=== PATIENT | male | born 1940 | race Caucasian/White ===

== ENCOUNTER 2016-10-27 23:19 | Inpatient (IN) | payer MEDICARE ==
--- NOTE | 2016-10-27 23:41 | ED Physician Chart ---
Chief Complaint/HPI - Patient Information Date Seen:: 10/27/16 Time Seen:: 23:30 Chief Complaint:: abdominal pain and diarrhea History of Present Illness:: Patient's had mild left lower quadrant abdominal pain and diarrhea for the last 10 days. Lab results returned positive for C diff today. Historian:: Patient Review:: Nurse's Note Reviewed, Transfer documents Reviewed Review of Systems - Review of Systems General/Constitutional: No fever, No chills Skin: No skin lesions Head: No headache Eyes: No loss of vision ENT: No earache Neck: No neck pain, No swelling Cardio Vascular: No chest pain, No palpitations Pulmonary: No SOB GI: Diarrhea, Pain G/U: No dysuria, No hematuria Musculoskeletal: No bone or joint pain Endocrine: No polyuria Psychiatric: No prior psych history, No depression, No anxiety Hematopoietic: No bruising Allergic/Immuno: No urticaria Neurological: No syncope, No focal symptoms Past Medical History - Past Medical History Past Medical History: HTN, PUD/GERD, Other (renal failure on dialysis for 4-5 year; sacral decubitus; acute and chronic wrist failure;) Family History: Diabetes Melitus Social History: Non Smoker, No Alcohol Surgical History: other (dialysis shunt; renal transplant one year ago; carpal tunnel both wrists) Psychiatricy History: None Medication: Reviewed Family Medical History - Family Member Mother History Unknown: Yes Physical Exam - Physical Examination General/Constitutional: Awake, Well-developed, well-nourished Head: Atraumatic Eyes: Lids, conjuctiva normal Skin: Nl inspection, No rash ENMT: External ears, nose nl, Lips, teeth, gums nl Neck: No nuchal rigidity Respiratory: Nl effort/Exclusion Other Respiratory comments:: Decreased breath sounds at bases and one out of 4 right basilar rales Cardio Vascular: RRR, No murmur, gallop, rubs GI: No hernia, Normal BS's, Nondistended Other GI comments:: 1 out of 4 left lower quadrant tenderness Extremities: Normal digits & nails Neuro/Psych: Alert/oriented, No focal deficits Misc: Normal back Labs/Radiology/EKG Results - Lab Results Results: Laboratory Results - last 24 hr 10/27/16 10/27/16 10/27/16 23:51 23:51 23:51 WBC 15.1 H RBC 3.36 L Hgb 10.4 L Hct 31.4 L MCV 93.3 MCH 31.0 MCHC Differential 33.2 RDW 18.8 Plt Count 177 MPV 8.7 Sodium 138 Potassium 3.8 Chloride 103 Carbon Dioxide 31.0 Anion Gap 7.8 BUN 17 Creatinine 1.1 Est GFR ( Amer) TNP Est GFR (Non-Af Amer) TNP BUN/Creatinine Ratio 15.5 Glucose 130 H Whole Bld Lactic Acid Calcium 9.6 Magnesium 1.7 L B-Natriuretic Peptide Lipase 10/27/16 10/27/16 23:51 23:51 WBC RBC Hgb Hct MCV MCH MCHC Differential RDW Plt Count MPV Sodium Potassium Chloride Carbon Dioxide Anion Gap BUN Creatinine Est GFR ( Amer) Est GFR (Non-Af Amer) BUN/Creatinine Ratio Glucose Whole Bld Lactic Acid 1.01 Calcium Magnesium B-Natriuretic Peptide 1730.0 H Lipase - Radiology Results Results: CXR: cardiomegaly; pulmonary congestion. CTabdomen and pelvis: cholelithiasis ; acute sigmoid diverticulitis ED Septic Shock - . Is Septic Shock (SBP<90, OR Lactate>4 mmol\L) present?: No Reassessment (Disposition) - Reassessment Reassessment Condition:: Unchanged - Diagnosis Diagnosis:: Congestive heart failure; anemia; leukocytosis; acute sigmoid diverticulitis - Patient Disposition Admitted to:: Med/Surg Admitting Medical Physician:: Juan Dahl Condition at Disposition:: Stable, Unchanged
[2016-10-28 00:03] LABS: HEMATOCRIT 31.4 % (39.0-49.0); HEMOGLOBIN 10.4 gm/dL (12.6-17.4); MEAN CELL VOLUME 93.3 fl (80-99); MEAN CORPUSCULAR HGB CONC 33.2 pg (28.0-36.0); MEAN PLATELET VOLUME 8.7 fl; PLATELET COUNT 177 Th/cmm (150-400); RED BLOOD COUNT 3.36 Mil/cmm (3.80-5.80); RED CELL DISTRIBUTION WIDTH 18.8 % (11.5-20.0)
[2016-10-28 00:13] LABS: WHITE BLOOD COUNT 15.1 Th/cmm (4.8-10.8)
[2016-10-28 00:21] LABS: ANION GAP 7.8 (7.0-16.0); BUN - UREA NITROGEN 17 mg/dL (7-25); BUN/CREATININE RATIO 15.5; CALCIUM SERUM 9.6 mg/dL (8.6-10.3); CHLORIDE 103 mEq/L (98-107); CREATININE - SERUM 1.1 mg/dL (0.7-1.3); GLUCOSE 130 mg/dL (70-105); MAGNESIUM 1.7 mg/dL (1.9-2.7); POTASSIUM SERUM 3.8 mEq/L (3.5-5.1); SODIUM SERUM 138 mEq/L (136-145)
[2016-10-28] MEDS ORDERED: metroNIDAZOLE 500mg/NS 100mL 500 MG in Premix Fluid 1 BAG IV ONE (03:08)
[2016-10-28] MEDS ORDERED: metroNIDAZOLE 500mg/NS 100mL 500 MG/100 ML BAG IV ONE (03:25)
[2016-10-28 03:38] LABS: URINE BILIRUBIN NEGATIVE (NEGATIVE); URINE BLOOD NEGATIVE (NEGATIVE); URINE COLOR YELLOW; URINE GLUCOSE (UA) NEGATIVE (NEGATIVE); URINE KETONE NEGATIVE (NEGATIVE); URINE PH 5.5 (4.6 - 8.0); URINE PROTEIN 30 mg/dL (NEGATIVE)
[2016-10-28 03:39] LABS: URINE UROBILINOGEN 0.2 E.U./dL (0.2 - 1.0)
[2016-10-28 03:40] LABS: URINE BACTERIA NONE SEEN /hpf (NONE SEEN); URINE EPITHELIAL CELLS NONE SEEN /lpf (FEW); URINE RBC NONE SEEN /hpf (0-5)
[2016-10-28] MEDS ORDERED: INSULIN ASPART SLIDING SCALE 100 UNITS/ML UNIT SUBQ PRN (03:51)
[2016-10-28 04:41] LABS: BAND NEUTROPHILE 6 % (0-10); BASOPHIL 0 % (0-3); EOSINOPHIL 0 % (0-5); NEUTROPHILS 85 % (40-80); PLATELET ESTIMATE ADEQUATE (NORMAL); PLATELET MORPHOLOGY NORMAL (NORMAL); TOTAL CELLS COUNTED 100
[2016-10-28 05:13] VITALS: BP 149/71
[2016-10-28] MEDS: INSULIN ASPART SLIDING SCALE 100 UNITS/ML UNIT SUBQ SCH ×4 (06:45→20:42)
[2016-10-28 07:09] LABS: HEMATOCRIT 30.2 % (39.0-49.0); MEAN CORPUSCULAR HEMOGLOBIN 30.9 pg (27.0-31.0); MEAN CORPUSCULAR HGB CONC 33.3 pg (28.0-36.0); MEAN PLATELET VOLUME 8.9 fl; PLATELET COUNT 168 Th/cmm (150-400); RED BLOOD COUNT 3.25 Mil/cmm (3.80-5.80); RED CELL DISTRIBUTION WIDTH 18.4 % (11.5-20.0)
[2016-10-28 07:33] LABS: ANION GAP 7.3 (7.0-16.0); BUN - UREA NITROGEN 16 mg/dL (7-25); BUN/CREATININE RATIO 14.5; CALCIUM SERUM 9.5 mg/dL (8.6-10.3); CARBON DIOXIDE 31.9 mEq/L (21.0-31.0); CHLORIDE 105 mEq/L (98-107); CREATININE - SERUM 1.1 mg/dL (0.7-1.3); GLUCOSE 95 mg/dL (70-105); POTASSIUM SERUM 3.2 mEq/L (3.5-5.1); SODIUM SERUM 141 mEq/L (136-145)
[2016-10-28] MEDS ORDERED: Hydrocodone/APAP 10 mg/325 mg Tab PO PRN (07:35)
[2016-10-28] MEDS ORDERED: Albuterol/Ipratropium Neb 3 ML AERS HHN PRN (07:35)
[2016-10-28 08:00] LABS: WHITE BLOOD COUNT 12.4 Th/cmm (4.8-10.8)
[2016-10-28 08:02] LABS: BAND NEUTROPHILE 3 % (0-10); NEUTROPHILS 85 % (40-80); TOTAL CELLS COUNTED 100
[2016-10-28 08:03] LABS: ANISOCYTOSIS 1+; PLATELET ESTIMATE ADEQUATE (NORMAL); PLATELET MORPHOLOGY NORMAL (NORMAL)
--- NOTE | 2016-10-28 08:03 | Diagnostic Imaging Report ---
CT scan abdomen and pelvis without intravenous contrast HISTORY: Pain Total DLP equals 698 CTDI equals 13.1 Axial sections were obtained from the xiphoid process down to the pubic symphysis. Limited sections the lower chest demonstrate cardiomegaly. There are moderate bilateral pleural effusions. Pulmonary parenchymal density noted within the lower lobes consistent with atelectasis and/or consolidation. The liver exhibits a homogeneous parenchyma. No focal lesions. The spleen is normal in size. Multiple gallstones are seen. No focal abnormality seen in the region of the pancreas. Kidneys are atrophic bilaterally. Minimal ascites/perihepatic fluid noted. A transplant kidney is noted in the right iliac fossa. No focal lesions or hydronephrosis. Diverticula scattered within the colon. There is haziness along a segment of the lower descending/sigmoid colon. Inflammatory change (diverticulitis) cannot be excluded. Small amount of fluid noted in the lower pelvis. Clinical correlation is needed. Extensive surgical changes associated with metallic orthopedic hardware noted within the lumbar spine. Calcifications noted within the subcutaneous fatty tissues over the gluteal regions consistent with prior percutaneous injections. Additional severe degenerative changes noted throughout the spine. Atherosclerotic vascular calcification noted. IMPRESSION: 1. Haziness along a segment of the lower descending/sigmoid colon. Changes may be associated with acute diverticulitis. Clinical correlation is needed. 2. Right transplant kidney associated with atrophic bill moore[place] slough kidneys 3. Surgical and severe degenerative changes within the spine 4. Cardiomegaly with bilateral pleural effusions and underlying pulmonary parenchymal changes consistent with atelectasis and/or consolidation 5. Cholelithiasis
--- NOTE | 2016-10-28 08:06 | Diagnostic Imaging Report ---
Portable chest x-ray HISTORY: Shortness of breath There is marked cardiomegaly. Density seen within the left lower hemithorax with obscuration of the left hemidiaphragm. Findings suggest changes of a left pleural effusion. Underlying pulmonary parenchymal pathology including pneumonia and/or atelectasis cannot be excluded. Atherosclerotic calcification seen in the aorta. IMPRESSION: 1. Marked cardiomegaly with atherosclerotic vascular changes 2. Opacification of the left lower hemithorax consistent with a pleural effusion. Underlying pneumonia and/or atelectasis cannot be needed.
[2016-10-28] MEDS ORDERED: MYCOPHENOLATE MOFETIL 750 MG PO SCH ×2 (09:00)
[2016-10-28] MEDS ORDERED: Diphenoxylate/Atropine 2.5mg Tab PO SCH (09:00)
[2016-10-28] MEDS ORDERED: Non-Formulary Item 1 EA (Arginine/Ascorbate Sod/Vite Ac [Arginaid Powder] 1 EACH) PO SCH (09:00)
[2016-10-28] MEDS ORDERED: Potassium Chloride 20 mEq ER Tab PO SCH (09:00)
[2016-10-28] MEDS: Ferrous Sulfate 325 MG TAB PO SCH (09:20)
[2016-10-28] MEDS: Multivitamin Tab PO SCH (09:21)
[2016-10-28] MEDS: Pantoprazole 40 mg EC Tab PO SCH (09:33)
[2016-10-28] MEDS ORDERED: metroNIDAZOLE 500mg/NS 100mL 500 MG in Premix Fluid 1 BAG IV SCH (11:30)
[2016-10-28] MEDS: Diltiazem 30 mg Tab PO SCH ×2 (12:49→17:27)
[2016-10-28] MEDS ORDERED: Mag Sulfate 2gm/50mL Premix 2 GM/50 ML BAG IV ONE (13:41)
[2016-10-28] MEDS ORDERED: VTE Chemical Prophylaxis Screen/Admission MC PRN (13:46)
--- NOTE | 2016-10-28 14:45 | Infectious Disease Prog Note ---
Infectious Disease Subjective - Review of Systems Service Date: 10/28/16 Infectious Disease Objective - Results Result Diagrams: 10/28/16 06:20 10/28/16 06:20 Recent Labs: Laboratory Last Values WBC 12.4 Th/cmm (4.8-10.8) H 10/28/16 06:20 RBC 3.25 Mil/cmm (3.80-5.80) L 10/28/16 06:20 Hgb 10.0 gm/dL (12.6-17.4) L 10/28/16 06:20 Hct 30.2 % (39.0-49.0) L 10/28/16 06:20 MCV 93.0 fl (80-99) 10/28/16 06:20 MCH 30.9 pg (27.0-31.0) 10/28/16 06:20 MCHC Differential 33.3 pg (28.0-36.0) 10/28/16 06:20 RDW 18.4 % (11.5-20.0) 10/28/16 06:20 Plt Count 168 Th/cmm (150-400) 10/28/16 06:20 MPV 8.9 fl 10/28/16 06:20 Band Neutrophils % 3 % (0-10) 10/28/16 06:20 Neutrophils (Manual) 85 % (40-80) H 10/28/16 06:20 Lymphocytes 3 % (20-50) L 10/28/16 06:20 Monocytes 8 % (2-10) 10/28/16 06:20 Eosinophils 0 % (0-5) 10/27/16 23:51 Basophils 0 % (0-3) 10/27/16 23:51 Atypical Lymphocytes 1 % 10/28/16 06:20 Platelet Estimate ADEQUATE (NORMAL) 10/28/16 06:20 Platelet Morphology NORMAL (NORMAL) 10/28/16 06:20 Anisocytosis 1+ 10/28/16 06:20 RBC Morph Micro Appear ABNORMAL (NORMAL) 10/28/16 06:20 Sodium 141 mEq/L (136-145) 10/28/16 06:20 Potassium 3.2 mEq/L (3.5-5.1) L 10/28/16 06:20 Chloride 105 mEq/L (98-107) 10/28/16 06:20 Carbon Dioxide 31.9 mEq/L (21.0-31.0) H 10/28/16 06:20 Anion Gap 7.3 (7.0-16.0) 10/28/16 06:20 BUN 16 mg/dL (7-25) 10/28/16 06:20 Creatinine 1.1 mg/dL (0.7-1.3) 10/28/16 06:20 Est GFR ( Amer) TNP 10/28/16 06:20 Est GFR (Non-Af Amer) TNP 10/28/16 06:20 BUN/Creatinine Ratio 14.5 10/28/16 06:20 Glucose 95 mg/dL (70-105) 10/28/16 06:20 POC Glucose 119 MG/DL (70 - 105) H 10/28/16 11:32 Whole Bld Lactic Acid 1.01 mmol/L (0.60-1.99) 10/27/16 23:51 Calcium 9.5 mg/dL (8.6-10.3) 10/28/16 06:20 Magnesium 1.7 mg/dL (1.9-2.7) L 10/27/16 23:51 B-Natriuretic Peptide 1730.0 pg/mL (5.0-100.0) H 10/27/16 23:51 Lipase 25 U/L (11-82) 10/27/16 23:51 Urine Source RANDOM 10/28/16 02:25 Urine Color YELLOW 10/28/16 02:25 Urine Clarity CLEAR (CLEAR) 10/28/16 02:25 Urine pH 5.5 (4.6 - 8.0) 10/28/16 02:25 Ur Specific [place] 1.025 (1.005-1.030) 10/28/16 02:25 Urine Protein 30 mg/dL (NEGATIVE) H 10/28/16 02:25 Urine Glucose (UA) NEGATIVE mg/dL (NEGATIVE) 10/28/16 02:25 Urine Ketones NEGATIVE mg/dL (NEGATIVE) 10/28/16 02:25 Urine Blood NEGATIVE (NEGATIVE) 10/28/16 02:25 Urine Nitrate NEGATIVE (NEGATIVE) 10/28/16 02:25 Urine Bilirubin NEGATIVE (NEGATIVE) 10/28/16 02:25 Urine Urobilinogen 0.2 E.U./dL (0.2 - 1.0) 10/28/16 02:25 Ur Leukocyte Esterase TRACE (NEGATIVE) H 10/28/16 02:25 Urine RBC NONE SEEN /hpf (0-5) 10/28/16 02:25 Urine WBC 2-5 /hpf (0-5) H 10/28/16 02:25 Ur Epithelial Cells NONE SEEN /lpf (FEW) 10/28/16 02:25 Urine Bacteria NONE SEEN /hpf (NONE SEEN) 10/28/16 02:25 - Physical Exam Vitals and I&O: Vital Signs Temp 97.1 F 10/28/16 11:00 Pulse 88 10/28/16 12:49 Resp 14 10/28/16 11:59 BP 156/72 10/28/16 11:00 Pulse Ox 96 10/28/16 11:59 Intake & Output 10/27/16 10/28/16 10/28/16 18:59 06:59 18:59 Intake Total 220 Balance 220 Weight (lbs) 94.801 kg Intake: Intake, IV Amount 100 Oral 120 Other: # Voids 1 Active Medications: Current Medications Acetaminophen/Hydrocodone Bitart ([place] 10 Mg/325 Mg) 1 tab PO Q6H PRN PRN Reason: Pain (Moderate) Stop: 12/27/16 07:34 Albuterol/Ipratropium (Duoneb Neb) 3 ml HHN Q4HR PRN PRN Reason: Shortness of Breath Stop: 12/27/16 07:34 Ascorbic Acid (Vitamin C) 500 mg PO DAILY HUMERA Stop: 12/27/16 08:59 Last Admin: 10/28/16 09:21 Dose: 500 mg Diltiazem HCl (Cardizem) 30 mg PO Q6HR HUMERA Stop: 12/27/16 11:59 Last Admin: 10/28/16 12:49 Dose: 30 mg Ferrous Sulfate (Iron) 325 mg PO DAILY HUMERA Stop: 12/27/16 08:59 Last Admin: 10/28/16 09:20 Dose: 325 mg Furosemide (Lasix) 20 mg PO DAILY HUMERA Stop: 12/27/16 08:59 Last Admin: 10/28/16 09:21 Dose: 20 mg Heparin Sodium (Porcine) (Heparin) 5,000 units SUBQ Q12H HUMERA Stop: 12/27/16 20:59 Magnesium Sulfate (Magnesium Sulfate Premix) 2 gm in 50 mls @ 25 mls/hr IV X1 ONE Stop: 10/28/16 15:40 Last Admin: 10/28/16 13:54 Dose: 25 mls/hr Insulin Aspart (Novolog Insulin Sliding Scale) 0 units SUBQ ACHS HUMERA PRN Reason: Protocol Stop: 12/27/16 07:29 Last Admin: 10/28/16 11:48 Dose: Not Given Metronidazole (Flagyl) 500 mg PO TID HUMERA Stop: 12/27/16 11:59 Last Admin: 10/28/16 12:49 Dose: 500 mg Miscellaneous (Mycophenolate Mofetil [Cellcept]) 750 mg PO BID HUMERA Stop: 12/27/16 08:59 Miscellaneous (Vte Chemical Prophylaxis Screen/ Admission) 1 ea MC PRN PRN PRN Reason: PROTOCOL Stop: 12/27/16 13:45 Multivitamins/Vitamin C (Theragran) 1 tab PO DAILY HUMERA Stop: 12/27/16 08:59 Last Admin: 10/28/16 09:21 Dose: 1 tab Nitroglycerin (Nitrostat) 0.4 mg SL Q5MIN PRN PRN Reason: Chest Pain Stop: 12/27/16 07:34 Pantoprazole Sodium (Protonix) 40 mg PO QDAC HUMERA Stop: 12/27/16 08:59 Last Admin: 10/28/16 09:33 Dose: 40 mg Mycophentholate (750mg Tab) 1 PO BID HUMERA Stop: 12/27/16 08:59 Last Admin: 10/28/16 11:03 Dose: Not Given Potassium Chloride (Klor-Con) 40 meq PO DAILY HUMERA Stop: 12/27/16 08:59 Last Admin: 10/28/16 09:20 Dose: 40 meq Prednisone (Deltasone) 20 mg PO DAILY HUMERA Stop: 12/27/16 08:59 Last Admin: 10/28/16 09:20 Dose: 20 mg Tacrolimus (Prograf) 1 mg PO BID HUMERA Stop: 12/27/16 08:59 Last Admin: 10/28/16 11:03 Dose: Not Given Zinc Sulfate (Zinc Sulfate) 220 mg PO DAILY HUMERA Stop: 12/27/16 08:59 Last Admin: 10/28/16 09:21 Dose: 220 mg Zolpidem Tartrate (Ambien) 5 mg PO HS PRN PRN Reason: Insomnia Stop: 12/27/16 07:34 Nutritional Asmnt/Malnutr-PDOC - Dietary Evaluation Malnutrition Findings (Please click <Entered> for more info): Nutritional Asmnt/Malnutrition Start: 10/28/16 11: 15 Text: Status: Complete Freq: Document 10/28/16 11:15 [email or web address] (Rec: 10/28/16 11:40 GSUN [id number]) Nutritional Asmnt/Malnutrition Patient General Information Nutritional Screening High Risk Screening Diagnosis C Diff, acute sigmoid diverticulitis, CHF Pertinent Medical Hx/Surgical Hx ER: HTN, PUD/GERD, renal failure on dialysis for 4-5 years received right kidney transplant, Subjective Information 76 year old male from SNF. Per ER notes, pt had abdominal pain and diarrhea for past 10 days. Pt stated no diarrhea today or yesterday, since adm. 10/28 CT: diverticula, diverticulitis cannot be excluded. Observed disbosable breakfast tray at bedside during visit, pt stated he just woke up and ready to eat. Pt reported appetite has been poor, "food at [place] is horrible," and that he has recent weight loss due to this , weight was 225lb 2 weeks ago , CBW 210lb, questionable. RD noted pt's food preferences. No muscle wasting noted. Current Diet Order/ Nutrition Support Low sodium Pertinent Medications Vitamin C, Iron, Lasic, Novolog, Theragran, Zinc Sulfate Pertinent Labs Reviewed. Nutritional Hx/Data Height 1.88 m Height (Calculated Centimeters) 188.0 Current Weight (lbs) 94.801 kg Weight (Calculated Kilograms) 94.8 Weight (Calculated Grams) 83287.8 Usual body Weight (lbs) 225 [place] Body Weight 190 Recent Weight Change Yes Weight Status Overweight GI Symptoms Food Allergies No Cultural/Ethnic/Caodaism Belief Dislikes gravy, fish, yogurt. Usual diet at home [place]: renal, CCHO, OSKAR, regular consistency Skin Integrity/Comment: [place] 16. Skin tear to right hand and left leg. Estimated Nutritional Goals BEE in Kcals: Using Current wt Calories/Kcals/Kg CBW 209lb/95kg Kcals Calculated 2375-2850kcal (25-30kcal/kg) Protein: Using Current wt Protein Calculated 95g (1g/kg) Fluid: ml 2375-2850ml (1ml/kcal) Nutritional Problem 2. Problem Problem (possible) Involuntary weight loss related to Etiology "food at [place] is horrible" aeb Signs/Symptoms: pt report ~15lb weight loss in 2 weeks 1. Problem Problem Altered GI function related to Etiology C Diff, diverticulitis aeb Signs/Symptoms: abdominal and diarrhea x10 days prior to adm per ER notes Intervention/Recommendation Comments 1. Continue with low sodium diet. 2. Recommend soft/bland diet if diarrhea or diverticulitis. Pt report currently no diarrhea. CT abdomen: diverticula, diverticulitis cannot be excluded. 3. Monitor weight. CBW 210lb, pt report weight 225lb 2 weeks ago, involuntary weight loss due to "food at [place] is horrible." Obtained pt's food preferences. Expected Outcomes/Goals Expected Outcomes/Goals 1. PO intake to meet at least 75% of estimated nutritional needs.
--- NOTE | 2016-10-28 14:47 | Consultation ---
Consult Note - Consult Note Service Date: 10/28/16 Consult Note: PHYSICIAN Consultation Note: Date of Admission: 10/28/16 Purpose of Consultation: Chief Complaint: Patient DARBY MOLINA was admitted to location Medical[facility]Surgical Unit I with SIGMOID DIVERTICULITS,C-DIFF,CHF. History of Present Illness: 76 y male with history of renal failure and had renal transplant last year, had developed diarrhea for last 10 days and stool for c diff toxin came positive, so he was sent to the ER for further treatment. CT abd and pelvis revealed diverticulitis. He was put on flagylIV and ID consult was called for antibiotic management. Past Medical History: Allergies Allergy/AdvReac Type Severity Reaction Status Date / Time Penicillins Allergy Verified 10/27/16 23:50 Vital Signs Temp 97.1 F 10/28/16 11:00 Pulse 88 10/28/16 12:49 Resp 14 10/28/16 11:59 BP 156/72 10/28/16 11:00 Pulse Ox 96 10/28/16 11:59 Intake & Output 10/27/16 10/28/16 10/28/16 18:59 06:59 18:59 Intake Total 220 Balance 220 Weight (lbs) 94.801 kg Intake: Intake, IV Amount 100 Oral 120 Other: # Voids 1 Laboratory Results - last 24 hr 10/28/16 10/28/16 10/28/16 05:35 06:20 06:20 WBC 12.4 H RBC 3.25 L Hgb 10.0 L Hct 30.2 L MCV 93.0 MCH 30.9 MCHC Differential 33.3 RDW 18.4 Plt Count 168 MPV 8.9 Band Neutrophils % 3 Neutrophils (Manual) 85 H Lymphocytes 3 L Monocytes 8 Atypical Lymphocytes 1 Platelet Estimate ADEQUATE Platelet Morphology NORMAL Anisocytosis 1+ RBC Morph Micro Appear ABNORMAL Sodium 141 Potassium 3.2 L Chloride 105 Carbon Dioxide 31.9 H Anion Gap 7.3 BUN 16 Creatinine 1.1 Est GFR ( Amer) TNP Est GFR (Non-Af Amer) TNP BUN/Creatinine Ratio 14.5 Glucose 95 POC Glucose 88 Calcium 9.5 10/28/16 11:32 WBC RBC Hgb Hct MCV MCH MCHC Differential RDW Plt Count MPV Band Neutrophils % Neutrophils (Manual) Lymphocytes Monocytes Atypical Lymphocytes Platelet Estimate Platelet Morphology Anisocytosis RBC Morph Micro Appear Sodium Potassium Chloride Carbon Dioxide Anion Gap BUN Creatinine Est GFR ( Amer) Est GFR (Non-Af Amer) BUN/Creatinine Ratio Glucose POC Glucose 119 H Calcium Home Medication Medication Instructions Recorded Type Acetaminophen [Tylenol] 325 mg PO Q4HR PRN 10/28/16 History Albuterol/Ipratropium Neb [Duoneb 3 ml HHN Q4HR PRN 10/28/16 History Neb] Arginine/Ascorbate Sod/Janel AC 1 each PO DAILY 10/28/16 History [Arginaid Powder] Ascorbic Acid [Vitamin C] 500 mg PO DAILY 10/28/16 History Diltiazem [Cardizem] 30 mg PO Q6HR 10/28/16 History Diphenoxylate HCl/Atropine 1 tab PO TID 10/28/16 History [Lomotil 2.5-0.025 mg Tablet] Docusate Sodium [Colace] 100 mg PO BID 10/28/16 History Ferrous Sulfate [Iron] 325 mg PO DAILY 10/28/16 History Furosemide [Lasix] 20 mg PO DAILY 10/28/16 History GLUCAGON HCl [Glucagen] 1 mg IM Q6HR PRN 10/28/16 History Hydrocodone/APAP 10 mg/325 mg 1 tab PO Q6H PRN 10/28/16 History [[place] 10 mg/325 mg] Insulin Aspart Sliding Scale See Protocol SUBQ PRN PRN 10/28/16 History [NovoLOG INSULIN SLIDING SCALE] Lactulose 30 ml PO Q6HR 10/28/16 History Multivitamin [Theragran] 1 tab PO DAILY 10/28/16 History Mycophenolate Mofetil [Cellcept] 750 mg PO BID 10/28/16 History Nitroglycerin 0.4 mg SL Q5MIN PRN MDD 3 10/28/16 History Pantoprazole [Protonix] 40 mg PO DAILY 10/28/16 History Potassium Chloride ER [Klor-Con] 40 meq PO DAILY 10/28/16 History Prednisone [Deltasone] 20 mg PO DAILY 10/28/16 History Tacrolimus [Prograf] 1 mg PO BID 10/28/16 History Zinc Sulfate [Zinc Sulfate 111 1 tab PO DAILY 10/28/16 History mg-50 mg] Zolpidem Tartrate 5 mg PO HS PRN 10/28/16 History cloNIDine 0.2 mg/24 hr 1 patch TD Th 10/28/16 History [[id number]*] Current Medications Generic Name Dose Route Start Last Admin Trade Name Freq PRN Reason Stop Dose Admin Acetaminophen/Hydrocodone Bitart 1 tab 10/28/16 07:35 [place] 10 Mg/325 Mg PO 12/27/16 07:34 Q6H PRN Pain (Moderate) Albuterol/Ipratropium 3 ml 10/28/16 07:35 Duoneb Neb HHN 12/27/16 07:34 Q4HR PRN Shortness of Breath Ascorbic Acid 500 mg 10/28/16 09:00 10/28/16 09:21 Vitamin C PO 12/27/16 08:59 500 mg DAILY HUMERA Administration Diltiazem HCl 30 mg 10/28/16 12:00 10/28/16 12:49 Cardizem PO 12/27/16 11:59 30 mg Q6HR HUMERA Administration Ferrous Sulfate 325 mg 10/28/16 09:00 10/28/16 09:20 Iron PO 12/27/16 08:59 325 mg DAILY HUMERA Administration Furosemide 20 mg 10/28/16 09:00 10/28/16 09:21 Lasix PO 12/27/16 08:59 20 mg DAILY HUMEAR Administration Heparin Sodium (Porcine) 5,000 units 10/28/16 21:00 Heparin SUBQ 12/27/16 20:59 Q12H HUMERA Magnesium Sulfate 2 gm in 50 mls @ 25 mls/hr 10/28/16 13:41 10/28/16 13:54 Magnesium Sulfate Premix IV 10/28/16 15:40 25 mls/hr X1 ONE Administration Insulin Aspart 0 units 10/28/16 07:30 10/28/16 11:48 Novolog Insulin Sliding Scale SUBQ 12/27/16 07:29 Not Given ACHS HUMERA Protocol Metronidazole 500 mg 10/28/16 12:00 10/28/16 12:49 Flagyl PO 12/27/16 11:59 500 mg TID HUMERA Administration Miscellaneous 750 mg 10/28/16 09:00 Mycophenolate Mofetil [Cellcept] PO 12/27/16 08:59 BID HUMERA Miscellaneous 1 ea 10/28/16 13:46 Vte Chemical Prophylaxis Screen/ Admission 12/27/16 13:45 PRN PRN PROTOCOL Multivitamins/Vitamin C 1 tab 10/28/16 09:00 10/28/16 09:21 Theragran PO 12/27/16 08:59 1 tab DAILY HUMERA Administration Nitroglycerin 0.4 mg 10/28/16 07:35 Nitrostat SL 12/27/16 07:34 Q5MIN PRN Chest Pain Pantoprazole Sodium 40 mg 10/28/16 09:00 10/28/16 09:33 Protonix PO 12/27/16 08:59 40 mg QDAC HUMERA Administration Mycophentholate 1 10/28/16 09:00 10/28/16 11:03 750mg Tab PO 12/27/16 08:59 Not Given BID HUMERA Potassium Chloride 40 meq 10/28/16 09:00 10/28/16 09:20 Klor-Con PO 12/27/16 08:59 40 meq DAILY HUMERA Administration Prednisone 20 mg 10/28/16 09:00 10/28/16 09:20 Deltasone PO 12/27/16 08:59 20 mg DAILY HUMERA Administration Tacrolimus 1 mg 10/28/16 09:00 10/28/16 11:03 Prograf PO 12/27/16 08:59 Not Given BID HUMERA Zinc Sulfate 220 mg 10/28/16 09:00 10/28/16 09:21 Zinc Sulfate PO 12/27/16 08:59 220 mg DAILY HUMERA Administration Zolpidem Tartrate 5 mg 10/28/16 07:35 Ambien PO 12/27/16 07:34 HS PRN Insomnia Review of Systems: A 12 point ROS was reviewed with the pertinent positive and negatives noted in the HPI. GEN:No fever, no chills. no gen weakness. HEENT: no diplopia, no photophobia, no sorethroat. RS: No cough no SOB. CVS: no chest pain. no palpitaions. GI: Diarrhea improving, , no dysuria. 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 Social History Smoking Status Former smoker Drug Use No Alcohol Use No: STOPPED LONG TIME AGO Family Medical History Unknown Physical Exam: General: WN WD, not in distress. HEENT: Head is normocephalic, atraumatic, not in any acute distress. oral cavity moist, eyes no pallor, no icterus. Neck: supple, no JVD, no carotid bruit. Cardio: S1 and S2 WNL. Respiratory: CTAP. Abdominal: Soft ND BS present, trasplanted kidney in RLQ. mild tenderness in LLQ. Genital/Urinary: deferred. Extremities: NCCE. Neurological: AAOx3. Assessment: 1. Duarrhea, C diff colitis. 2. Leukocytosis 2/2 CDI. 3. Renal failure, s/p renal transplant. 4. DM 5. Immuno-suppressed status. 6. Left sided pleural effusion. 7. CHF. Plan: Continue flagyl. Signed, Brian Santana M.D. [id number]
--- NOTE | 2016-10-28 19:35 | History & Physical ---
ADMIT DATE: 10/28/2016 HISTORY OF PRESENT ILLNESS: The patient had mild left lower quadrant pain that was lasting for 10 days, was having diarrhea and found to have C. diff. REVIEW OF SYSTEMS: No fever, no chills, no skin lesion, no headache, no loss of vision, complaining of diarrhea. PAST MEDICAL HISTORY: History of hypertension, peptic ulcer disease, history of renal failure on dialysis for 4-5 years, had an implant and the patient had sacral decubiti and recently has had surgery for his abdomen and perforated bowel. PHYSICAL EXAMINATION: GENERAL: Alert, oriented, elderly male patient. VITAL SIGNS: Noted. HEAD: Normal. ENT: Normal. NECK: Supple, nontender. LUNGS: Bilateral rales. CARDIOVASCULAR SYSTEM: S1, S2 heard. GASTROINTESTINAL: Abdomen is soft. Bowel sounds are heard. CENTRAL NERVOUS SYSTEM: Grossly normal. LABORATORY DATA: White count was 15.4 and his electrolytes, BUN and creatinine was little bit high. DIAGNOSES: Sepsis; systemic inflammatory response syndrome; possible infection, maybe need to rule out pneumonia chronic diarrhea and Clostridium difficile infection; anemia; history of diverticulosis; history of perforated bowel; history of renal transplant; history of chronic renal failure. PLAN: We will have a Nephrology consult and ID consult and I will follow the patient. [facility]# [id number]
--- NOTE | 2016-10-28 20:06 | Consultation ---
DATE OF CONSULTATION: 10/28/2016 ATTENDING PHYSICIAN: Dr. Hesham Greenberg PLATE SHOP HELPER: Sherman Page M.D. REASON FOR CONSULTATION: Electrolyte imbalance and fluid management. HISTORY OF PRESENT ILLNESS: This is a 76-year-old male with past medical history of status post kidney transplant who was brought in because of severe diarrhea. A few days prior to admission, the patient developed persistent diarrhea. This was associated with left lower quadrant pain. A few hours prior to admission, he could no longer tolerate the pain. His stool turned out to be positive for C. diff toxin. He was then brought to the Emergency Room. His white count was 15.1, with a CT scan of the abdomen/pelvis that revealed multiple gallbladder stones, diverticula with possible diverticulitis, DJD of the spine, and bilateral effusions. The patient had a history of end-stage renal disease and was on hemodialysis for 4-5 years. He underwent successful kidney transplant last year. His BUN/creatinine on admission were 17/1.1. He denied any nausea or vomiting. No fever or chills. PAST MEDICAL HISTORY: 1. Status post right lower quadrant kidney transplant. 2. Acute on chronic systolic CHF. 3. Chronic atrial fibrillation. 4. Type 2 diabetes mellitus. 5. Iron deficiency anemia of chronic kidney disease. 6. Sacral decubitus ulcer. PAST SURGICAL HISTORY: 1. Status post right kidney transplant. 2. Status post exploratory lap with repair of perforated intestine. CURRENT MEDICATIONS: He is currently on albuterol/ipratropium, ascorbic acid, Cardizem, Lomotil, ferrous sulfate, furosemide, Eckert, aspart, metronidazole, multivitamins, , pantoprazole, potassium, Prograf, vancomycin, and zolpidem. ALLERGIES: No known drug allergies. SOCIAL HISTORY: Denied any history of alcohol or tobacco abuse. 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 FAMILY HISTORY: Noncontributory to present illness. REVIEW OF SYSTEMS: GENERAL: He did complain of progressive weakness. Appetite had been poor due to his diarrhea and abdominal pain. No fever, no chills. HEENT: No mention of headaches, no dizziness. Visual acuity as well as hearing acuity has diminished due to age. CARDIORESPIRATORY: He has a history of CHF and atrial fibrillation. At this point, he does not have any shortness of breath, chest pain, palpitations, diaphoresis, or cough. MUSCULOSKELETAL: Multiple joint arthralgias. GENITOURINARY: History of end-stage renal disease in the past. However, he had a kidney transplant and kidney function remains within normal limits. HEMATOLOGIC: He has iron deficiency anemia of chronic kidney disease. NEUROPSYCH: No syncopal episode nor seizure activity. He has diabetic neuropathy. ENDOCRINE: He has a history of diabetes. PHYSICAL EXAMINATION: NEUROLOGIC: The patient is awake, verbal, comfortable, and oriented. VITAL SIGNS: Blood pressure is 156/72, pulse 88, and temperature 97.1 degrees. SKIN: Good turgor, warm, no rash, no jaundice appreciated. HEENT: Head is normocephalic and atraumatic. Eyes: Extraocular muscles intact. Pupils are equal, round, and reactive to light and accommodates. Anicteric sclerae. Pale conjunctivae. Nose, midline nasal septum. Mouth: Dry mucosa with adequate dentition. NECK: Supple. No adenopathy. No thyromegaly. No bruits. Trachea palpated in the midline. CHEST AND CVS: S1 and S2. No rub, murmur, nor gallop appreciated. Point of maximal impulse fifth intercostal space, left midclavicular line. No abdominal or femoral bruits appreciated. LUNGS: Equal expansion. No use of accessory muscles. No supraclavicular retractions. Decreased breath sounds, but clear to auscultation without any wheeze. ABDOMEN: Flat and soft. Positive for bowel sounds. No bruits either diastolic or systolic. He has a midline well-healed scar as well as right lower quadrant scar. GENITOURINARY: Normal appearing male genitalia. RECTAL: The patient refused. EXTREMITIES: No evidence of edema, cyanosis, nor clubbing with palpable femoral, popliteal, and dorsalis pedis pulses. NEUROLOGIC: The patient is alert, verbal. Motor is 5/5. Cranial nerves 2-12 intact. Sensory intact. LABORATORY DATA: Did reveal white count 12.4, hemoglobin 10, hematocrit 30.2, platelets is 168,000, and polys is 85%. Sodium 141, potassium 3.2, chloride 105, and bicarbonate 21. BUN 16, creatinine 1.1, glucose 119, calcium 9.5, and magnesium 1.7. BNP is 1730. IMPRESSION: 1. Status post kidney transplant with adequate kidney function. 2. Abdominal pain secondary to combination of diverticulitis and Clostridium difficile colitis, possible contributory factor from gallbladder stones. 3. Diarrhea secondary to Clostridium difficile colitis. 4. Minimal bilateral effusions. 5. Status post right lower quadrant kidney transplant. 6. Anemia of chronic systolic congestive heart failure. 7. Chronic atrial fibrillation. 8. Type 2 diabetes mellitus. 9. Iron deficiency, acute on chronic kidney disease. 10. Sacral decubitus ulcer. PLAN: 1. Replace potassium as well as magnesium. 2. Request for Prograf level. 3. Continue gentle diuresis due to presence of bilateral effusions and elevated BNP level, but the patient currently does not manifest any shortness of breath, no respiratory distress. 4. Follow up electrolytes, hemoglobin A1c, and serial chest x-ray. Thank you Dr. Dahl for this consult. I will follow the patient closely with you. JOB# [id number]
[2016-10-29] MEDS: Diltiazem 30 mg Tab PO SCH ×4 (06:11→17:15)
[2016-10-29] MEDS: INSULIN ASPART SLIDING SCALE 100 UNITS/ML UNIT SUBQ SCH ×4 (06:31→21:00)
[2016-10-29 07:18] LABS: ALB/GLOB RATIO 1.8 (1.0-1.8); ALKALINE PHOSPHATASE 52 U/L (34-104); ANION GAP 6.9 (7.0-16.0); BILIRUBIN,TOTAL 0.8 mg/dL (0.3-1.0); BUN - UREA NITROGEN 15 mg/dL (7-25); BUN/CREATININE RATIO 13.6; CALCIUM SERUM 9.6 mg/dL (8.6-10.3); CARBON DIOXIDE 31.3 mEq/L (21.0-31.0); CHLORIDE 105 mEq/L (98-107); CREATININE - SERUM 1.1 mg/dL (0.7-1.3); GLUCOSE 112 mg/dL (70-105); PHOSPHOROUS 2.1 mg/dL (2.5-5.0); POTASSIUM SERUM 3.2 mEq/L (3.5-5.1); SGOT 9 U/L (13-39); SGPT/ALT 10 U/L (7-52); SODIUM SERUM 140 mEq/L (136-145)
[2016-10-29 07:52] LABS: HEMATOCRIT 32.2 % (39.0-49.0); HEMOGLOBIN 10.7 gm/dL (12.6-17.4); MEAN CELL VOLUME 93.5 fl (80-99); MEAN CORPUSCULAR HEMOGLOBIN 30.9 pg (27.0-31.0); MEAN CORPUSCULAR HGB CONC 33.1 pg (28.0-36.0); MEAN PLATELET VOLUME 9.1 fl; PLATELET COUNT 188 Th/cmm (150-400); RED BLOOD COUNT 3.45 Mil/cmm (3.80-5.80); RED CELL DISTRIBUTION WIDTH 18.4 % (11.5-20.0)
[2016-10-29] MEDS ORDERED: Potassium Chloride 40 MEQ, Lidocaine 1% 20mL Vial 25 MG in Sodium Chloride 0.9% 250 ML IV ONE (08:08)
[2016-10-29 08:44] LABS: WHITE BLOOD COUNT 14.7 Th/cmm (4.8-10.8)
[2016-10-29] MEDS: Ferrous Sulfate 325 MG TAB PO SCH (08:55)
[2016-10-29] MEDS: Pantoprazole 40 mg EC Tab PO SCH (08:55)
[2016-10-29] MEDS: Multivitamin Tab PO SCH (08:56)
[2016-10-29 10:25] LABS: NEUTROPHILS 89 % (40-80)
[2016-10-29 10:26] LABS: EOSINOPHIL 1 % (0-5); PLATELET ESTIMATE ADEQUATE (NORMAL); PLATELET MORPHOLOGY NORMAL (NORMAL)
[2016-10-29] MEDS: MYCOPHENOLATE 250 MG PO SCH ×3 (10:31→17:14)
[2016-10-29 10:39] LABS: TOTAL CELLS COUNTED 100
--- NOTE | 2016-10-29 16:42 | Infectious Disease Prog Note ---
Infectious Disease Subjective - Review of Systems Service Date: 10/29/16 Subjective: No new change. Infectious Disease Objective - Results Result Diagrams: 10/29/16 06:25 10/29/16 06:25 Recent Labs: Laboratory Last Values WBC 14.7 Th/cmm (4.8-10.8) H 10/29/16 06:25 RBC 3.45 Mil/cmm (3.80-5.80) L 10/29/16 06:25 Hgb 10.7 gm/dL (12.6-17.4) L 10/29/16 06:25 Hct 32.2 % (39.0-49.0) L 10/29/16 06:25 MCV 93.5 fl (80-99) 10/29/16 06:25 MCH 30.9 pg (27.0-31.0) 10/29/16 06:25 MCHC Differential 33.1 pg (28.0-36.0) 10/29/16 06:25 RDW 18.4 % (11.5-20.0) 10/29/16 06:25 Plt Count 188 Th/cmm (150-400) 10/29/16 06:25 MPV 9.1 fl 10/29/16 06:25 Band Neutrophils % 3 % (0-10) 10/28/16 06:20 Neutrophils (Manual) 89 % (40-80) H 10/29/16 06:25 Lymphocytes 5 % (20-50) L 10/29/16 06:25 Monocytes 5 % (2-10) 10/29/16 06:25 Eosinophils 1 % (0-5) 10/29/16 06:25 Basophils 0 % (0-3) 10/27/16 23:51 Atypical Lymphocytes 1 % 10/28/16 06:20 Platelet Estimate ADEQUATE (NORMAL) 10/29/16 06:25 Platelet Morphology NORMAL (NORMAL) 10/29/16 06:25 Anisocytosis 1+ 10/28/16 06:20 RBC Morph Micro Appear NORMAL (NORMAL) 10/29/16 06:25 Eos Smear Source URINE 10/29/16 06:13 Eos Smear Total Cells NONE SEEN (NONE SEEN) 10/29/16 06:13 Sodium 140 mEq/L (136-145) 10/29/16 06:25 Potassium 3.2 mEq/L (3.5-5.1) L 10/29/16 06:25 Chloride 105 mEq/L (98-107) 10/29/16 06:25 Carbon Dioxide 31.3 mEq/L (21.0-31.0) H 10/29/16 06:25 Anion Gap 6.9 (7.0-16.0) L 10/29/16 06:25 BUN 15 mg/dL (7-25) 10/29/16 06:25 Creatinine 1.1 mg/dL (0.7-1.3) 10/29/16 06:25 Est GFR ( Amer) TNP 10/29/16 06:25 Est GFR (Non-Af Amer) TNP 10/29/16 06:25 BUN/Creatinine Ratio 13.6 10/29/16 06:25 Glucose 112 mg/dL (70-105) H 10/29/16 06:25 POC Glucose 157 MG/DL (70 - 105) H 10/29/16 16:27 Hemoglobin A1c % 5.2 % (4.0-6.0) 10/29/16 06:25 Whole Bld Lactic Acid 1.01 mmol/L (0.60-1.99) 10/27/16 23:51 Calcium 9.6 mg/dL (8.6-10.3) 10/29/16 06:25 Phosphorus 2.1 mg/dL (2.5-5.0) L 10/29/16 06:25 Magnesium 2.0 mg/dL (1.9-2.7) 10/29/16 06:25 Total Bilirubin 0.8 mg/dL (0.3-1.0) 10/29/16 06:25 AST 9 U/L (13-39) L 10/29/16 06:25 ALT 10 U/L (7-52) 10/29/16 06:25 Alkaline Phosphatase 52 U/L (34-104) 10/29/16 06:25 B-Natriuretic Peptide 1730.0 pg/mL (5.0-100.0) H 10/27/16 23:51 Total Protein 4.8 gm/dL (6.0-8.3) L 10/29/16 06:25 Albumin 3.1 gm/dL (4.2-5.5) L 10/29/16 06:25 Globulin 1.7 gm/dL 10/29/16 06:25 Albumin/Globulin Ratio 1.8 (1.0-1.8) 10/29/16 06:25 Lipase 25 U/L (11-82) 10/27/16 23:51 Urine Source RANDOM 10/28/16 02:25 Urine Color YELLOW 10/28/16 02:25 Urine Clarity CLEAR (CLEAR) 10/28/16 02:25 Urine pH 5.5 (4.6 - 8.0) 10/28/16 02:25 Ur Specific Viper 1.025 (1.005-1.030) 10/28/16 02:25 Urine Protein 30 mg/dL (NEGATIVE) H 10/28/16 02:25 Urine Glucose (UA) NEGATIVE mg/dL (NEGATIVE) 10/28/16 02:25 Urine Ketones NEGATIVE mg/dL (NEGATIVE) 10/28/16 02:25 Urine Blood NEGATIVE (NEGATIVE) 10/28/16 02:25 Urine Nitrate NEGATIVE (NEGATIVE) 10/28/16 02:25 Urine Bilirubin NEGATIVE (NEGATIVE) 10/28/16 02:25 Urine Urobilinogen 0.2 E.U./dL (0.2 - 1.0) 10/28/16 02:25 Ur Leukocyte Esterase TRACE (NEGATIVE) H 10/28/16 02:25 Urine RBC NONE SEEN /hpf (0-5) 10/28/16 02:25 Urine WBC 2-5 /hpf (0-5) H 10/28/16 02:25 Ur Epithelial Cells NONE SEEN /lpf (FEW) 10/28/16 02:25 Urine Bacteria NONE SEEN /hpf (NONE SEEN) 10/28/16 02:25 Ur Random Sodium 31 mmol/L 10/29/16 06:13 Urine Creatinine 108.0 mg/dl (39.0-259.0) 10/29/16 06:13 - Physical Exam Vitals and I&O: Vital Signs Temp 97.6 F 10/29/16 12:00 Pulse 89 10/29/16 12:49 Resp 20 10/29/16 12:00 BP 147/67 10/29/16 12:00 Pulse Ox 98 10/29/16 12:00 Intake & Output 10/28/16 10/29/16 10/29/16 18:59 06:59 18:59 Intake Total 250 480 Output Total 800 Balance 250 -320 Weight (lbs) 94.801 kg 94.801 kg Intake: Intake, IV Amount 250 Oral 480 Output: Urine 800 Other: # Bowel Movements 1 Stool Characteristics Soft Active Medications: Current Medications Acetaminophen/Hydrocodone Bitart (Liguori 10 Mg/325 Mg) 1 tab PO Q6H PRN PRN Reason: Pain (Moderate) Stop: 12/27/16 07:34 Albuterol/Ipratropium (Duoneb Neb) 3 ml HHN Q4HR PRN PRN Reason: Shortness of Breath Stop: 12/27/16 07:34 Ascorbic Acid (Vitamin C) 500 mg PO DAILY [facility] Stop: 12/27/16 08:59 Last Admin: 10/29/16 08:56 Dose: 500 mg Diltiazem HCl (Cardizem) 30 mg PO Q6HR [facility] Stop: 12/27/16 11:59 Last Admin: 10/29/16 12:49 Dose: 30 mg Ferrous Sulfate (Iron) 325 mg PO DAILY [facility] Stop: 12/27/16 08:59 Last Admin: 10/29/16 08:55 Dose: 325 mg Heparin Sodium (Porcine) (Heparin) 5,000 units SUBQ Q12H [facility] Stop: 12/27/16 20:59 Last Admin: 10/29/16 08:56 Dose: 5,000 units Insulin Aspart (Novolog Insulin Sliding Scale) 0 units SUBQ ACHS [facility] PRN Reason: Protocol Stop: 12/27/16 07:29 Last Admin: 10/29/16 12:48 Dose: Not Given Metronidazole (Flagyl) 500 mg PO TID [facility] Stop: 12/27/16 11:59 Last Admin: 10/29/16 14:07 Dose: 500 mg Miscellaneous (Vte Chemical Prophylaxis Screen/ Admission) 1 ea [facility] PRN PRN PRN Reason: PROTOCOL Stop: 12/27/16 13:45 Miscellaneous (Misc Oral Tab) 3 tab PO BID [facility] Stop: 12/28/16 08:59 Last Admin: 10/29/16 10:46 Dose: 3 tab Multivitamins/Vitamin C (Theragran) 1 tab PO DAILY [facility] Stop: 12/27/16 08:59 Last Admin: 10/29/16 08:56 Dose: 1 tab Nitroglycerin (Nitrostat) 0.4 mg SL Q5MIN PRN PRN Reason: Chest Pain Stop: 12/27/16 07:34 Pantoprazole Sodium (Protonix) 40 mg PO QDAC [facility] Stop: 12/27/16 08:59 Last Admin: 10/29/16 08:55 Dose: 40 mg Prednisone (Deltasone) 20 mg PO DAILY [facility] Stop: 12/27/16 08:59 Last Admin: 10/29/16 08:56 Dose: 20 mg Tacrolimus (Prograf) 1 mg PO BID [facility] Stop: 12/27/16 08:59 Last Admin: 10/29/16 10:46 Dose: 1 mg Zinc Sulfate (Zinc Sulfate) 220 mg PO DAILY [facility] Stop: 12/27/16 08:59 Last Admin: 10/29/16 08:55 Dose: 220 mg Zolpidem Tartrate (Ambien) 5 mg PO HS PRN PRN Reason: Insomnia Stop: 12/27/16 07:34 Last Admin: 10/28/16 20:53 Dose: 5 mg General: no acute distress, well developed, well nourished HEENT: atraumatic, normocephalic, PERRLA, EOMI Neck: supple Cardiovascular: S1S2, regular Lungs: clear to auscultation bilaterally, clear to percussion Abdomen: soft, no tender Extremities: no cyanosis, no clubbing, no edema Neurological: awake, alert, oriented Skin: intact Infectious Disease Assmt/Plan - Assessment Assessment: 1. CDAC. 2. Leukocytosis. - Plan Plan: Continue flagyl. Nutritional Asmnt/Malnutr-PDOC - Dietary Evaluation Malnutrition Findings (Please click <Entered> for more info): Nutritional Asmnt/Malnutrition Start: 10/28/16 11: 15 Text: Status: Complete Freq: Document 10/28/16 11:15 GSUN (Rec: 10/28/16 11:40 GSUN [email or web address]) Nutritional Asmnt/Malnutrition Patient General Information Nutritional Screening High Risk Screening Diagnosis C Diff, acute sigmoid diverticulitis, CHF Pertinent Medical Hx/Surgical Hx ER: HTN, PUD/GERD, renal failure on dialysis for 4-5 years received right kidney transplant, Subjective Information 76 year old male from SNF. Per ER notes, pt had abdominal pain and diarrhea for past 10 days. Pt stated no diarrhea today or yesterday, since adm. 10/28 CT: diverticula, diverticulitis cannot be excluded. Observed disbosable breakfast tray at bedside during visit, pt stated he just woke up and ready to eat. Pt reported appetite has been poor, "food at [place] is horrible," and that he has recent weight loss due to this , weight was 225lb 2 weeks ago , CBW 210lb, questionable. RD noted pt's food preferences. No muscle wasting noted. Current Diet Order/ Nutrition Support Low sodium Pertinent Medications Vitamin C, Iron, Lasic, Novolog, Theragran, Zinc Sulfate Pertinent Labs Reviewed. Nutritional Hx/Data Height 1.88 m Height (Calculated Centimeters) 188.0 Current Weight (lbs) 94.801 kg Weight (Calculated Kilograms) 94.8 Weight (Calculated Grams) 94289.8 Usual body Weight (lbs) 225 [place] Body Weight 190 Recent Weight Change Yes Weight Status Overweight GI Symptoms Food Allergies No Cultural/Ethnic/[employer] Belief Dislikes gravy, fish, yogurt. Usual diet at home [place]: renal, CCHO, OSKAR, regular consistency Skin Integrity/Comment: Ear[place] 16. Skin tear to right hand and left leg. Estimated Nutritional Goals BEE in Kcals: Using Current wt Calories/Kcals/Kg CBW 209lb/95kg Kcals Calculated 2375-2850kcal (25-30kcal/kg) Protein: Using Current wt Protein Calculated 95g (1g/kg) Fluid: ml 2375-2850ml (1ml/kcal) Nutritional Problem 2. Problem Problem (possible) Involuntary weight loss related to Etiology "food at [place] is horrible" aeb Signs/Symptoms: pt report ~15lb weight loss in 2 weeks 1. Problem Problem Altered GI function related to Etiology C Diff, diverticulitis aeb Signs/Symptoms: abdominal and diarrhea x10 days prior to adm per ER notes Intervention/Recommendation Comments 1. Continue with low sodium diet. 2. Recommend soft/bland diet if diarrhea or diverticulitis. Pt report currently no diarrhea. CT abdomen: diverticula, diverticulitis cannot be excluded. 3. Monitor weight. CBW 210lb, pt report weight 225lb 2 weeks ago, involuntary weight loss due to "food at [place] is horrible." Obtained pt's food preferences. Expected Outcomes/Goals Expected Outcomes/Goals 1. PO intake to meet at least 75% of estimated nutritional needs.
--- NOTE | 2016-10-29 20:27 | Progress Notes ---
DATE: 10/29/2016 SUBJECTIVE: The patient was seen in his room, lying in the bed. Per patient, he denies any discomfort. Denies any abdominal pain at this time. The patient said that he was able to tolerate his food without any difficulty. OBJECTIVE: VITAL SIGNS: Temperature 97.4, heart rate 93, respiration of 18, 97% on 2 liters cannula. Blood pressure 145/63. HEENT: Head is atraumatic, normocephalic. Eyes: Bilateral conjunctivae are clear. Bilateral pupils are equally round and reactive. NECK: Supple. No JVD. CARDIOVASCULAR: S1 and S2, without murmur. PULMONARY: Clear to auscultation. GASTROINTESTINAL: Soft and nontender without guarding. Positive bowel sounds. MUSCULOSKELETAL: No edema, no clubbing, no cyanosis noted. ASSESSMENT: 1.Clostridium difficile colitis. 2.Renal failure. 3.Congestive heart failure. 4.Diabetes. 5.Pleural effusion. 6.Diverticulitis. 7.Anemia. PLAN: We will continue to monitor the patient's condition. We will follow up with ID doctor and also with renal doctor to monitor the patient's condition. Treatment plans were discussed the patient's nurse. Treatment plans were discussed with Dr. Dahl. JOB# [id number]
[2016-10-30] MEDS: Diltiazem 30 mg Tab PO SCH ×4 (06:00→17:16)
[2016-10-30 06:54] LABS: HEMATOCRIT 32.1 % (39.0-49.0); HEMOGLOBIN 10.8 gm/dL (12.6-17.4); MEAN CELL VOLUME 92.8 fl (80-99); MEAN CORPUSCULAR HEMOGLOBIN 31.3 pg (27.0-31.0); MEAN CORPUSCULAR HGB CONC 33.7 pg (28.0-36.0); MEAN PLATELET VOLUME 8.9 fl; PLATELET COUNT 213 Th/cmm (150-400); RED BLOOD COUNT 3.46 Mil/cmm (3.80-5.80); RED CELL DISTRIBUTION WIDTH 18.3 % (11.5-20.0)
[2016-10-30] MEDS: INSULIN ASPART SLIDING SCALE 100 UNITS/ML UNIT SUBQ SCH ×4 (07:07→21:42)
[2016-10-30 07:10] LABS: ALB/GLOB RATIO 1.9 (1.0-1.8); ALKALINE PHOSPHATASE 55 U/L (34-104); ANION GAP 8.3 (7.0-16.0); BILIRUBIN,TOTAL 0.8 mg/dL (0.3-1.0); BUN - UREA NITROGEN 13 mg/dL (7-25); BUN/CREATININE RATIO 11.8; CALCIUM SERUM 9.8 mg/dL (8.6-10.3); CARBON DIOXIDE 29.1 mEq/L (21.0-31.0); CHLORIDE 105 mEq/L (98-107); CREATININE - SERUM 1.1 mg/dL (0.7-1.3); GLUCOSE 103 mg/dL (70-105); PHOSPHOROUS 2.3 mg/dL (2.5-5.0); POTASSIUM SERUM 3.4 mEq/L (3.5-5.1); SGOT 9 U/L (13-39); SGPT/ALT 12 U/L (7-52); SODIUM SERUM 139 mEq/L (136-145)
[2016-10-30 08:22] LABS: BAND NEUTROPHILE 2 % (0-10); EOSINOPHIL 1 % (0-5); NEUTROPHILS 90 % (40-80); PLATELET ESTIMATE ADEQUATE (NORMAL); TOTAL CELLS COUNTED 100
[2016-10-30] MEDS: Pantoprazole 40 mg EC Tab PO SCH (08:30)
[2016-10-30] MEDS: MYCOPHENOLATE 250 MG PO SCH ×2 (08:30→17:16)
[2016-10-30] MEDS: Multivitamin Tab PO SCH (08:31)
[2016-10-30] MEDS: Ferrous Sulfate 325 MG TAB PO SCH (08:31)
--- NOTE | 2016-10-30 12:18 | General Progress Note ---
Subjective - Review of Systems Events since last encounter: no changes Objective - Results Result Diagrams: 10/30/16 06:37 10/30/16 06:37 Recent Labs: Laboratory Last Values WBC 14.0 Th/cmm (4.8-10.8) H 10/30/16 06:37 RBC 3.46 Mil/cmm (3.80-5.80) L 10/30/16 06:37 Hgb 10.8 gm/dL (12.6-17.4) L 10/30/16 06:37 Hct 32.1 % (39.0-49.0) L 10/30/16 06:37 MCV 92.8 fl (80-99) 10/30/16 06:37 MCH 31.3 pg (27.0-31.0) H 10/30/16 06:37 MCHC Differential 33.7 pg (28.0-36.0) 10/30/16 06:37 RDW 18.3 % (11.5-20.0) 10/30/16 06:37 Plt Count 213 Th/cmm (150-400) 10/30/16 06:37 MPV 8.9 fl 10/30/16 06:37 Band Neutrophils % 2 % (0-10) 10/30/16 06:37 Neutrophils (Manual) 90 % (40-80) H 10/30/16 06:37 Lymphocytes 6 % (20-50) L 10/30/16 06:37 Monocytes 1 % (2-10) L 10/30/16 06:37 Eosinophils 1 % (0-5) 10/30/16 06:37 Basophils 0 % (0-3) 10/27/16 23:51 Atypical Lymphocytes 1 % 10/28/16 06:20 Platelet Estimate ADEQUATE (NORMAL) 10/30/16 06:37 Platelet Morphology NORMAL (NORMAL) 10/29/16 06:25 Anisocytosis 1+ 10/28/16 06:20 RBC Morph Micro Appear NORMAL (NORMAL) 10/29/16 06:25 Eos Smear Source URINE 10/29/16 06:13 Eos Smear Total Cells NONE SEEN (NONE SEEN) 10/29/16 06:13 Sodium 139 mEq/L (136-145) 10/30/16 06:37 Potassium 3.4 mEq/L (3.5-5.1) L 10/30/16 06:37 Chloride 105 mEq/L (98-107) 10/30/16 06:37 Carbon Dioxide 29.1 mEq/L (21.0-31.0) 10/30/16 06:37 Anion Gap 8.3 (7.0-16.0) 10/30/16 06:37 BUN 13 mg/dL (7-25) 10/30/16 06:37 Creatinine 1.1 mg/dL (0.7-1.3) 10/30/16 06:37 Est GFR ( Amer) TNP 10/30/16 06:37 Est GFR (Non-Af Amer) TNP 10/30/16 06:37 BUN/Creatinine Ratio 11.8 10/30/16 06:37 Glucose 103 mg/dL (70-105) 10/30/16 06:37 POC Glucose 136 MG/DL (70 - 105) H 10/30/16 11:25 Hemoglobin A1c % 5.2 % (4.0-6.0) 10/29/16 06:25 Whole Bld Lactic Acid 1.01 mmol/L (0.60-1.99) 10/27/16 23:51 Calcium 9.8 mg/dL (8.6-10.3) 10/30/16 06:37 Phosphorus 2.3 mg/dL (2.5-5.0) L 10/30/16 06:37 Magnesium 2.0 mg/dL (1.9-2.7) 10/29/16 06:25 Total Bilirubin 0.8 mg/dL (0.3-1.0) 10/30/16 06:37 AST 9 U/L (13-39) L 10/30/16 06:37 ALT 12 U/L (7-52) 10/30/16 06:37 Alkaline Phosphatase 55 U/L (34-104) 10/30/16 06:37 B-Natriuretic Peptide 1730.0 pg/mL (5.0-100.0) H 10/27/16 23:51 Total Protein 5.2 gm/dL (6.0-8.3) L 10/30/16 06:37 Albumin 3.4 gm/dL (4.2-5.5) L 10/30/16 06:37 Globulin 1.8 gm/dL 10/30/16 06:37 Albumin/Globulin Ratio 1.9 (1.0-1.8) H 10/30/16 06:37 Lipase 25 U/L (11-82) 10/27/16 23:51 Urine Source RANDOM 10/28/16 02:25 Urine Color YELLOW 10/28/16 02:25 Urine Clarity CLEAR (CLEAR) 10/28/16 02:25 Urine pH 5.5 (4.6 - 8.0) 10/28/16 02:25 Ur Specific [place] 1.025 (1.005-1.030) 10/28/16 02:25 Urine Protein 30 mg/dL (NEGATIVE) H 10/28/16 02:25 Urine Glucose (UA) NEGATIVE mg/dL (NEGATIVE) 10/28/16 02:25 Urine Ketones NEGATIVE mg/dL (NEGATIVE) 10/28/16 02:25 Urine Blood NEGATIVE (NEGATIVE) 10/28/16 02:25 Urine Nitrate NEGATIVE (NEGATIVE) 10/28/16 02:25 Urine Bilirubin NEGATIVE (NEGATIVE) 10/28/16 02:25 Urine Urobilinogen 0.2 E.U./dL (0.2 - 1.0) 10/28/16 02:25 Ur Leukocyte Esterase TRACE (NEGATIVE) H 10/28/16 02:25 Urine RBC NONE SEEN /hpf (0-5) 10/28/16 02:25 Urine WBC 2-5 /hpf (0-5) H 10/28/16 02:25 Ur Epithelial Cells NONE SEEN /lpf (FEW) 10/28/16 02:25 Urine Bacteria NONE SEEN /hpf (NONE SEEN) 10/28/16 02:25 Ur Random Sodium 31 mmol/L 10/29/16 06:13 Urine Creatinine 108.0 mg/dl (39.0-259.0) 10/29/16 06:13 - Physical Exam Vitals and I&O: Vital Signs Temp 98.5 F 10/30/16 04:00 Pulse 95 10/30/16 07:06 Resp 18 10/30/16 07:06 BP 119/76 10/30/16 04:00 Pulse Ox 93 10/30/16 07:06 Intake & Output 10/29/16 10/30/16 10/30/16 18:59 06:59 18:59 Intake Total 1200 400 Output Total 350 Balance 1200 50 Weight (lbs) 94.801 kg 95.799 kg Intake: Oral 1200 400 Output: Urine 350 Other: # Voids 3 # Bowel Movements 2 2 Stool Characteristics Soft Formed Brown Active Medications: Current Medications Acetaminophen/Hydrocodone Bitart ([place] 10 Mg/325 Mg) 1 tab PO Q6H PRN PRN Reason: Pain (Moderate) Stop: 12/27/16 07:34 Albuterol/Ipratropium (Duoneb Neb) 3 ml HHN Q4HR PRN PRN Reason: Shortness of Breath Stop: 12/27/16 07:34 Ascorbic Acid (Vitamin C) 500 mg PO DAILY [facility] Stop: 12/27/16 08:59 Last Admin: 10/30/16 08:31 Dose: 500 mg Diltiazem HCl (Cardizem) 30 mg PO Q6HR [facility] Stop: 12/27/16 11:59 Last Admin: 10/30/16 06:00 Dose: Not Given Ferrous Sulfate (Iron) 325 mg PO DAILY [facility] Stop: 12/27/16 08:59 Last Admin: 10/30/16 08:31 Dose: 325 mg Heparin Sodium (Porcine) (Heparin) 5,000 units SUBQ Q12H [facility] Stop: 12/27/16 20:59 Last Admin: 10/30/16 08:31 Dose: 5,000 units Insulin Aspart (Novolog Insulin Sliding Scale) 0 units SUBQ ACHS [facility] PRN Reason: Protocol Stop: 12/27/16 07:29 Last Admin: 10/30/16 07:07 Dose: Not Given Metronidazole (Flagyl) 500 mg PO TID [facility] Stop: 12/27/16 11:59 Last Admin: 10/30/16 08:31 Dose: 500 mg Miscellaneous (Vte Chemical Prophylaxis Screen/ Admission) 1 ea [facility] PRN PRN PRN Reason: PROTOCOL Stop: 12/27/16 13:45 Miscellaneous (Misc Oral Tab) 3 tab PO BID [facility] Stop: 12/28/16 08:59 Last Admin: 10/30/16 08:30 Dose: 3 tab Multivitamins/Vitamin C (Theragran) 1 tab PO DAILY [facility] Stop: 12/27/16 08:59 Last Admin: 10/30/16 08:31 Dose: 1 tab Nitroglycerin (Nitrostat) 0.4 mg SL Q5MIN PRN PRN Reason: Chest Pain Stop: 12/27/16 07:34 Pantoprazole Sodium (Protonix) 40 mg PO QDAC [facility] Stop: 12/27/16 08:59 Last Admin: 10/30/16 08:30 Dose: 40 mg Prednisone (Deltasone) 20 mg PO DAILY [facility] Stop: 12/27/16 08:59 Last Admin: 10/30/16 08:31 Dose: 20 mg Tacrolimus (Prograf) 1 mg PO BID [facility] Stop: 12/27/16 08:59 Last Admin: 10/30/16 08:30 Dose: 1 mg Zinc Sulfate (Zinc Sulfate) 220 mg PO DAILY [facility] Stop: 12/27/16 08:59 Last Admin: 10/30/16 08:30 Dose: 220 mg Zolpidem Tartrate (Ambien) 5 mg PO HS PRN PRN Reason: Insomnia Stop: 12/27/16 07:34 Last Admin: 10/30/16 00:36 Dose: 5 mg Nutritional Asmnt/Malnutr-PDOC - Dietary Evaluation Malnutrition Findings (Please click <Entered> for more info): Nutritional Asmnt/Malnutrition Start: 10/28/16 11: 15 Text: Status: Complete Freq: Document 10/28/16 11:15 GSUN (Rec: 10/28/16 11:40 GSUN [email or web address]) Nutritional Asmnt/Malnutrition Patient General Information Nutritional Screening High Risk Screening Diagnosis C Diff, acute sigmoid diverticulitis, CHF Pertinent Medical Hx/Surgical Hx ER: HTN, PUD/GERD, renal failure on dialysis for 4-5 years received right kidney transplant, Subjective Information 76 year old male from SNF. Per ER notes, pt had abdominal pain and diarrhea for past 10 days. Pt stated no diarrhea today or yesterday, since adm. 10/28 CT: diverticula, diverticulitis cannot be excluded. Observed disbosable breakfast tray at bedside during visit, pt stated he just woke up and ready to eat. Pt reported appetite has been poor, "food at [place] is horrible," and that he has recent weight loss due to this , weight was 225lb 2 weeks ago , CBW 210lb, questionable. RD noted pt's food preferences. No muscle wasting noted. Current Diet Order/ Nutrition Support Low sodium Pertinent Medications Vitamin C, Iron, Lasic, Novolog, Theragran, Zinc Sulfate Pertinent Labs Reviewed. Nutritional Hx/Data Height 1.88 m Height (Calculated Centimeters) 188.0 Current Weight (lbs) 94.801 kg Weight (Calculated Kilograms) 94.8 Weight (Calculated Grams) 70382.8 Usual body Weight (lbs) 225 [place] Body Weight 190 Recent Weight Change Yes Weight Status Overweight GI Symptoms Food Allergies No Cultural/Ethnic/Yazidi Belief Dislikes gravy, fish, yogurt. Usual diet at home [place]: renal, CCHO, OSKAR, regular consistency Skin Integrity/Comment: [place] 16. Skin tear to right hand and left leg. Estimated Nutritional Goals BEE in Kcals: Using Current wt Calories/Kcals/Kg CBW 209lb/95kg Kcals Calculated 2375-2850kcal (25-30kcal/kg) Protein: Using Current wt Protein Calculated 95g (1g/kg) Fluid: ml 2375-2850ml (1ml/kcal) Nutritional Problem 2. Problem Problem (possible) Involuntary weight loss related to Etiology "food at [place] is horrible" aeb Signs/Symptoms: pt report ~15lb weight loss in 2 weeks 1. Problem Problem Altered GI function related to Etiology C Diff, diverticulitis aeb Signs/Symptoms: abdominal and diarrhea x10 days prior to adm per ER notes Intervention/Recommendation Comments 1. Continue with low sodium diet. 2. Recommend soft/bland diet if diarrhea or diverticulitis. Pt report currently no diarrhea. CT abdomen: diverticula, diverticulitis cannot be excluded. 3. Monitor weight. CBW 210lb, pt report weight 225lb 2 weeks ago, involuntary weight loss due to "food at [place] is horrible." Obtained pt's food preferences. Expected Outcomes/Goals Expected Outcomes/Goals 1. PO intake to meet at least 75% of estimated nutritional needs.
[2016-10-31] MEDS: Diltiazem 30 mg Tab PO SCH ×3 (00:36→12:18)
[2016-10-31] MEDS: INSULIN ASPART SLIDING SCALE 100 UNITS/ML UNIT SUBQ SCH ×3 (06:52→17:49)
[2016-10-31] MEDS: Pantoprazole 40 mg EC Tab PO SCH (06:52)
--- NOTE | 2016-10-31 08:29 | General Progress Note ---
Subjective - Review of Systems Events since last encounter: chart reviewed no change in conditions Objective - Results Result Diagrams: 10/30/16 06:37 10/30/16 06:37 Recent Labs: Laboratory Last Values WBC 14.0 Th/cmm (4.8-10.8) H 10/30/16 06:37 RBC 3.46 Mil/cmm (3.80-5.80) L 10/30/16 06:37 Hgb 10.8 gm/dL (12.6-17.4) L 10/30/16 06:37 Hct 32.1 % (39.0-49.0) L 10/30/16 06:37 MCV 92.8 fl (80-99) 10/30/16 06:37 MCH 31.3 pg (27.0-31.0) H 10/30/16 06:37 MCHC Differential 33.7 pg (28.0-36.0) 10/30/16 06:37 RDW 18.3 % (11.5-20.0) 10/30/16 06:37 Plt Count 213 Th/cmm (150-400) 10/30/16 06:37 MPV 8.9 fl 10/30/16 06:37 Band Neutrophils % 2 % (0-10) 10/30/16 06:37 Neutrophils (Manual) 90 % (40-80) H 10/30/16 06:37 Lymphocytes 6 % (20-50) L 10/30/16 06:37 Monocytes 1 % (2-10) L 10/30/16 06:37 Eosinophils 1 % (0-5) 10/30/16 06:37 Basophils 0 % (0-3) 10/27/16 23:51 Atypical Lymphocytes 1 % 10/28/16 06:20 Platelet Estimate ADEQUATE (NORMAL) 10/30/16 06:37 Platelet Morphology NORMAL (NORMAL) 10/29/16 06:25 Anisocytosis 1+ 10/28/16 06:20 RBC Morph Micro Appear NORMAL (NORMAL) 10/29/16 06:25 Eos Smear Source URINE 10/29/16 06:13 Eos Smear Total Cells NONE SEEN (NONE SEEN) 10/29/16 06:13 Sodium 139 mEq/L (136-145) 10/30/16 06:37 Potassium 3.4 mEq/L (3.5-5.1) L 10/30/16 06:37 Chloride 105 mEq/L (98-107) 10/30/16 06:37 Carbon Dioxide 29.1 mEq/L (21.0-31.0) 10/30/16 06:37 Anion Gap 8.3 (7.0-16.0) 10/30/16 06:37 BUN 13 mg/dL (7-25) 10/30/16 06:37 Creatinine 1.1 mg/dL (0.7-1.3) 10/30/16 06:37 Est GFR ( Amer) TNP 10/30/16 06:37 Est GFR (Non-Af Amer) TNP 10/30/16 06:37 BUN/Creatinine Ratio 11.8 10/30/16 06:37 Glucose 103 mg/dL (70-105) 10/30/16 06:37 POC Glucose 107 MG/DL (70 - 105) H 10/31/16 06:48 Hemoglobin A1c % 5.2 % (4.0-6.0) 10/29/16 06:25 Whole Bld Lactic Acid 1.01 mmol/L (0.60-1.99) 10/27/16 23:51 Calcium 9.8 mg/dL (8.6-10.3) 10/30/16 06:37 Phosphorus 2.3 mg/dL (2.5-5.0) L 10/30/16 06:37 Magnesium 2.0 mg/dL (1.9-2.7) 10/29/16 06:25 Total Bilirubin 0.8 mg/dL (0.3-1.0) 10/30/16 06:37 AST 9 U/L (13-39) L 10/30/16 06:37 ALT 12 U/L (7-52) 10/30/16 06:37 Alkaline Phosphatase 55 U/L (34-104) 10/30/16 06:37 B-Natriuretic Peptide 1730.0 pg/mL (5.0-100.0) H 10/27/16 23:51 Total Protein 5.2 gm/dL (6.0-8.3) L 10/30/16 06:37 Albumin 3.4 gm/dL (4.2-5.5) L 10/30/16 06:37 Globulin 1.8 gm/dL 10/30/16 06:37 Albumin/Globulin Ratio 1.9 (1.0-1.8) H 10/30/16 06:37 Lipase 25 U/L (11-82) 10/27/16 23:51 Urine Source RANDOM 10/28/16 02:25 Urine Color YELLOW 10/28/16 02:25 Urine Clarity CLEAR (CLEAR) 10/28/16 02:25 Urine pH 5.5 (4.6 - 8.0) 10/28/16 02:25 Ur Specific [place] 1.025 (1.005-1.030) 10/28/16 02:25 Urine Protein 30 mg/dL (NEGATIVE) H 10/28/16 02:25 Urine Glucose (UA) NEGATIVE mg/dL (NEGATIVE) 10/28/16 02:25 Urine Ketones NEGATIVE mg/dL (NEGATIVE) 10/28/16 02:25 Urine Blood NEGATIVE (NEGATIVE) 10/28/16 02:25 Urine Nitrate NEGATIVE (NEGATIVE) 10/28/16 02:25 Urine Bilirubin NEGATIVE (NEGATIVE) 10/28/16 02:25 Urine Urobilinogen 0.2 E.U./dL (0.2 - 1.0) 10/28/16 02:25 Ur Leukocyte Esterase TRACE (NEGATIVE) H 10/28/16 02:25 Urine RBC NONE SEEN /hpf (0-5) 10/28/16 02:25 Urine WBC 2-5 /hpf (0-5) H 10/28/16 02:25 Ur Epithelial Cells NONE SEEN /lpf (FEW) 10/28/16 02:25 Urine Bacteria NONE SEEN /hpf (NONE SEEN) 10/28/16 02:25 Ur Random Sodium 31 mmol/L 10/29/16 06:13 Urine Creatinine 108.0 mg/dl (39.0-259.0) 10/29/16 06:13 - Physical Exam Vitals and I&O: Vital Signs Temp 97.0 F 10/31/16 04:00 Pulse 69 10/31/16 07:16 Resp 12 10/31/16 07:16 BP 163/72 10/31/16 04:00 Pulse Ox 100 10/31/16 07:16 Intake & Output 10/30/16 10/31/16 10/31/16 18:59 06:59 18:59 Intake Total 1200 240 Balance 1200 240 Weight (lbs) 95.799 kg 96.162 kg Intake: Oral 1200 240 Other: # Voids 3 3 # Bowel Movements 2 0 Stool Characteristics Soft Formed Brown Active Medications: Current Medications Acetaminophen/Hydrocodone Bitart ([place] 10 Mg/325 Mg) 1 tab PO Q6H PRN PRN Reason: Pain (Moderate) Stop: 12/27/16 07:34 Albuterol/Ipratropium (Duoneb Neb) 3 ml HHN Q4HR PRN PRN Reason: Shortness of Breath Stop: 12/27/16 07:34 Ascorbic Acid (Vitamin C) 500 mg PO DAILY [facility] Stop: 12/27/16 08:59 Last Admin: 10/30/16 08:31 Dose: 500 mg Diltiazem HCl (Cardizem) 30 mg PO Q6HR [facility] Stop: 12/27/16 11:59 Last Admin: 10/31/16 06:52 Dose: 30 mg Ferrous Sulfate (Iron) 325 mg PO DAILY [facility] Stop: 12/27/16 08:59 Last Admin: 10/30/16 08:31 Dose: 325 mg Heparin Sodium (Porcine) (Heparin) 5,000 units SUBQ Q12H [facility] Stop: 12/27/16 20:59 Last Admin: 10/30/16 21:42 Dose: Not Given Insulin Aspart (Novolog Insulin Sliding Scale) 0 units SUBQ ACHS [facility] PRN Reason: Protocol Stop: 12/27/16 07:29 Last Admin: 10/31/16 06:52 Dose: Not Given Metronidazole (Flagyl) 500 mg PO TID [facility] Stop: 12/27/16 11:59 Last Admin: 10/30/16 21:24 Dose: 500 mg Miscellaneous (Vte Chemical Prophylaxis Screen/ Admission) 1 ea [facility] PRN PRN PRN Reason: PROTOCOL Stop: 12/27/16 13:45 Miscellaneous (Misc Oral Tab) 3 tab PO BID [facility] Stop: 12/28/16 08:59 Last Admin: 10/30/16 17:16 Dose: 3 tab Multivitamins/Vitamin C (Theragran) 1 tab PO DAILY [facility] Stop: 12/27/16 08:59 Last Admin: 10/30/16 08:31 Dose: 1 tab Nitroglycerin (Nitrostat) 0.4 mg SL Q5MIN PRN PRN Reason: Chest Pain Stop: 12/27/16 07:34 Pantoprazole Sodium (Protonix) 40 mg PO QDAC [facility] Stop: 12/27/16 08:59 Last Admin: 10/31/16 06:52 Dose: 40 mg Potassium Chloride (Klor-Con) 20 meq PO DAILY [facility] Stop: 12/30/16 08:59 Prednisone (Deltasone) 20 mg PO DAILY [facility] Stop: 12/27/16 08:59 Last Admin: 10/30/16 08:31 Dose: 20 mg Tacrolimus (Prograf) 1 mg PO BID [facility] Stop: 12/27/16 08:59 Last Admin: 10/30/16 17:16 Dose: 1 mg Zinc Sulfate (Zinc Sulfate) 220 mg PO DAILY [facility] Stop: 12/27/16 08:59 Last Admin: 10/30/16 08:30 Dose: 220 mg Zolpidem Tartrate (Ambien) 5 mg PO HS PRN PRN Reason: Insomnia Stop: 12/27/16 07:34 Last Admin: 10/31/16 00:36 Dose: 5 mg Nutritional Asmnt/Malnutr-PDOC - Dietary Evaluation Malnutrition Findings (Please click <Entered> for more info): Nutritional Asmnt/Malnutrition Start: 10/28/16 11: 15 Text: Status: Complete Freq: Document 10/28/16 11:15 GSUN (Rec: 10/28/16 11:40 GSUN [email or web address]) Nutritional Asmnt/Malnutrition Patient General Information Nutritional Screening High Risk Screening Diagnosis C Diff, acute sigmoid diverticulitis, CHF Pertinent Medical Hx/Surgical Hx ER: HTN, PUD/GERD, renal failure on dialysis for 4-5 years received right kidney transplant, Subjective Information 76 year old male from SNF. Per ER notes, pt had abdominal pain and diarrhea for past 10 days. Pt stated no diarrhea today or yesterday, since adm. 10/28 CT: diverticula, diverticulitis cannot be excluded. Observed disbosable breakfast tray at bedside during visit, pt stated he just woke up and ready to eat. Pt reported appetite has been poor, "food at [place] is horrible," and that he has recent weight loss due to this , weight was 225lb 2 weeks ago , CBW 210lb, questionable. RD noted pt's food preferences. No muscle wasting noted. Current Diet Order/ Nutrition Support Low sodium Pertinent Medications Vitamin C, Iron, Lasic, Novolog, Theragran, Zinc Sulfate Pertinent Labs Reviewed. Nutritional Hx/Data Height 1.88 m Height (Calculated Centimeters) 188.0 Current Weight (lbs) 94.801 kg Weight (Calculated Kilograms) 94.8 Weight (Calculated Grams) 49715.8 Usual body Weight (lbs) 225 [place] Body Weight 190 Recent Weight Change Yes Weight Status Overweight GI Symptoms Food Allergies No Cultural/Ethnic/Church Belief Dislikes gravy, fish, yogurt. Usual diet at home [place]: renal, CCHO, OSKAR, regular consistency Skin Integrity/Comment: [place] 16. Skin tear to right hand and left leg. Estimated Nutritional Goals BEE in Kcals: Using Current wt Calories/Kcals/Kg CBW 209lb/95kg Kcals Calculated 2375-2850kcal (25-30kcal/kg) Protein: Using Current wt Protein Calculated 95g (1g/kg) Fluid: ml 2375-2850ml (1ml/kcal) Nutritional Problem 2. Problem Problem (possible) Involuntary weight loss related to Etiology "food at [place] is horrible" aeb Signs/Symptoms: pt report ~15lb weight loss in 2 weeks 1. Problem Problem Altered GI function related to Etiology C Diff, diverticulitis aeb Signs/Symptoms: abdominal and diarrhea x10 days prior to adm per ER notes Intervention/Recommendation Comments 1. Continue with low sodium diet. 2. Recommend soft/bland diet if diarrhea or diverticulitis. Pt report currently no diarrhea. CT abdomen: diverticula, diverticulitis cannot be excluded. 3. Monitor weight. CBW 210lb, pt report weight 225lb 2 weeks ago, involuntary weight loss due to "food at [place] is horrible." Obtained pt's food preferences. Expected Outcomes/Goals Expected Outcomes/Goals 1. PO intake to meet at least 75% of estimated nutritional needs.
[2016-10-31] MEDS ORDERED: Potassium Chloride 20 mEq ER Tab PO SCH (09:00)
[2016-10-31] MEDS: Ferrous Sulfate 325 MG TAB PO SCH (09:21)
[2016-10-31] MEDS: Multivitamin Tab PO SCH (09:21)
[2016-10-31] MEDS: MYCOPHENOLATE 250 MG PO SCH ×2 (09:23→16:11)
--- NOTE | 2016-11-03 02:00 | Admit Criteria Form ---
Admit Criteria Forms - Admit Criteria Diagnosis: GASTROENTEROLOGY GRG Clinical Indications for Admission to Inpatient Care ([place]/ check or initial the applicable condition/criteria) Hospital admission is needed for appropriate care of the patient because of ANY ONE of the following: [ ]I. Suspected acute intra-abdominal process indicated by 1 or more of the following(1)(2)(3)(4)(5): [ ]a) Hemodynamic instability [ ]b) Peritoneal signs present (eg, abdominal rigidity, rebound tenderness, absent bowel sounds) [ ]c) Bowel obstruction suspected (eg, persistent vomiting, abdominal distention)(6)(7)(8) [ ]d) Suspected mesenteric ischemia or ischemic colitis(9)(10)(11) [ ]e) Other signs or symptoms of acute abdominal disease (eg, severe pain, free air)(12) [ ]II. Hemoperitoneum(13)(14) [ ]III. Ascites requiring acute treatment indicated by 1 or more of the following (15)(16)(17)(18) [ ]a) Hemodynamic instability [ ]b) Peritoneal signs present (e.g., abdominal rigidity, rebound tenderness , absent bowel sounds) [ ]c) Tachypnea, Hypoxemia,or other respiratory symptoms remain after emergency or observation level care (as appropriate) [ ]d) Suspected infected ascites as indicated by 1 or more of the following( 19)(20) [ ]i) Fever [ ]ii) Vital sign abnormality [ ]iii) Abdominal pain or tenderness not relieved by paracentesis [ ]iv) Systemic signs of infection (e.g., elevated WBC count, fever) [ ]v) Ascitic fluid analysis consistent with infection ( e.g., elevated WBC count) [ ]IV. Severe liver disease indicated by 1 or more of the following (15)(16)(21) (22)(23)(24)(25)(26)(27)(28) [ ]a) Acute hepatitis (e.g., transaminaselevel greater than 1000 IU/L) [ ]b) Acute elevation of prothrombintime to more than 50% above normal or INR greater than 1.5 [ ]c) Bilirubin greater than 20 mg/dL (342 micromoles/L) [ ]d) New-onset or worseninghepatic encephalopathy [ ]e) Acute elevation of serum ammonia level (eg, greater than 210 mcg/dL ( 150 micromoles/L)) [ ]f) Acute liver necrosis [ ]g) Vomiting that is severe of persistent [ ]h) Hemodynamic instability due to liver disease [ ]i) Acute renal failure [ ]j) Hepatic abscess [ ]k) Hepatic hydrothorax(29) [ ]l) Other indications of severe liver disease (e.g., persistent fever, ingestion of hepatotoxin)(30) [ ]V. Dehydration that is severe or persistent [X ]. Severe diarrhea indicated by 1 or more of the following (31)(32)(33)(34) (35) : [ ]a) High fever or other high-risk infection situation [ ]b) Intractable bloody diarrhea (e.g., more than 6 bloody stools per day ) [X ]c) Suspected etiology (Clostridiumdifficile-associated diarrhea) that requires isolation or care not feasible in outpatient setting (36) [ ]d) Altered mental status that is severe or persistent [ ]e) Dehydration that is severe or persistent [ ]g) Peritoneal signs present (e.g., abdominal rigidity, rebound tenderness, absent bowel sounds) [ ]h) Abdominal ischemia suspected (9)(10)(11) [ ]i) Hemodynamic instability [ ]j) Severe electrolyte abnormalities requiring inpatient care [ ]k) Acute renal failure [ ]VII. Suspected toxic vazquez colon(4)(9) [ ]VIII. Severe dysphagia indicated by 1 or more of the following(37)(38) [ ]a) Suspected esophageal perforation or fistula(39) [ ]b) Suspected cause that requires inpatient care (e.g., caustic ingestion, severe esophagitis) (40)(41) [ ]c) Dehydration that is severe or persistent [ ]d) Inability to manage secretions or maintain hydration [ ]e) Hemodynamic instability [ ]f) Severe electrolyte abnormalities requiring inpatient care [ ]g) Acute renal failure [ ]IX. Vomiting and 1 or more of the following (42)(43)(44)(45)(46) [ ]a) High fever or other high-risk infection situation [ ]b) Altered mental status that is severe or persistent [ ]c) Dehydration that is severe or persistent [ ]d) Peritoneal signs present (e.g., abdominal rigidity, rebound tenderness, absent bowel sounds) [ ]e) Hemodynamic instability [ ] f) Severe electrolyte abnormalities requiring inpatient care [ ] g) Acute renal failure [ ]h) Bowel obstruction suspected (e.g., severe vomiting, abdominal distension) [ ]i) Vomiting that is severe or persistent [ ]X. Gastroparesis and 1 or more of the following(46)(47)(48)(49): [ ]a) Dehydration that is severe or persistent [ ]b) Severe electrolyte abnormalities requiring inpatient care [ ]c) Acute renal failure [ ]d) Vomiting that is severe or persistent [ ]XI Obstipation and 1 or more of the following(50)(51)(52)(53) [ ]a) Complication of fecal impaction (eg, stercoral ulceration, perforation , venous compression, obstructive uropathy) [ ]b) Fecal disimpaction by digital fragmentation or mechanical disimpaction unsuccessful [ ]XII Complication of gastrostomy or jejunostomy feeding tube(54)(55)(56) [ ]a) Luminal perforation [ ]b) Gastrocolonic fistula [ ]c) Cellulitis of surrounding area with failure of outpatient treatment [ ]d) Necrotizing fasciitis [ ]e) Peritonitis [ ]f) Gastric herniation or prolapse [ ]g) Ischemic necrosis of gastric wall ("buried bumper") [ ]h) Other complication of gastrostomy or jejunostomy unable to be resolved at lower level of care [ ]XII. Complications of transplanted liver indicated by 1 or more of the following(57)(58)(59): [ ]a) Acute graft rejection requiring inpatient management (eg, intravenous immuno suppression)(60)(61) [ ]b) Failure of transplanted liver as indicated by 1 or more of the following: [ ]i. Acute hepatitis (eg, transaminase level greater than 1000 International Units per liter (IU/L)) [ ]ii. Acute elevation of prothrombin time to more than 50% above baseline or INR greater than 1.5 [ ]iii. Bilirubin greater than 20 mg/dL (342 micromoles/L) [ ]iv. New-onset or worsening hepatic encephalopathy [ ]v. Acute elevation of serum ammonia level (eg, greater than 210 mcg/dL (150 micromoles/L)) [ ]vi. Acute liver necrosis [ ]c) Infection requiring inpatient management (eg, Hemodynamic instability, need for intravenous antimicrobial treatment) (62)(63)(64)(65)(66) [ ]d) Other complication of transplanted liver (eg, thrombosis, autoimmune hepatitis, variceal bleeding) requiring inpatient management (67)(68)(69) [ ]XII. Complications of transplanted pancreas indicated by 1 or more of the following (70) [ ]a) Acute graft rejection requiring inpatient management (eg, intravenous immunosuppression)(60)(71) [ ]b) Failure of transplanted pancreas as indicated by 1 or more of the following: [ ]i. Serum amylase greater than 3 times the upper limit of normal or baseline [ ]ii. Serum lipase greater than 3 times the upper limit of normal or baseline [ ]iii. Imaging findings consistent with pancreatic inflammation or necrosis [ ]c) Infection requiring inpatient management (eg, Hemodynamic instability, need for intravenous antimicrobial treatment) (64)(65)(66) [ ]d) Other complication of transplanted pancreas (eg, graft thrombosis, pancreatic duct stricture, anastomotic leak) requiring inpatient management (72 ) [ ]XIII. Gastroenterology condition,Symptom or finding for which emergency and observation care have failed or are not considered appropriate. See General criteria: Observation care, General Admission criteria or Pediatric General Admission criteria guideline as appropriate. The original [facility] [employer] content created by [facility] has been revised. The portions of the content which have been revised are identified through the use of italic text or in bold,and [facility] has neither reviewed nor approved the modified material. All other unmodified content is copyright [facility]. Please see references footnoted in the original [facility] edition 2017 Admit Criteria Met?: Yes
--- NOTE | 2016-12-01 20:13 | Discharge Summary ---
DATE OF DISCHARGE: 10/31/2016 HOSPITAL COURSE: This is a well-known patient for me. The patient was at [facility]. The patient was admitted to [facility] on 10/28/2016 and discharged on 10/31/2016. He was admitted because of sepsis, possible infection, pneumonia, history of diarrhea, Clostridium difficile infection, history of diverticulosis, history of perforated bowel, history of renal transplant in the past, history of renal failure. The patient was admitted, was given antibiotics, and ID doctor saw the patient, Dr. Brian Santana and also Nephrology saw the patient, Dr. Page, and the patient gradually improved. The patient was seen in stable condition. On 10/31/2016, patient was discharged back to [facility] where I will be following the patient, was given antibiotics. MEDICATIONS: See the reconciliation sheet. CONDITION AT THE TIME OF DISCHARGE: Stable. ACTIVITY: As tolerated. JOB# [id number]
== END 2016-10-31 18:38 | disposition home or self-care (01) | DRG 871 ==
LOC: ER 23:19 → MSI 10-28 02:50
PROVIDERS: ADMIT Internal Medicine; ATTEND Internal Medicine
DX: A41.9 Sepsis, unspecified organism (principal); J18.9 Pneumonia, unspecified organism; L89.159 Pressure ulcer of sacral region, unspecified stage; A04.7 Enterocolitis due to Clostridium difficile; I13.0 Hypertensive heart and chronic kidney disease with heart failure and stage 1 through stage 4 chronic kidney disease, or unspecified chronic kidney disease; E11.22 Type 2 diabetes mellitus with diabetic chronic kidney disease; I48.2 Chronic atrial fibrillation; K57.32 Diverticulitis of large intestine without perforation or abscess without bleeding; I50.22 Chronic systolic (congestive) heart failure; Z94.0 Kidney transplant status; G56.03 Carpal tunnel syndrome, bilateral upper limbs; K21.9 Gastro-esophageal reflux disease without esophagitis; M47.9 Spondylosis, unspecified; D63.1 Anemia in chronic kidney disease; Z87.891 Personal history of nicotine dependence; Z87.11 Personal history of peptic ulcer disease; Z82.49 Family history of ischemic heart disease and other diseases of the circulatory system; Z88.0 Allergy status to penicillin
CPT/HCPCS: 36415-UA; 71010-TC; 80048-TC; 80053-TC; 80197-90; 81001-TC; 81015-TC; 82570-TC; 82948-90; 83036-90; 83605; 83690-TC; 83735-TC; 83880-TC; 84100-TC; 84300-TC; 85007-TC; 85025-TC; 85027-TC; 90799; 94760; J1644; J1815; J2001; J3370; J3475; J3480; J5707; Z7610

== ENCOUNTER 2016-12-11 20:55 | Inpatient (IN) | payer MEDICARE, BC ==
--- NOTE | 2016-12-11 21:05 | ED Physician Chart ---
ED Chief Complaint/HPI - Patient Information Date Seen:: 12/11/16 Time Seen:: 20:50 Chief Complaint:: Abdominal pain for one week. History of Present Illness:: Brought in by ambulance from nursing facility for the above reason. Pt has experienced constant localized diffuse lower abdominal pain for one week. Pain can be aggravated with bowel movement. No known relieving factors. No fever. No N/V. Pt states that he had recent nonbloody loose stool. Last BM on arrival at ER however was normal in color/consistency according to pt. No known hematochezia or melena. No lightheadedness. Pt had C. difficile toxin study that was positive on 11/19/16. Pt has had dysuria, frequency, and urgency with urination. No gross hematuria. Allergies:: Allergies Allergy/AdvReac Type Severity Reaction Status Date / Time Penicillins Allergy Verified 10/27/16 23:50 Vitals:: see Nurse Note. Historian:: Patient, Medical Records (from transferring facility.) Family MD/PCP:: Dr. Dahl LMP:: N/A Review:: Nurse's Note Reviewed ED Review of Systems - Review of Systems General/Constitutional: No fever, Weight loss (about 20 lbs over past 2-3 months.), Weakness ( generalized ), No edema, Loss of appetite Skin: No rash Head: No headache, No light-headedness Eyes: No loss of vision, No pain, No diplopia ENT: No earache, No nasal drainage, No sore throat, No tinnitus Neck: No neck pain, No swelling, No stiffness Cardio Vascular: No chest pain, No palpitations, No edema Pulmonary: No SOB, No cough, No wheezing GI: No nausea, No vomiting, Diarrhea (?), Pain, No melena, No hematochezia, No hematemesis G/U: Dysuria, Frequency, No hematuria Musculoskeletal: No bone or joint pain, No back pain, No muscle pain Endocrine: No polyuria, No polydipsia Psychiatric: No prior psych history Hematopoietic: No bruising, No lymphadenopathy Allergic/Immuno: No urticaria, No angioedema Neurological: No syncope, No focal symptoms, No headache, No dizziness, No confusion ED Past Medical History - Past Medical History Past Medical History: HTN, DM, PUD/GERD, Other (Chronic anema, chronic renal insufficiency) Family History: None Social History: Non Smoker, Alcohol (occasional), No Drug Use, , Care Facility Surgical History: other (lumbar spine surgeries x 3 with last one 4 y/a. ? Partial colectomy about 3 months ago related bowel obstruction.) Psychiatricy History: None Medication: Reviewed Family Medical History - Family Member Mother History Unknown: Yes ED Physical Exam - Physical Examination General/Constitutional: Awake, Well-developed, well-nourished, Alert, No distress, GCS 15, Non-toxic appearing Other Gen/Cons comments:: Breathes comfortably, speaks clearly, and interacts normally. Head: Atraumatic Eyes: Lids, conjuctiva normal, PERRL, EOMI Skin: No rash, No ecchymosis, No lymphadenopathy ENMT: External ears, nose nl, Nasal exam nl, Oropharynx nl Other ENMT comments:: Mucous membrane is slightly dry. Neck: Nontender, Full ROM w/o pain, No JVD, No nuchal rigidity, No mass, No stridor Respiratory: Nl effort/Exclusion, Clear to Auscultation, No Wheeze/Rhonchi/Rales Cardio Vascular: RRR, No murmur, gallop, rubs GI: No organomegaly, No hernia, Normal BS's, Nondistended, No mass/bruits, No McBurney tenderness Other GI comments:: Diffuse tenderness in lower abdomen. No R/G. A well healed midline longitudinal surgical scar noticed extending from upper to lower abdomen. : No CVA tenderness Extremities: No tenderness or effusion, No edema Neuro/Psych: Alert/oriented (oriented x 3), Mood normal, No focal deficits ED Labs/Radiology/EKG Results - Lab Results Results: Laboratory Tests 12/11/16 12/11/16 12/11/16 21:23 21:23 21:23 WBC 23.9 H* D RBC 4.07 Hgb 12.4 Hct 37.3 L D MCV 91.5 MCH 30.5 MCHC Differential 33.4 RDW 15.3 Plt Count 191 MPV 8.3 Band Neutrophils % 7 Neutrophils (Manual) 88 H Lymphocytes 4 L Monocytes 1 L Platelet Estimate ADEQUATE PT 11.0 INR 1.06 PTT (Actin FS) 26.3 Sodium 138 Potassium 3.4 L Chloride 99 Carbon Dioxide 30.8 Anion Gap 11.6 BUN 16 Creatinine 1.0 Est GFR ( Amer) TNP Est GFR (Non-Af Amer) TNP BUN/Creatinine Ratio 16.0 Glucose 115 H Whole Bld Lactic Acid Calcium 9.2 Total Bilirubin 0.9 AST 8 L ALT 6 L Alkaline Phosphatase 47 Total Protein 4.6 L Albumin 2.7 L Globulin 1.9 Albumin/Globulin Ratio 1.4 Amylase 10 L Lipase < 3 L Urine Source Urine Color Urine Clarity Urine pH Ur Specific [place] Urine Protein Urine Glucose (UA) Urine Ketones Urine Blood Urine Nitrate Urine Bilirubin Urine Urobilinogen Ur Leukocyte Esterase Urine RBC Urine WBC Ur Epithelial Cells Calcium Oxalate Crystal Urine Bacteria Stool Occult Blood 12/11/16 12/11/16 12/11/16 21:23 22:15 22:30 WBC RBC Hgb Hct MCV MCH MCHC Differential RDW Plt Count MPV Band Neutrophils % Neutrophils (Manual) Lymphocytes Monocytes Platelet Estimate PT INR PTT (Actin FS) Sodium Potassium Chloride Carbon Dioxide Anion Gap BUN Creatinine Est GFR ( Amer) Est GFR (Non-Af Amer) BUN/Creatinine Ratio Glucose Whole Bld Lactic Acid 1.15 Calcium Total Bilirubin AST ALT Alkaline Phosphatase Total Protein Albumin Globulin Albumin/Globulin Ratio Amylase Lipase Urine Source CLEAN C Urine Color ORANGE Urine Clarity HAZY Urine pH 6.0 Ur Specific [place] 1.020 Urine Protein TRACE Urine Glucose (UA) NEGATIVE Urine Ketones TRACE Urine Blood TRACE Urine Nitrate NEGATIVE Urine Bilirubin NEGATIVE Urine Urobilinogen 0.2 Ur Leukocyte Esterase TRACE H Urine RBC 2-5 H Urine WBC 2-5 H Ur Epithelial Cells NONE SEEN Calcium Oxalate Crystal FEW Urine Bacteria OCCASIONAL Stool Occult Blood POSITIVE - Radiology Results Results: CT of abdomen/pelvic without contrast: See official report for details. ED Septic Shock - . Is Septic Shock (SBP<90, OR Lactate>4 mmol\L) present?: No ED Reassessment (Disposition) - Reassessment Reassessment:: 2220 Pt has been repeatedly evaluated. Pt feels much better and does not need more pain control. 0045 Pt feels comfortable. Report on CT of abdomen/pelvis just became available. Lab and CT findings have been reviewed with pt. Management plan has been discussed. Dr. Dahl is to be contacted. 0107 Case was discussed with Dr. Dahl with pertinent H & P, CT and lab findings reviewed. Pt is to be admitted to [facility] under his care. Reassessment Condition:: Improved - Diagnosis Diagnosis:: Abdominal pain c/w C. difficile colits, especially in light of h/o positive C. difficile toxin study on 11/19/16 Stable. Incidental findings of bilateral pleural effusions, cholelithiasis, left adrenal adenoma on abdominal/pelvic CT. Stable. Mild hypokalemia, stable. Diabetes mellitus, stable. HTN, stable. - Patient Disposition Admitted to:: Med/Surg Admitting Medical Physician:: Juan Dahl Time:: 01:15 Condition at Disposition:: Stable, Improved ED Discharge Plan - Patient Disposition Admit/Discharge/Transfer: Acute Care w/in this hosp Condition at Disposition: Stable
[2016-12-11] MEDS ORDERED: Sodium Chloride 0.9% 500 ML IV ONE (21:17)
[2016-12-11] MEDS ORDERED: HYDROmorphone 1 mg/mL 1mL Syr IVP STA ×2 (21:28→23:00)
[2016-12-11 21:31] LABS: HEMOGLOBIN 12.4 gm/dL (12-16); LYMPHOCYTE ABSOLUTE 0.4 Th/cmm (1.5-3.0); MANUAL DIFF REQUIRED? YES; MEAN CELL VOLUME 91.5 fl (80-99); MEAN CORPUSCULAR HEMOGLOBIN 30.5 pg (27.0-31.0); MEAN CORPUSCULAR HGB CONC 33.4 pg (28.0-36.0); MEAN PLATELET VOLUME 8.3 fl; MONOCYTE ABSOLUTE 0.2 Th/cmm (0.3-1.0); NEUTROPHILE ABSOLUTE 23.3 Th/cmm (1.8-8.0); PLATELET COUNT 191 Th/cmm (150-400); RED BLOOD COUNT 4.07 Mil/cmm (3.80-5.80); RED CELL DISTRIBUTION WIDTH 15.3 % (11.5-20.0)
[2016-12-11 21:38] LABS: HEMATOCRIT 37.3 % (41.0-60); WHITE BLOOD COUNT 23.9 Th/cmm (4.8-10.8)
[2016-12-11 21:45] LABS: INR 1.06 (0.5-1.4)
[2016-12-11 21:48] LABS: ALB/GLOB RATIO 1.4 (1.0-1.8); ALBUMIN 2.7 gm/dL (4.2-5.5); ALKALINE PHOSPHATASE 47 U/L (34-104); AMYLASE SERUM 10 U/L (29-103); ANION GAP 11.6 (7.0-16.0); BILIRUBIN,TOTAL 0.9 mg/dL (0.3-1.0); BUN - UREA NITROGEN 16 mg/dL (7-25); CALCIUM SERUM 9.2 mg/dL (8.6-10.3); CARBON DIOXIDE 30.8 mEq/L (21.0-31.0); CHLORIDE 99 mEq/L (98-107); GLUCOSE 115 mg/dL (70-105); POTASSIUM SERUM 3.4 mEq/L (3.5-5.1); SGOT 8 U/L (13-39); SGPT/ALT 6 U/L (7-52); SODIUM SERUM 138 mEq/L (136-145); TOTAL PROTEIN,SERUM 4.6 gm/dL (6.0-8.3)
[2016-12-11 21:55] LABS: BAND NEUTROPHILE 7 % (0-10); LYMPHOCYTE 4 % (20-50); MONOCYTE 1 % (2-10); NEUTROPHILS 88 % (40-80); PLATELET ESTIMATE ADEQUATE (NORMAL)
[2016-12-11 22:01] LABS: LIPASE < 3 U/L (11-82)
[2016-12-11] MEDS ORDERED: HYDROmorphone 1 mg/mL 1mL Syr ONE ×2 (22:03→23:12)
[2016-12-11] MEDS ORDERED: Potassium Chloride 20 mEq ER Tab PO ONE ×2 (22:24→22:48)
[2016-12-11 22:57] LABS: URINE MICROSCOPIC INDICATED? YES; URINE SOURCE CLEAN C
[2016-12-11 23:00] LABS: URINE BILIRUBIN NEGATIVE (NEGATIVE); URINE BLOOD TRACE (NEGATIVE); URINE GLUCOSE (UA) NEGATIVE (NEGATIVE); URINE KETONE TRACE mg/dL (NEGATIVE); URINE LEUKOCYTE ESTERASE TRACE (NEGATIVE); URINE NITRATE NEGATIVE (NEGATIVE); URINE PROTEIN TRACE mg/dL (NEGATIVE); URINE UROBILINOGEN 0.2 E.U./dL (0.2 - 1.0)
[2016-12-11 23:08] LABS: URINE CLARITY HAZY (CLEAR); URINE COLOR ORANGE
[2016-12-11 23:09] LABS: URINE BACTERIA OCCASIONAL /hpf (NONE SEEN); URINE EPITHELIAL CELLS NONE SEEN /lpf (FEW)
[2016-12-12] MEDS ORDERED: metroNIDAZOLE 500mg/NS 100mL 500 MG/100 ML BAG IV ONE ×2 (00:55→01:00)
[2016-12-12] MEDS ORDERED: Vancomycin HCL 250 mg /10mL UDC PO ONE ×2 (01:00→14:47)
[2016-12-12] MEDS: Sodium Chloride 0.9% 1,000 ML IV SCH ×3 (04:58→20:56)
[2016-12-12 06:20] LABS: HEMATOCRIT 35.2 % (41.0-60); HEMOGLOBIN 11.8 gm/dL (12-16); LYMPHOCYTE ABSOLUTE 0.5 Th/cmm (1.5-3.0); MANUAL DIFF REQUIRED? YES; MEAN CELL VOLUME 91.1 fl (80-99); MEAN CORPUSCULAR HEMOGLOBIN 30.7 pg (27.0-31.0); MEAN CORPUSCULAR HGB CONC 33.6 pg (28.0-36.0); MEAN PLATELET VOLUME 8.6 fl; MONOCYTE ABSOLUTE 0.3 Th/cmm (0.3-1.0); NEUTROPHILE ABSOLUTE 22.9 Th/cmm (1.8-8.0); PLATELET COUNT 197 Th/cmm (150-400); RED BLOOD COUNT 3.86 Mil/cmm (3.80-5.80); RED CELL DISTRIBUTION WIDTH 15.3 % (11.5-20.0)
[2016-12-12 06:36] LABS: WHITE BLOOD COUNT 23.7 Th/cmm (4.8-10.8)
[2016-12-12 06:41] LABS: BUN - UREA NITROGEN 16 mg/dL (7-25); CALCIUM SERUM 8.8 mg/dL (8.6-10.3); CARBON DIOXIDE 26.3 mEq/L (21.0-31.0); CHLORIDE 101 mEq/L (98-107); CHOLESTEROL 122 mg/dL (<200); CREATININE - SERUM 0.9 mg/dL (0.7-1.3); GLUCOSE 84 mg/dL (70-105); HDL -HIGH DENSITY LIPOPROTEIN 32 mg/dL (23-92); POTASSIUM SERUM 3.3 mEq/L (3.5-5.1); SODIUM SERUM 136 mEq/L (136-145); TRIGLYCERIDES 96 mg/dL (<150)
[2016-12-12 06:59] LABS: BAND NEUTROPHILE 13 % (0-10); LYMPHOCYTE 2 % (20-50); MONOCYTE 1 % (2-10); NEUTROPHILS 84 % (40-80); TOTAL CELLS COUNTED 100
--- NOTE | 2016-12-12 08:07 | Diagnostic Imaging Report ---
Exam: CT examination of the abdomen pelvis. HISTORY: Lower abdominal pain. Total DLP equals 802 CTDI equals 15.5 Findings: Multiple contiguous thin section of the abdomen pelvis obtained from lower thorax to the pubic symphysis with administration of oral contrast material. Intravenous contrast was not utilized. The study compared to the prior exam of 10/28/2016 The study demonstrates bilateral pneumonia with superimposed effusions. The liver and spleen intact. There is evidence of cholelithiasis. The visualized pancreas is intact. The adrenal glands are normal. The kidneys atrophic bilaterally. There is evidence for right lower quadrant renal transplant without obstructive uropathy. Diffuse colonic wall thickening with mild pericolonic stranding compatible with colitis. There is evidence of diverticular disease of sigmoid colon with possible diverticulitis. There is evidence for previous right hemicolectomy. Urinary bladder wall thickening might be related to cystitis. IMPRESSION: Diffuse colonic wall thickening question of a colitis. Question diverticulitis of sigmoid colon. Status post right hemicolectomy. Urinary bladder wall thickening. Cystitis cannot be excluded. Cholelithiasis. Basilar pneumonia superimposed effusions.
[2016-12-12] MEDS ORDERED: Bismuth Subsalicylate 236mL PO PRN (08:15)
[2016-12-12] MEDS ORDERED: Albuterol/Ipratropium Neb 3 ML AERS HHN PRN (08:15)
[2016-12-12] MEDS ORDERED: Fleet Enema 135 mL RC PRN (08:15)
[2016-12-12] MEDS: metroNIDAZOLE 500mg/NS 100mL 500 MG/100 ML BAG IV SCH ×3 (08:21→20:55)
[2016-12-12 09:39] VITALS: BP 114/62
[2016-12-12] MEDS: Ferrous Sulfate 325 MG TAB PO SCH (09:59)
[2016-12-12] MEDS ORDERED: cloNIDine 0.2 mg/24 hr Tdm TD SCH (10:00)
[2016-12-12] MEDS: Diltiazem 30 mg Tab PO SCH ×2 (12:02→18:20)
--- NOTE | 2016-12-12 14:25 | Internal Medicine Prog Note ---
Internal Medicine Subjective - Subjective Service Date: 12/12/16 ([id number]) Internal Medicine Objective - Results Result Diagrams: 12/12/16 06:00 12/12/16 06:00 Recent Labs: Laboratory Last Values WBC 23.7 Th/cmm (4.8-10.8) H* 12/12/16 06:00 RBC 3.86 Mil/cmm (3.80-5.80) 12/12/16 06:00 Hgb 11.8 gm/dL (12-16) L 12/12/16 06:00 Hct 35.2 % (41.0-60) L 12/12/16 06:00 MCV 91.1 fl (80-99) 12/12/16 06:00 MCH 30.7 pg (27.0-31.0) 12/12/16 06:00 MCHC Differential 33.6 pg (28.0-36.0) 12/12/16 06:00 RDW 15.3 % (11.5-20.0) 12/12/16 06:00 Plt Count 197 Th/cmm (150-400) 12/12/16 06:00 MPV 8.6 fl 12/12/16 06:00 Band Neutrophils % 13 % (0-10) H 12/12/16 06:00 Neutrophils (Manual) 84 % (40-80) H 12/12/16 06:00 Lymphocytes 2 % (20-50) L 12/12/16 06:00 Monocytes 1 % (2-10) L 12/12/16 06:00 Platelet Estimate ADEQUATE (NORMAL) 12/11/16 21:23 PT 11.0 SECONDS (9.5-11.5) 12/11/16 21:23 INR 1.06 (0.5-1.4) 12/11/16 21:23 PTT (Actin FS) 26.3 SECONDS (26.0-38.0) 12/11/16 21:23 Sodium 136 mEq/L (136-145) 12/12/16 06:00 Potassium 3.3 mEq/L (3.5-5.1) L 12/12/16 06:00 Chloride 101 mEq/L (98-107) 12/12/16 06:00 Carbon Dioxide 26.3 mEq/L (21.0-31.0) 12/12/16 06:00 Anion Gap 12.0 (7.0-16.0) 12/12/16 06:00 BUN 16 mg/dL (7-25) 12/12/16 06:00 Creatinine 0.9 mg/dL (0.7-1.3) 12/12/16 06:00 Est GFR ( Amer) TNP 12/12/16 06:00 Est GFR (Non-Af Amer) TNP 12/12/16 06:00 BUN/Creatinine Ratio 17.8 12/12/16 06:00 Glucose 84 mg/dL (70-105) 12/12/16 06:00 POC Glucose 89 MG/DL (70 - 105) 12/12/16 11:29 Whole Bld Lactic Acid 1.15 mmol/L (0.60-1.99) 12/11/16 21:23 Calcium 8.8 mg/dL (8.6-10.3) 12/12/16 06:00 Total Bilirubin 0.9 mg/dL (0.3-1.0) 12/11/16 21:23 AST 8 U/L (13-39) L 12/11/16 21:23 ALT 6 U/L (7-52) L 12/11/16 21:23 Alkaline Phosphatase 47 U/L (34-104) 12/11/16 21:23 Total Protein 4.6 gm/dL (6.0-8.3) L 12/11/16 21:23 Albumin 2.7 gm/dL (4.2-5.5) L 12/11/16 21:23 Globulin 1.9 gm/dL 12/11/16 21:23 Albumin/Globulin Ratio 1.4 (1.0-1.8) 12/11/16 21:23 Triglycerides 96 mg/dL (<150) 12/12/16 06:00 Cholesterol 122 mg/dL (<200) 12/12/16 06:00 LDL Cholesterol Direct 68 mg/dL (75-193) L 12/12/16 06:00 HDL Cholesterol 32 mg/dL (23-92) 12/12/16 06:00 Amylase 10 U/L (29-103) L 12/11/16 21:23 Lipase < 3 U/L (11-82) L 12/11/16 21:23 TSH 3.16 uIU/ml (0.34-5.60) 12/12/16 06:00 Urine Source CLEAN C 12/11/16 22:30 Urine Color ORANGE 12/11/16 22:30 Urine Clarity HAZY (CLEAR) 12/11/16 22:30 Urine pH 6.0 (4.6 - 8.0) 12/11/16 22:30 Ur Specific [place] 1.020 (1.005-1.030) 12/11/16 22:30 Urine Protein TRACE mg/dL (NEGATIVE) 12/11/16 22:30 Urine Glucose (UA) NEGATIVE mg/dL (NEGATIVE) 12/11/16 22:30 Urine Ketones TRACE mg/dL (NEGATIVE) 12/11/16 22:30 Urine Blood TRACE (NEGATIVE) 12/11/16 22: Urine Nitrate NEGATIVE (NEGATIVE) 12/11/16 22:30 Urine Bilirubin NEGATIVE (NEGATIVE) 12/11/16 22:30 Urine Urobilinogen 0.2 E.U./dL (0.2 - 1.0) 12/11/16 22:30 Ur Leukocyte Esterase TRACE (NEGATIVE) H 12/11/16 22:30 Urine RBC 2-5 /hpf (0-5) H 12/11/16 22:30 Urine WBC 2-5 /hpf (0-5) H 12/11/16 22:30 Ur Epithelial Cells NONE SEEN /lpf (FEW) 12/11/16 22:30 Calcium Oxalate Crystal FEW /hpf 12/11/16 22:30 Urine Bacteria OCCASIONAL /hpf (NONE SEEN) 12/11/16 22:30 Stool Occult Blood POSITIVE (NEGATIVE) 12/11/16 22:15 - Physical Exam Vitals and I&O: Vital Signs Temp 98.6 F 12/12/16 12:00 Pulse 80 12/12/16 12:02 Resp 16 12/12/16 12:00 BP 123/54 12/12/16 12:00 Pulse Ox 94 12/12/16 12:00 Intake & Output 12/11/16 12/12/16 12/12/16 18:59 06:59 18:59 Intake Total 100 Balance 100 Intake: Intake, IV Amount 100 metroNIDAZOLE 500mg/NS 100 100mL 500 mg In 100 ml @ 100 mls/hr IV Q8HR [facility] Rx #:[id number] Other: Stool Characteristics Liquid Active Medications: Current Medications Acetaminophen (Tylenol) 650 mg PO Q4H PRN PRN Reason: Pain or Fever >101 Stop: 02/10/17 08:14 Last Admin: 12/12/16 14:18 Dose: 650 mg Albuterol/Ipratropium (Duoneb Neb) 3 ml HHN Q4HRT PRN PRN Reason: Shortness of Breath Stop: 02/10/17 08:14 Ascorbic Acid (Vitamin C) 500 mg PO DAILY [facility] Stop: 02/10/17 08:59 Last Admin: 12/12/16 09:59 Dose: 500 mg Bismuth Subsalicylate (Pepto-Bismol) 30 ml PO Q6H PRN PRN Reason: GI DISTRESS Stop: 02/10/17 08:14 Clonidine HCl ([id number]-5) 1 patch TD Mo HUMERA Stop: 02/10/17 09:59 Last Admin: 12/12/16 09:58 Dose: 1 patch Diltiazem HCl (Cardizem) 30 mg PO Q6HR [facility] Stop: 02/10/17 11:59 Last Admin: 12/12/16 12:02 Dose: 30 mg Docusate Sodium (Colace) 100 mg PO BID [facility]ERA Stop: 02/10/17 08:59 Last Admin: 12/12/16 09:59 Dose: 100 mg Ferrous Sulfate (Iron) 325 mg PO DAILY [facility]UMERA Stop: 02/10/17 08:59 Last Admin: 12/12/16 09:59 Dose: 325 mg Furosemide (Lasix) 20 mg PO DAILY HUMERA Stop: 02/10/17 08:59 Last Admin: 12/12/16 09:59 Dose: 20 mg Metronidazole (Flagyl) 500 mg in 100 mls @ 100 mls/hr IV Q8HR [facility] Stop: 02/10/17 07:59 Last Admin: 12/12/16 12:02 Dose: 100 mls/hr Sodium Chloride (Nacl 0.9%) 1,000 mls @ 100 mls/hr IV .Q10H [facility]ERA Stop: 02/10/17 01:15 Last Admin: 12/12/16 04:58 Dose: 100 mls/hr Levofloxacin (Levaquin) 250 mg PO DAILY HUMERA Stop: 02/10/17 08:59 Last Admin: 12/12/16 09:59 Dose: 250 mg Sodium Phosphate (Fleet Enema) 135 ml RC DAILY PRN PRN Reason: Constipation Stop: 02/10/17 08:14 Internal Medicine Assmt/Plan - Assessment Assessment: pneumonia acute cholelithiasis htn gerd acute renal insuffciency
[2016-12-12] MEDS: Morphine Sulfate 2 mg/mL 1mL Syr IVP PRN (15:23)
--- NOTE | 2016-12-12 16:03 | History & Physical ---
ADMIT DATE: 12/12/2016 CHIEF COMPLAINT: Abdominal pain x1 week. HISTORY OF PRESENT ILLNESS: This is a 76-year-old male who is a half-way resident who was brought here to [facility] for a 1-week history of lower abdominal pain. The patient denies any fevers or any chills. The patient states that he recently had C. diff on November 19 and was treated. PAST MEDICAL HISTORY: Hypertension, diabetes, CAD, GERD, chronic anemia, chronic renal insufficiency. SOCIAL HISTORY: The patient is a half-way resident. SURGICAL HISTORY: Lumbar spine surgery x 3 and partial colectomy 3 months ago. MEDICATIONS: Please see medication reconciliation sheet. REVIEW OF SYSTEMS: GENERAL: Denies fevers or chills. CARDIOVASCULAR: Denies any chest pain. RESPIRATORY: Denies any shortness of breath. GASTROINTESTINAL: Denies any nausea or vomiting, but complains of abdominal pain. GENITOURINARY: Denies dysuria. All of vision systems are reviewed by me and are negative. PHYSICAL EXAMINATION: EXTREMITIES: The patient is well developed, well nourished, no acute distress. VITAL SIGNS: Temperature 98.6, heart rate 80, blood pressure 123/54, respirations 16, and O2 94%. HEENT: Head; normocephalic, atraumatic. NECK: Supple. No mass. LUNGS: Clear bilaterally. HEART: Regular rate and rhythm. ABDOMEN: Mildly distended, no apparent distress. LABORATORY DATA: WBC ____, H and H 11.8 and 35.2, platelets of 197. Sodium 136, potassium ____, chloride 101, CO2 26.3, BUN 16, and creatinine 0.9. DIAGNOSTICS: The patient had a CT of abdomen and pelvis done and the impression is diffuse colonic wall thickening, question of a colitis, question diverticulitis of sigmoid colon, status post right hemicolectomy, urinary bladder wall thickening, cholelithiasis, basilar pneumonia, superimposed effusions. ASSESSMENT: Basilar pneumonia, acute cholelithiasis, history of Clostridium diff, hypertension, diabetes, gastroesophageal reflux disease, chronic anemia, chronic renal insufficiency. PLAN: The patient to be admitted to the med/surg unit. We will get GI on the case. Pain management, IV antibiotics of Flagyl with an Infectious Disease on the case as well. We will order some stool culture. We will monitor the patient's electrolytes levels, IV fluids for hydration. We will continue to follow this patient. [facility]# [id number]
--- NOTE | 2016-12-12 16:03 | History & Physical ---
ADMIT DATE: 12/12/2016 CHIEF COMPLAINT: Abdominal pain x1 week. HISTORY OF PRESENT ILLNESS: This is a 76-year-old male who is a care home resident who was brought here to [facility] for a 1-week history of lower abdominal pain. The patient denies any fevers or any chills. The patient states that he recently had C. diff on November 19 and was treated. PAST MEDICAL HISTORY: Hypertension, diabetes, CAD, GERD, chronic anemia, chronic renal insufficiency. SOCIAL HISTORY: The patient is a care home resident. SURGICAL HISTORY: Lumbar spine surgery x 3 and partial colectomy 3 months ago. MEDICATIONS: Please see medication reconciliation sheet. REVIEW OF SYSTEMS: GENERAL: Denies fevers or chills. CARDIOVASCULAR: Denies any chest pain. RESPIRATORY: Denies any shortness of breath. GASTROINTESTINAL: Denies any nausea or vomiting, but complains of abdominal pain. GENITOURINARY: Denies dysuria. All of vision systems are reviewed by me and are negative. PHYSICAL EXAMINATION: EXTREMITIES: The patient is well developed, well nourished, no acute distress. VITAL SIGNS: Temperature 98.6, heart rate 80, blood pressure 123/54, respirations 16, and O2 94%. HEENT: Head; normocephalic, atraumatic. NECK: Supple. No mass. LUNGS: Clear bilaterally. HEART: Regular rate and rhythm. ABDOMEN: Mildly distended, no apparent distress. LABORATORY DATA: WBC ____, H and H 11.8 and 35.2, platelets of 197. Sodium 136, potassium ____, chloride 101, CO2 26.3, BUN 16, and creatinine 0.9. DIAGNOSTICS: The patient had a CT of abdomen and pelvis done and the impression is diffuse colonic wall thickening, question of a colitis, question diverticulitis of sigmoid colon, status post right hemicolectomy, urinary bladder wall thickening, cholelithiasis, basilar pneumonia, superimposed effusions. ASSESSMENT: Basilar pneumonia, acute cholelithiasis, history of Clostridium diff, hypertension, diabetes, gastroesophageal reflux disease, chronic anemia, chronic renal insufficiency. PLAN: The patient to be admitted to the med/surg unit. We will get GI on the case. Pain management, IV antibiotics of Flagyl with an Infectious Disease on the case as well. We will order some stool culture. We will monitor the patient's electrolytes levels, IV fluids for hydration. We will continue to follow this patient. [facility]# [id number]
[2016-12-12] MEDS ORDERED: VTE Chemical Prophylaxis Screen/Admission MC PRN (16:12)
[2016-12-12] MEDS: INSULIN ASPART SLIDING SCALE 100 UNITS/ML UNIT SUBQ SCH (18:09)
[2016-12-12] MEDS: Ipratropium Neb 0.5 mg/2.5 mL UD HHN SCH (19:15)
[2016-12-12] MEDS: Albuterol Nebulizer 2.5mg/3mL HHN SCH (19:15)
[2016-12-13] MEDS: Morphine Sulfate 2 mg/mL 1mL Syr IVP PRN (05:11)
[2016-12-13] MEDS: metroNIDAZOLE 500mg/NS 100mL 500 MG/100 ML BAG IV SCH ×3 (05:31→21:20)
[2016-12-13 05:58] LABS: EOSINOPHILE ABSOLUTE 0.1 Th/cmm (0.1-0.4); HEMATOCRIT 33.3 % (41.0-60); HEMOGLOBIN 11.2 gm/dL (12-16); LYMPHOCYTE ABSOLUTE 0.7 Th/cmm (1.5-3.0); MANUAL DIFF REQUIRED? YES; MEAN CELL VOLUME 89.4 fl (80-99); MEAN CORPUSCULAR HGB CONC 33.6 pg (28.0-36.0); MEAN PLATELET VOLUME 8.9 fl; MONOCYTE ABSOLUTE 1.3 Th/cmm (0.3-1.0); NEUTROPHILE ABSOLUTE 21.4 Th/cmm (1.8-8.0); PLATELET COUNT 179 Th/cmm (150-400); RED BLOOD COUNT 3.73 Mil/cmm (3.80-5.80); RED CELL DISTRIBUTION WIDTH 15.9 % (11.5-20.0)
[2016-12-13 06:11] LABS: WHITE BLOOD COUNT 23.5 Th/cmm (4.8-10.8)
[2016-12-13 06:16] LABS: BAND NEUTROPHILE 27 % (0-10); LYMPHOCYTE 4 % (20-50); NEUTROPHILS 63 % (40-80); TOTAL CELLS COUNTED 100
[2016-12-13 06:17] LABS: MONOCYTE 6 % (2-10)
[2016-12-13 06:19] LABS: ANION GAP 10.3 (7.0-16.0); BUN - UREA NITROGEN 17 mg/dL (7-25); CALCIUM SERUM 8.8 mg/dL (8.6-10.3); CARBON DIOXIDE 26.9 mEq/L (21.0-31.0); CHLORIDE 104 mEq/L (98-107); CREATININE - SERUM 0.9 mg/dL (0.7-1.3); GLUCOSE 108 mg/dL (70-105); POTASSIUM SERUM 3.2 mEq/L (3.5-5.1); SODIUM SERUM 138 mEq/L (136-145)
[2016-12-13] MEDS: Diltiazem 30 mg Tab PO SCH ×4 (06:32→23:28)
[2016-12-13] MEDS: Albuterol Nebulizer 2.5mg/3mL HHN SCH ×4 (06:50→19:11)
[2016-12-13] MEDS: Ipratropium Neb 0.5 mg/2.5 mL UD HHN SCH ×4 (06:50→19:11)
[2016-12-13] MEDS: INSULIN ASPART SLIDING SCALE 100 UNITS/ML UNIT SUBQ SCH ×5 (07:37→21:20)
[2016-12-13] MEDS: Ferrous Sulfate 325 MG TAB PO SCH (09:44)
[2016-12-13] MEDS: Sodium Chloride 0.9% 1,000 ML IV SCH (09:50)
[2016-12-13 11:10] LABS: ALB/GLOB RATIO 1.3 (1.0-1.8); ALBUMIN 2.2 gm/dL (4.2-5.5); ALKALINE PHOSPHATASE 46 U/L (34-104); BILIRUBIN,DIRECT 0.25 mg/dL (0.0-0.2); BILIRUBIN,TOTAL 0.7 mg/dL (0.3-1.0); SGOT 8 U/L (13-39); SGPT/ALT 4 U/L (7-52); TOTAL PROTEIN,SERUM 3.9 gm/dL (6.0-8.3)
--- NOTE | 2016-12-13 12:05 | Consultation ---
Consult Note - Consult Note Service Date: 12/13/16 Referring Physician: Juan Dahl Consult Note: PHYSICIAN Consultation Note: Date of Admission: 12/12/16 Purpose of Consultation: CDAC. Chief Complaint: DIARRHEA,C-DIFF,LEUKOCYTOSIS. History of Present Illness: Patient is 76 y male presented to the hospital for diarrhea and leukocytosis. on initial evaluation, her temperature is 98.4 degree and WBC Count was 23k. CT scan revealed colitis, diverticulitis, cholelithiasis, pneumonia with effusion and cystitis with renal transplant. ID consult was called for antibiotic management. Past Medical History: DM2, CKD 5, Renal transplant from unrelated donor. Diagnoses OTHER SPECIFIED BACTERIAL INTESTINAL INFECTIONS (12/12/16) TYPE 2 DIABETES MELLITUS WITHOUT COMPLICATIONS (12/12/16) HYPOKALEMIA (12/12/16) ESSENTIAL (PRIMARY) HYPERTENSION (12/12/16) ATHSCL HEART DISEASE OF [place] CORONARY ARTERY W/O ANG PCTRS (12/12/16) PNEUMONIA, UNSPECIFIED ORGANISM (12/12/16) GASTRO-ESOPHAGEAL REFLUX DISEASE WITHOUT ESOPHAGITIS (12/12/16) CALCULUS OF GALLBLADDER W/O CHOLECYSTITIS W/O OBSTRUCTION (12/12/16) UNSPECIFIED ABDOMINAL PAIN (12/12/16) Allergies Allergy/AdvReac Type Severity Reaction Status Date / Time Penicillins Allergy Verified 10/27/16 23:50 Vital Signs Temp 98.0 F 12/13/16 08:00 Pulse 92 12/13/16 10:13 Resp 18 12/13/16 10:13 BP 105/46 12/13/16 09:44 Pulse Ox 96 12/13/16 10:13 Intake & Output 12/12/16 12/13/16 12/13/16 18:59 06:59 18:59 Intake Total 2132.476 8326.333 Balance 1721.170 2543.333 Weight (lbs) 87.26 kg Intake: Intake, IV Amount 0772.779 8566.333 Sodium Chloride 0.9% 1, 2361.379 5716.333 000 ml @ 100 mls/hr IV . Q10H [facility] Rx#:[id number] metroNIDAZOLE 500mg/NS 200 200 100mL 500 mg In 100 ml @ 100 mls/hr IV Q8HR [facility] Rx #:[id number] Other: # Bowel Movements 3 Stool Characteristics Liquid Laboratory Results - last 24 hr 12/12/16 12/12/16 12/13/16 16:26 21:15 05:40 WBC 23.5 H* RBC 3.73 L Hgb 11.2 L Hct 33.3 L MCV 89.4 MCH 30.0 MCHC Differential 33.6 RDW 15.9 Plt Count 179 MPV 8.9 Band Neutrophils % 27 H Neutrophils (Manual) 63 Lymphocytes 4 L Monocytes 6 Sodium Potassium Chloride Carbon Dioxide Anion Gap BUN Creatinine Est GFR ( Amer) Est GFR (Non-Af Amer) BUN/Creatinine Ratio Glucose POC Glucose 106 H 62 L Calcium 12/13/16 05:40 WBC RBC Hgb Hct MCV MCH MCHC Differential RDW Plt Count MPV Band Neutrophils % Neutrophils (Manual) Lymphocytes Monocytes Sodium 138 Potassium 3.2 L Chloride 104 Carbon Dioxide 26.9 Anion Gap 10.3 BUN 17 Creatinine 0.9 Est GFR ( Amer) TNP Est GFR (Non-Af Amer) TNP BUN/Creatinine Ratio 18.9 Glucose 108 H POC Glucose Calcium 8.8 Home Medication Medication Instructions Recorded Type Acetaminophen [Tylenol] 650 mg PO Q4HR PRN 12/11/16 History Albuterol/Ipratropium Neb [Duoneb 3 ml HHN Q4HR PRN 12/11/16 History Neb] Ascorbic Acid 500 mg PO DAILY 12/11/16 History Bismuth Subsalicylate 30 ml PO Q6H PRN 12/11/16 History [Pepto-Bismol] Diltiazem [Cardizem] 30 mg PO Q6H 12/11/16 History Docusate Sodium 100 mg PO BID 12/11/16 History Ferrous Sulfate [Iron] 325 mg PO DAILY 12/11/16 History Fleet Enema [Fleet Enema] 135 ml RC DAILY PRN 12/11/16 History Furosemide 20 mg PO DAILY 12/11/16 History Glucagon,Human Recombinant 1 mg IJ Q6H PRN 12/11/16 History [Glucagon Emergency Kit] Hydrocodone/APAP 10 mg/325 mg 1 tab PO Q6H PRN 12/11/16 History [[place] 10 mg/325 mg] Insulin Aspart Sliding Scale See Protocol SUBQ ACHS 12/11/16 History [NovoLOG INSULIN SLIDING SCALE] Lactulose 30 ml PO Q6H PRN 12/11/16 History Multivitamin with Minerals 1 tab PO DAILY 12/11/16 History [Nature's Blend Multiple Vitamin with Minerals] Mycophenolate Mofetil 750 mg PO Q12H 12/11/16 History Nitroglycerin [Nitroglycerin*] 0.4 mg SL Q5MIN PRN 12/11/16 History Pantoprazole Sodium [Protonix] 40 mg PO QDAC 12/11/16 History Potassium Chloride ER [Klor-Con] 40 meq PO DAILY 12/11/16 History Prednisone [Deltasone] 20 mg PO QDAC 12/11/16 History Saccharomyces Boulardii [Florastor] 250 mg PO BID 12/11/16 History Tacrolimus [Prograf] 1 mg PO Q12H 12/11/16 History Zolpidem Tartrate 5 mg PO HS PRN 12/11/16 History cloNIDine 0.2 mg/24 hr 1 patch TD QWEEK 0730 12/11/16 History [Mraektls-WLA-8*] Current Medications Generic Name Dose Route Start Last Admin Trade Name Freq PRN Reason Stop Dose Admin Acetaminophen 650 mg 12/12/16 08:15 12/12/16 14:18 Tylenol PO 02/10/17 08:14 650 mg Q4H PRN Administration Pain or Fever >101 Albuterol Sulfate 2.5 mg 12/12/16 15:00 12/13/16 10:12 Albuterol 2.5mg/3ml Neb Ud N 02/10/17 14:59 2.5 mg QIDRT [facility] Administration Albuterol/Ipratropium 3 ml 12/12/16 08:15 Duoneb Neb N 02/10/17 08:14 Q4HRT PRN Shortness of Breath Ascorbic Acid 500 mg 12/12/16 09:00 12/13/16 09:43 Vitamin C PO 02/10/17 08:59 Not Given DAILY [facility] Bismuth Subsalicylate 30 ml 12/12/16 08:15 Pepto-Bismol PO 02/10/17 08:14 Q6H PRN GI DISTRESS Clonidine HCl 1 patch 12/12/16 10:00 12/12/16 09:58 Eenincwf-Wkv-6 TD 02/10/17 09:59 1 patch Mo [facility] Administration Diltiazem HCl 30 mg 12/12/16 12:00 12/13/16 06:32 Cardizem PO 02/10/17 11:59 30 mg Q6HR [facility] Administration Docusate Sodium 100 mg 12/12/16 09:00 12/13/16 09:44 Colace PO 02/10/17 08:59 Not Given BID [facility] Ferrous Sulfate 325 mg 12/12/16 09:00 12/13/16 09:44 Iron PO 02/10/17 08:59 Not Given DAILY [facility] Furosemide 20 mg 12/12/16 09:00 12/13/16 09:44 Lasix PO 02/10/17 08:59 Not Given DAILY [facility] Heparin Sodium (Porcine) 5,000 units 12/12/16 21:00 12/13/16 09:51 Heparin SUBQ 02/10/17 20:59 5,000 units Q12HR [facility] Administration Metronidazole 500 mg in 100 mls @ 100 mls/hr 12/12/16 08:00 12/13/16 06:33 Flagyl IV 02/10/17 07:59 Infused Q8HR [facility] Infusion Sodium Chloride 1,000 mls @ 100 mls/hr 12/12/16 01:16 12/13/16 09:50 Nacl 0.9% IV 02/10/17 01:15 100 mls/hr .Q10H [facility] Administration Insulin Aspart 0 units 12/12/16 16:30 12/13/16 08:52 Novolog Insulin Sliding Scale SUBQ 02/10/17 16:29 Not Given ACHS [facility] Protocol Ipratropium [place] 0.5 mg 12/12/16 15:00 12/13/16 10:12 Atrovent Neb 0.5mg/2.5ml HHN 02/10/17 14:59 0.5 mg QIDRT [facility] Administration Levofloxacin 250 mg 12/12/16 09:00 12/13/16 09:44 Levaquin PO 02/10/17 08:59 Not Given DAILY [facility] Miscellaneous 1 ea 12/12/16 16:12 Vte Chemical Prophylaxis Screen/ Admission 02/10/17 16:11 PRN PRN PROTOCOL Morphine Sulfate 1 mg 12/12/16 14:56 12/13/16 05:11 Morphine IVP 02/10/17 14:55 1 mg Q6H PRN Administration Abdominal Pain Sodium Phosphate 135 ml 12/12/16 08:15 Fleet Enema RC 02/10/17 08:14 DAILY PRN Constipation Review of Systems: A 12 point ROS was reviewed with the pertinent positive and negatives noted in the HPI. Social History Smoking Status Smoker, status unknown Drug Use No Alcohol Use No Family Medical History Family Medical History Start: 12/12/16 02: 09 Freq: ONCE Status: Active Document 12/12/16 04:05 MICHELLE (Rec: 12/12/16 04:08 MICHELLE [id number]) Family Medical History Mother History Unknown Yes Ethnicity Unknown Living Status Hx Family Cancer Yes: COLON Hx Family Coronary Artery Disease No Hx Family Congestive Heart Failure No Hx Family Hypertension Yes Hx Family Stroke No Hx Family Diabetes No Hx Family Seizures No Hx Family Dementia No Hx Family AIDS No Hx Family HIV No Hx Family COPD No Hx Family Hepatitis No Hx Family Psychiatric Problems No Hx Family Tuberculosis No Physical Exam: General: Comfortable, not in acute distress. HEENT: Head is normocephalic, atraumatic, Oral cavity moist pink tongue, eyes: pallor is present, no icterus. pupil perrla, eomi. Neck: Supple, no JVD, no carotid bruit. Cardio: S1 and S2 WNL, no murmur Respiratory: Vesicular breath sounds. Abdominal: Soft generalized tenderness. Genital/Urinary: Deferred. Extremities: NCCE Neurological: AAOx3 Assessment: 1. Leukocytosis. 2. CDAC. 3. Diverticulitis. 4. Cystitis with h/o renal transplant. 5. Cholelithiasis. 6. Bilateral pneumonia with parapneumonic effusion. 7. H/o renall transplant fron unrelated donor. Plan: Continue levaquin and flagyl. Add vanco PO, and vanco IV. Renal consult. Needs clarification on immunosuppressive medications. thank you, Dr Dahl for involving me in taking care of this patient. Signed, Brian Santana M.D. [id number]
--- NOTE | 2016-12-13 12:05 | Consultation ---
Consult Note - Consult Note Service Date: 12/13/16 Referring Physician: Juan Dahl Consult Note: PHYSICIAN Consultation Note: Date of Admission: 12/12/16 Purpose of Consultation: CDAC. Chief Complaint: DIARRHEA,C-DIFF,LEUKOCYTOSIS. History of Present Illness: Patient is 76 y male presented to the hospital for diarrhea and leukocytosis. on initial evaluation, her temperature is 98.4 degree and WBC Count was 23k. CT scan revealed colitis, diverticulitis, cholelithiasis, pneumonia with effusion and cystitis with renal transplant. ID consult was called for antibiotic management. Past Medical History: DM2, CKD 5, Renal transplant from unrelated donor. Diagnoses OTHER SPECIFIED BACTERIAL INTESTINAL INFECTIONS (12/12/16) TYPE 2 DIABETES MELLITUS WITHOUT COMPLICATIONS (12/12/16) HYPOKALEMIA (12/12/16) ESSENTIAL (PRIMARY) HYPERTENSION (12/12/16) ATHSCL HEART DISEASE OF [id number] CORONARY ARTERY W/O ANG PCTRS (12/12/16) PNEUMONIA, UNSPECIFIED ORGANISM (12/12/16) GASTRO-ESOPHAGEAL REFLUX DISEASE WITHOUT ESOPHAGITIS (12/12/16) CALCULUS OF GALLBLADDER W/O CHOLECYSTITIS W/O OBSTRUCTION (12/12/16) UNSPECIFIED ABDOMINAL PAIN (12/12/16) Allergies Allergy/AdvReac Type Severity Reaction Status Date / Time Penicillins Allergy Verified 10/27/16 23:50 Vital Signs Temp 98.0 F 12/13/16 08:00 Pulse 92 12/13/16 10:13 Resp 18 12/13/16 10:13 BP 105/46 12/13/16 09:44 Pulse Ox 96 12/13/16 10:13 Intake & Output 12/12/16 12/13/16 12/13/16 18:59 06:59 18:59 Intake Total 1732.675 7910.333 Balance 1792.463 8889.333 Weight (lbs) 87.26 kg Intake: Intake, IV Amount 6813.889 5906.333 Sodium Chloride 0.9% 1, 5117.047 3946.333 000 ml @ 100 mls/hr IV . Q10H [facility] Rx#:[id number] metroNIDAZOLE 500mg/NS 200 200 100mL 500 mg In 100 ml @ 100 mls/hr IV Q8HR [facility] Rx #:[id number] Other: # Bowel Movements 3 Stool Characteristics Liquid Laboratory Results - last 24 hr 12/12/16 12/12/16 12/13/16 16:26 21:15 05:40 WBC 23.5 H* RBC 3.73 L Hgb 11.2 L Hct 33.3 L MCV 89.4 MCH 30.0 MCHC Differential 33.6 RDW 15.9 Plt Count 179 MPV 8.9 Band Neutrophils % 27 H Neutrophils (Manual) 63 Lymphocytes 4 L Monocytes 6 Sodium Potassium Chloride Carbon Dioxide Anion Gap BUN Creatinine Est GFR ( Amer) Est GFR (Non-Af Amer) BUN/Creatinine Ratio Glucose POC Glucose 106 H 62 L Calcium 12/13/16 05:40 WBC RBC Hgb Hct MCV MCH MCHC Differential RDW Plt Count MPV Band Neutrophils % Neutrophils (Manual) Lymphocytes Monocytes Sodium 138 Potassium 3.2 L Chloride 104 Carbon Dioxide 26.9 Anion Gap 10.3 BUN 17 Creatinine 0.9 Est GFR ( Amer) TNP Est GFR (Non-Af Amer) TNP BUN/Creatinine Ratio 18.9 Glucose 108 H POC Glucose Calcium 8.8 Home Medication Medication Instructions Recorded Type Acetaminophen [Tylenol] 650 mg PO Q4HR PRN 12/11/16 History Albuterol/Ipratropium Neb [Duoneb 3 ml HHN Q4HR PRN 12/11/16 History Neb] Ascorbic Acid 500 mg PO DAILY 12/11/16 History Bismuth Subsalicylate 30 ml PO Q6H PRN 12/11/16 History [Pepto-Bismol] Diltiazem [Cardizem] 30 mg PO Q6H 12/11/16 History Docusate Sodium 100 mg PO BID 12/11/16 History Ferrous Sulfate [Iron] 325 mg PO DAILY 12/11/16 History Fleet Enema [Fleet Enema] 135 ml RC DAILY PRN 12/11/16 History Furosemide 20 mg PO DAILY 12/11/16 History Glucagon,Human Recombinant 1 mg IJ Q6H PRN 12/11/16 History [Glucagon Emergency Kit] Hydrocodone/APAP 10 mg/325 mg 1 tab PO Q6H PRN 12/11/16 History [[place] 10 mg/325 mg] Insulin Aspart Sliding Scale See Protocol SUBQ ACHS 12/11/16 History [NovoLOG INSULIN SLIDING SCALE] Lactulose 30 ml PO Q6H PRN 12/11/16 History Multivitamin with Minerals 1 tab PO DAILY 12/11/16 History [Nature's Blend Multiple Vitamin with Minerals] Mycophenolate Mofetil 750 mg PO Q12H 12/11/16 History Nitroglycerin [Nitroglycerin*] 0.4 mg SL Q5MIN PRN 12/11/16 History Pantoprazole Sodium [Protonix] 40 mg PO QDAC 12/11/16 History Potassium Chloride ER [Klor-Con] 40 meq PO DAILY 12/11/16 History Prednisone [Deltasone] 20 mg PO QDAC 12/11/16 History Saccharomyces Boulardii [Florastor] 250 mg PO BID 12/11/16 History Tacrolimus [Prograf] 1 mg PO Q12H 12/11/16 History Zolpidem Tartrate 5 mg PO HS PRN 12/11/16 History cloNIDine 0.2 mg/24 hr 1 patch TD QWEEK 0730 12/11/16 History [Ufiuuccr-UNY-8*] Current Medications Generic Name Dose Route Start Last Admin Trade Name Freq PRN Reason Stop Dose Admin Acetaminophen 650 mg 12/12/16 08:15 12/12/16 14:18 Tylenol PO 02/10/17 08:14 650 mg Q4H PRN Administration Pain or Fever >101 Albuterol Sulfate 2.5 mg 12/12/16 15:00 12/13/16 10:12 Albuterol 2.5mg/3ml Neb Ud N 02/10/17 14:59 2.5 mg QIDRT [facility] Administration Albuterol/Ipratropium 3 ml 12/12/16 08:15 Duoneb Neb N 02/10/17 08:14 Q4HRT PRN Shortness of Breath Ascorbic Acid 500 mg 12/12/16 09:00 12/13/16 09:43 Vitamin C PO 02/10/17 08:59 Not Given DAILY [facility] Bismuth Subsalicylate 30 ml 12/12/16 08:15 Pepto-Bismol PO 02/10/17 08:14 Q6H PRN GI DISTRESS Clonidine HCl 1 patch 12/12/16 10:00 12/12/16 09:58 Ncxjvuht-Dva-1 TD 02/10/17 09:59 1 patch Mo [facility] Administration Diltiazem HCl 30 mg 12/12/16 12:00 12/13/16 06:32 Cardizem PO 02/10/17 11:59 30 mg Q6HR [facility] Administration Docusate Sodium 100 mg 12/12/16 09:00 12/13/16 09:44 Colace PO 02/10/17 08:59 Not Given BID [facility] Ferrous Sulfate 325 mg 12/12/16 09:00 12/13/16 09:44 Iron PO 02/10/17 08:59 Not Given DAILY [facility] Furosemide 20 mg 12/12/16 09:00 12/13/16 09:44 Lasix PO 02/10/17 08:59 Not Given DAILY [facility] Heparin Sodium (Porcine) 5,000 units 12/12/16 21:00 12/13/16 09:51 Heparin SUBQ 02/10/17 20:59 5,000 units Q12HR [facility] Administration Metronidazole 500 mg in 100 mls @ 100 mls/hr 12/12/16 08:00 12/13/16 06:33 Flagyl IV 02/10/17 07:59 Infused Q8HR [facility] Infusion Sodium Chloride 1,000 mls @ 100 mls/hr 12/12/16 01:16 12/13/16 09:50 Nacl 0.9% IV 02/10/17 01:15 100 mls/hr .Q10H [facility] Administration Insulin Aspart 0 units 12/12/16 16:30 12/13/16 08:52 Novolog Insulin Sliding Scale SUBQ 02/10/17 16:29 Not Given ACHS [facility] Protocol Ipratropium [place] 0.5 mg 12/12/16 15:00 12/13/16 10:12 Atrovent Neb 0.5mg/2.5ml HHN 02/10/17 14:59 0.5 mg QIDRT [facility] Administration Levofloxacin 250 mg 12/12/16 09:00 12/13/16 09:44 Levaquin PO 02/10/17 08:59 Not Given DAILY [facility] Miscellaneous 1 ea 12/12/16 16:12 Vte Chemical Prophylaxis Screen/ Admission 02/10/17 16:11 PRN PRN PROTOCOL Morphine Sulfate 1 mg 12/12/16 14:56 12/13/16 05:11 Morphine IVP 02/10/17 14:55 1 mg Q6H PRN Administration Abdominal Pain Sodium Phosphate 135 ml 12/12/16 08:15 Fleet Enema RC 02/10/17 08:14 DAILY PRN Constipation Review of Systems: A 12 point ROS was reviewed with the pertinent positive and negatives noted in the HPI. Social History Smoking Status Smoker, status unknown Drug Use No Alcohol Use No Family Medical History Family Medical History Start: 12/12/16 02: 09 Freq: ONCE Status: Active Document 12/12/16 04:05 MICHELLE (Rec: 12/12/16 04:08 MICHELLE [id number]) Family Medical History Mother History Unknown Yes Ethnicity Unknown Living Status Hx Family Cancer Yes: COLON Hx Family Coronary Artery Disease No Hx Family Congestive Heart Failure No Hx Family Hypertension Yes Hx Family Stroke No Hx Family Diabetes No Hx Family Seizures No Hx Family Dementia No Hx Family AIDS No Hx Family HIV No Hx Family COPD No Hx Family Hepatitis No Hx Family Psychiatric Problems No Hx Family Tuberculosis No Physical Exam: General: Comfortable, not in acute distress. HEENT: Head is normocephalic, atraumatic, Oral cavity moist pink tongue, eyes: pallor is present, no icterus. pupil perrla, eomi. Neck: Supple, no JVD, no carotid bruit. Cardio: S1 and S2 WNL, no murmur Respiratory: Vesicular breath sounds. Abdominal: Soft generalized tenderness. Genital/Urinary: Deferred. Extremities: NCCE Neurological: AAOx3 Assessment: 1. Leukocytosis. 2. CDAC. 3. Diverticulitis. 4. Cystitis with h/o renal transplant. 5. Cholelithiasis. 6. Bilateral pneumonia with parapneumonic effusion. 7. H/o renall transplant fron unrelated donor. Plan: Continue levaquin and flagyl. Add vanco PO, and vanco IV. Renal consult. Needs clarification on immunosuppressive medications. thank you, Dr Dahl for involving me in taking care of this patient. Signed, Brian Santana M.D. [id number]
--- NOTE | 2016-12-13 12:05 | Consultation ---
Consult Note - Consult Note Service Date: 12/13/16 Referring Physician: Juan Dahl Consult Note: PHYSICIAN Consultation Note: Date of Admission: 12/12/16 Purpose of Consultation: CDAC. Chief Complaint: DIARRHEA,C-DIFF,LEUKOCYTOSIS. History of Present Illness: Patient is 76 y male presented to the hospital for diarrhea and leukocytosis. on initial evaluation, her temperature is 98.4 degree and WBC Count was 23k. CT scan revealed colitis, diverticulitis, cholelithiasis, pneumonia with effusion and cystitis with renal transplant. ID consult was called for antibiotic management. Past Medical History: DM2, CKD 5, Renal transplant from unrelated donor. Diagnoses OTHER SPECIFIED BACTERIAL INTESTINAL INFECTIONS (12/12/16) TYPE 2 DIABETES MELLITUS WITHOUT COMPLICATIONS (12/12/16) HYPOKALEMIA (12/12/16) ESSENTIAL (PRIMARY) HYPERTENSION (12/12/16) ATHSCL HEART DISEASE OF [place] CORONARY ARTERY W/O ANG PCTRS (12/12/16) PNEUMONIA, UNSPECIFIED ORGANISM (12/12/16) GASTRO-ESOPHAGEAL REFLUX DISEASE WITHOUT ESOPHAGITIS (12/12/16) CALCULUS OF GALLBLADDER W/O CHOLECYSTITIS W/O OBSTRUCTION (12/12/16) UNSPECIFIED ABDOMINAL PAIN (12/12/16) Allergies Allergy/AdvReac Type Severity Reaction Status Date / Time Penicillins Allergy Verified 10/27/16 23:50 Vital Signs Temp 98.0 F 12/13/16 08:00 Pulse 92 12/13/16 10:13 Resp 18 12/13/16 10:13 BP 105/46 12/13/16 09:44 Pulse Ox 96 12/13/16 10:13 Intake & Output 12/12/16 12/13/16 12/13/16 18:59 06:59 18:59 Intake Total 5915.998 2048.333 Balance 0531.470 1789.333 Weight (lbs) 87.26 kg Intake: Intake, IV Amount 6724.011 3786.333 Sodium Chloride 0.9% 1, 9556.030 0960.333 000 ml @ 100 mls/hr IV . Q10H [facility] Rx#:[id number] metroNIDAZOLE 500mg/NS 200 200 100mL 500 mg In 100 ml @ 100 mls/hr IV Q8HR [facility] Rx #:[id number] Other: # Bowel Movements 3 Stool Characteristics Liquid Laboratory Results - last 24 hr 12/12/16 12/12/16 12/13/16 16:26 21:15 05:40 WBC 23.5 H* RBC 3.73 L Hgb 11.2 L Hct 33.3 L MCV 89.4 MCH 30.0 MCHC Differential 33.6 RDW 15.9 Plt Count 179 MPV 8.9 Band Neutrophils % 27 H Neutrophils (Manual) 63 Lymphocytes 4 L Monocytes 6 Sodium Potassium Chloride Carbon Dioxide Anion Gap BUN Creatinine Est GFR ( Amer) Est GFR (Non-Af Amer) BUN/Creatinine Ratio Glucose POC Glucose 106 H 62 L Calcium 12/13/16 05:40 WBC RBC Hgb Hct MCV MCH MCHC Differential RDW Plt Count MPV Band Neutrophils % Neutrophils (Manual) Lymphocytes Monocytes Sodium 138 Potassium 3.2 L Chloride 104 Carbon Dioxide 26.9 Anion Gap 10.3 BUN 17 Creatinine 0.9 Est GFR ( Amer) TNP Est GFR (Non-Af Amer) TNP BUN/Creatinine Ratio 18.9 Glucose 108 H POC Glucose Calcium 8.8 Home Medication Medication Instructions Recorded Type Acetaminophen [Tylenol] 650 mg PO Q4HR PRN 12/11/16 History Albuterol/Ipratropium Neb [Duoneb 3 ml HHN Q4HR PRN 12/11/16 History Neb] Ascorbic Acid 500 mg PO DAILY 12/11/16 History Bismuth Subsalicylate 30 ml PO Q6H PRN 12/11/16 History [Pepto-Bismol] Diltiazem [Cardizem] 30 mg PO Q6H 12/11/16 History Docusate Sodium 100 mg PO BID 12/11/16 History Ferrous Sulfate [Iron] 325 mg PO DAILY 12/11/16 History Fleet Enema [Fleet Enema] 135 ml RC DAILY PRN 12/11/16 History Furosemide 20 mg PO DAILY 12/11/16 History Glucagon,Human Recombinant 1 mg IJ Q6H PRN 12/11/16 History [Glucagon Emergency Kit] Hydrocodone/APAP 10 mg/325 mg 1 tab PO Q6H PRN 12/11/16 History [[place] 10 mg/325 mg] Insulin Aspart Sliding Scale See Protocol SUBQ ACHS 12/11/16 History [NovoLOG INSULIN SLIDING SCALE] Lactulose 30 ml PO Q6H PRN 12/11/16 History Multivitamin with Minerals 1 tab PO DAILY 12/11/16 History [Nature's Blend Multiple Vitamin with Minerals] Mycophenolate Mofetil 750 mg PO Q12H 12/11/16 History Nitroglycerin [Nitroglycerin*] 0.4 mg SL Q5MIN PRN 12/11/16 History Pantoprazole Sodium [Protonix] 40 mg PO QDAC 12/11/16 History Potassium Chloride ER [Klor-Con] 40 meq PO DAILY 12/11/16 History Prednisone [Deltasone] 20 mg PO QDAC 12/11/16 History Saccharomyces Boulardii [Florastor] 250 mg PO BID 12/11/16 History Tacrolimus [Prograf] 1 mg PO Q12H 12/11/16 History Zolpidem Tartrate 5 mg PO HS PRN 12/11/16 History cloNIDine 0.2 mg/24 hr 1 patch TD QWEEK 0730 12/11/16 History [Fiapikac-URI-7*] Current Medications Generic Name Dose Route Start Last Admin Trade Name Freq PRN Reason Stop Dose Admin Acetaminophen 650 mg 12/12/16 08:15 12/12/16 14:18 Tylenol PO 02/10/17 08:14 650 mg Q4H PRN Administration Pain or Fever >101 Albuterol Sulfate 2.5 mg 12/12/16 15:00 12/13/16 10:12 Albuterol 2.5mg/3ml Neb Ud N 02/10/17 14:59 2.5 mg QIDRT [facility] Administration Albuterol/Ipratropium 3 ml 12/12/16 08:15 Duoneb Neb N 02/10/17 08:14 Q4HRT PRN Shortness of Breath Ascorbic Acid 500 mg 12/12/16 09:00 12/13/16 09:43 Vitamin C PO 02/10/17 08:59 Not Given DAILY [facility] Bismuth Subsalicylate 30 ml 12/12/16 08:15 Pepto-Bismol PO 02/10/17 08:14 Q6H PRN GI DISTRESS Clonidine HCl 1 patch 12/12/16 10:00 12/12/16 09:58 [id number]-Viq-[id number] TD 02/10/17 09:59 1 patch Mo [facility] Administration Diltiazem HCl 30 mg 12/12/16 12:00 12/13/16 06:32 Cardizem PO 02/10/17 11:59 30 mg Q6HR [facility] Administration Docusate Sodium 100 mg 12/12/16 09:00 12/13/16 09:44 Colace PO 02/10/17 08:59 Not Given BID [facility] Ferrous Sulfate 325 mg 12/12/16 09:00 12/13/16 09:44 Iron PO 02/10/17 08:59 Not Given DAILY [facility] Furosemide 20 mg 12/12/16 09:00 12/13/16 09:44 Lasix PO 02/10/17 08:59 Not Given DAILY [facility] Heparin Sodium (Porcine) 5,000 units 12/12/16 21:00 12/13/16 09:51 Heparin SUBQ 02/10/17 20:59 5,000 units Q12HR [facility] Administration Metronidazole 500 mg in 100 mls @ 100 mls/hr 12/12/16 08:00 12/13/16 06:33 Flagyl IV 02/10/17 07:59 Infused Q8HR [facility] Infusion Sodium Chloride 1,000 mls @ 100 mls/hr 12/12/16 01:16 12/13/16 09:50 Nacl 0.9% IV 02/10/17 01:15 100 mls/hr .Q10H [facility] Administration Insulin Aspart 0 units 12/12/16 16:30 12/13/16 08:52 Novolog Insulin Sliding Scale SUBQ 02/10/17 16:29 Not Given ACHS [facility] Protocol Ipratropium [place] 0.5 mg 12/12/16 15:00 12/13/16 10:12 Atrovent Neb 0.5mg/2.5ml HHN 02/10/17 14:59 0.5 mg QIDRT [facility] Administration Levofloxacin 250 mg 12/12/16 09:00 12/13/16 09:44 Levaquin PO 02/10/17 08:59 Not Given DAILY [facility] Miscellaneous 1 ea 12/12/16 16:12 Vte Chemical Prophylaxis Screen/ Admission 02/10/17 16:11 PRN PRN PROTOCOL Morphine Sulfate 1 mg 12/12/16 14:56 12/13/16 05:11 Morphine IVP 02/10/17 14:55 1 mg Q6H PRN Administration Abdominal Pain Sodium Phosphate 135 ml 12/12/16 08:15 Fleet Enema RC 02/10/17 08:14 DAILY PRN Constipation Review of Systems: A 12 point ROS was reviewed with the pertinent positive and negatives noted in the HPI. Social History Smoking Status Smoker, status unknown Drug Use No Alcohol Use No Family Medical History Family Medical History Start: 12/12/16 02: 09 Freq: ONCE Status: Active Document 12/12/16 04:05 MICHELLE (Rec: 12/12/16 04:08 MICHELLE [id number]) Family Medical History Mother History Unknown Yes Ethnicity Unknown Living Status Hx Family Cancer Yes: COLON Hx Family Coronary Artery Disease No Hx Family Congestive Heart Failure No Hx Family Hypertension Yes Hx Family Stroke No Hx Family Diabetes No Hx Family Seizures No Hx Family Dementia No Hx Family AIDS No Hx Family HIV No Hx Family COPD No Hx Family Hepatitis No Hx Family Psychiatric Problems No Hx Family Tuberculosis No Physical Exam: General: Comfortable, not in acute distress. HEENT: Head is normocephalic, atraumatic, Oral cavity moist pink tongue, eyes: pallor is present, no icterus. pupil perrla, eomi. Neck: Supple, no JVD, no carotid bruit. Cardio: S1 and S2 WNL, no murmur Respiratory: Vesicular breath sounds. Abdominal: Soft generalized tenderness. Genital/Urinary: Deferred. Extremities: NCCE Neurological: AAOx3 Assessment: 1. Leukocytosis. 2. CDAC. 3. Diverticulitis. 4. Cystitis with h/o renal transplant. 5. Cholelithiasis. 6. Bilateral pneumonia with parapneumonic effusion. 7. H/o renall transplant fron unrelated donor. Plan: Continue levaquin and flagyl. Add vanco PO, and vanco IV. Renal consult. Needs clarification on immunosuppressive medications. thank you, Dr Dahl for involving me in taking care of this patient. Signed, Brian Santana M.D. [id number]
--- NOTE | 2016-12-13 12:53 | General Progress Note ---
Subjective - Review of Systems Service Date: 12/13/16 Events since last encounter: chart reviewed CT - diverticulitis, cholelithiasis minimal tenderness WBC high, no LFT Plan: HIDA ordered Objective - Results Result Diagrams: 12/13/16 05:40 12/13/16 05:40 Recent Labs: Laboratory Last Values WBC 23.5 Th/cmm (4.8-10.8) H* 12/13/16 05:40 RBC 3.73 Mil/cmm (3.80-5.80) L 12/13/16 05:40 Hgb 11.2 gm/dL (12-16) L 12/13/16 05:40 Hct 33.3 % (41.0-60) L 12/13/16 05:40 MCV 89.4 fl (80-99) 12/13/16 05:40 MCH 30.0 pg (27.0-31.0) 12/13/16 05:40 MCHC Differential 33.6 pg (28.0-36.0) 12/13/16 05:40 RDW 15.9 % (11.5-20.0) 12/13/16 05:40 Plt Count 179 Th/cmm (150-400) 12/13/16 05:40 MPV 8.9 fl 12/13/16 05:40 Band Neutrophils % 27 % (0-10) H 12/13/16 05:40 Neutrophils (Manual) 63 % (40-80) 12/13/16 05:40 Lymphocytes 4 % (20-50) L 12/13/16 05:40 Monocytes 6 % (2-10) 12/13/16 05:40 Platelet Estimate ADEQUATE (NORMAL) 12/11/16 21:23 PT 11.0 SECONDS (9.5-11.5) 12/11/16 21:23 INR 1.06 (0.5-1.4) 12/11/16 21:23 PTT (Actin FS) 26.3 SECONDS (26.0-38.0) 12/11/16 21:23 Sodium 138 mEq/L (136-145) 12/13/16 05:40 Potassium 3.2 mEq/L (3.5-5.1) L 12/13/16 05:40 Chloride 104 mEq/L (98-107) 12/13/16 05:40 Carbon Dioxide 26.9 mEq/L (21.0-31.0) 12/13/16 05:40 Anion Gap 10.3 (7.0-16.0) 12/13/16 05:40 BUN 17 mg/dL (7-25) 12/13/16 05:40 Creatinine 0.9 mg/dL (0.7-1.3) 12/13/16 05:40 Est GFR ( Amer) TNP 12/13/16 05:40 Est GFR (Non-Af Amer) TNP 12/13/16 05:40 BUN/Creatinine Ratio 18.9 12/13/16 05:40 Glucose 108 mg/dL (70-105) H 12/13/16 05:40 POC Glucose 62 MG/DL (70 - 105) L 12/12/16 21:15 Whole Bld Lactic Acid 1.15 mmol/L (0.60-1.99) 12/11/16 21:23 Calcium 8.8 mg/dL (8.6-10.3) 12/13/16 05:40 Total Bilirubin 0.9 mg/dL (0.3-1.0) 12/11/16 21:23 AST 8 U/L (13-39) L 12/11/16 21:23 ALT 6 U/L (7-52) L 12/11/16 21:23 Alkaline Phosphatase 47 U/L (34-104) 12/11/16 21:23 Total Protein 4.6 gm/dL (6.0-8.3) L 12/11/16 21:23 Albumin 2.7 gm/dL (4.2-5.5) L 12/11/16 21:23 Globulin 1.9 gm/dL 12/11/16 21:23 Albumin/Globulin Ratio 1.4 (1.0-1.8) 12/11/16 21:23 Triglycerides 96 mg/dL (<150) 12/12/16 06:00 Cholesterol 122 mg/dL (<200) 12/12/16 06:00 LDL Cholesterol Direct 68 mg/dL (75-193) L 12/12/16 06:00 HDL Cholesterol 32 mg/dL (23-92) 12/12/16 06:00 Amylase 10 U/L (29-103) L 12/11/16 21:23 Lipase < 3 U/L (11-82) L 12/11/16 21:23 TSH 3.16 uIU/ml (0.34-5.60) 12/12/16 06:00 Urine Source CLEAN C 12/11/16 22:30 Urine Color ORANGE 12/11/16 22:30 Urine Clarity HAZY (CLEAR) 12/11/16 22:30 Urine pH 6.0 (4.6 - 8.0) 12/11/16 22:30 Ur Specific [place] 1.020 (1.005-1.030) 12/11/16 22:30 Urine Protein TRACE mg/dL (NEGATIVE) 12/11/16 22:30 Urine Glucose (UA) NEGATIVE mg/dL (NEGATIVE) 12/11/16 22:30 Urine Ketones TRACE mg/dL (NEGATIVE) 12/11/16 22:30 Urine Blood TRACE (NEGATIVE) 12/11/16 22:30 Urine Nitrate NEGATIVE (NEGATIVE) 12/11/16 22:30 Urine Bilirubin NEGATIVE (NEGATIVE) 12/11/16 22:30 Urine Urobilinogen 0.2 E.U./dL (0.2 - 1.0) 12/11/16 22:30 Ur Leukocyte Esterase TRACE (NEGATIVE) H 12/11/16 22:30 Urine RBC 2-5 /hpf (0-5) H 12/11/16 22:30 Urine WBC 2-5 /hpf (0-5) H 12/11/16 22:30 Ur Epithelial Cells NONE SEEN /lpf (FEW) 12/11/16 22:30 Calcium Oxalate Crystal FEW /hpf 12/11/16 22:30 Urine Bacteria OCCASIONAL /hpf (NONE SEEN) 12/11/16 22:30 Stool Occult Blood POSITIVE (NEGATIVE) 12/11/16 22:15 - Physical Exam Vitals and I&O: Vital Signs Temp 97.8 F 12/13/16 12:00 Pulse 100 12/13/16 12:00 Resp 18 12/13/16 12:00 BP 119/53 12/13/16 12:00 Pulse Ox 94 12/13/16 12:00 Intake & Output 12/12/16 12/13/16 12/13/16 18:59 06:59 18:59 Intake Total 6880.780 2450.333 Balance 6419.650 7721.333 Weight (lbs) 87.26 kg Intake: Intake, IV Amount 7395.240 5112.333 Sodium Chloride 0.9% 1, 8037.188 2133.333 000 ml @ 100 mls/hr IV . Q10H [facility] Rx#:[id number] metroNIDAZOLE 500mg/NS 200 200 100mL 500 mg In 100 ml @ 100 mls/hr IV Q8HR [facility] Rx #:[id number] Other: # Bowel Movements 3 Stool Characteristics Liquid Active Medications: Current Medications Acetaminophen (Tylenol) 650 mg PO Q4H PRN PRN Reason: Pain or Fever >101 Stop: 02/10/17 08:14 Last Admin: 12/12/16 14:18 Dose: 650 mg Albuterol Sulfate (Albuterol 2.5mg/3ml Neb Ud) 2.5 mg HHN QIDRT [facility] Stop: 02/10/17 14:59 Last Admin: 12/13/16 10:12 Dose: 2.5 mg Albuterol/Ipratropium (Duoneb Neb) 3 ml HHN Q4HRT PRN PRN Reason: Shortness of Breath Stop: 02/10/17 08:14 Ascorbic Acid (Vitamin C) 500 mg PO DAILY [facility] Stop: 02/10/17 08:59 Last Admin: 12/13/16 09:43 Dose: Not Given Bismuth Subsalicylate (Pepto-Bismol) 30 ml PO Q6H PRN PRN Reason: GI DISTRESS Stop: 02/10/17 08:14 Clonidine HCl (Mqxyizji-Hpr-8) 1 patch TD Mo [facility] Stop: 02/10/17 09:59 Last Admin: 12/12/16 09:58 Dose: 1 patch Diltiazem HCl (Cardizem) 30 mg PO Q6HR [facility] Stop: 02/10/17 11:59 Last Admin: 12/13/16 06:32 Dose: 30 mg Docusate Sodium (Colace) 100 mg PO BID [facility] Stop: 02/10/17 08:59 Last Admin: 12/13/16 09:44 Dose: Not Given Ferrous Sulfate (Iron) 325 mg PO DAILY [facility] Stop: 02/10/17 08:59 Last Admin: 12/13/16 09:44 Dose: Not Given Furosemide (Lasix) 20 mg PO DAILY [facility] Stop: 02/10/17 08:59 Last Admin: 12/13/16 09:44 Dose: Not Given Heparin Sodium (Porcine) (Heparin) 5,000 units SUBQ Q12HR [facility] Stop: 02/10/17 20:59 Last Admin: 12/13/16 09:51 Dose: 5,000 units Metronidazole (Flagyl) 500 mg in 100 mls @ 100 mls/hr IV Q8HR [facility] Stop: 02/10/17 07:59 Last Infusion: 12/13/16 06:33 Dose: Infused Sodium Chloride (Nacl 0.9%) 1,000 mls @ 100 mls/hr IV .Q10H [facility] Stop: 02/10/17 01:15 Last Admin: 12/13/16 09:50 Dose: 100 mls/hr Insulin Aspart (Novolog Insulin Sliding Scale) 0 units SUBQ ACHS [facility] PRN Reason: Protocol Stop: 02/10/17 16:29 Last Admin: 12/13/16 08:52 Dose: Not Given Ipratropium [place] (Atrovent Neb 0.5mg/2.5ml) 0.5 mg HHN QIDRT [facility] Stop: 02/10/17 14:59 Last Admin: 12/13/16 10:12 Dose: 0.5 mg Levofloxacin (Levaquin) 250 mg PO DAILY [facility] Stop: 02/10/17 08:59 Last Admin: 12/13/16 09:44 Dose: Not Given Miscellaneous (Vte Chemical Prophylaxis Screen/ Admission) 1 ea PRN PRN PRN Reason: PROTOCOL Stop: 02/10/17 16:11 Miscellaneous (Vancomycin Iv Per Pharmacy) 1 ea PRN [facility] Stop: 02/11/17 12:44 Morphine Sulfate (Morphine) 1 mg IVP Q6H PRN PRN Reason: Abdominal Pain Stop: 02/10/17 14:55 Last Admin: 12/13/16 05:11 Dose: 1 mg Sodium Phosphate (Fleet Enema) 135 ml RC DAILY PRN PRN Reason: Constipation Stop: 02/10/17 08:14
--- NOTE | 2016-12-13 12:53 | General Progress Note ---
Subjective - Review of Systems Service Date: 12/13/16 Events since last encounter: chart reviewed CT - diverticulitis, cholelithiasis minimal tenderness WBC high, no LFT Plan: HIDA ordered Objective - Results Result Diagrams: 12/13/16 05:40 12/13/16 05:40 Recent Labs: Laboratory Last Values WBC 23.5 Th/cmm (4.8-10.8) H* 12/13/16 05:40 RBC 3.73 Mil/cmm (3.80-5.80) L 12/13/16 05:40 Hgb 11.2 gm/dL (12-16) L 12/13/16 05:40 Hct 33.3 % (41.0-60) L 12/13/16 05:40 MCV 89.4 fl (80-99) 12/13/16 05:40 MCH 30.0 pg (27.0-31.0) 12/13/16 05:40 MCHC Differential 33.6 pg (28.0-36.0) 12/13/16 05:40 RDW 15.9 % (11.5-20.0) 12/13/16 05:40 Plt Count 179 Th/cmm (150-400) 12/13/16 05:40 MPV 8.9 fl 12/13/16 05:40 Band Neutrophils % 27 % (0-10) H 12/13/16 05:40 Neutrophils (Manual) 63 % (40-80) 12/13/16 05:40 Lymphocytes 4 % (20-50) L 12/13/16 05:40 Monocytes 6 % (2-10) 12/13/16 05:40 Platelet Estimate ADEQUATE (NORMAL) 12/11/16 21:23 PT 11.0 SECONDS (9.5-11.5) 12/11/16 21:23 INR 1.06 (0.5-1.4) 12/11/16 21:23 PTT (Actin FS) 26.3 SECONDS (26.0-38.0) 12/11/16 21:23 Sodium 138 mEq/L (136-145) 12/13/16 05:40 Potassium 3.2 mEq/L (3.5-5.1) L 12/13/16 05:40 Chloride 104 mEq/L (98-107) 12/13/16 05:40 Carbon Dioxide 26.9 mEq/L (21.0-31.0) 12/13/16 05:40 Anion Gap 10.3 (7.0-16.0) 12/13/16 05:40 BUN 17 mg/dL (7-25) 12/13/16 05:40 Creatinine 0.9 mg/dL (0.7-1.3) 12/13/16 05:40 Est GFR ( Amer) TNP 12/13/16 05:40 Est GFR (Non-Af Amer) TNP 12/13/16 05:40 BUN/Creatinine Ratio 18.9 12/13/16 05:40 Glucose 108 mg/dL (70-105) H 12/13/16 05:40 POC Glucose 62 MG/DL (70 - 105) L 12/12/16 21:15 Whole Bld Lactic Acid 1.15 mmol/L (0.60-1.99) 12/11/16 21:23 Calcium 8.8 mg/dL (8.6-10.3) 12/13/16 05:40 Total Bilirubin 0.9 mg/dL (0.3-1.0) 12/11/16 21:23 AST 8 U/L (13-39) L 12/11/16 21:23 ALT 6 U/L (7-52) L 12/11/16 21:23 Alkaline Phosphatase 47 U/L (34-104) 12/11/16 21:23 Total Protein 4.6 gm/dL (6.0-8.3) L 12/11/16 21:23 Albumin 2.7 gm/dL (4.2-5.5) L 12/11/16 21:23 Globulin 1.9 gm/dL 12/11/16 21:23 Albumin/Globulin Ratio 1.4 (1.0-1.8) 12/11/16 21:23 Triglycerides 96 mg/dL (<150) 12/12/16 06:00 Cholesterol 122 mg/dL (<200) 12/12/16 06:00 LDL Cholesterol Direct 68 mg/dL (75-193) L 12/12/16 06:00 HDL Cholesterol 32 mg/dL (23-92) 12/12/16 06:00 Amylase 10 U/L (29-103) L 12/11/16 21:23 Lipase < 3 U/L (11-82) L 12/11/16 21:23 TSH 3.16 uIU/ml (0.34-5.60) 12/12/16 06:00 Urine Source CLEAN C 12/11/16 22:30 Urine Color ORANGE 12/11/16 22:30 Urine Clarity HAZY (CLEAR) 12/11/16 22:30 Urine pH 6.0 (4.6 - 8.0) 12/11/16 22:30 Ur Specific [place] 1.020 (1.005-1.030) 12/11/16 22:30 Urine Protein TRACE mg/dL (NEGATIVE) 12/11/16 22:30 Urine Glucose (UA) NEGATIVE mg/dL (NEGATIVE) 12/11/16 22:30 Urine Ketones TRACE mg/dL (NEGATIVE) 12/11/16 22:30 Urine Blood TRACE (NEGATIVE) 12/11/16 22:30 Urine Nitrate NEGATIVE (NEGATIVE) 12/11/16 22:30 Urine Bilirubin NEGATIVE (NEGATIVE) 12/11/16 22:30 Urine Urobilinogen 0.2 E.U./dL (0.2 - 1.0) 12/11/16 22:30 Ur Leukocyte Esterase TRACE (NEGATIVE) H 12/11/16 22:30 Urine RBC 2-5 /hpf (0-5) H 12/11/16 22:30 Urine WBC 2-5 /hpf (0-5) H 12/11/16 22:30 Ur Epithelial Cells NONE SEEN /lpf (FEW) 12/11/16 22:30 Calcium Oxalate Crystal FEW /hpf 12/11/16 22:30 Urine Bacteria OCCASIONAL /hpf (NONE SEEN) 12/11/16 22:30 Stool Occult Blood POSITIVE (NEGATIVE) 12/11/16 22:15 - Physical Exam Vitals and I&O: Vital Signs Temp 97.8 F 12/13/16 12:00 Pulse 100 12/13/16 12:00 Resp 18 12/13/16 12:00 BP 119/53 12/13/16 12:00 Pulse Ox 94 12/13/16 12:00 Intake & Output 12/12/16 12/13/16 12/13/16 18:59 06:59 18:59 Intake Total 7479.156 2779.333 Balance 9902.764 7927.333 Weight (lbs) 87.26 kg Intake: Intake, IV Amount 9977.055 8440.333 Sodium Chloride 0.9% 1, 6374.536 1666.333 000 ml @ 100 mls/hr IV . Q10H [facility] Rx#:[id number] metroNIDAZOLE 500mg/NS 200 200 100mL 500 mg In 100 ml @ 100 mls/hr IV Q8HR [facility] Rx #:[id number] Other: # Bowel Movements 3 Stool Characteristics Liquid Active Medications: Current Medications Acetaminophen (Tylenol) 650 mg PO Q4H PRN PRN Reason: Pain or Fever >101 Stop: 02/10/17 08:14 Last Admin: 12/12/16 14:18 Dose: 650 mg Albuterol Sulfate (Albuterol 2.5mg/3ml Neb Ud) 2.5 mg HHN QIDRT [facility] Stop: 02/10/17 14:59 Last Admin: 12/13/16 10:12 Dose: 2.5 mg Albuterol/Ipratropium (Duoneb Neb) 3 ml HHN Q4HRT PRN PRN Reason: Shortness of Breath Stop: 02/10/17 08:14 Ascorbic Acid (Vitamin C) 500 mg PO DAILY [facility] Stop: 02/10/17 08:59 Last Admin: 12/13/16 09:43 Dose: Not Given Bismuth Subsalicylate (Pepto-Bismol) 30 ml PO Q6H PRN PRN Reason: GI DISTRESS Stop: 02/10/17 08:14 Clonidine HCl (Pumzftib-Zyz-9) 1 patch TD Mo [facility] Stop: 02/10/17 09:59 Last Admin: 12/12/16 09:58 Dose: 1 patch Diltiazem HCl (Cardizem) 30 mg PO Q6HR [facility] Stop: 02/10/17 11:59 Last Admin: 12/13/16 06:32 Dose: 30 mg Docusate Sodium (Colace) 100 mg PO BID [facility] Stop: 02/10/17 08:59 Last Admin: 12/13/16 09:44 Dose: Not Given Ferrous Sulfate (Iron) 325 mg PO DAILY [facility] Stop: 02/10/17 08:59 Last Admin: 12/13/16 09:44 Dose: Not Given Furosemide (Lasix) 20 mg PO DAILY [facility] Stop: 02/10/17 08:59 Last Admin: 12/13/16 09:44 Dose: Not Given Heparin Sodium (Porcine) (Heparin) 5,000 units SUBQ Q12HR [facility] Stop: 02/10/17 20:59 Last Admin: 12/13/16 09:51 Dose: 5,000 units Metronidazole (Flagyl) 500 mg in 100 mls @ 100 mls/hr IV Q8HR [facility] Stop: 02/10/17 07:59 Last Infusion: 12/13/16 06:33 Dose: Infused Sodium Chloride (Nacl 0.9%) 1,000 mls @ 100 mls/hr IV .Q10H [facility] Stop: 02/10/17 01:15 Last Admin: 12/13/16 09:50 Dose: 100 mls/hr Insulin Aspart (Novolog Insulin Sliding Scale) 0 units SUBQ ACHS [facility] PRN Reason: Protocol Stop: 02/10/17 16:29 Last Admin: 12/13/16 08:52 Dose: Not Given Ipratropium [place] (Atrovent Neb 0.5mg/2.5ml) 0.5 mg HHN QIDRT [facility] Stop: 02/10/17 14:59 Last Admin: 12/13/16 10:12 Dose: 0.5 mg Levofloxacin (Levaquin) 250 mg PO DAILY [facility] Stop: 02/10/17 08:59 Last Admin: 12/13/16 09:44 Dose: Not Given Miscellaneous (Vte Chemical Prophylaxis Screen/ Admission) 1 ea PRN PRN PRN Reason: PROTOCOL Stop: 02/10/17 16:11 Miscellaneous (Vancomycin Iv Per Pharmacy) 1 ea PRN [facility] Stop: 02/11/17 12:44 Morphine Sulfate (Morphine) 1 mg IVP Q6H PRN PRN Reason: Abdominal Pain Stop: 02/10/17 14:55 Last Admin: 12/13/16 05:11 Dose: 1 mg Sodium Phosphate (Fleet Enema) 135 ml RC DAILY PRN PRN Reason: Constipation Stop: 02/10/17 08:14
--- NOTE | 2016-12-13 12:53 | General Progress Note ---
Subjective - Review of Systems Service Date: 12/13/16 Events since last encounter: chart reviewed CT - diverticulitis, cholelithiasis minimal tenderness WBC high, no LFT Plan: HIDA ordered Objective - Results Result Diagrams: 12/13/16 05:40 12/13/16 05:40 Recent Labs: Laboratory Last Values WBC 23.5 Th/cmm (4.8-10.8) H* 12/13/16 05:40 RBC 3.73 Mil/cmm (3.80-5.80) L 12/13/16 05:40 Hgb 11.2 gm/dL (12-16) L 12/13/16 05:40 Hct 33.3 % (41.0-60) L 12/13/16 05:40 MCV 89.4 fl (80-99) 12/13/16 05:40 MCH 30.0 pg (27.0-31.0) 12/13/16 05:40 MCHC Differential 33.6 pg (28.0-36.0) 12/13/16 05:40 RDW 15.9 % (11.5-20.0) 12/13/16 05:40 Plt Count 179 Th/cmm (150-400) 12/13/16 05:40 MPV 8.9 fl 12/13/16 05:40 Band Neutrophils % 27 % (0-10) H 12/13/16 05:40 Neutrophils (Manual) 63 % (40-80) 12/13/16 05:40 Lymphocytes 4 % (20-50) L 12/13/16 05:40 Monocytes 6 % (2-10) 12/13/16 05:40 Platelet Estimate ADEQUATE (NORMAL) 12/11/16 21:23 PT 11.0 SECONDS (9.5-11.5) 12/11/16 21:23 INR 1.06 (0.5-1.4) 12/11/16 21:23 PTT (Actin FS) 26.3 SECONDS (26.0-38.0) 12/11/16 21:23 Sodium 138 mEq/L (136-145) 12/13/16 05:40 Potassium 3.2 mEq/L (3.5-5.1) L 12/13/16 05:40 Chloride 104 mEq/L (98-107) 12/13/16 05:40 Carbon Dioxide 26.9 mEq/L (21.0-31.0) 12/13/16 05:40 Anion Gap 10.3 (7.0-16.0) 12/13/16 05:40 BUN 17 mg/dL (7-25) 12/13/16 05:40 Creatinine 0.9 mg/dL (0.7-1.3) 12/13/16 05:40 Est GFR ( Amer) TNP 12/13/16 05:40 Est GFR (Non-Af Amer) TNP 12/13/16 05:40 BUN/Creatinine Ratio 18.9 12/13/16 05:40 Glucose 108 mg/dL (70-105) H 12/13/16 05:40 POC Glucose 62 MG/DL (70 - 105) L 12/12/16 21:15 Whole Bld Lactic Acid 1.15 mmol/L (0.60-1.99) 12/11/16 21:23 Calcium 8.8 mg/dL (8.6-10.3) 12/13/16 05:40 Total Bilirubin 0.9 mg/dL (0.3-1.0) 12/11/16 21:23 AST 8 U/L (13-39) L 12/11/16 21:23 ALT 6 U/L (7-52) L 12/11/16 21:23 Alkaline Phosphatase 47 U/L (34-104) 12/11/16 21:23 Total Protein 4.6 gm/dL (6.0-8.3) L 12/11/16 21:23 Albumin 2.7 gm/dL (4.2-5.5) L 12/11/16 21:23 Globulin 1.9 gm/dL 12/11/16 21:23 Albumin/Globulin Ratio 1.4 (1.0-1.8) 12/11/16 21:23 Triglycerides 96 mg/dL (<150) 12/12/16 06:00 Cholesterol 122 mg/dL (<200) 12/12/16 06:00 LDL Cholesterol Direct 68 mg/dL (75-193) L 12/12/16 06:00 HDL Cholesterol 32 mg/dL (23-92) 12/12/16 06:00 Amylase 10 U/L (29-103) L 12/11/16 21:23 Lipase < 3 U/L (11-82) L 12/11/16 21:23 TSH 3.16 uIU/ml (0.34-5.60) 12/12/16 06:00 Urine Source CLEAN C 12/11/16 22:30 Urine Color ORANGE 12/11/16 22:30 Urine Clarity HAZY (CLEAR) 12/11/16 22:30 Urine pH 6.0 (4.6 - 8.0) 12/11/16 22:30 Ur Specific [place] 1.020 (1.005-1.030) 12/11/16 22:30 Urine Protein TRACE mg/dL (NEGATIVE) 12/11/16 22:30 Urine Glucose (UA) NEGATIVE mg/dL (NEGATIVE) 12/11/16 22:30 Urine Ketones TRACE mg/dL (NEGATIVE) 12/11/16 22:30 Urine Blood TRACE (NEGATIVE) 12/11/16 22:30 Urine Nitrate NEGATIVE (NEGATIVE) 12/11/16 22:30 Urine Bilirubin NEGATIVE (NEGATIVE) 12/11/16 22:30 Urine Urobilinogen 0.2 E.U./dL (0.2 - 1.0) 12/11/16 22:30 Ur Leukocyte Esterase TRACE (NEGATIVE) H 12/11/16 22:30 Urine RBC 2-5 /hpf (0-5) H 12/11/16 22:30 Urine WBC 2-5 /hpf (0-5) H 12/11/16 22:30 Ur Epithelial Cells NONE SEEN /lpf (FEW) 12/11/16 22:30 Calcium Oxalate Crystal FEW /hpf 12/11/16 22:30 Urine Bacteria OCCASIONAL /hpf (NONE SEEN) 12/11/16 22:30 Stool Occult Blood POSITIVE (NEGATIVE) 12/11/16 22:15 - Physical Exam Vitals and I&O: Vital Signs Temp 97.8 F 12/13/16 12:00 Pulse 100 12/13/16 12:00 Resp 18 12/13/16 12:00 BP 119/53 12/13/16 12:00 Pulse Ox 94 12/13/16 12:00 Intake & Output 12/12/16 12/13/16 12/13/16 18:59 06:59 18:59 Intake Total 8696.486 8449.333 Balance 2140.547 5901.333 Weight (lbs) 87.26 kg Intake: Intake, IV Amount 3082.034 6340.333 Sodium Chloride 0.9% 1, 8969.740 2340.333 000 ml @ 100 mls/hr IV . Q10H [facility] Rx#:[id number] metroNIDAZOLE 500mg/NS 200 200 100mL 500 mg In 100 ml @ 100 mls/hr IV Q8HR [facility] Rx #:[id number] Other: # Bowel Movements 3 Stool Characteristics Liquid Active Medications: Current Medications Acetaminophen (Tylenol) 650 mg PO Q4H PRN PRN Reason: Pain or Fever >101 Stop: 02/10/17 08:14 Last Admin: 12/12/16 14:18 Dose: 650 mg Albuterol Sulfate (Albuterol 2.5mg/3ml Neb Ud) 2.5 mg HHN QIDRT [facility] Stop: 02/10/17 14:59 Last Admin: 12/13/16 10:12 Dose: 2.5 mg Albuterol/Ipratropium (Duoneb Neb) 3 ml HHN Q4HRT PRN PRN Reason: Shortness of Breath Stop: 02/10/17 08:14 Ascorbic Acid (Vitamin C) 500 mg PO DAILY [facility] Stop: 02/10/17 08:59 Last Admin: 12/13/16 09:43 Dose: Not Given Bismuth Subsalicylate (Pepto-Bismol) 30 ml PO Q6H PRN PRN Reason: GI DISTRESS Stop: 02/10/17 08:14 Clonidine HCl (Irfldacn-Xit-6) 1 patch TD Mo [facility] Stop: 02/10/17 09:59 Last Admin: 12/12/16 09:58 Dose: 1 patch Diltiazem HCl (Cardizem) 30 mg PO Q6HR [facility] Stop: 02/10/17 11:59 Last Admin: 12/13/16 06:32 Dose: 30 mg Docusate Sodium (Colace) 100 mg PO BID [facility] Stop: 02/10/17 08:59 Last Admin: 12/13/16 09:44 Dose: Not Given Ferrous Sulfate (Iron) 325 mg PO DAILY [facility] Stop: 02/10/17 08:59 Last Admin: 12/13/16 09:44 Dose: Not Given Furosemide (Lasix) 20 mg PO DAILY [facility] Stop: 02/10/17 08:59 Last Admin: 12/13/16 09:44 Dose: Not Given Heparin Sodium (Porcine) (Heparin) 5,000 units SUBQ Q12HR [facility] Stop: 02/10/17 20:59 Last Admin: 12/13/16 09:51 Dose: 5,000 units Metronidazole (Flagyl) 500 mg in 100 mls @ 100 mls/hr IV Q8HR [facility] Stop: 02/10/17 07:59 Last Infusion: 12/13/16 06:33 Dose: Infused Sodium Chloride (Nacl 0.9%) 1,000 mls @ 100 mls/hr IV .Q10H [facility] Stop: 02/10/17 01:15 Last Admin: 12/13/16 09:50 Dose: 100 mls/hr Insulin Aspart (Novolog Insulin Sliding Scale) 0 units SUBQ ACHS [facility] PRN Reason: Protocol Stop: 02/10/17 16:29 Last Admin: 12/13/16 08:52 Dose: Not Given Ipratropium [place] (Atrovent Neb 0.5mg/2.5ml) 0.5 mg HHN QIDRT [facility] Stop: 02/10/17 14:59 Last Admin: 12/13/16 10:12 Dose: 0.5 mg Levofloxacin (Levaquin) 250 mg PO DAILY [facility] Stop: 02/10/17 08:59 Last Admin: 12/13/16 09:44 Dose: Not Given Miscellaneous (Vte Chemical Prophylaxis Screen/ Admission) 1 [facility] PRN PRN PRN Reason: PROTOCOL Stop: 02/10/17 16:11 Miscellaneous (Vancomycin Iv Per Pharmacy) 1 ea PRN [facility] Stop: 02/11/17 12:44 Morphine Sulfate (Morphine) 1 mg IVP Q6H PRN PRN Reason: Abdominal Pain Stop: 02/10/17 14:55 Last Admin: 12/13/16 05:11 Dose: 1 mg Sodium Phosphate (Fleet Enema) 135 ml RC DAILY PRN PRN Reason: Constipation Stop: 02/10/17 08:14
[2016-12-13 12:55] LABS: LIPASE < 3 U/L (11-82)
--- NOTE | 2016-12-13 15:19 | General Progress Note ---
Subjective - Review of Systems Events since last encounter: abdominal pain denies chest pain Objective - Results Result Diagrams: 12/13/16 05:40 12/13/16 05:40 Recent Labs: Laboratory Last Values WBC 23.5 Th/cmm (4.8-10.8) H* 12/13/16 05:40 RBC 3.73 Mil/cmm (3.80-5.80) L 12/13/16 05:40 Hgb 11.2 gm/dL (12-16) L 12/13/16 05:40 Hct 33.3 % (41.0-60) L 12/13/16 05:40 MCV 89.4 fl (80-99) 12/13/16 05:40 MCH 30.0 pg (27.0-31.0) 12/13/16 05:40 MCHC Differential 33.6 pg (28.0-36.0) 12/13/16 05:40 RDW 15.9 % (11.5-20.0) 12/13/16 05:40 Plt Count 179 Th/cmm (150-400) 12/13/16 05:40 MPV 8.9 fl 12/13/16 05:40 Band Neutrophils % 27 % (0-10) H 12/13/16 05:40 Neutrophils (Manual) 63 % (40-80) 12/13/16 05:40 Lymphocytes 4 % (20-50) L 12/13/16 05:40 Monocytes 6 % (2-10) 12/13/16 05:40 Platelet Estimate ADEQUATE (NORMAL) 12/11/16 21:23 PT 11.0 SECONDS (9.5-11.5) 12/11/16 21:23 INR 1.06 (0.5-1.4) 12/11/16 21:23 PTT (Actin FS) 26.3 SECONDS (26.0-38.0) 12/11/16 21:23 Sodium 138 mEq/L (136-145) 12/13/16 05:40 Potassium 3.2 mEq/L (3.5-5.1) L 12/13/16 05:40 Chloride 104 mEq/L (98-107) 12/13/16 05:40 Carbon Dioxide 26.9 mEq/L (21.0-31.0) 12/13/16 05:40 Anion Gap 10.3 (7.0-16.0) 12/13/16 05:40 BUN 17 mg/dL (7-25) 12/13/16 05:40 Creatinine 0.9 mg/dL (0.7-1.3) 12/13/16 05:40 Est GFR ( Amer) TNP 12/13/16 05:40 Est GFR (Non-Af Amer) TNP 12/13/16 05:40 BUN/Creatinine Ratio 18.9 12/13/16 05:40 Glucose 108 mg/dL (70-105) H 12/13/16 05:40 POC Glucose 62 MG/DL (70 - 105) L 12/12/16 21:15 Whole Bld Lactic Acid 1.15 mmol/L (0.60-1.99) 12/11/16 21:23 Calcium 8.8 mg/dL (8.6-10.3) 12/13/16 05:40 Total Bilirubin 0.7 mg/dL (0.3-1.0) 12/13/16 05:40 Direct Bilirubin 0.25 mg/dL (0.0-0.2) H 12/13/16 05:40 AST 8 U/L (13-39) L 12/13/16 05:40 ALT 4 U/L (7-52) L 12/13/16 05:40 Alkaline Phosphatase 46 U/L (34-104) 12/13/16 05:40 Total Protein 3.9 gm/dL (6.0-8.3) L 12/13/16 05:40 Albumin 2.2 gm/dL (4.2-5.5) L 12/13/16 05:40 Globulin 1.7 gm/dL 12/13/16 05:40 Albumin/Globulin Ratio 1.3 (1.0-1.8) 12/13/16 05:40 Triglycerides 96 mg/dL (<150) 12/12/16 06:00 Cholesterol 122 mg/dL (<200) 12/12/16 06:00 LDL Cholesterol Direct 68 mg/dL (75-193) L 12/12/16 06:00 HDL Cholesterol 32 mg/dL (23-92) 12/12/16 06:00 Amylase 10 U/L (29-103) L 12/11/16 21:23 Lipase < 3 U/L (11-82) L 12/13/16 05:40 TSH 3.16 uIU/ml (0.34-5.60) 12/12/16 06:00 Urine Source CLEAN C 12/11/16 22:30 Urine Color ORANGE 12/11/16 22:30 Urine Clarity HAZY (CLEAR) 12/11/16 22:30 Urine pH 6.0 (4.6 - 8.0) 12/11/16 22:30 Ur Specific [place] 1.020 (1.005-1.030) 12/11/16 22:30 Urine Protein TRACE mg/dL (NEGATIVE) 12/11/16 22:30 Urine Glucose (UA) NEGATIVE mg/dL (NEGATIVE) 12/11/16 22:30 Urine Ketones TRACE mg/dL (NEGATIVE) 12/11/16 22:30 Urine Blood TRACE (NEGATIVE) 12/11/16 22:30 Urine Nitrate NEGATIVE (NEGATIVE) 12/11/16 22:30 Urine Bilirubin NEGATIVE (NEGATIVE) 12/11/16 22:30 Urine Urobilinogen 0.2 E.U./dL (0.2 - 1.0) 12/11/16 22:30 Ur Leukocyte Esterase TRACE (NEGATIVE) H 12/11/16 22:30 Urine RBC 2-5 /hpf (0-5) H 12/11/16 22:30 Urine WBC 2-5 /hpf (0-5) H 12/11/16 22:30 Ur Epithelial Cells NONE SEEN /lpf (FEW) 12/11/16 22:30 Calcium Oxalate Crystal FEW /hpf 12/11/16 22:30 Urine Bacteria OCCASIONAL /hpf (NONE SEEN) 12/11/16 22:30 Stool Occult Blood POSITIVE (NEGATIVE) 12/11/16 22:15 - Physical Exam Vitals and I&O: Vital Signs Temp 97.8 F 12/13/16 12:00 Pulse 100 12/13/16 13:07 Resp 18 12/13/16 12:00 BP 119/53 12/13/16 12:00 Pulse Ox 94 12/13/16 12:00 Intake & Output 12/12/16 12/13/16 12/13/16 18:59 06:59 18:59 Intake Total 5026.221 1368.333 Balance 1285.100 0151.333 Weight (lbs) 87.26 kg Intake: Intake, IV Amount 1007.534 6056.333 Sodium Chloride 0.9% 1, 7608.514 0719.333 000 ml @ 100 mls/hr IV . Q10H [facility] Rx#:[id number] metroNIDAZOLE 500mg/NS 200 200 100mL 500 mg In 100 ml @ 100 mls/hr IV Q8HR [facility] Rx #:[id number] Other: # Bowel Movements 3 Stool Characteristics Liquid Active Medications: Current Medications Acetaminophen (Tylenol) 650 mg PO Q4H PRN PRN Reason: Pain or Fever >101 Stop: 02/10/17 08:14 Last Admin: 12/12/16 14:18 Dose: 650 mg Albuterol Sulfate (Albuterol 2.5mg/3ml Neb Ud) 2.5 mg HHN QIDRT [facility] Stop: 02/10/17 14:59 Last Admin: 12/13/16 10:12 Dose: 2.5 mg Albuterol/Ipratropium (Duoneb Neb) 3 ml HHN Q4HRT PRN PRN Reason: Shortness of Breath Stop: 02/10/17 08:14 Ascorbic Acid (Vitamin C) 500 mg PO DAILY [facility] Stop: 02/10/17 08:59 Last Admin: 12/13/16 09:43 Dose: Not Given Bismuth Subsalicylate (Pepto-Bismol) 30 ml PO Q6H PRN PRN Reason: GI DISTRESS Stop: 02/10/17 08:14 Clonidine HCl (Bgwdzsly-Avc-1) 1 patch TD Mo [facility] Stop: 02/10/17 09:59 Last Admin: 12/12/16 09:58 Dose: 1 patch Diltiazem HCl (Cardizem) 30 mg PO Q6HR [facility] Stop: 02/10/17 11:59 Last Admin: 12/13/16 13:07 Dose: Not Given Docusate Sodium (Colace) 100 mg PO BID [facility] Stop: 02/10/17 08:59 Last Admin: 12/13/16 09:44 Dose: Not Given Ferrous Sulfate (Iron) 325 mg PO DAILY [facility] Stop: 02/10/17 08:59 Last Admin: 12/13/16 09:44 Dose: Not Given Furosemide (Lasix) 20 mg PO DAILY [facility] Stop: 02/10/17 08:59 Last Admin: 12/13/16 09:44 Dose: Not Given Heparin Sodium (Porcine) (Heparin) 5,000 units SUBQ Q12HR [facility] Stop: 02/10/17 20:59 Last Admin: 12/13/16 09:51 Dose: 5,000 units Metronidazole (Flagyl) 500 mg in 100 mls @ 100 mls/hr IV Q8HR [facility] Stop: 02/10/17 07:59 Last Admin: 12/13/16 13:11 Dose: 100 mls/hr Sodium Chloride (Nacl 0.9%) 1,000 mls @ 100 mls/hr IV .Q10H [facility] Stop: 02/10/17 01:15 Last Admin: 12/13/16 09:50 Dose: 100 mls/hr Vancomycin HCl 1.5 gm/ Sodium (Chloride) 500 mls @ 250 mls/hr IV Q12H [facility] Stop: 02/11/17 15:59 Insulin Aspart (Novolog Insulin Sliding Scale) 0 units SUBQ ACHS [facility] PRN Reason: Protocol Stop: 02/10/17 16:29 Last Admin: 12/13/16 13:06 Dose: Not Given Ipratropium [place] (Atrovent Neb 0.5mg/2.5ml) 0.5 mg HHN QIDRT [facility] Stop: 02/10/17 14:59 Last Admin: 12/13/16 10:12 Dose: 0.5 mg Levofloxacin (Levaquin) 250 mg PO DAILY [facility] Stop: 02/10/17 08:59 Last Admin: 12/13/16 09:44 Dose: Not Given Miscellaneous (Vte Chemical Prophylaxis Screen/ Admission) 1 [facility] PRN PRN PRN Reason: PROTOCOL Stop: 02/10/17 16:11 Miscellaneous (Vancomycin Iv Per Pharmacy) 1 ea PRN [facility] Stop: 02/11/17 12:44 Morphine Sulfate (Morphine) 1 mg IVP Q6H PRN PRN Reason: Abdominal Pain Stop: 02/10/17 14:55 Last Admin: 12/13/16 05:11 Dose: 1 mg Sodium Phosphate (Fleet Enema) 135 ml RC DAILY PRN PRN Reason: Constipation Stop: 02/10/17 08:14 General: No acute distress HEENT: Atraumatic, EOMI Cardiovascular: Regular rate, Normal S1, Normal S2 Lungs: Clear to auscultation Abdomen: Bowel sounds Assessment/Plan - Problem List Patient Problems: All Active Problems Cholelithiasis (Acute) Diverticulitis (Acute) - Plan Plan: cpm
--- NOTE | 2016-12-13 15:19 | General Progress Note ---
Subjective - Review of Systems Events since last encounter: abdominal pain denies chest pain Objective - Results Result Diagrams: 12/13/16 05:40 12/13/16 05:40 Recent Labs: Laboratory Last Values WBC 23.5 Th/cmm (4.8-10.8) H* 12/13/16 05:40 RBC 3.73 Mil/cmm (3.80-5.80) L 12/13/16 05:40 Hgb 11.2 gm/dL (12-16) L 12/13/16 05:40 Hct 33.3 % (41.0-60) L 12/13/16 05:40 MCV 89.4 fl (80-99) 12/13/16 05:40 MCH 30.0 pg (27.0-31.0) 12/13/16 05:40 MCHC Differential 33.6 pg (28.0-36.0) 12/13/16 05:40 RDW 15.9 % (11.5-20.0) 12/13/16 05:40 Plt Count 179 Th/cmm (150-400) 12/13/16 05:40 MPV 8.9 fl 12/13/16 05:40 Band Neutrophils % 27 % (0-10) H 12/13/16 05:40 Neutrophils (Manual) 63 % (40-80) 12/13/16 05:40 Lymphocytes 4 % (20-50) L 12/13/16 05:40 Monocytes 6 % (2-10) 12/13/16 05:40 Platelet Estimate ADEQUATE (NORMAL) 12/11/16 21:23 PT 11.0 SECONDS (9.5-11.5) 12/11/16 21:23 INR 1.06 (0.5-1.4) 12/11/16 21:23 PTT (Actin FS) 26.3 SECONDS (26.0-38.0) 12/11/16 21:23 Sodium 138 mEq/L (136-145) 12/13/16 05:40 Potassium 3.2 mEq/L (3.5-5.1) L 12/13/16 05:40 Chloride 104 mEq/L (98-107) 12/13/16 05:40 Carbon Dioxide 26.9 mEq/L (21.0-31.0) 12/13/16 05:40 Anion Gap 10.3 (7.0-16.0) 12/13/16 05:40 BUN 17 mg/dL (7-25) 12/13/16 05:40 Creatinine 0.9 mg/dL (0.7-1.3) 12/13/16 05:40 Est GFR ( Amer) TNP 12/13/16 05:40 Est GFR (Non-Af Amer) TNP 12/13/16 05:40 BUN/Creatinine Ratio 18.9 12/13/16 05:40 Glucose 108 mg/dL (70-105) H 12/13/16 05:40 POC Glucose 62 MG/DL (70 - 105) L 12/12/16 21:15 Whole Bld Lactic Acid 1.15 mmol/L (0.60-1.99) 12/11/16 21:23 Calcium 8.8 mg/dL (8.6-10.3) 12/13/16 05:40 Total Bilirubin 0.7 mg/dL (0.3-1.0) 12/13/16 05:40 Direct Bilirubin 0.25 mg/dL (0.0-0.2) H 12/13/16 05:40 AST 8 U/L (13-39) L 12/13/16 05:40 ALT 4 U/L (7-52) L 12/13/16 05:40 Alkaline Phosphatase 46 U/L (34-104) 12/13/16 05:40 Total Protein 3.9 gm/dL (6.0-8.3) L 12/13/16 05:40 Albumin 2.2 gm/dL (4.2-5.5) L 12/13/16 05:40 Globulin 1.7 gm/dL 12/13/16 05:40 Albumin/Globulin Ratio 1.3 (1.0-1.8) 12/13/16 05:40 Triglycerides 96 mg/dL (<150) 12/12/16 06:00 Cholesterol 122 mg/dL (<200) 12/12/16 06:00 LDL Cholesterol Direct 68 mg/dL (75-193) L 12/12/16 06:00 HDL Cholesterol 32 mg/dL (23-92) 12/12/16 06:00 Amylase 10 U/L (29-103) L 12/11/16 21:23 Lipase < 3 U/L (11-82) L 12/13/16 05:40 TSH 3.16 uIU/ml (0.34-5.60) 12/12/16 06:00 Urine Source CLEAN C 12/11/16 22:30 Urine Color ORANGE 12/11/16 22:30 Urine Clarity HAZY (CLEAR) 12/11/16 22:30 Urine pH 6.0 (4.6 - 8.0) 12/11/16 22:30 Ur Specific [place] 1.020 (1.005-1.030) 12/11/16 22:30 Urine Protein TRACE mg/dL (NEGATIVE) 12/11/16 22:30 Urine Glucose (UA) NEGATIVE mg/dL (NEGATIVE) 12/11/16 22:30 Urine Ketones TRACE mg/dL (NEGATIVE) 12/11/16 22:30 Urine Blood TRACE (NEGATIVE) 12/11/16 22:30 Urine Nitrate NEGATIVE (NEGATIVE) 12/11/16 22:30 Urine Bilirubin NEGATIVE (NEGATIVE) 12/11/16 22:30 Urine Urobilinogen 0.2 E.U./dL (0.2 - 1.0) 12/11/16 22:30 Ur Leukocyte Esterase TRACE (NEGATIVE) H 12/11/16 22:30 Urine RBC 2-5 /hpf (0-5) H 12/11/16 22:30 Urine WBC 2-5 /hpf (0-5) H 12/11/16 22:30 Ur Epithelial Cells NONE SEEN /lpf (FEW) 12/11/16 22:30 Calcium Oxalate Crystal FEW /hpf 12/11/16 22:30 Urine Bacteria OCCASIONAL /hpf (NONE SEEN) 12/11/16 22:30 Stool Occult Blood POSITIVE (NEGATIVE) 12/11/16 22:15 - Physical Exam Vitals and I&O: Vital Signs Temp 97.8 F 12/13/16 12:00 Pulse 100 12/13/16 13:07 Resp 18 12/13/16 12:00 BP 119/53 12/13/16 12:00 Pulse Ox 94 12/13/16 12:00 Intake & Output 12/12/16 12/13/16 12/13/16 18:59 06:59 18:59 Intake Total 3810.081 4586.333 Balance 8179.911 5086.333 Weight (lbs) 87.26 kg Intake: Intake, IV Amount 3460.830 4176.333 Sodium Chloride 0.9% 1, 5636.035 8373.333 000 ml @ 100 mls/hr IV . Q10H [facility] Rx#:[id number] metroNIDAZOLE 500mg/NS 200 200 100mL 500 mg In 100 ml @ 100 mls/hr IV Q8HR [facility] Rx #:[id number] Other: # Bowel Movements 3 Stool Characteristics Liquid Active Medications: Current Medications Acetaminophen (Tylenol) 650 mg PO Q4H PRN PRN Reason: Pain or Fever >101 Stop: 02/10/17 08:14 Last Admin: 12/12/16 14:18 Dose: 650 mg Albuterol Sulfate (Albuterol 2.5mg/3ml Neb Ud) 2.5 mg HHN QIDRT [facility] Stop: 02/10/17 14:59 Last Admin: 12/13/16 10:12 Dose: 2.5 mg Albuterol/Ipratropium (Duoneb Neb) 3 ml HHN Q4HRT PRN PRN Reason: Shortness of Breath Stop: 02/10/17 08:14 Ascorbic Acid (Vitamin C) 500 mg PO DAILY [facility] Stop: 02/10/17 08:59 Last Admin: 12/13/16 09:43 Dose: Not Given Bismuth Subsalicylate (Pepto-Bismol) 30 ml PO Q6H PRN PRN Reason: GI DISTRESS Stop: 02/10/17 08:14 Clonidine HCl (Crvfytwm-Mjd-1) 1 patch TD Mo [facility] Stop: 02/10/17 09:59 Last Admin: 12/12/16 09:58 Dose: 1 patch Diltiazem HCl (Cardizem) 30 mg PO Q6HR [facility] Stop: 02/10/17 11:59 Last Admin: 12/13/16 13:07 Dose: Not Given Docusate Sodium (Colace) 100 mg PO BID [facility] Stop: 02/10/17 08:59 Last Admin: 12/13/16 09:44 Dose: Not Given Ferrous Sulfate (Iron) 325 mg PO DAILY [facility] Stop: 02/10/17 08:59 Last Admin: 12/13/16 09:44 Dose: Not Given Furosemide (Lasix) 20 mg PO DAILY [facility] Stop: 02/10/17 08:59 Last Admin: 12/13/16 09:44 Dose: Not Given Heparin Sodium (Porcine) (Heparin) 5,000 units SUBQ Q12HR [facility] Stop: 02/10/17 20:59 Last Admin: 12/13/16 09:51 Dose: 5,000 units Metronidazole (Flagyl) 500 mg in 100 mls @ 100 mls/hr IV Q8HR [facility] Stop: 02/10/17 07:59 Last Admin: 12/13/16 13:11 Dose: 100 mls/hr Sodium Chloride (Nacl 0.9%) 1,000 mls @ 100 mls/hr IV .Q10H [facility] Stop: 02/10/17 01:15 Last Admin: 12/13/16 09:50 Dose: 100 mls/hr Vancomycin HCl 1.5 gm/ Sodium (Chloride) 500 mls @ 250 mls/hr IV Q12H [facility] Stop: 02/11/17 15:59 Insulin Aspart (Novolog Insulin Sliding Scale) 0 units SUBQ ACHS [facility] PRN Reason: Protocol Stop: 02/10/17 16:29 Last Admin: 12/13/16 13:06 Dose: Not Given Ipratropium [place] (Atrovent Neb 0.5mg/2.5ml) 0.5 mg HHN QIDRT [facility] Stop: 02/10/17 14:59 Last Admin: 12/13/16 10:12 Dose: 0.5 mg Levofloxacin (Levaquin) 250 mg PO DAILY [facility] Stop: 02/10/17 08:59 Last Admin: 12/13/16 09:44 Dose: Not Given Miscellaneous (Vte Chemical Prophylaxis Screen/ Admission) 1 [facility] PRN PRN PRN Reason: PROTOCOL Stop: 02/10/17 16:11 Miscellaneous (Vancomycin Iv Per Pharmacy) 1 ea PRN [facility] Stop: 02/11/17 12:44 Morphine Sulfate (Morphine) 1 mg IVP Q6H PRN PRN Reason: Abdominal Pain Stop: 02/10/17 14:55 Last Admin: 12/13/16 05:11 Dose: 1 mg Sodium Phosphate (Fleet Enema) 135 ml RC DAILY PRN PRN Reason: Constipation Stop: 02/10/17 08:14 General: No acute distress HEENT: Atraumatic, EOMI Cardiovascular: Regular rate, Normal S1, Normal S2 Lungs: Clear to auscultation Abdomen: Bowel sounds Assessment/Plan - Problem List Patient Problems: All Active Problems Cholelithiasis (Acute) Diverticulitis (Acute) - Plan Plan: cpm
--- NOTE | 2016-12-13 15:19 | General Progress Note ---
Subjective - Review of Systems Events since last encounter: abdominal pain denies chest pain Objective - Results Result Diagrams: 12/13/16 05:40 12/13/16 05:40 Recent Labs: Laboratory Last Values WBC 23.5 Th/cmm (4.8-10.8) H* 12/13/16 05:40 RBC 3.73 Mil/cmm (3.80-5.80) L 12/13/16 05:40 Hgb 11.2 gm/dL (12-16) L 12/13/16 05:40 Hct 33.3 % (41.0-60) L 12/13/16 05:40 MCV 89.4 fl (80-99) 12/13/16 05:40 MCH 30.0 pg (27.0-31.0) 12/13/16 05:40 MCHC Differential 33.6 pg (28.0-36.0) 12/13/16 05:40 RDW 15.9 % (11.5-20.0) 12/13/16 05:40 Plt Count 179 Th/cmm (150-400) 12/13/16 05:40 MPV 8.9 fl 12/13/16 05:40 Band Neutrophils % 27 % (0-10) H 12/13/16 05:40 Neutrophils (Manual) 63 % (40-80) 12/13/16 05:40 Lymphocytes 4 % (20-50) L 12/13/16 05:40 Monocytes 6 % (2-10) 12/13/16 05:40 Platelet Estimate ADEQUATE (NORMAL) 12/11/16 21:23 PT 11.0 SECONDS (9.5-11.5) 12/11/16 21:23 INR 1.06 (0.5-1.4) 12/11/16 21:23 PTT (Actin FS) 26.3 SECONDS (26.0-38.0) 12/11/16 21:23 Sodium 138 mEq/L (136-145) 12/13/16 05:40 Potassium 3.2 mEq/L (3.5-5.1) L 12/13/16 05:40 Chloride 104 mEq/L (98-107) 12/13/16 05:40 Carbon Dioxide 26.9 mEq/L (21.0-31.0) 12/13/16 05:40 Anion Gap 10.3 (7.0-16.0) 12/13/16 05:40 BUN 17 mg/dL (7-25) 12/13/16 05:40 Creatinine 0.9 mg/dL (0.7-1.3) 12/13/16 05:40 Est GFR ( Amer) TNP 12/13/16 05:40 Est GFR (Non-Af Amer) TNP 12/13/16 05:40 BUN/Creatinine Ratio 18.9 12/13/16 05:40 Glucose 108 mg/dL (70-105) H 12/13/16 05:40 POC Glucose 62 MG/DL (70 - 105) L 12/12/16 21:15 Whole Bld Lactic Acid 1.15 mmol/L (0.60-1.99) 12/11/16 21:23 Calcium 8.8 mg/dL (8.6-10.3) 12/13/16 05:40 Total Bilirubin 0.7 mg/dL (0.3-1.0) 12/13/16 05:40 Direct Bilirubin 0.25 mg/dL (0.0-0.2) H 12/13/16 05:40 AST 8 U/L (13-39) L 12/13/16 05:40 ALT 4 U/L (7-52) L 12/13/16 05:40 Alkaline Phosphatase 46 U/L (34-104) 12/13/16 05:40 Total Protein 3.9 gm/dL (6.0-8.3) L 12/13/16 05:40 Albumin 2.2 gm/dL (4.2-5.5) L 12/13/16 05:40 Globulin 1.7 gm/dL 12/13/16 05:40 Albumin/Globulin Ratio 1.3 (1.0-1.8) 12/13/16 05:40 Triglycerides 96 mg/dL (<150) 12/12/16 06:00 Cholesterol 122 mg/dL (<200) 12/12/16 06:00 LDL Cholesterol Direct 68 mg/dL (75-193) L 12/12/16 06:00 HDL Cholesterol 32 mg/dL (23-92) 12/12/16 06:00 Amylase 10 U/L (29-103) L 12/11/16 21:23 Lipase < 3 U/L (11-82) L 12/13/16 05:40 TSH 3.16 uIU/ml (0.34-5.60) 12/12/16 06:00 Urine Source CLEAN C 12/11/16 22:30 Urine Color ORANGE 12/11/16 22:30 Urine Clarity HAZY (CLEAR) 12/11/16 22:30 Urine pH 6.0 (4.6 - 8.0) 12/11/16 22:30 Ur Specific [place] 1.020 (1.005-1.030) 12/11/16 22:30 Urine Protein TRACE mg/dL (NEGATIVE) 12/11/16 22:30 Urine Glucose (UA) NEGATIVE mg/dL (NEGATIVE) 12/11/16 22:30 Urine Ketones TRACE mg/dL (NEGATIVE) 12/11/16 22:30 Urine Blood TRACE (NEGATIVE) 12/11/16 22:30 Urine Nitrate NEGATIVE (NEGATIVE) 12/11/16 22:30 Urine Bilirubin NEGATIVE (NEGATIVE) 12/11/16 22:30 Urine Urobilinogen 0.2 E.U./dL (0.2 - 1.0) 12/11/16 22:30 Ur Leukocyte Esterase TRACE (NEGATIVE) H 12/11/16 22:30 Urine RBC 2-5 /hpf (0-5) H 12/11/16 22:30 Urine WBC 2-5 /hpf (0-5) H 12/11/16 22:30 Ur Epithelial Cells NONE SEEN /lpf (FEW) 12/11/16 22:30 Calcium Oxalate Crystal FEW /hpf 12/11/16 22:30 Urine Bacteria OCCASIONAL /hpf (NONE SEEN) 12/11/16 22:30 Stool Occult Blood POSITIVE (NEGATIVE) 12/11/16 22:15 - Physical Exam Vitals and I&O: Vital Signs Temp 97.8 F 12/13/16 12:00 Pulse 100 12/13/16 13:07 Resp 18 12/13/16 12:00 BP 119/53 12/13/16 12:00 Pulse Ox 94 12/13/16 12:00 Intake & Output 12/12/16 12/13/16 12/13/16 18:59 06:59 18:59 Intake Total 0508.534 7977.333 Balance 9739.986 2804.333 Weight (lbs) 87.26 kg Intake: Intake, IV Amount 8803.080 2892.333 Sodium Chloride 0.9% 1, 2145.640 9860.333 000 ml @ 100 mls/hr IV . Q10H [facility] Rx#:[id number] metroNIDAZOLE 500mg/NS 200 200 100mL 500 mg In 100 ml @ 100 mls/hr IV Q8HR [facility] Rx #:[id number] Other: # Bowel Movements 3 Stool Characteristics Liquid Active Medications: Current Medications Acetaminophen (Tylenol) 650 mg PO Q4H PRN PRN Reason: Pain or Fever >101 Stop: 02/10/17 08:14 Last Admin: 12/12/16 14:18 Dose: 650 mg Albuterol Sulfate (Albuterol 2.5mg/3ml Neb Ud) 2.5 mg HHN QIDRT [facility] Stop: 02/10/17 14:59 Last Admin: 12/13/16 10:12 Dose: 2.5 mg Albuterol/Ipratropium (Duoneb Neb) 3 ml HHN Q4HRT PRN PRN Reason: Shortness of Breath Stop: 02/10/17 08:14 Ascorbic Acid (Vitamin C) 500 mg PO DAILY [facility] Stop: 02/10/17 08:59 Last Admin: 12/13/16 09:43 Dose: Not Given Bismuth Subsalicylate (Pepto-Bismol) 30 ml PO Q6H PRN PRN Reason: GI DISTRESS Stop: 02/10/17 08:14 Clonidine HCl (Dyonxgxa-Nyg-3) 1 patch TD Mo [facility] Stop: 02/10/17 09:59 Last Admin: 12/12/16 09:58 Dose: 1 patch Diltiazem HCl (Cardizem) 30 mg PO Q6HR [facility] Stop: 02/10/17 11:59 Last Admin: 12/13/16 13:07 Dose: Not Given Docusate Sodium (Colace) 100 mg PO BID [facility] Stop: 02/10/17 08:59 Last Admin: 12/13/16 09:44 Dose: Not Given Ferrous Sulfate (Iron) 325 mg PO DAILY [facility] Stop: 02/10/17 08:59 Last Admin: 12/13/16 09:44 Dose: Not Given Furosemide (Lasix) 20 mg PO DAILY [facility] Stop: 02/10/17 08:59 Last Admin: 12/13/16 09:44 Dose: Not Given Heparin Sodium (Porcine) (Heparin) 5,000 units SUBQ Q12HR [facility] Stop: 02/10/17 20:59 Last Admin: 12/13/16 09:51 Dose: 5,000 units Metronidazole (Flagyl) 500 mg in 100 mls @ 100 mls/hr IV Q8HR [facility] Stop: 02/10/17 07:59 Last Admin: 12/13/16 13:11 Dose: 100 mls/hr Sodium Chloride (Nacl 0.9%) 1,000 mls @ 100 mls/hr IV .Q10H [facility] Stop: 02/10/17 01:15 Last Admin: 12/13/16 09:50 Dose: 100 mls/hr Vancomycin HCl 1.5 gm/ Sodium (Chloride) 500 mls @ 250 mls/hr IV Q12H [facility] Stop: 02/11/17 15:59 Insulin Aspart (Novolog Insulin Sliding Scale) 0 units SUBQ ACHS [facility] PRN Reason: Protocol Stop: 02/10/17 16:29 Last Admin: 12/13/16 13:06 Dose: Not Given Ipratropium [place] (Atrovent Neb 0.5mg/2.5ml) 0.5 mg HHN QIDRT [facility] Stop: 02/10/17 14:59 Last Admin: 12/13/16 10:12 Dose: 0.5 mg Levofloxacin (Levaquin) 250 mg PO DAILY [facility] Stop: 02/10/17 08:59 Last Admin: 12/13/16 09:44 Dose: Not Given Miscellaneous (Vte Chemical Prophylaxis Screen/ Admission) 1 [facility] PRN PRN PRN Reason: PROTOCOL Stop: 02/10/17 16:11 Miscellaneous (Vancomycin Iv Per Pharmacy) 1 ea PRN [facility] Stop: 02/11/17 12:44 Morphine Sulfate (Morphine) 1 mg IVP Q6H PRN PRN Reason: Abdominal Pain Stop: 02/10/17 14:55 Last Admin: 12/13/16 05:11 Dose: 1 mg Sodium Phosphate (Fleet Enema) 135 ml RC DAILY PRN PRN Reason: Constipation Stop: 02/10/17 08:14 General: No acute distress HEENT: Atraumatic, EOMI Cardiovascular: Regular rate, Normal S1, Normal S2 Lungs: Clear to auscultation Abdomen: Bowel sounds Assessment/Plan - Problem List Patient Problems: All Active Problems Cholelithiasis (Acute) Diverticulitis (Acute) - Plan Plan: cpm
[2016-12-13] MEDS ORDERED: Probiotic Screen MC PRN (15:57)
[2016-12-13] MEDS: Vancomycin HCl 1.5 GM in Sodium Chloride 0.9% 500 ML IV SCH (16:45)
[2016-12-13] MEDS: Potassium Chloride 20 mEq ER Tab PO SCH (23:28)
--- NOTE | 2016-12-13 23:33 | Consultation ---
DATE OF CONSULTATION: 12/13/2016 ATTENDING: Yari Dahl M.D. TIN CONTAINER STRAIGHTENER: Sherman Page M.D. REASON FOR CONSULTATION: Electrolyte imbalance and fluid management. HISTORY OF PRESENT ILLNESS: This is a 76-year-old male with past medical history of status post kidney transplant who came in because of persistent lower abdominal pain. Two weeks prior to admission, the patient developed diarrhea and was diagnosed to have C. difficile colitis. He was treated accordingly. One week prior to admission, he experienced lower abdominal pain. This persisted even with his loose bowel movement. He was then brought to the Emergency Room. CT scan of the abdomen/pelvis revealed bilateral pneumonia, cholelithiasis, colitis, diverticulitis, and cystitis. White count was 23.7. He denied any nausea and vomiting, fever/chills, melena, hematochezia, but continues to have loose bowel movement. He admitted to dysuria, but denied any gross hematuria. He had a right lower kidney transplant about a year ago. His BUN/creatinine were today. PAST MEDICAL HISTORY: 1. End-stage renal disease, status post right kidney transplant. 2. Peptic ulcer disease. 3. Anemia of chronic kidney disease. 4. Sacral pressure ulcer stage 2. 5. GERD. 6. Essential hypertension. PAST SURGICAL HISTORY: 1. Status post right kidney transplant. 2. Status post right hemicolectomy. 3. Status post laminectomy. CURRENT MEDICATIONS: He is currently on acetaminophen, albuterol/ipratropium, ascorbic acid, Pepto-Bismol, clonidine, diltiazem, Colace, iron, Fleet enema, furosemide, aspart, lactobacillus, Levaquin, metronidazole, morphine, sodium chloride, probiotic, vancomycin. ALLERGIES: ALLERGIC TO PENICILLIN. SOCIAL HISTORY: Denied any recent history of smoking. Drinks alcoholic beverages on special events. 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 FAMILY HISTORY: This is noncontributory to his present illness. REVIEW OF SYSTEMS: CONSTITUTIONAL: He denied any weakness; appetite had deteriorated due to his abdominal pain, no fever, no chills. HEENT: Denied any headaches, no dizziness. Vision and hearing acuity remains within acceptable limits. CARDIORESPIRATORY: He has a history of hypertension. At this point, no chest pain, palpitations, diaphoresis, cough or shortness of breath. GASTROINTESTINAL: Denied any nausea and vomiting, melena, hematochezia, constipation, but had persistent lower abdominal pain. GENITOURINARY: History of end-stage renal disease, but had kidney transplant a year ago. Complains of some dysuria, but no hematuria. HEMATOLOGIC: History of anemia of chronic kidney disease. MUSCULOSKELETAL: Multiple joint arthralgias. NEUROPSYCHIATRIC: No syncopal episode. No seizure activity. PHYSICAL EXAMINATION: GENERAL: The patient is alert, verbal some distress due to his lower abdominal pain. VITAL SIGNS: His temperature is 98.4 degrees, pulse 94, blood pressure 124/54. SKIN: Good turgor, warm. No rash, no jaundice appreciated. HEENT: Head: Normocephalic, atraumatic. Eyes: Extraocular muscles intact. Pupils equal, round, reactive to light and accommodates. Anicteric sclerae. Pale conjunctivae. Nose: Midline nasal septum. Mouth: Moist mucosa with adequate dentition. NECK: Supple, no adenopathy, no thyromegaly, no bruits. Trachea palpated in the midline. CHEST AND CVS: S1, S2. No rub, murmur, no gallop appreciated. Point of maximal impulse fifth intercostal space left midclavicular line. No abdominal or femoral bruits appreciated. LUNGS: Equal expansion. No use of accessory muscles. No supraclavicular retractions. Decreased breath sounds but clear to auscultation without any wheeze. ABDOMEN: Flat, soft, minimal bowel sounds, presence of tenderness on palpation of the bilateral quadrants of the lower abdomen. No guarding, no rigidity appreciated. He has a healed scar on the right lower quadrant without any tenderness or bruit over his renal transplant. He also has a mid gastric scar, which has healed well. RECTAL: The patient refused. GENITOURINARY: Normal appearing male genitalia. MUSCULOSKELETAL: No effusions present in his joints with adequate range of motion. EXTREMITIES: No evidence of edema, cyanosis, no clubbing, with palpable femoral, popliteal and dorsalis pedis pulses. NEUROLOGIC: The patient is alert, verbal, motor is 5/5. Cranial nerves 3-12 intact. Sensory intact. LABORATORY DATA: White count 23.5. Hemoglobin 11.2, hematocrit 33.3, platelets 179, polys 63%. Sodium is 138, potassium 3.2, chloride 104, bicarbonate 26, BUN 17, creatinine 0.9, glucose 108, calcium 8.8, albumin is 2.2. IMPRESSION: 1. End-stage renal disease, status post right kidney transplant. 2. Leukocytosis secondary to Clostridium difficile colitis, possibilities include bilateral pneumonia, bilateral healthcare-acquired pneumonia, diverticulitis, as well as cystitis. 3. Lower abdominal pain, which may be due to his colitis, diverticulitis, cystitis, and possibility of acute cholecystitis. 4. Severe malnutrition. 5. Peptic ulcer disease. 6. Anemia of chronic kidney disease. 7. Sacral pressure ulcer stage 2. 8. Gastroesophageal reflux disease. 9. Essential hypertension. PLAN: 1. IV fluids. 2. Transplant medications especially CellCept, which is not available, we will try to get pharmacy to obtain from other facility. 3. Follow up electrolytes and we will try to get Prograf level. 4. The patient in a difficult situation with overwhelming sepsis and also being on strong immunosuppressants . Thank you, Dr. Dahl for this consult and I will follow the patient closely with you. JOB# [id number]
[2016-12-14] MEDS: Morphine Sulfate 2 mg/mL 1mL Syr IVP PRN ×2 (00:16→13:30)
[2016-12-14] MEDS: Vancomycin HCl 1.5 GM in Sodium Chloride 0.9% 500 ML IV SCH (04:42)
[2016-12-14 05:47] LABS: EOSINOPHILE ABSOLUTE 0.3 Th/cmm (0.1-0.4); HEMOGLOBIN 10.4 gm/dL (12-16); MANUAL DIFF REQUIRED? YES; MEAN CORPUSCULAR HGB CONC 33.6 pg (28.0-36.0); MONOCYTE ABSOLUTE 0.8 Th/cmm (0.3-1.0); RED BLOOD COUNT 3.43 Mil/cmm (3.80-5.80)
[2016-12-14 05:49] LABS: BASOPHILE ABSOLUTE 0.8 Th/cumm (0-0.2); LYMPHOCYTE ABSOLUTE 0.2 Th/cmm (1.5-3.0); MEAN CELL VOLUME 90.3 fl (80-99); MEAN CORPUSCULAR HEMOGLOBIN 30.4 pg (27.0-31.0); NEUTROPHILE ABSOLUTE 13.7 Th/cmm (1.8-8.0); PLATELET COUNT 164 Th/cmm (150-400); RED CELL DISTRIBUTION WIDTH 15.1 % (11.5-20.0)
[2016-12-14 05:58] LABS: WHITE BLOOD COUNT 15.8 Th/cmm (4.8-10.8)
[2016-12-14 06:04] LABS: BAND NEUTROPHILE 13 % (0-10); LYMPHOCYTE 8 % (20-50); MONOCYTE 3 % (2-10); NEUTROPHILS 76 % (40-80); TOTAL CELLS COUNTED 100
[2016-12-14 06:27] LABS: ALB/GLOB RATIO 1.3 (1.0-1.8); ALKALINE PHOSPHATASE 42 U/L (34-104); ANION GAP 10.2 (7.0-16.0); BILIRUBIN,TOTAL 0.6 mg/dL (0.3-1.0); BUN - UREA NITROGEN 13 mg/dL (7-25); CALCIUM SERUM 8.5 mg/dL (8.6-10.3); CHLORIDE 107 mEq/L (98-107); CREATININE - SERUM 0.9 mg/dL (0.7-1.3); GLUCOSE 91 mg/dL (70-105); MAGNESIUM 1.2 mg/dL (1.9-2.7); PHOSPHOROUS 1.8 mg/dL (2.5-5.0); POTASSIUM SERUM 3.2 mEq/L (3.5-5.1); SGOT 7 U/L (13-39); SGPT/ALT 4 U/L (7-52); SODIUM SERUM 140 mEq/L (136-145); TOTAL PROTEIN,SERUM 3.6 gm/dL (6.0-8.3)
[2016-12-14] MEDS: Albuterol Nebulizer 2.5mg/3mL HHN SCH ×4 (06:50→19:13)
[2016-12-14] MEDS: Ipratropium Neb 0.5 mg/2.5 mL UD HHN SCH ×4 (06:50→19:13)
[2016-12-14] MEDS: INSULIN ASPART SLIDING SCALE 100 UNITS/ML UNIT SUBQ SCH ×4 (07:08→21:22)
[2016-12-14] MEDS: Diltiazem 30 mg Tab PO SCH ×4 (07:10→18:30)
[2016-12-14] MEDS: Lactobacillus Rhamnosus 10 Billion CFU Capsule PO SCH ×2 (07:53→11:03)
--- NOTE | 2016-12-14 08:17 | Diagnostic Imaging Report ---
Nuclear medicine HIDA scan HISTORY: Gallstones with leukocytosis COMPARISON: CT abdomen and pelvis on 12/11/2016 Technique/procedure:5.3 mCi of technetium labeled Choletec was administered intravenously and multiple scintigraphic images were obtained for up to 1 hour. FINDINGS: Exam is markedly limited due to technical factors. Small bowel uptake is seen at 20 minutes. There is uptake seen within the right upper quadrant at 50 to 60 minutes. This may represent the gallbladder. IMPRESSION: Limited examination. Right upper quadrant uptake is seen at 50-60 minutes. This may represent gallbladder uptake. As such, based on scintigraphic findings, acute cholecystitis is considered less likely but cannot be completely excluded. Correlation is made with patient's clinical findings.
[2016-12-14] MEDS: metroNIDAZOLE 500mg/NS 100mL 500 MG/100 ML BAG IV SCH ×3 (09:05→22:51)
--- NOTE | 2016-12-14 10:22 | Diagnostic Imaging Report ---
CT Chest without IV contrast HISTORY: Pneumonia COMPARISON: Chest x-ray on 10/28/[address] abdomen and pelvis on 12/11/2016 Technique: Axial images were obtained from the base of the neck to the upper abdomen without IV contrast. Reconstructions were made. Total DLP 388 CTD I 19.4 Findings: Gynecomastia is noted. Assessment of the mediastinum is limited due to lack of IV contrast. Mild cardiomegaly is noted. Diffuse atherosclerotic vascular disease is seen with coronary artery calcifications. Trace pericardial fluid is noted. Moderate sized bilateral pleural effusions are seen left larger than right with bibasal consolidative changes. Additional hypoventilatory and atelectatic changes of the lungs are also noted. Small amount of ascites is noted. Gallstones are noted. There is the suggestion of partially visualized colonic wall thickening. Postsurgical changes of right upper quadrant are noted. Atrophic bilateral kidneys are seen with calcifications. Left renal low-density lesions are seen too small to characterize. Degenerative changes of the spine are noted. IMPRESSION: Moderate-sized bilateral pleural effusions, left larger than right, with bibasal passive atelectasis and consolidative changes. Pneumonia of the lung bases cannot be excluded. Mild cardiomegaly with diffuse atherosclerotic vascular disease including heavy coronary artery calcifications. Small amount of ascites Suggestion of colonic bowel wall thickening with postsurgical changes seen within bowel loops along the right upper quadrant. Findings may be due to underlying infectious or inflammatory colitis. Clinical correlation and follow-up is recommended. Gallstones. Bilateral atrophic kidneys with left renal low-density lesions too small to characterize but suggestive of cysts.
[2016-12-14] MEDS: Ferrous Sulfate 325 MG TAB PO SCH (11:03)
[2016-12-14] MEDS: Potassium Chloride 20 mEq ER Tab PO SCH (11:04)
--- NOTE | 2016-12-14 12:03 | General Progress Note ---
Subjective - Review of Systems Events since last encounter: patient with no acute distress Objective - Results Result Diagrams: 12/14/16 05:35 12/14/16 05:35 Recent Labs: Laboratory Last Values WBC 15.8 Th/cmm (4.8-10.8) H D 12/14/16 05:35 RBC 3.43 Mil/cmm (3.80-5.80) L 12/14/16 05:35 Hgb 10.4 gm/dL (12-16) L 12/14/16 05:35 Hct 31.0 % (41.0-60) L 12/14/16 05:35 MCV 90.3 fl (80-99) 12/14/16 05:35 MCH 30.4 pg (27.0-31.0) 12/14/16 05:35 MCHC Differential 33.6 pg (28.0-36.0) 12/14/16 05:35 RDW 15.1 % (11.5-20.0) 12/14/16 05:35 Plt Count 164 Th/cmm (150-400) 12/14/16 05:35 MPV 9.0 fl 12/14/16 05:35 Neutrophils % WINE CELLAR WORKER 12/14/16 05:35 Band Neutrophils % 13 % (0-10) H 12/14/16 05:35 Lymphocytes % [employer] CELLAR WORKER 12/14/16 05:35 Basophils % [employer] CELLAR WORKER 12/14/16 05:35 Neutrophils (Manual) 76 % (40-80) 12/14/16 05:35 Lymphocytes 8 % (20-50) L 12/14/16 05:35 Monocytes 3 % (2-10) 12/14/16 05:35 Platelet Estimate ADEQUATE (NORMAL) 12/11/16 21:23 PT 11.0 SECONDS (9.5-11.5) 12/11/16 21:23 INR 1.06 (0.5-1.4) 12/11/16 21:23 PTT (Actin FS) 26.3 SECONDS (26.0-38.0) 12/11/16 21:23 Sodium 140 mEq/L (136-145) 12/14/16 05:35 Potassium 3.2 mEq/L (3.5-5.1) L 12/14/16 05:35 Chloride 107 mEq/L (98-107) 12/14/16 05:35 Carbon Dioxide 26.0 mEq/L (21.0-31.0) 12/14/16 05:35 Anion Gap 10.2 (7.0-16.0) 12/14/16 05:35 BUN 13 mg/dL (7-25) 12/14/16 05:35 Creatinine 0.9 mg/dL (0.7-1.3) 12/14/16 05:35 Est GFR ( Amer) TNP 12/14/16 05:35 Est GFR (Non-Af Amer) TNP 12/14/16 05:35 BUN/Creatinine Ratio 14.4 12/14/16 05:35 Glucose 91 mg/dL (70-105) 12/14/16 05:35 POC Glucose 78 MG/DL (70 - 105) 12/14/16 07:06 Whole Bld Lactic Acid 1.15 mmol/L (0.60-1.99) 12/11/16 21:23 Calcium 8.5 mg/dL (8.6-10.3) L 12/14/16 05:35 Phosphorus 1.8 mg/dL (2.5-5.0) L 12/14/16 05:35 Magnesium 1.2 mg/dL (1.9-2.7) L 12/14/16 05:35 Total Bilirubin 0.6 mg/dL (0.3-1.0) 12/14/16 05:35 Direct Bilirubin 0.25 mg/dL (0.0-0.2) H 12/13/16 05:40 AST 7 U/L (13-39) L 12/14/16 05:35 ALT 4 U/L (7-52) L 12/14/16 05:35 Alkaline Phosphatase 42 U/L (34-104) 12/14/16 05:35 Total Protein 3.6 gm/dL (6.0-8.3) L 12/14/16 05:35 Albumin 2.0 gm/dL (4.2-5.5) L 12/14/16 05:35 Globulin 1.6 gm/dL 12/14/16 05:35 Albumin/Globulin Ratio 1.3 (1.0-1.8) 12/14/16 05:35 Triglycerides 96 mg/dL (<150) 12/12/16 06:00 Cholesterol 122 mg/dL (<200) 12/12/16 06:00 LDL Cholesterol Direct 68 mg/dL (75-193) L 12/12/16 06:00 HDL Cholesterol 32 mg/dL (23-92) 12/12/16 06:00 Amylase 10 U/L (29-103) L 12/11/16 21:23 Lipase < 3 U/L (11-82) L 12/13/16 05:40 TSH 3.16 uIU/ml (0.34-5.60) 12/12/16 06:00 Urine Source CLEAN C 12/11/16 22:30 Urine Color ORANGE 12/11/16 22:30 Urine Clarity HAZY (CLEAR) 12/11/16 22:30 Urine pH 6.0 (4.6 - 8.0) 12/11/16 22:30 Ur Specific [place] 1.020 (1.005-1.030) 12/11/16 22:30 Urine Protein TRACE mg/dL (NEGATIVE) 12/11/16 22:30 Urine Glucose (UA) NEGATIVE mg/dL (NEGATIVE) 12/11/16 22:30 Urine Ketones TRACE mg/dL (NEGATIVE) 12/11/16 22:30 Urine Blood TRACE (NEGATIVE) 12/11/16 22:30 Urine Nitrate NEGATIVE (NEGATIVE) 12/11/16 22:30 Urine Bilirubin NEGATIVE (NEGATIVE) 12/11/16 22:30 Urine Urobilinogen 0.2 E.U./dL (0.2 - 1.0) 12/11/16 22:30 Ur Leukocyte Esterase TRACE (NEGATIVE) H 12/11/16 22:30 Urine RBC 2-5 /hpf (0-5) H 12/11/16 22:30 Urine WBC 2-5 /hpf (0-5) H 12/11/16 22:30 Ur Epithelial Cells NONE SEEN /lpf (FEW) 12/11/16 22:30 Calcium Oxalate Crystal FEW /hpf 12/11/16 22:30 Urine Bacteria OCCASIONAL /hpf (NONE SEEN) 12/11/16 22:30 Stool Occult Blood POSITIVE (NEGATIVE) 12/11/16 22:15 - Physical Exam Vitals and I&O: Vital Signs Temp 97.0 F 12/14/16 11:52 Pulse 89 12/14/16 11:52 Resp 19 12/14/16 11:52 BP 117/61 12/14/16 11:52 Pulse Ox 100 12/14/16 11:52 Intake & Output 12/13/16 12/14/16 12/14/16 18:59 06:59 18:59 Intake Total 840 200 Balance 840 200 Weight (lbs) 87.09 kg 88.541 kg 88.451 kg Intake: Intake, IV Amount 600 200 Vancomycin HCl 1.5 gm In 500 Sodium Chloride 0.9% 500 ml @ 250 mls/hr IV Q12H [facility] Rx#:[id number] metroNIDAZOLE 500mg/NS 100 100 100mL 500 mg In 100 ml @ 100 mls/hr IV Q8HR [facility] Rx #:[id number] Oral 240 Active Medications: Current Medications Acetaminophen (Tylenol) 650 mg PO Q4H PRN PRN Reason: Pain or Fever >101 Stop: 02/10/17 08:14 Last Admin: 12/12/16 14:18 Dose: 650 mg Albuterol Sulfate (Albuterol 2.5mg/3ml Neb Ud) 2.5 mg HHN QIDRT [facility] Stop: 02/10/17 14:59 Last Admin: 12/14/16 11:40 Dose: 2.5 mg Albuterol/Ipratropium (Duoneb Neb) 3 ml HHN Q4HRT PRN PRN Reason: Shortness of Breath Stop: 02/10/17 08:14 Ascorbic Acid (Vitamin C) 500 mg PO DAILY [facility] Stop: 02/10/17 08:59 Last Admin: 12/14/16 11:04 Dose: 500 mg Bismuth Subsalicylate (Pepto-Bismol) 30 ml PO Q6H PRN PRN Reason: GI DISTRESS Stop: 02/10/17 08:14 Clonidine HCl (Jziyfqec-Mbd-6) 1 patch TD Mo [facility] Stop: 02/10/17 09:59 Last Admin: 12/12/16 09:58 Dose: 1 patch Diltiazem HCl (Cardizem) 30 mg PO Q6HR [facility] Stop: 02/10/17 11:59 Last Admin: 12/14/16 07:53 Dose: Not Given Docusate Sodium (Colace) 100 mg PO BID [facility] Stop: 02/10/17 08:59 Last Admin: 12/14/16 11:04 Dose: 100 mg Ferrous Sulfate (Iron) 325 mg PO DAILY [facility] Stop: 02/10/17 08:59 Last Admin: 12/14/16 11:03 Dose: 325 mg Heparin Sodium (Porcine) (Heparin) 5,000 units SUBQ Q12HR [facility] Stop: 02/10/17 20:59 Last Admin: 12/14/16 11:04 Dose: 5,000 units Metronidazole (Flagyl) 500 mg in 100 mls @ 100 mls/hr IV Q8HR [facility] Stop: 02/10/17 07:59 Last Admin: 12/14/16 09:05 Dose: 100 mls/hr Sodium Chloride (Nacl 0.9%) 1,000 mls @ 100 mls/hr IV .Q10H [facility] Stop: 02/10/17 01:15 Last Admin: 12/13/16 09:50 Dose: 100 mls/hr Vancomycin HCl 1.5 gm/ Sodium (Chloride) 500 mls @ 250 mls/hr IV Q12H [facility] Stop: 02/11/17 15:59 Last Admin: 12/14/16 04:42 Dose: 250 mls/hr Insulin Aspart (Novolog Insulin Sliding Scale) 0 units SUBQ ACHS [facility] PRN Reason: Protocol Stop: 02/10/17 16:29 Last Admin: 12/14/16 07:08 Dose: Not Given Ipratropium [place] (Atrovent Neb 0.5mg/2.5ml) 0.5 mg HHN QIDRT [facility] Stop: 02/10/17 14:59 Last Admin: 12/14/16 11:40 Dose: 0.5 mg Lactobacillus Rhamnosus (Culturelle) 1 each PO DAILY [facility] Stop: 02/11/17 16:59 Last Admin: 12/14/16 11:03 Dose: 1 each Levofloxacin (Levaquin) 250 mg PO DAILY [facility] Stop: 02/10/17 08:59 Last Admin: 12/14/16 11:03 Dose: 250 mg Miscellaneous (Vte Chemical Prophylaxis Screen/ Admission) 1 ea PRN PRN PRN Reason: PROTOCOL Stop: 02/10/17 16:11 Miscellaneous (Vancomycin Iv Per Pharmacy) 1 ea MC PRN [facility] Stop: 02/11/17 12:44 Miscellaneous (Probiotic Screen) 1 ea PRN PRN PRN Reason: PROTOCOL Stop: 12/16/17 15:56 Morphine Sulfate (Morphine) 1 mg IVP Q6H PRN PRN Reason: Abdominal Pain Stop: 02/10/17 14:55 Last Admin: 12/14/16 00:16 Dose: 1 mg Mupirocin (Bactroban Oint) 1 appl TP BID [facility] Stop: 12/21/16 08:59 Potassium Chloride (Klor-Con) 40 meq PO DAILY [facility] Stop: 02/11/17 18:14 Last Admin: 12/14/16 11:04 Dose: 40 meq Prednisone (Deltasone) 10 mg PO BID [facility] Stop: 02/11/17 18:14 Last Admin: 12/14/16 11:04 Dose: 10 mg Sodium Phosphate (Fleet Enema) 135 ml RC DAILY PRN PRN Reason: Constipation Stop: 02/10/17 08:14 Tacrolimus (Prograf) 1 mg PO BID [facility] Stop: 02/11/17 18:14 Last Admin: 12/13/16 23:19 Dose: Not Given General: No acute distress HEENT: Atraumatic, EOMI Cardiovascular: Regular rate, Normal S1, Normal S2 Lungs: Clear to auscultation Abdomen: Bowel sounds Assessment/Plan - Problem List Patient Problems: All Active Problems Cholelithiasis (Acute) Diverticulitis (Acute) - Plan Plan: cpm
--- NOTE | 2016-12-14 12:03 | General Progress Note ---
Subjective - Review of Systems Events since last encounter: patient with no acute distress Objective - Results Result Diagrams: 12/14/16 05:35 12/14/16 05:35 Recent Labs: Laboratory Last Values WBC 15.8 Th/cmm (4.8-10.8) H D 12/14/16 05:35 RBC 3.43 Mil/cmm (3.80-5.80) L 12/14/16 05:35 Hgb 10.4 gm/dL (12-16) L 12/14/16 05:35 Hct 31.0 % (41.0-60) L 12/14/16 05:35 MCV 90.3 fl (80-99) 12/14/16 05:35 MCH 30.4 pg (27.0-31.0) 12/14/16 05:35 MCHC Differential 33.6 pg (28.0-36.0) 12/14/16 05:35 RDW 15.1 % (11.5-20.0) 12/14/16 05:35 Plt Count 164 Th/cmm (150-400) 12/14/16 05:35 MPV 9.0 fl 12/14/16 05:35 Neutrophils % RACETRACK STEWARD 12/14/16 05:35 Band Neutrophils % 13 % (0-10) H 12/14/16 05:35 Lymphocytes % RACETRACK STEWARD 12/14/16 05:35 Basophils % RACETRACK STEWARD 12/14/16 05:35 Neutrophils (Manual) 76 % (40-80) 12/14/16 05:35 Lymphocytes 8 % (20-50) L 12/14/16 05:35 Monocytes 3 % (2-10) 12/14/16 05:35 Platelet Estimate ADEQUATE (NORMAL) 12/11/16 21:23 PT 11.0 SECONDS (9.5-11.5) 12/11/16 21:23 INR 1.06 (0.5-1.4) 12/11/16 21:23 PTT (Actin FS) 26.3 SECONDS (26.0-38.0) 12/11/16 21:23 Sodium 140 mEq/L (136-145) 12/14/16 05:35 Potassium 3.2 mEq/L (3.5-5.1) L 12/14/16 05:35 Chloride 107 mEq/L (98-107) 12/14/16 05:35 Carbon Dioxide 26.0 mEq/L (21.0-31.0) 12/14/16 05:35 Anion Gap 10.2 (7.0-16.0) 12/14/16 05:35 BUN 13 mg/dL (7-25) 12/14/16 05:35 Creatinine 0.9 mg/dL (0.7-1.3) 12/14/16 05:35 Est GFR ( Amer) TNP 12/14/16 05:35 Est GFR (Non-Af Amer) TNP 12/14/16 05:35 BUN/Creatinine Ratio 14.4 12/14/16 05:35 Glucose 91 mg/dL (70-105) 12/14/16 05:35 POC Glucose 78 MG/DL (70 - 105) 12/14/16 07:06 Whole Bld Lactic Acid 1.15 mmol/L (0.60-1.99) 12/11/16 21:23 Calcium 8.5 mg/dL (8.6-10.3) L 12/14/16 05:35 Phosphorus 1.8 mg/dL (2.5-5.0) L 12/14/16 05:35 Magnesium 1.2 mg/dL (1.9-2.7) L 12/14/16 05:35 Total Bilirubin 0.6 mg/dL (0.3-1.0) 12/14/16 05:35 Direct Bilirubin 0.25 mg/dL (0.0-0.2) H 12/13/16 05:40 AST 7 U/L (13-39) L 12/14/16 05:35 ALT 4 U/L (7-52) L 12/14/16 05:35 Alkaline Phosphatase 42 U/L (34-104) 12/14/16 05:35 Total Protein 3.6 gm/dL (6.0-8.3) L 12/14/16 05:35 Albumin 2.0 gm/dL (4.2-5.5) L 12/14/16 05:35 Globulin 1.6 gm/dL 12/14/16 05:35 Albumin/Globulin Ratio 1.3 (1.0-1.8) 12/14/16 05:35 Triglycerides 96 mg/dL (<150) 12/12/16 06:00 Cholesterol 122 mg/dL (<200) 12/12/16 06:00 LDL Cholesterol Direct 68 mg/dL (75-193) L 12/12/16 06:00 HDL Cholesterol 32 mg/dL (23-92) 12/12/16 06:00 Amylase 10 U/L (29-103) L 12/11/16 21:23 Lipase < 3 U/L (11-82) L 12/13/16 05:40 TSH 3.16 uIU/ml (0.34-5.60) 12/12/16 06:00 Urine Source CLEAN C 12/11/16 22:30 Urine Color ORANGE 12/11/16 22:30 Urine Clarity HAZY (CLEAR) 12/11/16 22:30 Urine pH 6.0 (4.6 - 8.0) 12/11/16 22:30 Ur Specific [place] 1.020 (1.005-1.030) 12/11/16 22:30 Urine Protein TRACE mg/dL (NEGATIVE) 12/11/16 22:30 Urine Glucose (UA) NEGATIVE mg/dL (NEGATIVE) 12/11/16 22:30 Urine Ketones TRACE mg/dL (NEGATIVE) 12/11/16 22:30 Urine Blood TRACE (NEGATIVE) 12/11/16 22:30 Urine Nitrate NEGATIVE (NEGATIVE) 12/11/16 22:30 Urine Bilirubin NEGATIVE (NEGATIVE) 12/11/16 22:30 Urine Urobilinogen 0.2 E.U./dL (0.2 - 1.0) 12/11/16 22:30 Ur Leukocyte Esterase TRACE (NEGATIVE) H 12/11/16 22:30 Urine RBC 2-5 /hpf (0-5) H 12/11/16 22:30 Urine WBC 2-5 /hpf (0-5) H 12/11/16 22:30 Ur Epithelial Cells NONE SEEN /lpf (FEW) 12/11/16 22:30 Calcium Oxalate Crystal FEW /hpf 12/11/16 22:30 Urine Bacteria OCCASIONAL /hpf (NONE SEEN) 12/11/16 22:30 Stool Occult Blood POSITIVE (NEGATIVE) 12/11/16 22:15 - Physical Exam Vitals and I&O: Vital Signs Temp 97.0 F 12/14/16 11:52 Pulse 89 12/14/16 11:52 Resp 19 12/14/16 11:52 BP 117/61 12/14/16 11:52 Pulse Ox 100 12/14/16 11:52 Intake & Output 12/13/16 12/14/16 12/14/16 18:59 06:59 18:59 Intake Total 840 200 Balance 840 200 Weight (lbs) 87.09 kg 88.541 kg 88.451 kg Intake: Intake, IV Amount 600 200 Vancomycin HCl 1.5 gm In 500 Sodium Chloride 0.9% 500 ml @ 250 mls/hr IV Q12H [facility] Rx#:[id number] metroNIDAZOLE 500mg/NS 100 100 100mL 500 mg In 100 ml @ 100 mls/hr IV Q8HR [facility] Rx #:[id number] Oral 240 Active Medications: Current Medications Acetaminophen (Tylenol) 650 mg PO Q4H PRN PRN Reason: Pain or Fever >101 Stop: 02/10/17 08:14 Last Admin: 12/12/16 14:18 Dose: 650 mg Albuterol Sulfate (Albuterol 2.5mg/3ml Neb Ud) 2.5 mg HHN QIDRT [facility] Stop: 02/10/17 14:59 Last Admin: 12/14/16 11:40 Dose: 2.5 mg Albuterol/Ipratropium (Duoneb Neb) 3 ml HHN Q4HRT PRN PRN Reason: Shortness of Breath Stop: 02/10/17 08:14 Ascorbic Acid (Vitamin C) 500 mg PO DAILY [facility] Stop: 02/10/17 08:59 Last Admin: 12/14/16 11:04 Dose: 500 mg Bismuth Subsalicylate (Pepto-Bismol) 30 ml PO Q6H PRN PRN Reason: GI DISTRESS Stop: 02/10/17 08:14 Clonidine HCl (Mztzawnt-Kcn-3) 1 patch TD Mo [facility] Stop: 02/10/17 09:59 Last Admin: 12/12/16 09:58 Dose: 1 patch Diltiazem HCl (Cardizem) 30 mg PO Q6HR [facility] Stop: 02/10/17 11:59 Last Admin: 12/14/16 07:53 Dose: Not Given Docusate Sodium (Colace) 100 mg PO BID [facility] Stop: 02/10/17 08:59 Last Admin: 12/14/16 11:04 Dose: 100 mg Ferrous Sulfate (Iron) 325 mg PO DAILY [facility] Stop: 02/10/17 08:59 Last Admin: 12/14/16 11:03 Dose: 325 mg Heparin Sodium (Porcine) (Heparin) 5,000 units SUBQ Q12HR [facility] Stop: 02/10/17 20:59 Last Admin: 12/14/16 11:04 Dose: 5,000 units Metronidazole (Flagyl) 500 mg in 100 mls @ 100 mls/hr IV Q8HR [facility] Stop: 02/10/17 07:59 Last Admin: 12/14/16 09:05 Dose: 100 mls/hr Sodium Chloride (Nacl 0.9%) 1,000 mls @ 100 mls/hr IV .Q10H [facility] Stop: 02/10/17 01:15 Last Admin: 12/13/16 09:50 Dose: 100 mls/hr Vancomycin HCl 1.5 gm/ Sodium (Chloride) 500 mls @ 250 mls/hr IV Q12H [facility] Stop: 02/11/17 15:59 Last Admin: 12/14/16 04:42 Dose: 250 mls/hr Insulin Aspart (Novolog Insulin Sliding Scale) 0 units SUBQ ACHS [facility] PRN Reason: Protocol Stop: 02/10/17 16:29 Last Admin: 12/14/16 07:08 Dose: Not Given Ipratropium [place] (Atrovent Neb 0.5mg/2.5ml) 0.5 mg HHN QIDRT [facility] Stop: 02/10/17 14:59 Last Admin: 12/14/16 11:40 Dose: 0.5 mg Lactobacillus Rhamnosus (Culturelle) 1 each PO DAILY [facility] Stop: 02/11/17 16:59 Last Admin: 12/14/16 11:03 Dose: 1 each Levofloxacin (Levaquin) 250 mg PO DAILY [facility] Stop: 02/10/17 08:59 Last Admin: 12/14/16 11:03 Dose: 250 mg Miscellaneous (Vte Chemical Prophylaxis Screen/ Admission) 1 ea PRN PRN PRN Reason: PROTOCOL Stop: 02/10/17 16:11 Miscellaneous (Vancomycin Iv Per Pharmacy) 1 ea MC PRN [facility] Stop: 02/11/17 12:44 Miscellaneous (Probiotic Screen) 1 ea PRN PRN PRN Reason: PROTOCOL Stop: 12/16/17 15:56 Morphine Sulfate (Morphine) 1 mg IVP Q6H PRN PRN Reason: Abdominal Pain Stop: 02/10/17 14:55 Last Admin: 12/14/16 00:16 Dose: 1 mg Mupirocin (Bactroban Oint) 1 appl TP BID [facility] Stop: 12/21/16 08:59 Potassium Chloride (Klor-Con) 40 meq PO DAILY [facility] Stop: 02/11/17 18:14 Last Admin: 12/14/16 11:04 Dose: 40 meq Prednisone (Deltasone) 10 mg PO BID [facility] Stop: 02/11/17 18:14 Last Admin: 12/14/16 11:04 Dose: 10 mg Sodium Phosphate (Fleet Enema) 135 ml RC DAILY PRN PRN Reason: Constipation Stop: 02/10/17 08:14 Tacrolimus (Prograf) 1 mg PO BID [facility] Stop: 02/11/17 18:14 Last Admin: 12/13/16 23:19 Dose: Not Given General: No acute distress HEENT: Atraumatic, EOMI Cardiovascular: Regular rate, Normal S1, Normal S2 Lungs: Clear to auscultation Abdomen: Bowel sounds Assessment/Plan - Problem List Patient Problems: All Active Problems Cholelithiasis (Acute) Diverticulitis (Acute) - Plan Plan: cpm
--- NOTE | 2016-12-14 12:03 | General Progress Note ---
Subjective - Review of Systems Events since last encounter: patient with no acute distress Objective - Results Result Diagrams: 12/14/16 05:35 12/14/16 05:35 Recent Labs: Laboratory Last Values WBC 15.8 Th/cmm (4.8-10.8) H D 12/14/16 05:35 RBC 3.43 Mil/cmm (3.80-5.80) L 12/14/16 05:35 Hgb 10.4 gm/dL (12-16) L 12/14/16 05:35 Hct 31.0 % (41.0-60) L 12/14/16 05:35 MCV 90.3 fl (80-99) 12/14/16 05:35 MCH 30.4 pg (27.0-31.0) 12/14/16 05:35 MCHC Differential 33.6 pg (28.0-36.0) 12/14/16 05:35 RDW 15.1 % (11.5-20.0) 12/14/16 05:35 Plt Count 164 Th/cmm (150-400) 12/14/16 05:35 MPV 9.0 fl 12/14/16 05:35 Neutrophils % SITE ADMINISTRATOR 12/14/16 05:35 Band Neutrophils % 13 % (0-10) H 12/14/16 05:35 Lymphocytes % SITE ADMINISTRATOR 12/14/16 05:35 Basophils % SITE ADMINISTRATOR 12/14/16 05:35 Neutrophils (Manual) 76 % (40-80) 12/14/16 05:35 Lymphocytes 8 % (20-50) L 12/14/16 05:35 Monocytes 3 % (2-10) 12/14/16 05:35 Platelet Estimate ADEQUATE (NORMAL) 12/11/16 21:23 PT 11.0 SECONDS (9.5-11.5) 12/11/16 21:23 INR 1.06 (0.5-1.4) 12/11/16 21:23 PTT (Actin FS) 26.3 SECONDS (26.0-38.0) 12/11/16 21:23 Sodium 140 mEq/L (136-145) 12/14/16 05:35 Potassium 3.2 mEq/L (3.5-5.1) L 12/14/16 05:35 Chloride 107 mEq/L (98-107) 12/14/16 05:35 Carbon Dioxide 26.0 mEq/L (21.0-31.0) 12/14/16 05:35 Anion Gap 10.2 (7.0-16.0) 12/14/16 05:35 BUN 13 mg/dL (7-25) 12/14/16 05:35 Creatinine 0.9 mg/dL (0.7-1.3) 12/14/16 05:35 Est GFR ( Amer) TNP 12/14/16 05:35 Est GFR (Non-Af Amer) TNP 12/14/16 05:35 BUN/Creatinine Ratio 14.4 12/14/16 05:35 Glucose 91 mg/dL (70-105) 12/14/16 05:35 POC Glucose 78 MG/DL (70 - 105) 12/14/16 07:06 Whole Bld Lactic Acid 1.15 mmol/L (0.60-1.99) 12/11/16 21:23 Calcium 8.5 mg/dL (8.6-10.3) L 12/14/16 05:35 Phosphorus 1.8 mg/dL (2.5-5.0) L 12/14/16 05:35 Magnesium 1.2 mg/dL (1.9-2.7) L 12/14/16 05:35 Total Bilirubin 0.6 mg/dL (0.3-1.0) 12/14/16 05:35 Direct Bilirubin 0.25 mg/dL (0.0-0.2) H 12/13/16 05:40 AST 7 U/L (13-39) L 12/14/16 05:35 ALT 4 U/L (7-52) L 12/14/16 05:35 Alkaline Phosphatase 42 U/L (34-104) 12/14/16 05:35 Total Protein 3.6 gm/dL (6.0-8.3) L 12/14/16 05:35 Albumin 2.0 gm/dL (4.2-5.5) L 12/14/16 05:35 Globulin 1.6 gm/dL 12/14/16 05:35 Albumin/Globulin Ratio 1.3 (1.0-1.8) 12/14/16 05:35 Triglycerides 96 mg/dL (<150) 12/12/16 06:00 Cholesterol 122 mg/dL (<200) 12/12/16 06:00 LDL Cholesterol Direct 68 mg/dL (75-193) L 12/12/16 06:00 HDL Cholesterol 32 mg/dL (23-92) 12/12/16 06:00 Amylase 10 U/L (29-103) L 12/11/16 21:23 Lipase < 3 U/L (11-82) L 12/13/16 05:40 TSH 3.16 uIU/ml (0.34-5.60) 12/12/16 06:00 Urine Source CLEAN C 12/11/16 22:30 Urine Color ORANGE 12/11/16 22:30 Urine Clarity HAZY (CLEAR) 12/11/16 22:30 Urine pH 6.0 (4.6 - 8.0) 12/11/16 22:30 Ur Specific [place] 1.020 (1.005-1.030) 12/11/16 22:30 Urine Protein TRACE mg/dL (NEGATIVE) 12/11/16 22:30 Urine Glucose (UA) NEGATIVE mg/dL (NEGATIVE) 12/11/16 22:30 Urine Ketones TRACE mg/dL (NEGATIVE) 12/11/16 22:30 Urine Blood TRACE (NEGATIVE) 12/11/16 22:30 Urine Nitrate NEGATIVE (NEGATIVE) 12/11/16 22:30 Urine Bilirubin NEGATIVE (NEGATIVE) 12/11/16 22:30 Urine Urobilinogen 0.2 E.U./dL (0.2 - 1.0) 12/11/16 22:30 Ur Leukocyte Esterase TRACE (NEGATIVE) H 12/11/16 22:30 Urine RBC 2-5 /hpf (0-5) H 12/11/16 22:30 Urine WBC 2-5 /hpf (0-5) H 12/11/16 22:30 Ur Epithelial Cells NONE SEEN /lpf (FEW) 12/11/16 22:30 Calcium Oxalate Crystal FEW /hpf 12/11/16 22:30 Urine Bacteria OCCASIONAL /hpf (NONE SEEN) 12/11/16 22:30 Stool Occult Blood POSITIVE (NEGATIVE) 12/11/16 22:15 - Physical Exam Vitals and I&O: Vital Signs Temp 97.0 F 12/14/16 11:52 Pulse 89 12/14/16 11:52 Resp 19 12/14/16 11:52 BP 117/61 12/14/16 11:52 Pulse Ox 100 12/14/16 11:52 Intake & Output 12/13/16 12/14/16 12/14/16 18:59 06:59 18:59 Intake Total 840 200 Balance 840 200 Weight (lbs) 87.09 kg 88.541 kg 88.451 kg Intake: Intake, IV Amount 600 200 Vancomycin HCl 1.5 gm In 500 Sodium Chloride 0.9% 500 ml @ 250 mls/hr IV Q12H [facility] Rx#:[id number] metroNIDAZOLE 500mg/NS 100 100 100mL 500 mg In 100 ml @ 100 mls/hr IV Q8HR [facility] Rx #:[id number] Oral 240 Active Medications: Current Medications Acetaminophen (Tylenol) 650 mg PO Q4H PRN PRN Reason: Pain or Fever >101 Stop: 02/10/17 08:14 Last Admin: 12/12/16 14:18 Dose: 650 mg Albuterol Sulfate (Albuterol 2.5mg/3ml Neb Ud) 2.5 mg HHN QIDRT [facility] Stop: 02/10/17 14:59 Last Admin: 12/14/16 11:40 Dose: 2.5 mg Albuterol/Ipratropium (Duoneb Neb) 3 ml HHN Q4HRT PRN PRN Reason: Shortness of Breath Stop: 02/10/17 08:14 Ascorbic Acid (Vitamin C) 500 mg PO DAILY [facility] Stop: 02/10/17 08:59 Last Admin: 12/14/16 11:04 Dose: 500 mg Bismuth Subsalicylate (Pepto-Bismol) 30 ml PO Q6H PRN PRN Reason: GI DISTRESS Stop: 02/10/17 08:14 Clonidine HCl (Aiupfvkx-Att-3) 1 patch TD Mo [facility] Stop: 02/10/17 09:59 Last Admin: 12/12/16 09:58 Dose: 1 patch Diltiazem HCl (Cardizem) 30 mg PO Q6HR [facility] Stop: 02/10/17 11:59 Last Admin: 12/14/16 07:53 Dose: Not Given Docusate Sodium (Colace) 100 mg PO BID [facility] Stop: 02/10/17 08:59 Last Admin: 12/14/16 11:04 Dose: 100 mg Ferrous Sulfate (Iron) 325 mg PO DAILY [facility] Stop: 02/10/17 08:59 Last Admin: 12/14/16 11:03 Dose: 325 mg Heparin Sodium (Porcine) (Heparin) 5,000 units SUBQ Q12HR [facility] Stop: 02/10/17 20:59 Last Admin: 12/14/16 11:04 Dose: 5,000 units Metronidazole (Flagyl) 500 mg in 100 mls @ 100 mls/hr IV Q8HR [facility] Stop: 02/10/17 07:59 Last Admin: 12/14/16 09:05 Dose: 100 mls/hr Sodium Chloride (Nacl 0.9%) 1,000 mls @ 100 mls/hr IV .Q10H [facility] Stop: 02/10/17 01:15 Last Admin: 12/13/16 09:50 Dose: 100 mls/hr Vancomycin HCl 1.5 gm/ Sodium (Chloride) 500 mls @ 250 mls/hr IV Q12H [facility] Stop: 02/11/17 15:59 Last Admin: 12/14/16 04:42 Dose: 250 mls/hr Insulin Aspart (Novolog Insulin Sliding Scale) 0 units SUBQ ACHS [facility] PRN Reason: Protocol Stop: 02/10/17 16:29 Last Admin: 12/14/16 07:08 Dose: Not Given Ipratropium [place] (Atrovent Neb 0.5mg/2.5ml) 0.5 mg HHN QIDRT [facility] Stop: 02/10/17 14:59 Last Admin: 12/14/16 11:40 Dose: 0.5 mg Lactobacillus Rhamnosus (Culturelle) 1 each PO DAILY [facility] Stop: 02/11/17 16:59 Last Admin: 12/14/16 11:03 Dose: 1 each Levofloxacin (Levaquin) 250 mg PO DAILY [facility] Stop: 02/10/17 08:59 Last Admin: 12/14/16 11:03 Dose: 250 mg Miscellaneous (Vte Chemical Prophylaxis Screen/ Admission) 1 ea PRN PRN PRN Reason: PROTOCOL Stop: 02/10/17 16:11 Miscellaneous (Vancomycin Iv Per Pharmacy) 1 ea MC PRN [facility] Stop: 02/11/17 12:44 Miscellaneous (Probiotic Screen) 1 ea PRN PRN PRN Reason: PROTOCOL Stop: 12/16/17 15:56 Morphine Sulfate (Morphine) 1 mg IVP Q6H PRN PRN Reason: Abdominal Pain Stop: 02/10/17 14:55 Last Admin: 12/14/16 00:16 Dose: 1 mg Mupirocin (Bactroban Oint) 1 appl TP BID [facility] Stop: 12/21/16 08:59 Potassium Chloride (Klor-Con) 40 meq PO DAILY [facility] Stop: 02/11/17 18:14 Last Admin: 12/14/16 11:04 Dose: 40 meq Prednisone (Deltasone) 10 mg PO BID [facility] Stop: 02/11/17 18:14 Last Admin: 12/14/16 11:04 Dose: 10 mg Sodium Phosphate (Fleet Enema) 135 ml RC DAILY PRN PRN Reason: Constipation Stop: 02/10/17 08:14 Tacrolimus (Prograf) 1 mg PO BID [facility] Stop: 02/11/17 18:14 Last Admin: 12/13/16 23:19 Dose: Not Given General: No acute distress HEENT: Atraumatic, EOMI Cardiovascular: Regular rate, Normal S1, Normal S2 Lungs: Clear to auscultation Abdomen: Bowel sounds Assessment/Plan - Problem List Patient Problems: All Active Problems Cholelithiasis (Acute) Diverticulitis (Acute) - Plan Plan: cpm
--- NOTE | 2016-12-14 14:53 | General Progress Note ---
Subjective - Review of Systems Service Date: 12/14/16 Subjective: sleeping, comfortable, arousable Objective - Results Result Diagrams: 12/14/16 05:35 12/14/16 05:35 Recent Labs: Laboratory Last Values WBC 15.8 Th/cmm (4.8-10.8) H D 12/14/16 05:35 RBC 3.43 Mil/cmm (3.80-5.80) L 12/14/16 05:35 Hgb 10.4 gm/dL (12-16) L 12/14/16 05:35 Hct 31.0 % (41.0-60) L 12/14/16 05:35 MCV 90.3 fl (80-99) 12/14/16 05:35 MCH 30.4 pg (27.0-31.0) 12/14/16 05:35 MCHC Differential 33.6 pg (28.0-36.0) 12/14/16 05:35 RDW 15.1 % (11.5-20.0) 12/14/16 05:35 Plt Count 164 Th/cmm (150-400) 12/14/16 05:35 MPV 9.0 fl 12/14/16 05:35 Neutrophils % [employer] 12/14/16 05:35 Band Neutrophils % 13 % (0-10) H 12/14/16 05:35 Lymphocytes % [employer] 12/14/16 05:35 Basophils % [employer] 12/14/16 05:35 Neutrophils (Manual) 76 % (40-80) 12/14/16 05:35 Lymphocytes 8 % (20-50) L 12/14/16 05:35 Monocytes 3 % (2-10) 12/14/16 05:35 Platelet Estimate ADEQUATE (NORMAL) 12/11/16 21:23 PT 11.0 SECONDS (9.5-11.5) 12/11/16 21:23 INR 1.06 (0.5-1.4) 12/11/16 21:23 PTT (Actin FS) 26.3 SECONDS (26.0-38.0) 12/11/16 21:23 Sodium 140 mEq/L (136-145) 12/14/16 05:35 Potassium 3.2 mEq/L (3.5-5.1) L 12/14/16 05:35 Chloride 107 mEq/L (98-107) 12/14/16 05:35 Carbon Dioxide 26.0 mEq/L (21.0-31.0) 12/14/16 05:35 Anion Gap 10.2 (7.0-16.0) 12/14/16 05:35 BUN 13 mg/dL (7-25) 12/14/16 05:35 Creatinine 0.9 mg/dL (0.7-1.3) 12/14/16 05:35 Est GFR ( Amer) TNP 12/14/16 05:35 Est GFR (Non-Af Amer) TNP 12/14/16 05:35 BUN/Creatinine Ratio 14.4 12/14/16 05:35 Glucose 91 mg/dL (70-105) 12/14/16 05:35 POC Glucose 89 MG/DL (70 - 105) 12/14/16 12:08 Whole Bld Lactic Acid 1.15 mmol/L (0.60-1.99) 12/11/16 21:23 Calcium 8.5 mg/dL (8.6-10.3) L 12/14/16 05:35 Phosphorus 1.8 mg/dL (2.5-5.0) L 12/14/16 05:35 Magnesium 1.2 mg/dL (1.9-2.7) L 12/14/16 05:35 Total Bilirubin 0.6 mg/dL (0.3-1.0) 12/14/16 05:35 Direct Bilirubin 0.25 mg/dL (0.0-0.2) H 12/13/16 05:40 AST 7 U/L (13-39) L 12/14/16 05:35 ALT 4 U/L (7-52) L 12/14/16 05:35 Alkaline Phosphatase 42 U/L (34-104) 12/14/16 05:35 Total Protein 3.6 gm/dL (6.0-8.3) L 12/14/16 05:35 Albumin 2.0 gm/dL (4.2-5.5) L 12/14/16 05:35 Globulin 1.6 gm/dL 12/14/16 05:35 Albumin/Globulin Ratio 1.3 (1.0-1.8) 12/14/16 05:35 Triglycerides 96 mg/dL (<150) 12/12/16 06:00 Cholesterol 122 mg/dL (<200) 12/12/16 06:00 LDL Cholesterol Direct 68 mg/dL (75-193) L 12/12/16 06:00 HDL Cholesterol 32 mg/dL (23-92) 12/12/16 06:00 Amylase 10 U/L (29-103) L 12/11/16 21:23 Lipase < 3 U/L (11-82) L 12/13/16 05:40 TSH 3.16 uIU/ml (0.34-5.60) 12/12/16 06:00 Urine Source CLEAN C 12/11/16 22:30 Urine Color ORANGE 12/11/16 22:30 Urine Clarity HAZY (CLEAR) 12/11/16 22:30 Urine pH 6.0 (4.6 - 8.0) 12/11/16 22:30 Ur Specific [place] 1.020 (1.005-1.030) 12/11/16 22:30 Urine Protein TRACE mg/dL (NEGATIVE) 12/11/16 22:30 Urine Glucose (UA) NEGATIVE mg/dL (NEGATIVE) 12/11/16 22:30 Urine Ketones TRACE mg/dL (NEGATIVE) 12/11/16 22:30 Urine Blood TRACE (NEGATIVE) 12/11/16 22:30 Urine Nitrate NEGATIVE (NEGATIVE) 12/11/16 22:30 Urine Bilirubin NEGATIVE (NEGATIVE) 12/11/16 22:30 Urine Urobilinogen 0.2 E.U./dL (0.2 - 1.0) 12/11/16 22:30 Ur Leukocyte Esterase TRACE (NEGATIVE) H 12/11/16 22:30 Urine RBC 2-5 /hpf (0-5) H 12/11/16 22:30 Urine WBC 2-5 /hpf (0-5) H 12/11/16 22:30 Ur Epithelial Cells NONE SEEN /lpf (FEW) 12/11/16 22:30 Calcium Oxalate Crystal FEW /hpf 12/11/16 22:30 Urine Bacteria OCCASIONAL /hpf (NONE SEEN) 12/11/16 22:30 Stool Occult Blood POSITIVE (NEGATIVE) 12/11/16 22:15 - Physical Exam Vitals and I&O: Vital Signs Temp 97.0 F 12/14/16 11:52 Pulse 89 12/14/16 11:52 Resp 19 12/14/16 11:52 BP 117/61 12/14/16 11:52 Pulse Ox 100 12/14/16 11:52 Intake & Output 12/13/16 12/14/16 12/14/16 18:59 06:59 18:59 Intake Total 840 200 Balance 840 200 Weight (lbs) 87.09 kg 88.541 kg 88.451 kg Intake: Intake, IV Amount 600 200 Vancomycin HCl 1.5 gm In 500 Sodium Chloride 0.9% 500 ml @ 250 mls/hr IV Q12H [facility] Rx#:[id number] metroNIDAZOLE 500mg/NS 100 100 100mL 500 mg In 100 ml @ 100 mls/hr IV Q8HR [facility] Rx #:[id number] Oral 240 Active Medications: Current Medications Acetaminophen (Tylenol) 650 mg PO Q4H PRN PRN Reason: Pain or Fever >101 Stop: 02/10/17 08:14 Last Admin: 12/12/16 14:18 Dose: 650 mg Albuterol Sulfate (Albuterol 2.5mg/3ml Neb Ud) 2.5 mg HHN QIDRT [facility] Stop: 02/10/17 14:59 Last Admin: 12/14/16 11:40 Dose: 2.5 mg Albuterol/Ipratropium (Duoneb Neb) 3 ml HHN Q4HRT PRN PRN Reason: Shortness of Breath Stop: 02/10/17 08:14 Ascorbic Acid (Vitamin C) 500 mg PO DAILY [facility] Stop: 02/10/17 08:59 Last Admin: 12/14/16 11:04 Dose: 500 mg Bismuth Subsalicylate (Pepto-Bismol) 30 ml PO Q6H PRN PRN Reason: GI DISTRESS Stop: 02/10/17 08:14 Clonidine HCl (Uxawvhws-Zef-0) 1 patch TD Mo [facility] Stop: 02/10/17 09:59 Last Admin: 12/12/16 09:58 Dose: 1 patch Diltiazem HCl (Cardizem) 30 mg PO Q6HR [facility] Stop: 02/10/17 11:59 Last Admin: 12/14/16 07:53 Dose: Not Given Docusate Sodium (Colace) 100 mg PO BID [facility] Stop: 02/10/17 08:59 Last Admin: 12/14/16 11:04 Dose: 100 mg Ferrous Sulfate (Iron) 325 mg PO DAILY [facility] Stop: 02/10/17 08:59 Last Admin: 12/14/16 11:03 Dose: 325 mg Heparin Sodium (Porcine) (Heparin) 5,000 units SUBQ Q12HR [facility] Stop: 02/10/17 20:59 Last Admin: 12/14/16 11:04 Dose: 5,000 units Metronidazole (Flagyl) 500 mg in 100 mls @ 100 mls/hr IV Q8HR [facility] Stop: 02/10/17 07:59 Last Admin: 12/14/16 09:05 Dose: 100 mls/hr Sodium Chloride (Nacl 0.9%) 1,000 mls @ 100 mls/hr IV .Q10H [facility] Stop: 02/10/17 01:15 Last Admin: 12/13/16 09:50 Dose: 100 mls/hr Vancomycin HCl 1.5 gm/ Sodium (Chloride) 500 mls @ 250 mls/hr IV Q12H [facility] Stop: 02/11/17 15:59 Last Admin: 12/14/16 04:42 Dose: 250 mls/hr Insulin Aspart (Novolog Insulin Sliding Scale) 0 units SUBQ ACHS [facility] PRN Reason: Protocol Stop: 02/10/17 16:29 Last Admin: 12/14/16 12:13 Dose: Not Given Ipratropium [place] (Atrovent Neb 0.5mg/2.5ml) 0.5 mg HHN QIDRT [facility] Stop: 02/10/17 14:59 Last Admin: 12/14/16 11:40 Dose: 0.5 mg Lactobacillus Rhamnosus (Culturelle) 1 each PO DAILY [facility] Stop: 02/11/17 16:59 Last Admin: 12/14/16 11:03 Dose: 1 each Levofloxacin (Levaquin) 250 mg PO DAILY [facility] Stop: 02/10/17 08:59 Last Admin: 12/14/16 11:03 Dose: 250 mg Miscellaneous (Vte Chemical Prophylaxis Screen/ Admission) 1 ea PRN PRN PRN Reason: PROTOCOL Stop: 02/10/17 16:11 Miscellaneous (Vancomycin Iv Per Pharmacy) 1 ea PRN [facility] Stop: 02/11/17 12:44 Miscellaneous (Probiotic Screen) 1 ea PRN PRN PRN Reason: PROTOCOL Stop: 02/11/17 15:56 Morphine Sulfate (Morphine) 1 mg IVP Q6H PRN PRN Reason: Abdominal Pain Stop: 02/10/17 14:55 Last Admin: 12/14/16 13:30 Dose: 1 mg Mupirocin (Bactroban Oint) 1 appl TP BID [facility] Stop: 12/21/16 08:59 Potassium Chloride (Klor-Con) 40 meq PO DAILY [facility] Stop: 02/11/17 18:14 Last Admin: 12/14/16 11:04 Dose: 40 meq Prednisone (Deltasone) 10 mg PO BID [facility] Stop: 02/11/17 18:14 Last Admin: 12/14/16 11:04 Dose: 10 mg Sodium Phosphate (Fleet Enema) 135 ml RC DAILY PRN PRN Reason: Constipation Stop: 02/10/17 08:14 Tacrolimus (Prograf) 1 mg PO BID [facility] Stop: 02/11/17 18:14 Last Admin: 12/14/16 12:14 Dose: Not Given General: Alert, Mild distress HEENT: Atraumatic, PERRLA, EOMI Neck: Supple, +2 carotid pulse wo bruit Cardiovascular: Regular rate, Normal S1, Normal S2 Lungs: Other (decrease BS) Abdomen: Bowel sounds, Soft Extremities: no Edema Neurological: Sensation intact Skin: no Rash Psych/Mental Status: Mood NL Assessment/Plan - Problem List Patient Problems: All Active Problems Cholelithiasis (Acute) Diverticulitis (Acute) - Assessment Assessment: S/P Kidney Transplant Diverticulosis w/ Diverticulitis GB stone C. Diff Colitis B/L Pleural effusions - Plan Plan: Lab - Result [facility] 12/14/16 05:35 12/14/16 05:35 Current Medications Acetaminophen (Tylenol) 650 mg PO Q4H PRN PRN Reason: Pain or Fever >101 Stop: 02/10/17 08:14 Last Admin: 12/12/16 14:18 Dose: 650 mg Albuterol Sulfate (Albuterol 2.5mg/3ml Neb Ud) 2.5 mg HHN QIDRT [facility] Stop: 02/10/17 14:59 Last Admin: 12/14/16 11:40 Dose: 2.5 mg Albuterol/Ipratropium (Duoneb Neb) 3 ml HHN Q4HRT PRN PRN Reason: Shortness of Breath Stop: 02/10/17 08:14 Ascorbic Acid (Vitamin C) 500 mg PO DAILY [facility] Stop: 02/10/17 08:59 Last Admin: 12/14/16 11:04 Dose: 500 mg Bismuth Subsalicylate (Pepto-Bismol) 30 ml PO Q6H PRN PRN Reason: GI DISTRESS Stop: 02/10/17 08:14 Clonidine HCl ([id number]) 1 patch TD Mo [facility] Stop: 02/10/17 09:59 Last Admin: 12/12/16 09:58 Dose: 1 patch Diltiazem HCl (Cardizem) 30 mg PO Q6HR [facility] Stop: 02/10/17 11:59 Last Admin: 12/14/16 07:53 Dose: Not Given Docusate Sodium (Colace) 100 mg PO BID [facility] Stop: 02/10/17 08:59 Last Admin: 12/14/16 11:04 Dose: 100 mg Ferrous Sulfate (Iron) 325 mg PO DAILY [facility] Stop: 02/10/17 08:59 Last Admin: 12/14/16 11:03 Dose: 325 mg Heparin Sodium (Porcine) (Heparin) 5,000 units SUBQ Q12HR [facility] Stop: 02/10/17 20:59 Last Admin: 12/14/16 11:04 Dose: 5,000 units Metronidazole (Flagyl) 500 mg in 100 mls @ 100 mls/hr IV Q8HR [facility] Stop: 02/10/17 07:59 Last Admin: 12/14/16 09:05 Dose: 100 mls/hr Sodium Chloride (Nacl 0.9%) 1,000 mls @ 100 mls/hr IV .Q10H [facility] Stop: 02/10/17 01:15 Last Admin: 12/13/16 09:50 Dose: 100 mls/hr Vancomycin HCl 1.5 gm/ Sodium (Chloride) 500 mls @ 250 mls/hr IV Q12H [facility] Stop: 02/11/17 15:59 Last Admin: 12/14/16 04:42 Dose: 250 mls/hr Insulin Aspart (Novolog Insulin Sliding Scale) 0 units SUBQ ACHS [facility] PRN Reason: Protocol Stop: 02/10/17 16:29 Last Admin: 12/14/16 12:13 Dose: Not Given Ipratropium [place] (Atrovent Neb 0.5mg/2.5ml) 0.5 mg HHN QIDRT [facility] Stop: 02/10/17 14:59 Last Admin: 12/14/16 11:40 Dose: 0.5 mg Lactobacillus Rhamnosus (Culturelle) 1 each PO DAILY [facility] Stop: 02/11/17 16:59 Last Admin: 12/14/16 11:03 Dose: 1 each Levofloxacin (Levaquin) 250 mg PO DAILY [facility] Stop: 02/10/17 08:59 Last Admin: 12/14/16 11:03 Dose: 250 mg Miscellaneous (Vte Chemical Prophylaxis Screen/ Admission) 1 ea PRN PRN PRN Reason: PROTOCOL Stop: 02/10/17 16:11 Miscellaneous (Vancomycin Iv Per Pharmacy) 1 ea PRN [facility] Stop: 02/11/17 12:44 Miscellaneous (Probiotic Screen) 1 ea PRN PRN PRN Reason: PROTOCOL Stop: 02/11/17 15:56 Morphine Sulfate (Morphine) 1 mg IVP Q6H PRN PRN Reason: Abdominal Pain Stop: 02/10/17 14:55 Last Admin: 12/14/16 13:30 Dose: 1 mg Mupirocin (Bactroban Oint) 1 appl TP BID [facility] Stop: 12/21/16 08:59 Potassium Chloride (Klor-Con) 40 meq PO DAILY [facility] Stop: 02/11/17 18:14 Last Admin: 12/14/16 11:04 Dose: 40 meq Prednisone (Deltasone) 10 mg PO BID [facility] Stop: 02/11/17 18:14 Last Admin: 12/14/16 11:04 Dose: 10 mg Sodium Phosphate (Fleet Enema) 135 ml RC DAILY PRN PRN Reason: Constipation Stop: 02/10/17 08:14 Tacrolimus (Prograf) 1 mg PO BID [facility] Stop: 02/11/17 18:14 Last Admin: 12/14/16 12:14 Dose: Not Given will try to get Cellcept since nonformulary decrease ivf continue K replacement HIDA Scan indeterminate
--- NOTE | 2016-12-14 14:53 | General Progress Note ---
Subjective - Review of Systems Service Date: 12/14/16 Subjective: sleeping, comfortable, arousable Objective - Results Result Diagrams: 12/14/16 05:35 12/14/16 05:35 Recent Labs: Laboratory Last Values WBC 15.8 Th/cmm (4.8-10.8) H D 12/14/16 05:35 RBC 3.43 Mil/cmm (3.80-5.80) L 12/14/16 05:35 Hgb 10.4 gm/dL (12-16) L 12/14/16 05:35 Hct 31.0 % (41.0-60) L 12/14/16 05:35 MCV 90.3 fl (80-99) 12/14/16 05:35 MCH 30.4 pg (27.0-31.0) 12/14/16 05:35 MCHC Differential 33.6 pg (28.0-36.0) 12/14/16 05:35 RDW 15.1 % (11.5-20.0) 12/14/16 05:35 Plt Count 164 Th/cmm (150-400) 12/14/16 05:35 MPV 9.0 fl 12/14/16 05:35 Neutrophils % [employer] 12/14/16 05:35 Band Neutrophils % 13 % (0-10) H 12/14/16 05:35 Lymphocytes % [employer] 12/14/16 05:35 Basophils % [employer] 12/14/16 05:35 Neutrophils (Manual) 76 % (40-80) 12/14/16 05:35 Lymphocytes 8 % (20-50) L 12/14/16 05:35 Monocytes 3 % (2-10) 12/14/16 05:35 Platelet Estimate ADEQUATE (NORMAL) 12/11/16 21:23 PT 11.0 SECONDS (9.5-11.5) 12/11/16 21:23 INR 1.06 (0.5-1.4) 12/11/16 21:23 PTT (Actin FS) 26.3 SECONDS (26.0-38.0) 12/11/16 21:23 Sodium 140 mEq/L (136-145) 12/14/16 05:35 Potassium 3.2 mEq/L (3.5-5.1) L 12/14/16 05:35 Chloride 107 mEq/L (98-107) 12/14/16 05:35 Carbon Dioxide 26.0 mEq/L (21.0-31.0) 12/14/16 05:35 Anion Gap 10.2 (7.0-16.0) 12/14/16 05:35 BUN 13 mg/dL (7-25) 12/14/16 05:35 Creatinine 0.9 mg/dL (0.7-1.3) 12/14/16 05:35 Est GFR ( Amer) TNP 12/14/16 05:35 Est GFR (Non-Af Amer) TNP 12/14/16 05:35 BUN/Creatinine Ratio 14.4 12/14/16 05:35 Glucose 91 mg/dL (70-105) 12/14/16 05:35 POC Glucose 89 MG/DL (70 - 105) 12/14/16 12:08 Whole Bld Lactic Acid 1.15 mmol/L (0.60-1.99) 12/11/16 21:23 Calcium 8.5 mg/dL (8.6-10.3) L 12/14/16 05:35 Phosphorus 1.8 mg/dL (2.5-5.0) L 12/14/16 05:35 Magnesium 1.2 mg/dL (1.9-2.7) L 12/14/16 05:35 Total Bilirubin 0.6 mg/dL (0.3-1.0) 12/14/16 05:35 Direct Bilirubin 0.25 mg/dL (0.0-0.2) H 12/13/16 05:40 AST 7 U/L (13-39) L 12/14/16 05:35 ALT 4 U/L (7-52) L 12/14/16 05:35 Alkaline Phosphatase 42 U/L (34-104) 12/14/16 05:35 Total Protein 3.6 gm/dL (6.0-8.3) L 12/14/16 05:35 Albumin 2.0 gm/dL (4.2-5.5) L 12/14/16 05:35 Globulin 1.6 gm/dL 12/14/16 05:35 Albumin/Globulin Ratio 1.3 (1.0-1.8) 12/14/16 05:35 Triglycerides 96 mg/dL (<150) 12/12/16 06:00 Cholesterol 122 mg/dL (<200) 12/12/16 06:00 LDL Cholesterol Direct 68 mg/dL (75-193) L 12/12/16 06:00 HDL Cholesterol 32 mg/dL (23-92) 12/12/16 06:00 Amylase 10 U/L (29-103) L 12/11/16 21:23 Lipase < 3 U/L (11-82) L 12/13/16 05:40 TSH 3.16 uIU/ml (0.34-5.60) 12/12/16 06:00 Urine Source CLEAN C 12/11/16 22:30 Urine Color ORANGE 12/11/16 22:30 Urine Clarity HAZY (CLEAR) 12/11/16 22:30 Urine pH 6.0 (4.6 - 8.0) 12/11/16 22:30 Ur Specific [place] 1.020 (1.005-1.030) 12/11/16 22:30 Urine Protein TRACE mg/dL (NEGATIVE) 12/11/16 22:30 Urine Glucose (UA) NEGATIVE mg/dL (NEGATIVE) 12/11/16 22:30 Urine Ketones TRACE mg/dL (NEGATIVE) 12/11/16 22:30 Urine Blood TRACE (NEGATIVE) 12/11/16 22:30 Urine Nitrate NEGATIVE (NEGATIVE) 12/11/16 22:30 Urine Bilirubin NEGATIVE (NEGATIVE) 12/11/16 22:30 Urine Urobilinogen 0.2 E.U./dL (0.2 - 1.0) 12/11/16 22:30 Ur Leukocyte Esterase TRACE (NEGATIVE) H 12/11/16 22:30 Urine RBC 2-5 /hpf (0-5) H 12/11/16 22:30 Urine WBC 2-5 /hpf (0-5) H 12/11/16 22:30 Ur Epithelial Cells NONE SEEN /lpf (FEW) 12/11/16 22:30 Calcium Oxalate Crystal FEW /hpf 12/11/16 22:30 Urine Bacteria OCCASIONAL /hpf (NONE SEEN) 12/11/16 22:30 Stool Occult Blood POSITIVE (NEGATIVE) 12/11/16 22:15 - Physical Exam Vitals and I&O: Vital Signs Temp 97.0 F 12/14/16 11:52 Pulse 89 12/14/16 11:52 Resp 19 12/14/16 11:52 BP 117/61 12/14/16 11:52 Pulse Ox 100 12/14/16 11:52 Intake & Output 12/13/16 12/14/16 12/14/16 18:59 06:59 18:59 Intake Total 840 200 Balance 840 200 Weight (lbs) 87.09 kg 88.541 kg 88.451 kg Intake: Intake, IV Amount 600 200 Vancomycin HCl 1.5 gm In 500 Sodium Chloride 0.9% 500 ml @ 250 mls/hr IV Q12H [facility] Rx#:[id number] metroNIDAZOLE 500mg/NS 100 100 100mL 500 mg In 100 ml @ 100 mls/hr IV Q8HR [facility] Rx #:[id number] Oral 240 Active Medications: Current Medications Acetaminophen (Tylenol) 650 mg PO Q4H PRN PRN Reason: Pain or Fever >101 Stop: 02/10/17 08:14 Last Admin: 12/12/16 14:18 Dose: 650 mg Albuterol Sulfate (Albuterol 2.5mg/3ml Neb Ud) 2.5 mg HHN QIDRT [facility] Stop: 02/10/17 14:59 Last Admin: 12/14/16 11:40 Dose: 2.5 mg Albuterol/Ipratropium (Duoneb Neb) 3 ml HHN Q4HRT PRN PRN Reason: Shortness of Breath Stop: 02/10/17 08:14 Ascorbic Acid (Vitamin C) 500 mg PO DAILY [facility] Stop: 02/10/17 08:59 Last Admin: 12/14/16 11:04 Dose: 500 mg Bismuth Subsalicylate (Pepto-Bismol) 30 ml PO Q6H PRN PRN Reason: GI DISTRESS Stop: 02/10/17 08:14 Clonidine HCl ([id number]-Wow-3) 1 patch TD Mo [facility] Stop: 02/10/17 09:59 Last Admin: 12/12/16 09:58 Dose: 1 patch Diltiazem HCl (Cardizem) 30 mg PO Q6HR [facility] Stop: 02/10/17 11:59 Last Admin: 12/14/16 07:53 Dose: Not Given Docusate Sodium (Colace) 100 mg PO BID [facility] Stop: 02/10/17 08:59 Last Admin: 12/14/16 11:04 Dose: 100 mg Ferrous Sulfate (Iron) 325 mg PO DAILY [facility] Stop: 02/10/17 08:59 Last Admin: 12/14/16 11:03 Dose: 325 mg Heparin Sodium (Porcine) (Heparin) 5,000 units SUBQ Q12HR [facility] Stop: 02/10/17 20:59 Last Admin: 12/14/16 11:04 Dose: 5,000 units Metronidazole (Flagyl) 500 mg in 100 mls @ 100 mls/hr IV Q8HR [facility] Stop: 02/10/17 07:59 Last Admin: 12/14/16 09:05 Dose: 100 mls/hr Sodium Chloride (Nacl 0.9%) 1,000 mls @ 100 mls/hr IV .Q10H [facility] Stop: 02/10/17 01:15 Last Admin: 12/13/16 09:50 Dose: 100 mls/hr Vancomycin HCl 1.5 gm/ Sodium (Chloride) 500 mls @ 250 mls/hr IV Q12H [facility] Stop: 02/11/17 15:59 Last Admin: 12/14/16 04:42 Dose: 250 mls/hr Insulin Aspart (Novolog Insulin Sliding Scale) 0 units SUBQ ACHS [facility] PRN Reason: Protocol Stop: 02/10/17 16:29 Last Admin: 12/14/16 12:13 Dose: Not Given Ipratropium [place] (Atrovent Neb 0.5mg/2.5ml) 0.5 mg HHN QIDRT [facility] Stop: 02/10/17 14:59 Last Admin: 12/14/16 11:40 Dose: 0.5 mg Lactobacillus Rhamnosus (Culturelle) 1 each PO DAILY [facility] Stop: 02/11/17 16:59 Last Admin: 12/14/16 11:03 Dose: 1 each Levofloxacin (Levaquin) 250 mg PO DAILY [facility] Stop: 02/10/17 08:59 Last Admin: 12/14/16 11:03 Dose: 250 mg Miscellaneous (Vte Chemical Prophylaxis Screen/ Admission) 1 ea PRN PRN PRN Reason: PROTOCOL Stop: 02/10/17 16:11 Miscellaneous (Vancomycin Iv Per Pharmacy) 1 ea PRN [facility] Stop: 02/11/17 12:44 Miscellaneous (Probiotic Screen) 1 ea PRN PRN PRN Reason: PROTOCOL Stop: 02/11/17 15:56 Morphine Sulfate (Morphine) 1 mg IVP Q6H PRN PRN Reason: Abdominal Pain Stop: 02/10/17 14:55 Last Admin: 12/14/16 13:30 Dose: 1 mg Mupirocin (Bactroban Oint) 1 appl TP BID [facility] Stop: 12/21/16 08:59 Potassium Chloride (Klor-Con) 40 meq PO DAILY [facility] Stop: 02/11/17 18:14 Last Admin: 12/14/16 11:04 Dose: 40 meq Prednisone (Deltasone) 10 mg PO BID [facility] Stop: 02/11/17 18:14 Last Admin: 12/14/16 11:04 Dose: 10 mg Sodium Phosphate (Fleet Enema) 135 ml RC DAILY PRN PRN Reason: Constipation Stop: 02/10/17 08:14 Tacrolimus (Prograf) 1 mg PO BID [facility] Stop: 02/11/17 18:14 Last Admin: 12/14/16 12:14 Dose: Not Given General: Alert, Mild distress HEENT: Atraumatic, PERRLA, EOMI Neck: Supple, +2 carotid pulse wo bruit Cardiovascular: Regular rate, Normal S1, Normal S2 Lungs: Other (decrease BS) Abdomen: Bowel sounds, Soft Extremities: no Edema Neurological: Sensation intact Skin: no Rash Psych/Mental Status: Mood NL Assessment/Plan - Problem List Patient Problems: All Active Problems Cholelithiasis (Acute) Diverticulitis (Acute) - Assessment Assessment: S/P Kidney Transplant Diverticulosis w/ Diverticulitis GB stone C. Diff Colitis B/L Pleural effusions - Plan Plan: Lab - Result [facility] 12/14/16 05:35 12/14/16 05:35 Current Medications Acetaminophen (Tylenol) 650 mg PO Q4H PRN PRN Reason: Pain or Fever >101 Stop: 02/10/17 08:14 Last Admin: 12/12/16 14:18 Dose: 650 mg Albuterol Sulfate (Albuterol 2.5mg/3ml Neb Ud) 2.5 mg HHN QIDRT [facility] Stop: 02/10/17 14:59 Last Admin: 12/14/16 11:40 Dose: 2.5 mg Albuterol/Ipratropium (Duoneb Neb) 3 ml HHN Q4HRT PRN PRN Reason: Shortness of Breath Stop: 02/10/17 08:14 Ascorbic Acid (Vitamin C) 500 mg PO DAILY [facility] Stop: 02/10/17 08:59 Last Admin: 12/14/16 11:04 Dose: 500 mg Bismuth Subsalicylate (Pepto-Bismol) 30 ml PO Q6H PRN PRN Reason: GI DISTRESS Stop: 02/10/17 08:14 Clonidine HCl (Jszsqdin-Rkn-4) 1 patch TD Mo [facility] Stop: 02/10/17 09:59 Last Admin: 12/12/16 09:58 Dose: 1 patch Diltiazem HCl (Cardizem) 30 mg PO Q6HR [facility] Stop: 02/10/17 11:59 Last Admin: 12/14/16 07:53 Dose: Not Given Docusate Sodium (Colace) 100 mg PO BID [facility] Stop: 02/10/17 08:59 Last Admin: 12/14/16 11:04 Dose: 100 mg Ferrous Sulfate (Iron) 325 mg PO DAILY [facility] Stop: 02/10/17 08:59 Last Admin: 12/14/16 11:03 Dose: 325 mg Heparin Sodium (Porcine) (Heparin) 5,000 units SUBQ Q12HR [facility] Stop: 02/10/17 20:59 Last Admin: 12/14/16 11:04 Dose: 5,000 units Metronidazole (Flagyl) 500 mg in 100 mls @ 100 mls/hr IV Q8HR [facility] Stop: 02/10/17 07:59 Last Admin: 12/14/16 09:05 Dose: 100 mls/hr Sodium Chloride (Nacl 0.9%) 1,000 mls @ 100 mls/hr IV .Q10H [facility] Stop: 02/10/17 01:15 Last Admin: 12/13/16 09:50 Dose: 100 mls/hr Vancomycin HCl 1.5 gm/ Sodium (Chloride) 500 mls @ 250 mls/hr IV Q12H [facility] Stop: 02/11/17 15:59 Last Admin: 12/14/16 04:42 Dose: 250 mls/hr Insulin Aspart (Novolog Insulin Sliding Scale) 0 units SUBQ ACHS [facility] PRN Reason: Protocol Stop: 02/10/17 16:29 Last Admin: 12/14/16 12:13 Dose: Not Given Ipratropium [place] (Atrovent Neb 0.5mg/2.5ml) 0.5 mg HHN QIDRT [facility] Stop: 02/10/17 14:59 Last Admin: 12/14/16 11:40 Dose: 0.5 mg Lactobacillus Rhamnosus (Culturelle) 1 each PO DAILY [facility] Stop: 02/11/17 16:59 Last Admin: 12/14/16 11:03 Dose: 1 each Levofloxacin (Levaquin) 250 mg PO DAILY [facility] Stop: 02/10/17 08:59 Last Admin: 12/14/16 11:03 Dose: 250 mg Miscellaneous (Vte Chemical Prophylaxis Screen/ Admission) 1 ea PRN PRN PRN Reason: PROTOCOL Stop: 02/10/17 16:11 Miscellaneous (Vancomycin Iv Per Pharmacy) 1 ea PRN [facility] Stop: 02/11/17 12:44 Miscellaneous (Probiotic Screen) 1 ea PRN PRN PRN Reason: PROTOCOL Stop: 02/11/17 15:56 Morphine Sulfate (Morphine) 1 mg IVP Q6H PRN PRN Reason: Abdominal Pain Stop: 02/10/17 14:55 Last Admin: 12/14/16 13:30 Dose: 1 mg Mupirocin (Bactroban Oint) 1 appl TP BID [facility] Stop: 12/21/16 08:59 Potassium Chloride (Klor-Con) 40 meq PO DAILY [facility] Stop: 02/11/17 18:14 Last Admin: 12/14/16 11:04 Dose: 40 meq Prednisone (Deltasone) 10 mg PO BID [facility] Stop: 02/11/17 18:14 Last Admin: 12/14/16 11:04 Dose: 10 mg Sodium Phosphate (Fleet Enema) 135 ml RC DAILY PRN PRN Reason: Constipation Stop: 02/10/17 08:14 Tacrolimus (Prograf) 1 mg PO BID [facility] Stop: 02/11/17 18:14 Last Admin: 12/14/16 12:14 Dose: Not Given will try to get Cellcept since nonformulary decrease ivf continue K replacement HIDA Scan indeterminate
--- NOTE | 2016-12-14 14:53 | General Progress Note ---
Subjective - Review of Systems Service Date: 12/14/16 Subjective: sleeping, comfortable, arousable Objective - Results Result Diagrams: 12/14/16 05:35 12/14/16 05:35 Recent Labs: Laboratory Last Values WBC 15.8 Th/cmm (4.8-10.8) H D 12/14/16 05:35 RBC 3.43 Mil/cmm (3.80-5.80) L 12/14/16 05:35 Hgb 10.4 gm/dL (12-16) L 12/14/16 05:35 Hct 31.0 % (41.0-60) L 12/14/16 05:35 MCV 90.3 fl (80-99) 12/14/16 05:35 MCH 30.4 pg (27.0-31.0) 12/14/16 05:35 MCHC Differential 33.6 pg (28.0-36.0) 12/14/16 05:35 RDW 15.1 % (11.5-20.0) 12/14/16 05:35 Plt Count 164 Th/cmm (150-400) 12/14/16 05:35 MPV 9.0 fl 12/14/16 05:35 Neutrophils % INTERVENTIONIST 12/14/16 05:35 Band Neutrophils % 13 % (0-10) H 12/14/16 05:35 Lymphocytes % INTERVENTIONIST 12/14/16 05:35 Basophils % INTERVENTIONIST 12/14/16 05:35 Neutrophils (Manual) 76 % (40-80) 12/14/16 05:35 Lymphocytes 8 % (20-50) L 12/14/16 05:35 Monocytes 3 % (2-10) 12/14/16 05:35 Platelet Estimate ADEQUATE (NORMAL) 12/11/16 21:23 PT 11.0 SECONDS (9.5-11.5) 12/11/16 21:23 INR 1.06 (0.5-1.4) 12/11/16 21:23 PTT (Actin FS) 26.3 SECONDS (26.0-38.0) 12/11/16 21:23 Sodium 140 mEq/L (136-145) 12/14/16 05:35 Potassium 3.2 mEq/L (3.5-5.1) L 12/14/16 05:35 Chloride 107 mEq/L (98-107) 12/14/16 05:35 Carbon Dioxide 26.0 mEq/L (21.0-31.0) 12/14/16 05:35 Anion Gap 10.2 (7.0-16.0) 12/14/16 05:35 BUN 13 mg/dL (7-25) 12/14/16 05:35 Creatinine 0.9 mg/dL (0.7-1.3) 12/14/16 05:35 Est GFR ( Amer) TNP 12/14/16 05:35 Est GFR (Non-Af Amer) TNP 12/14/16 05:35 BUN/Creatinine Ratio 14.4 12/14/16 05:35 Glucose 91 mg/dL (70-105) 12/14/16 05:35 POC Glucose 89 MG/DL (70 - 105) 12/14/16 12:08 Whole Bld Lactic Acid 1.15 mmol/L (0.60-1.99) 12/11/16 21:23 Calcium 8.5 mg/dL (8.6-10.3) L 12/14/16 05:35 Phosphorus 1.8 mg/dL (2.5-5.0) L 12/14/16 05:35 Magnesium 1.2 mg/dL (1.9-2.7) L 12/14/16 05:35 Total Bilirubin 0.6 mg/dL (0.3-1.0) 12/14/16 05:35 Direct Bilirubin 0.25 mg/dL (0.0-0.2) H 12/13/16 05:40 AST 7 U/L (13-39) L 12/14/16 05:35 ALT 4 U/L (7-52) L 12/14/16 05:35 Alkaline Phosphatase 42 U/L (34-104) 12/14/16 05:35 Total Protein 3.6 gm/dL (6.0-8.3) L 12/14/16 05:35 Albumin 2.0 gm/dL (4.2-5.5) L 12/14/16 05:35 Globulin 1.6 gm/dL 12/14/16 05:35 Albumin/Globulin Ratio 1.3 (1.0-1.8) 12/14/16 05:35 Triglycerides 96 mg/dL (<150) 12/12/16 06:00 Cholesterol 122 mg/dL (<200) 12/12/16 06:00 LDL Cholesterol Direct 68 mg/dL (75-193) L 12/12/16 06:00 HDL Cholesterol 32 mg/dL (23-92) 12/12/16 06:00 Amylase 10 U/L (29-103) L 12/11/16 21:23 Lipase < 3 U/L (11-82) L 12/13/16 05:40 TSH 3.16 uIU/ml (0.34-5.60) 12/12/16 06:00 Urine Source CLEAN C 12/11/16 22:30 Urine Color ORANGE 12/11/16 22:30 Urine Clarity HAZY (CLEAR) 12/11/16 22:30 Urine pH 6.0 (4.6 - 8.0) 12/11/16 22:30 Ur Specific [place] 1.020 (1.005-1.030) 12/11/16 22:30 Urine Protein TRACE mg/dL (NEGATIVE) 12/11/16 22:30 Urine Glucose (UA) NEGATIVE mg/dL (NEGATIVE) 12/11/16 22:30 Urine Ketones TRACE mg/dL (NEGATIVE) 12/11/16 22:30 Urine Blood TRACE (NEGATIVE) 12/11/16 22:30 Urine Nitrate NEGATIVE (NEGATIVE) 12/11/16 22:30 Urine Bilirubin NEGATIVE (NEGATIVE) 12/11/16 22:30 Urine Urobilinogen 0.2 E.U./dL (0.2 - 1.0) 12/11/16 22:30 Ur Leukocyte Esterase TRACE (NEGATIVE) H 12/11/16 22:30 Urine RBC 2-5 /hpf (0-5) H 12/11/16 22:30 Urine WBC 2-5 /hpf (0-5) H 12/11/16 22:30 Ur Epithelial Cells NONE SEEN /lpf (FEW) 12/11/16 22:30 Calcium Oxalate Crystal FEW /hpf 12/11/16 22:30 Urine Bacteria OCCASIONAL /hpf (NONE SEEN) 12/11/16 22:30 Stool Occult Blood POSITIVE (NEGATIVE) 12/11/16 22:15 - Physical Exam Vitals and I&O: Vital Signs Temp 97.0 F 12/14/16 11:52 Pulse 89 12/14/16 11:52 Resp 19 12/14/16 11:52 BP 117/61 12/14/16 11:52 Pulse Ox 100 12/14/16 11:52 Intake & Output 12/13/16 12/14/16 12/14/16 18:59 06:59 18:59 Intake Total 840 200 Balance 840 200 Weight (lbs) 87.09 kg 88.541 kg 88.451 kg Intake: Intake, IV Amount 600 200 Vancomycin HCl 1.5 gm In 500 Sodium Chloride 0.9% 500 ml @ 250 mls/hr IV Q12H [facility] Rx#:[id number] metroNIDAZOLE 500mg/NS 100 100 100mL 500 mg In 100 ml @ 100 mls/hr IV Q8HR [facility] Rx #:[id number] Oral 240 Active Medications: Current Medications Acetaminophen (Tylenol) 650 mg PO Q4H PRN PRN Reason: Pain or Fever >101 Stop: 02/10/17 08:14 Last Admin: 12/12/16 14:18 Dose: 650 mg Albuterol Sulfate (Albuterol 2.5mg/3ml Neb Ud) 2.5 mg HHN QIDRT [facility] Stop: 02/10/17 14:59 Last Admin: 12/14/16 11:40 Dose: 2.5 mg Albuterol/Ipratropium (Duoneb Neb) 3 ml HHN Q4HRT PRN PRN Reason: Shortness of Breath Stop: 02/10/17 08:14 Ascorbic Acid (Vitamin C) 500 mg PO DAILY [facility] Stop: 02/10/17 08:59 Last Admin: 12/14/16 11:04 Dose: 500 mg Bismuth Subsalicylate (Pepto-Bismol) 30 ml PO Q6H PRN PRN Reason: GI DISTRESS Stop: 02/10/17 08:14 Clonidine HCl (Eygugjmq-Fme-8) 1 patch TD Mo [facility] Stop: 02/10/17 09:59 Last Admin: 12/12/16 09:58 Dose: 1 patch Diltiazem HCl (Cardizem) 30 mg PO Q6HR [facility] Stop: 02/10/17 11:59 Last Admin: 12/14/16 07:53 Dose: Not Given Docusate Sodium (Colace) 100 mg PO BID [facility] Stop: 02/10/17 08:59 Last Admin: 12/14/16 11:04 Dose: 100 mg Ferrous Sulfate (Iron) 325 mg PO DAILY [facility] Stop: 02/10/17 08:59 Last Admin: 12/14/16 11:03 Dose: 325 mg Heparin Sodium (Porcine) (Heparin) 5,000 units SUBQ Q12HR [facility] Stop: 02/10/17 20:59 Last Admin: 12/14/16 11:04 Dose: 5,000 units Metronidazole (Flagyl) 500 mg in 100 mls @ 100 mls/hr IV Q8HR [facility] Stop: 02/10/17 07:59 Last Admin: 12/14/16 09:05 Dose: 100 mls/hr Sodium Chloride (Nacl 0.9%) 1,000 mls @ 100 mls/hr IV .Q10H [facility] Stop: 02/10/17 01:15 Last Admin: 12/13/16 09:50 Dose: 100 mls/hr Vancomycin HCl 1.5 gm/ Sodium (Chloride) 500 mls @ 250 mls/hr IV Q12H [facility] Stop: 02/11/17 15:59 Last Admin: 12/14/16 04:42 Dose: 250 mls/hr Insulin Aspart (Novolog Insulin Sliding Scale) 0 units SUBQ ACHS [facility] PRN Reason: Protocol Stop: 02/10/17 16:29 Last Admin: 12/14/16 12:13 Dose: Not Given Ipratropium [place] (Atrovent Neb 0.5mg/2.5ml) 0.5 mg HHN QIDRT [facility] Stop: 02/10/17 14:59 Last Admin: 12/14/16 11:40 Dose: 0.5 mg Lactobacillus Rhamnosus (Culturelle) 1 each PO DAILY [facility] Stop: 02/11/17 16:59 Last Admin: 12/14/16 11:03 Dose: 1 each Levofloxacin (Levaquin) 250 mg PO DAILY [facility] Stop: 02/10/17 08:59 Last Admin: 12/14/16 11:03 Dose: 250 mg Miscellaneous (Vte Chemical Prophylaxis Screen/ Admission) 1 ea PRN PRN PRN Reason: PROTOCOL Stop: 02/10/17 16:11 Miscellaneous (Vancomycin Iv Per Pharmacy) 1 ea PRN [facility] Stop: 02/11/17 12:44 Miscellaneous (Probiotic Screen) 1 ea PRN PRN PRN Reason: PROTOCOL Stop: 02/11/17 15:56 Morphine Sulfate (Morphine) 1 mg IVP Q6H PRN PRN Reason: Abdominal Pain Stop: 02/10/17 14:55 Last Admin: 12/14/16 13:30 Dose: 1 mg Mupirocin (Bactroban Oint) 1 appl TP BID [facility] Stop: 12/21/16 08:59 Potassium Chloride (Klor-Con) 40 meq PO DAILY [facility] Stop: 02/11/17 18:14 Last Admin: 12/14/16 11:04 Dose: 40 meq Prednisone (Deltasone) 10 mg PO BID [facility] Stop: 02/11/17 18:14 Last Admin: 12/14/16 11:04 Dose: 10 mg Sodium Phosphate (Fleet Enema) 135 ml RC DAILY PRN PRN Reason: Constipation Stop: 02/10/17 08:14 Tacrolimus (Prograf) 1 mg PO BID [facility] Stop: 02/11/17 18:14 Last Admin: 12/14/16 12:14 Dose: Not Given General: Alert, Mild distress HEENT: Atraumatic, PERRLA, EOMI Neck: Supple, +2 carotid pulse wo bruit Cardiovascular: Regular rate, Normal S1, Normal S2 Lungs: Other (decrease BS) Abdomen: Bowel sounds, Soft Extremities: no Edema Neurological: Sensation intact Skin: no Rash Psych/Mental Status: Mood NL Assessment/Plan - Problem List Patient Problems: All Active Problems Cholelithiasis (Acute) Diverticulitis (Acute) - Assessment Assessment: S/P Kidney Transplant Diverticulosis w/ Diverticulitis GB stone C. Diff Colitis B/L Pleural effusions - Plan Plan: Lab - Result [facility] 12/14/16 05:35 12/14/16 05:35 Current Medications Acetaminophen (Tylenol) 650 mg PO Q4H PRN PRN Reason: Pain or Fever >101 Stop: 02/10/17 08:14 Last Admin: 12/12/16 14:18 Dose: 650 mg Albuterol Sulfate (Albuterol 2.5mg/3ml Neb Ud) 2.5 mg HHN QIDRT [facility] Stop: 02/10/17 14:59 Last Admin: 12/14/16 11:40 Dose: 2.5 mg Albuterol/Ipratropium (Duoneb Neb) 3 ml HHN Q4HRT PRN PRN Reason: Shortness of Breath Stop: 02/10/17 08:14 Ascorbic Acid (Vitamin C) 500 mg PO DAILY [facility] Stop: 02/10/17 08:59 Last Admin: 12/14/16 11:04 Dose: 500 mg Bismuth Subsalicylate (Pepto-Bismol) 30 ml PO Q6H PRN PRN Reason: GI DISTRESS Stop: 02/10/17 08:14 Clonidine HCl (Fimaeoxn-Tuc-1) 1 patch TD Mo [facility] Stop: 02/10/17 09:59 Last Admin: 12/12/16 09:58 Dose: 1 patch Diltiazem HCl (Cardizem) 30 mg PO Q6HR [facility] Stop: 02/10/17 11:59 Last Admin: 12/14/16 07:53 Dose: Not Given Docusate Sodium (Colace) 100 mg PO BID [facility] Stop: 02/10/17 08:59 Last Admin: 12/14/16 11:04 Dose: 100 mg Ferrous Sulfate (Iron) 325 mg PO DAILY [facility] Stop: 02/10/17 08:59 Last Admin: 12/14/16 11:03 Dose: 325 mg Heparin Sodium (Porcine) (Heparin) 5,000 units SUBQ Q12HR [facility] Stop: 02/10/17 20:59 Last Admin: 12/14/16 11:04 Dose: 5,000 units Metronidazole (Flagyl) 500 mg in 100 mls @ 100 mls/hr IV Q8HR [facility] Stop: 02/10/17 07:59 Last Admin: 12/14/16 09:05 Dose: 100 mls/hr Sodium Chloride (Nacl 0.9%) 1,000 mls @ 100 mls/hr IV .Q10H [facility] Stop: 02/10/17 01:15 Last Admin: 12/13/16 09:50 Dose: 100 mls/hr Vancomycin HCl 1.5 gm/ Sodium (Chloride) 500 mls @ 250 mls/hr IV Q12H [facility] Stop: 02/11/17 15:59 Last Admin: 12/14/16 04:42 Dose: 250 mls/hr Insulin Aspart (Novolog Insulin Sliding Scale) 0 units SUBQ ACHS [facility] PRN Reason: Protocol Stop: 02/10/17 16:29 Last Admin: 12/14/16 12:13 Dose: Not Given Ipratropium [place] (Atrovent Neb 0.5mg/2.5ml) 0.5 mg HHN QIDRT [facility] Stop: 02/10/17 14:59 Last Admin: 12/14/16 11:40 Dose: 0.5 mg Lactobacillus Rhamnosus (Culturelle) 1 each PO DAILY [facility] Stop: 02/11/17 16:59 Last Admin: 12/14/16 11:03 Dose: 1 each Levofloxacin (Levaquin) 250 mg PO DAILY [facility] Stop: 02/10/17 08:59 Last Admin: 12/14/16 11:03 Dose: 250 mg Miscellaneous (Vte Chemical Prophylaxis Screen/ Admission) 1 ea PRN PRN PRN Reason: PROTOCOL Stop: 02/10/17 16:11 Miscellaneous (Vancomycin Iv Per Pharmacy) 1 ea PRN [facility] Stop: 02/11/17 12:44 Miscellaneous (Probiotic Screen) 1 ea PRN PRN PRN Reason: PROTOCOL Stop: 02/11/17 15:56 Morphine Sulfate (Morphine) 1 mg IVP Q6H PRN PRN Reason: Abdominal Pain Stop: 02/10/17 14:55 Last Admin: 12/14/16 13:30 Dose: 1 mg Mupirocin (Bactroban Oint) 1 appl TP BID [facility] Stop: 12/21/16 08:59 Potassium Chloride (Klor-Con) 40 meq PO DAILY [facility] Stop: 02/11/17 18:14 Last Admin: 12/14/16 11:04 Dose: 40 meq Prednisone (Deltasone) 10 mg PO BID [facility] Stop: 02/11/17 18:14 Last Admin: 12/14/16 11:04 Dose: 10 mg Sodium Phosphate (Fleet Enema) 135 ml RC DAILY PRN PRN Reason: Constipation Stop: 02/10/17 08:14 Tacrolimus (Prograf) 1 mg PO BID [facility] Stop: 02/11/17 18:14 Last Admin: 12/14/16 12:14 Dose: Not Given will try to get Cellcept since nonformulary decrease ivf continue K replacement HIDA Scan indeterminate
[2016-12-14] MEDS ORDERED: Sodium Chloride 0.9% 1,000 ML IV SCH (14:56)
[2016-12-14] MEDS ORDERED: Mag Sulfate 2gm/50mL Premix 2 GM/50 ML BAG IV ONE (15:00)
--- NOTE | 2016-12-14 15:23 | General Progress Note ---
Subjective - Review of Systems Service Date: 12/14/16 Events since last encounter: HIDA indeterminate Objective - Results Result Diagrams: 12/14/16 05:35 12/14/16 05:35 Recent Labs: Laboratory Last Values WBC 15.8 Th/cmm (4.8-10.8) H D 12/14/16 05:35 RBC 3.43 Mil/cmm (3.80-5.80) L 12/14/16 05:35 Hgb 10.4 gm/dL (12-16) L 12/14/16 05:35 Hct 31.0 % (41.0-60) L 12/14/16 05:35 MCV 90.3 fl (80-99) 12/14/16 05:35 MCH 30.4 pg (27.0-31.0) 12/14/16 05:35 MCHC Differential 33.6 pg (28.0-36.0) 12/14/16 05:35 RDW 15.1 % (11.5-20.0) 12/14/16 05:35 Plt Count 164 Th/cmm (150-400) 12/14/16 05:35 MPV 9.0 fl 12/14/16 05:35 Neutrophils % POWDER WORKER 12/14/16 05:35 Band Neutrophils % 13 % (0-10) H 12/14/16 05:35 Lymphocytes % POWDER WORKER 12/14/16 05:35 Basophils % POWDER WORKER 12/14/16 05:35 Neutrophils (Manual) 76 % (40-80) 12/14/16 05:35 Lymphocytes 8 % (20-50) L 12/14/16 05:35 Monocytes 3 % (2-10) 12/14/16 05:35 Platelet Estimate ADEQUATE (NORMAL) 12/11/16 21:23 PT 11.0 SECONDS (9.5-11.5) 12/11/16 21:23 INR 1.06 (0.5-1.4) 12/11/16 21:23 PTT (Actin FS) 26.3 SECONDS (26.0-38.0) 12/11/16 21:23 Sodium 140 mEq/L (136-145) 12/14/16 05:35 Potassium 3.2 mEq/L (3.5-5.1) L 12/14/16 05:35 Chloride 107 mEq/L (98-107) 12/14/16 05:35 Carbon Dioxide 26.0 mEq/L (21.0-31.0) 12/14/16 05:35 Anion Gap 10.2 (7.0-16.0) 12/14/16 05:35 BUN 13 mg/dL (7-25) 12/14/16 05:35 Creatinine 0.9 mg/dL (0.7-1.3) 12/14/16 05:35 Est GFR ( Amer) TNP 12/14/16 05:35 Est GFR (Non-Af Amer) TNP 12/14/16 05:35 BUN/Creatinine Ratio 14.4 12/14/16 05:35 Glucose 91 mg/dL (70-105) 12/14/16 05:35 POC Glucose 89 MG/DL (70 - 105) 12/14/16 12:08 Whole Bld Lactic Acid 1.15 mmol/L (0.60-1.99) 12/11/16 21:23 Calcium 8.5 mg/dL (8.6-10.3) L 12/14/16 05:35 Phosphorus 1.8 mg/dL (2.5-5.0) L 12/14/16 05:35 Magnesium 1.2 mg/dL (1.9-2.7) L 12/14/16 05:35 Total Bilirubin 0.6 mg/dL (0.3-1.0) 12/14/16 05:35 Direct Bilirubin 0.25 mg/dL (0.0-0.2) H 12/13/16 05:40 AST 7 U/L (13-39) L 12/14/16 05:35 ALT 4 U/L (7-52) L 12/14/16 05:35 Alkaline Phosphatase 42 U/L (34-104) 12/14/16 05:35 Total Protein 3.6 gm/dL (6.0-8.3) L 12/14/16 05:35 Albumin 2.0 gm/dL (4.2-5.5) L 12/14/16 05:35 Globulin 1.6 gm/dL 12/14/16 05:35 Albumin/Globulin Ratio 1.3 (1.0-1.8) 12/14/16 05:35 Triglycerides 96 mg/dL (<150) 12/12/16 06:00 Cholesterol 122 mg/dL (<200) 12/12/16 06:00 LDL Cholesterol Direct 68 mg/dL (75-193) L 12/12/16 06:00 HDL Cholesterol 32 mg/dL (23-92) 12/12/16 06:00 Amylase 10 U/L (29-103) L 12/11/16 21:23 Lipase < 3 U/L (11-82) L 12/13/16 05:40 TSH 3.16 uIU/ml (0.34-5.60) 12/12/16 06:00 Urine Source CLEAN C 12/11/16 22:30 Urine Color ORANGE 12/11/16 22:30 Urine Clarity HAZY (CLEAR) 12/11/16 22:30 Urine pH 6.0 (4.6 - 8.0) 12/11/16 22:30 Ur Specific [place] 1.020 (1.005-1.030) 12/11/16 22:30 Urine Protein TRACE mg/dL (NEGATIVE) 12/11/16 22:30 Urine Glucose (UA) NEGATIVE mg/dL (NEGATIVE) 12/11/16 22:30 Urine Ketones TRACE mg/dL (NEGATIVE) 12/11/16 22:30 Urine Blood TRACE (NEGATIVE) 12/11/16 22:30 Urine Nitrate NEGATIVE (NEGATIVE) 12/11/16 22:30 Urine Bilirubin NEGATIVE (NEGATIVE) 12/11/16 22:30 Urine Urobilinogen 0.2 E.U./dL (0.2 - 1.0) 12/11/16 22:30 Ur Leukocyte Esterase TRACE (NEGATIVE) H 12/11/16 22:30 Urine RBC 2-5 /hpf (0-5) H 12/11/16 22:30 Urine WBC 2-5 /hpf (0-5) H 12/11/16 22:30 Ur Epithelial Cells NONE SEEN /lpf (FEW) 12/11/16 22:30 Calcium Oxalate Crystal FEW /hpf 12/11/16 22:30 Urine Bacteria OCCASIONAL /hpf (NONE SEEN) 12/11/16 22:30 Stool Occult Blood POSITIVE (NEGATIVE) 12/11/16 22:15 - Physical Exam Vitals and I&O: Vital Signs Temp 97.0 F 12/14/16 11:52 Pulse 90 12/14/16 15:12 Resp 18 12/14/16 15:12 BP 117/61 12/14/16 11:52 Pulse Ox 98 12/14/16 15:12 Intake & Output 12/13/16 12/14/16 12/14/16 18:59 06:59 18:59 Intake Total 840 200 Balance 840 200 Weight (lbs) 87.09 kg 88.541 kg 88.451 kg Intake: Intake, IV Amount 600 200 Vancomycin HCl 1.5 gm In 500 Sodium Chloride 0.9% 500 ml @ 250 mls/hr IV Q12H [facility] Rx#:[id number] metroNIDAZOLE 500mg/NS 100 100 100mL 500 mg In 100 ml @ 100 mls/hr IV Q8HR COUNT [facility] Rx #:[id number] Oral 240 Active Medications: Current Medications Acetaminophen (Tylenol) 650 mg PO Q4H PRN PRN Reason: Pain or Fever >101 Stop: 02/10/17 08:14 Last Admin: 12/12/16 14:18 Dose: 650 mg Albuterol Sulfate (Albuterol 2.5mg/3ml Neb Ud) 2.5 mg HHN QIDRT [facility] Stop: 02/10/17 14:59 Last Admin: 12/14/16 15:10 Dose: 2.5 mg Albuterol/Ipratropium (Duoneb Neb) 3 ml HHN Q4HRT PRN PRN Reason: Shortness of Breath Stop: 02/10/17 08:14 Ascorbic Acid (Vitamin C) 500 mg PO DAILY [facility] Stop: 02/10/17 08:59 Last Admin: 12/14/16 11:04 Dose: 500 mg Bismuth Subsalicylate (Pepto-Bismol) 30 ml PO Q6H PRN PRN Reason: GI DISTRESS Stop: 02/10/17 08:14 Clonidine HCl (Ieedfifn-Vtf-4) 1 patch TD Mo [facility] Stop: 02/10/17 09:59 Last Admin: 12/12/16 09:58 Dose: 1 patch Diltiazem HCl (Cardizem) 30 mg PO Q6HR [facility] Stop: 02/10/17 11:59 Last Admin: 12/14/16 07:53 Dose: Not Given Docusate Sodium (Colace) 100 mg PO BID [facility] Stop: 02/10/17 08:59 Last Admin: 10/18/17 11:04 Dose: 100 mg Ferrous Sulfate (Iron) 325 mg PO DAILY [facility] Stop: 02/10/17 08:59 Last Admin: 12/14/16 11:03 Dose: 325 mg Heparin Sodium (Porcine) (Heparin) 5,000 units SUBQ Q12HR [facility] Stop: 02/10/17 20:59 Last Admin: 12/14/16 11:04 Dose: 5,000 units Metronidazole (Flagyl) 500 mg in 100 mls @ 100 mls/hr IV Q8HR [facility] Stop: 02/10/17 07:59 Last Admin: 12/14/16 09:05 Dose: 100 mls/hr Vancomycin HCl 1.5 gm/ Sodium (Chloride) 500 mls @ 250 mls/hr IV Q12H [facility] Stop: 02/11/17 15:59 Last Admin: 12/14/16 04:42 Dose: 250 mls/hr Sodium Chloride (Nacl 0.9%) 1,000 mls @ 60 mls/hr IV .[id number] [facility] Stop: 02/10/17 01:15 Potassium Phosphate 20 mmole/ (Sodium Chloride) 256.6667 mls @ 42.5 mls/hr IV X1 ONE Stop: 12/14/16 21:01 Magnesium Sulfate (Magnesium Sulfate Premix) 2 gm in 50 mls @ 25 mls/hr IV X1 ONE Stop: 12/14/16 16:59 Insulin Aspart (Novolog Insulin Sliding Scale) 0 units SUBQ ACHS [facility] PRN Reason: Protocol Stop: 02/10/17 16:29 Last Admin: 12/14/16 12:13 Dose: Not Given Ipratropium [place] (Atrovent Neb 0.5mg/2.5ml) 0.5 mg HHN QIDRT COUNT [facility]CLUDES [facility] Stop: 02/10/17 14:59 Last Admin: 12/14/16 15:10 Dose: 0.5 mg Lactobacillus Rhamnosus (Culturelle) 1 each PO DAILY [facility] Stop: 02/11/17 16:59 Last Admin: 12/14/16 11:03 Dose: 1 each Levofloxacin (Levaquin) 250 mg PO DAILY [facility] Stop: 02/10/17 08:59 Last Admin: 12/14/16 11:03 Dose: 250 mg Miscellaneous (Vte Chemical Prophylaxis Screen/ Admission) 1 [facility] PRN PRN PRN Reason: PROTOCOL Stop: 02/10/17 16:11 Miscellaneous (Vancomycin Iv Per Pharmacy) 1 ea MC PRN [facility] Stop: 02/11/17 12:44 Miscellaneous (Probiotic Screen) 1 ea PRN PRN PRN Reason: PROTOCOL Stop: 02/11/17 15:56 Morphine Sulfate (Morphine) 1 mg IVP Q6H PRN PRN Reason: Abdominal Pain Stop: 02/10/17 14:55 Last Admin: 12/14/16 13:30 Dose: 1 mg Mupirocin (Bactroban Oint) 1 appl TP BID [facility] Stop: 12/21/16 08:59 Potassium Chloride (Klor-Con) 40 meq PO DAILY [facility] Stop: 02/11/17 18:14 Last Admin: 12/14/16 11:04 Dose: 40 meq Prednisone (Deltasone) 10 mg PO BID COUNT [facility]CLUD[facility] Stop: 02/11/17 18:14 Last Admin: 12/14/16 11:04 Dose: 10 mg Sodium Phosphate (Fleet Enema) 135 ml RC DAILY PRN PRN Reason: Constipation Stop: 02/10/17 08:14 Tacrolimus (Prograf) 1 mg PO BID COUNT [facility]CLUD[facility] Stop: 02/11/17 18:14 Last Admin: 12/14/16 12:14 Dose: Not Given General: Alert, Mild distress HEENT: Atraumatic, PERRLA, EOMI Neck: Supple, +2 carotid pulse wo bruit Cardiovascular: Regular rate, Normal S1, Normal S2 Lungs: Other (decrease BS) Abdomen: Bowel sounds, Soft Extremities: no Edema Neurological: Sensation intact Skin: no Rash Psych/Mental Status: Mood NL Assessment/Plan - Problem List Patient Problems: All Active Problems Cholelithiasis (Acute) Diverticulitis (Acute)
--- NOTE | 2016-12-14 15:23 | General Progress Note ---
Subjective - Review of Systems Service Date: 12/14/16 Events since last encounter: HIDA indeterminate Objective - Results Result Diagrams: 12/14/16 05:35 12/14/16 05:35 Recent Labs: Laboratory Last Values WBC 15.8 Th/cmm (4.8-10.8) H D 12/14/16 05:35 RBC 3.43 Mil/cmm (3.80-5.80) L 12/14/16 05:35 Hgb 10.4 gm/dL (12-16) L 12/14/16 05:35 Hct 31.0 % (41.0-60) L 12/14/16 05:35 MCV 90.3 fl (80-99) 12/14/16 05:35 MCH 30.4 pg (27.0-31.0) 12/14/16 05:35 MCHC Differential 33.6 pg (28.0-36.0) 12/14/16 05:35 RDW 15.1 % (11.5-20.0) 12/14/16 05:35 Plt Count 164 Th/cmm (150-400) 12/14/16 05:35 MPV 9.0 fl 12/14/16 05:35 Neutrophils % SURVEYOR HELPER 12/14/16 05:35 Band Neutrophils % 13 % (0-10) H 12/14/16 05:35 Lymphocytes % SURVEYOR HELPER 12/14/16 05:35 Basophils % SURVEYOR HELPER 12/14/16 05:35 Neutrophils (Manual) 76 % (40-80) 12/14/16 05:35 Lymphocytes 8 % (20-50) L 12/14/16 05:35 Monocytes 3 % (2-10) 12/14/16 05:35 Platelet Estimate ADEQUATE (NORMAL) 12/11/16 21:23 PT 11.0 SECONDS (9.5-11.5) 12/11/16 21:23 INR 1.06 (0.5-1.4) 12/11/16 21:23 PTT (Actin FS) 26.3 SECONDS (26.0-38.0) 12/11/16 21:23 Sodium 140 mEq/L (136-145) 12/14/16 05:35 Potassium 3.2 mEq/L (3.5-5.1) L 12/14/16 05:35 Chloride 107 mEq/L (98-107) 12/14/16 05:35 Carbon Dioxide 26.0 mEq/L (21.0-31.0) 12/14/16 05:35 Anion Gap 10.2 (7.0-16.0) 12/14/16 05:35 BUN 13 mg/dL (7-25) 12/14/16 05:35 Creatinine 0.9 mg/dL (0.7-1.3) 12/14/16 05:35 Est GFR ( Amer) TNP 12/14/16 05:35 Est GFR (Non-Af Amer) TNP 12/14/16 05:35 BUN/Creatinine Ratio 14.4 12/14/16 05:35 Glucose 91 mg/dL (70-105) 12/14/16 05:35 POC Glucose 89 MG/DL (70 - 105) 12/14/16 12:08 Whole Bld Lactic Acid 1.15 mmol/L (0.60-1.99) 12/11/16 21:23 Calcium 8.5 mg/dL (8.6-10.3) L 12/14/16 05:35 Phosphorus 1.8 mg/dL (2.5-5.0) L 12/14/16 05:35 Magnesium 1.2 mg/dL (1.9-2.7) L 12/14/16 05:35 Total Bilirubin 0.6 mg/dL (0.3-1.0) 12/14/16 05:35 Direct Bilirubin 0.25 mg/dL (0.0-0.2) H 12/13/16 05:40 AST 7 U/L (13-39) L 12/14/16 05:35 ALT 4 U/L (7-52) L 12/14/16 05:35 Alkaline Phosphatase 42 U/L (34-104) 12/14/16 05:35 Total Protein 3.6 gm/dL (6.0-8.3) L 12/14/16 05:35 Albumin 2.0 gm/dL (4.2-5.5) L 12/14/16 05:35 Globulin 1.6 gm/dL 12/14/16 05:35 Albumin/Globulin Ratio 1.3 (1.0-1.8) 12/14/16 05:35 Triglycerides 96 mg/dL (<150) 12/12/16 06:00 Cholesterol 122 mg/dL (<200) 12/12/16 06:00 LDL Cholesterol Direct 68 mg/dL (75-193) L 12/12/16 06:00 HDL Cholesterol 32 mg/dL (23-92) 12/12/16 06:00 Amylase 10 U/L (29-103) L 12/11/16 21:23 Lipase < 3 U/L (11-82) L 12/13/16 05:40 TSH 3.16 uIU/ml (0.34-5.60) 12/12/16 06:00 Urine Source CLEAN C 12/11/16 22:30 Urine Color ORANGE 12/11/16 22:30 Urine Clarity HAZY (CLEAR) 12/11/16 22:30 Urine pH 6.0 (4.6 - 8.0) 12/11/16 22:30 Ur Specific [place] 1.020 (1.005-1.030) 12/11/16 22:30 Urine Protein TRACE mg/dL (NEGATIVE) 12/11/16 22:30 Urine Glucose (UA) NEGATIVE mg/dL (NEGATIVE) 12/11/16 22:30 Urine Ketones TRACE mg/dL (NEGATIVE) 12/11/16 22:30 Urine Blood TRACE (NEGATIVE) 12/11/16 22:30 Urine Nitrate NEGATIVE (NEGATIVE) 12/11/16 22:30 Urine Bilirubin NEGATIVE (NEGATIVE) 12/11/16 22:30 Urine Urobilinogen 0.2 E.U./dL (0.2 - 1.0) 12/11/16 22:30 Ur Leukocyte Esterase TRACE (NEGATIVE) H 12/11/16 22:30 Urine RBC 2-5 /hpf (0-5) H 12/11/16 22:30 Urine WBC 2-5 /hpf (0-5) H 12/11/16 22:30 Ur Epithelial Cells NONE SEEN /lpf (FEW) 12/11/16 22:30 Calcium Oxalate Crystal FEW /hpf 12/11/16 22:30 Urine Bacteria OCCASIONAL /hpf (NONE SEEN) 12/11/16 22:30 Stool Occult Blood POSITIVE (NEGATIVE) 12/11/16 22:15 - Physical Exam Vitals and I&O: Vital Signs Temp 97.0 F 12/14/16 11:52 Pulse 90 12/14/16 15:12 Resp 18 12/14/16 15:12 BP 117/61 12/14/16 11:52 Pulse Ox 98 12/14/16 15:12 Intake & Output 12/13/16 12/14/16 12/14/16 18:59 06:59 18:59 Intake Total 840 200 Balance 840 200 Weight (lbs) 87.09 kg 88.541 kg 88.451 kg Intake: Intake, IV Amount 600 200 Vancomycin HCl 1.5 gm In 500 Sodium Chloride 0.9% 500 ml @ 250 mls/hr IV Q12H [facility] Rx#:[id number] metroNIDAZOLE 500mg/NS 100 100 100mL 500 mg In 100 ml @ 100 mls/hr IV Q8HR [facility] Rx #:[id number] Oral 240 Active Medications: Current Medications Acetaminophen (Tylenol) 650 mg PO Q4H PRN PRN Reason: Pain or Fever >101 Stop: 02/10/17 08:14 Last Admin: 12/12/16 14:18 Dose: 650 mg Albuterol Sulfate (Albuterol 2.5mg/3ml Neb Ud) 2.5 mg HHN QIDRT [facility] Stop: 02/10/17 14:59 Last Admin: 12/14/16 15:10 Dose: 2.5 mg Albuterol/Ipratropium (Duoneb Neb) 3 ml HHN Q4HRT PRN PRN Reason: Shortness of Breath Stop: 02/10/17 08:14 Ascorbic Acid (Vitamin C) 500 mg PO DAILY [facility] Stop: 02/10/17 08:59 Last Admin: 12/14/16 11:04 Dose: 500 mg Bismuth Subsalicylate (Pepto-Bismol) 30 ml PO Q6H PRN PRN Reason: GI DISTRESS Stop: 02/10/17 08:14 Clonidine HCl (Omrbwfqs-Zvr-0) 1 patch TD Mo [facility] Stop: 02/10/17 09:59 Last Admin: 12/12/16 09:58 Dose: 1 patch Diltiazem HCl (Cardizem) 30 mg PO Q6HR [facility] Stop: 02/10/17 11:59 Last Admin: 12/14/16 07:53 Dose: Not Given Docusate Sodium (Colace) 100 mg PO BID [facility] Stop: 02/10/17 08:59 Last Admin: 10/18/17 11:04 Dose: 100 mg Ferrous Sulfate (Iron) 325 mg PO DAILY [facility] Stop: 02/10/17 08:59 Last Admin: 12/14/16 11:03 Dose: 325 mg Heparin Sodium (Porcine) (Heparin) 5,000 units SUBQ Q12HR [facility] Stop: 02/10/17 20:59 Last Admin: 12/14/16 11:04 Dose: 5,000 units Metronidazole (Flagyl) 500 mg in 100 mls @ 100 mls/hr IV Q8HR [facility] Stop: 02/10/17 07:59 Last Admin: 12/14/16 09:05 Dose: 100 mls/hr Vancomycin HCl 1.5 gm/ Sodium (Chloride) 500 mls @ 250 mls/hr IV Q12H [facility] Stop: 02/11/17 15:59 Last Admin: 12/14/16 04:42 Dose: 250 mls/hr Sodium Chloride (Nacl 0.9%) 1,000 mls @ 60 mls/hr IV .[id number] [facility] Stop: 02/10/17 01:15 Potassium Phosphate 20 mmole/ (Sodium Chloride) 256.6667 mls @ 42.5 mls/hr IV X1 ONE Stop: 12/14/16 21:01 Magnesium Sulfate (Magnesium Sulfate Premix) 2 gm in 50 mls @ 25 mls/hr IV X1 ONE Stop: 12/14/16 16:59 Insulin Aspart (Novolog Insulin Sliding Scale) 0 units SUBQ ACHS [facility] PRN Reason: Protocol Stop: 02/10/17 16:29 Last Admin: 12/14/16 12:13 Dose: Not Given Ipratropium [place] (Atrovent Neb 0.5mg/2.5ml) 0.5 mg HHN QIDRT [facility] Stop: 02/10/17 14:59 Last Admin: 12/14/16 15:10 Dose: 0.5 mg Lactobacillus Rhamnosus (Culturelle) 1 each PO DAILY [facility] Stop: 02/11/17 16:59 Last Admin: 12/14/16 11:03 Dose: 1 each Levofloxacin (Levaquin) 250 mg PO DAILY [facility] Stop: 02/10/17 08:59 Last Admin: 12/14/16 11:03 Dose: 250 mg Miscellaneous (Vte Chemical Prophylaxis Screen/ Admission) 1 [facility] PRN PRN PRN Reason: PROTOCOL Stop: 02/10/17 16:11 Miscellaneous (Vancomycin Iv Per Pharmacy) 1 ea [facility] PRN [facility] Stop: 02/11/17 12:44 Miscellaneous (Probiotic Screen) 1 ea PRN PRN PRN Reason: PROTOCOL Stop: 02/11/17 15:56 Morphine Sulfate (Morphine) 1 mg IVP Q6H PRN PRN Reason: Abdominal Pain Stop: 02/10/17 14:55 Last Admin: 12/14/16 13:30 Dose: 1 mg Mupirocin (Bactroban Oint) 1 appl TP BID [facility] Stop: 12/21/16 08:59 Potassium Chloride (Klor-Con) 40 meq PO DAILY [facility] Stop: 02/11/17 18:14 Last Admin: 12/14/16 11:04 Dose: 40 meq Prednisone (Deltasone) 10 mg PO BID [facility] Stop: 02/11/17 18:14 Last Admin: 12/14/16 11:04 Dose: 10 mg Sodium Phosphate (Fleet Enema) 135 ml RC DAILY PRN PRN Reason: Constipation Stop: 02/10/17 08:14 Tacrolimus (Prograf) 1 mg PO BID [facility] Stop: 02/11/17 18:14 Last Admin: 12/14/16 12:14 Dose: Not Given General: Alert, Mild distress HEENT: Atraumatic, PERRLA, EOMI Neck: Supple, +2 carotid pulse wo bruit Cardiovascular: Regular rate, Normal S1, Normal S2 Lungs: Other (decrease BS) Abdomen: Bowel sounds, Soft Extremities: no Edema Neurological: Sensation intact Skin: no Rash Psych/Mental Status: Mood NL Assessment/Plan - Problem List Patient Problems: All Active Problems Cholelithiasis (Acute) Diverticulitis (Acute)
--- NOTE | 2016-12-14 15:23 | General Progress Note ---
Subjective - Review of Systems Service Date: 12/14/16 Events since last encounter: HIDA indeterminate Objective - Results Result Diagrams: 12/14/16 05:35 12/14/16 05:35 Recent Labs: Laboratory Last Values WBC 15.8 Th/cmm (4.8-10.8) H D 12/14/16 05:35 RBC 3.43 Mil/cmm (3.80-5.80) L 12/14/16 05:35 Hgb 10.4 gm/dL (12-16) L 12/14/16 05:35 Hct 31.0 % (41.0-60) L 12/14/16 05:35 MCV 90.3 fl (80-99) 12/14/16 05:35 MCH 30.4 pg (27.0-31.0) 12/14/16 05:35 MCHC Differential 33.6 pg (28.0-36.0) 12/14/16 05:35 RDW 15.1 % (11.5-20.0) 12/14/16 05:35 Plt Count 164 Th/cmm (150-400) 12/14/16 05:35 MPV 9.0 fl 12/14/16 05:35 Neutrophils % INSPECTOR POISING 12/14/16 05:35 Band Neutrophils % 13 % (0-10) H 12/14/16 05:35 Lymphocytes % INSPECTOR POISING 12/14/16 05:35 Basophils % INSPECTOR POISING 12/14/16 05:35 Neutrophils (Manual) 76 % (40-80) 12/14/16 05:35 Lymphocytes 8 % (20-50) L 12/14/16 05:35 Monocytes 3 % (2-10) 12/14/16 05:35 Platelet Estimate ADEQUATE (NORMAL) 12/11/16 21:23 PT 11.0 SECONDS (9.5-11.5) 12/11/16 21:23 INR 1.06 (0.5-1.4) 12/11/16 21:23 PTT (Actin FS) 26.3 SECONDS (26.0-38.0) 12/11/16 21:23 Sodium 140 mEq/L (136-145) 12/14/16 05:35 Potassium 3.2 mEq/L (3.5-5.1) L 12/14/16 05:35 Chloride 107 mEq/L (98-107) 12/14/16 05:35 Carbon Dioxide 26.0 mEq/L (21.0-31.0) 12/14/16 05:35 Anion Gap 10.2 (7.0-16.0) 12/14/16 05:35 BUN 13 mg/dL (7-25) 12/14/16 05:35 Creatinine 0.9 mg/dL (0.7-1.3) 12/14/16 05:35 Est GFR ( Amer) TNP 12/14/16 05:35 Est GFR (Non-Af Amer) TNP 12/14/16 05:35 BUN/Creatinine Ratio 14.4 12/14/16 05:35 Glucose 91 mg/dL (70-105) 12/14/16 05:35 POC Glucose 89 MG/DL (70 - 105) 12/14/16 12:08 Whole Bld Lactic Acid 1.15 mmol/L (0.60-1.99) 12/11/16 21:23 Calcium 8.5 mg/dL (8.6-10.3) L 12/14/16 05:35 Phosphorus 1.8 mg/dL (2.5-5.0) L 12/14/16 05:35 Magnesium 1.2 mg/dL (1.9-2.7) L 12/14/16 05:35 Total Bilirubin 0.6 mg/dL (0.3-1.0) 12/14/16 05:35 Direct Bilirubin 0.25 mg/dL (0.0-0.2) H 12/13/16 05:40 AST 7 U/L (13-39) L 12/14/16 05:35 ALT 4 U/L (7-52) L 12/14/16 05:35 Alkaline Phosphatase 42 U/L (34-104) 12/14/16 05:35 Total Protein 3.6 gm/dL (6.0-8.3) L 12/14/16 05:35 Albumin 2.0 gm/dL (4.2-5.5) L 12/14/16 05:35 Globulin 1.6 gm/dL 12/14/16 05:35 Albumin/Globulin Ratio 1.3 (1.0-1.8) 12/14/16 05:35 Triglycerides 96 mg/dL (<150) 12/12/16 06:00 Cholesterol 122 mg/dL (<200) 12/12/16 06:00 LDL Cholesterol Direct 68 mg/dL (75-193) L 12/12/16 06:00 HDL Cholesterol 32 mg/dL (23-92) 12/12/16 06:00 Amylase 10 U/L (29-103) L 12/11/16 21:23 Lipase < 3 U/L (11-82) L 12/13/16 05:40 TSH 3.16 uIU/ml (0.34-5.60) 12/12/16 06:00 Urine Source CLEAN C 12/11/16 22:30 Urine Color ORANGE 12/11/16 22:30 Urine Clarity HAZY (CLEAR) 12/11/16 22:30 Urine pH 6.0 (4.6 - 8.0) 12/11/16 22:30 Ur Specific [place] 1.020 (1.005-1.030) 12/11/16 22:30 Urine Protein TRACE mg/dL (NEGATIVE) 12/11/16 22:30 Urine Glucose (UA) NEGATIVE mg/dL (NEGATIVE) 12/11/16 22:30 Urine Ketones TRACE mg/dL (NEGATIVE) 12/11/16 22:30 Urine Blood TRACE (NEGATIVE) 12/11/16 22:30 Urine Nitrate NEGATIVE (NEGATIVE) 12/11/16 22:30 Urine Bilirubin NEGATIVE (NEGATIVE) 12/11/16 22:30 Urine Urobilinogen 0.2 E.U./dL (0.2 - 1.0) 12/11/16 22:30 Ur Leukocyte Esterase TRACE (NEGATIVE) H 12/11/16 22:30 Urine RBC 2-5 /hpf (0-5) H 12/11/16 22:30 Urine WBC 2-5 /hpf (0-5) H 12/11/16 22:30 Ur Epithelial Cells NONE SEEN /lpf (FEW) 12/11/16 22:30 Calcium Oxalate Crystal FEW /hpf 12/11/16 22:30 Urine Bacteria OCCASIONAL /hpf (NONE SEEN) 12/11/16 22:30 Stool Occult Blood POSITIVE (NEGATIVE) 12/11/16 22:15 - Physical Exam Vitals and I&O: Vital Signs Temp 97.0 F 12/14/16 11:52 Pulse 90 12/14/16 15:12 Resp 18 12/14/16 15:12 BP 117/61 12/14/16 11:52 Pulse Ox 98 12/14/16 15:12 Intake & Output 12/13/16 12/14/16 12/14/16 18:59 06:59 18:59 Intake Total 840 200 Balance 840 200 Weight (lbs) 87.09 kg 88.541 kg 88.451 kg Intake: Intake, IV Amount 600 200 Vancomycin HCl 1.5 gm In 500 Sodium Chloride 0.9% 500 ml @ 250 mls/hr IV Q12H [facility] Rx#:[id number] metroNIDAZOLE 500mg/NS 100 100 100mL 500 mg In 100 ml @ 100 mls/hr IV Q8HR [facility] Rx #:[id number] Oral 240 Active Medications: Current Medications Acetaminophen (Tylenol) 650 mg PO Q4H PRN PRN Reason: Pain or Fever >101 Stop: 02/10/17 08:14 Last Admin: 12/12/16 14:18 Dose: 650 mg Albuterol Sulfate (Albuterol 2.5mg/3ml Neb Ud) 2.5 mg HHN QIDRT [facility] Stop: 02/10/17 14:59 Last Admin: 12/14/16 15:10 Dose: 2.5 mg Albuterol/Ipratropium (Duoneb Neb) 3 ml HHN Q4HRT PRN PRN Reason: Shortness of Breath Stop: 02/10/17 08:14 Ascorbic Acid (Vitamin C) 500 mg PO DAILY [facility] Stop: 02/10/17 08:59 Last Admin: 12/14/16 11:04 Dose: 500 mg Bismuth Subsalicylate (Pepto-Bismol) 30 ml PO Q6H PRN PRN Reason: GI DISTRESS Stop: 02/10/17 08:14 Clonidine HCl (Qxsepnse-Dqs-1) 1 patch TD Mo [facility] Stop: 02/10/17 09:59 Last Admin: 12/12/16 09:58 Dose: 1 patch Diltiazem HCl (Cardizem) 30 mg PO Q6HR [facility] Stop: 02/10/17 11:59 Last Admin: 12/14/16 07:53 Dose: Not Given Docusate Sodium (Colace) 100 mg PO BID [facility] Stop: 02/10/17 08:59 Last Admin: 10/18/17 11:04 Dose: 100 mg Ferrous Sulfate (Iron) 325 mg PO DAILY [facility] Stop: 02/10/17 08:59 Last Admin: 12/14/16 11:03 Dose: 325 mg Heparin Sodium (Porcine) (Heparin) 5,000 units SUBQ Q12HR [facility] Stop: 02/10/17 20:59 Last Admin: 12/14/16 11:04 Dose: 5,000 units Metronidazole (Flagyl) 500 mg in 100 mls @ 100 mls/hr IV Q8HR [facility] Stop: 02/10/17 07:59 Last Admin: 12/14/16 09:05 Dose: 100 mls/hr Vancomycin HCl 1.5 gm/ Sodium (Chloride) 500 mls @ 250 mls/hr IV Q12H [facility] Stop: 02/11/17 15:59 Last Admin: 12/14/16 04:42 Dose: 250 mls/hr Sodium Chloride (Nacl 0.9%) 1,000 mls @ 60 mls/hr IV .[id number] [facility] Stop: 02/10/17 01:15 Potassium Phosphate 20 mmole/ (Sodium Chloride) 256.6667 mls @ 42.5 mls/hr IV X1 ONE Stop: 12/14/16 21:01 Magnesium Sulfate (Magnesium Sulfate Premix) 2 gm in 50 mls @ 25 mls/hr IV X1 [facility] Stop: 12/14/16 16:59 Insulin Aspart (Novolog Insulin Sliding Scale) 0 units SUBQ ACHS [facility] PRN Reason: Protocol Stop: 02/10/17 16:29 Last Admin: 12/14/16 12:13 Dose: Not Given Ipratropium [place] (Atrovent Neb 0.5mg/2.5ml) 0.5 mg HHN QIDRT [facility] Stop: 02/10/17 14:59 Last Admin: 12/14/16 15:10 Dose: 0.5 mg Lactobacillus Rhamnosus (Culturelle) 1 each PO DAILY [facility] Stop: 02/11/17 16:59 Last Admin: 12/14/16 11:03 Dose: 1 each Levofloxacin (Levaquin) 250 mg PO DAILY [facility] Stop: 02/10/17 08:59 Last Admin: 12/14/16 11:03 Dose: 250 mg Miscellaneous (Vte Chemical Prophylaxis Screen/ Admission) 1 [facility] PRN PRN PRN Reason: PROTOCOL Stop: 02/10/17 16:11 Miscellaneous (Vancomycin Iv Per Pharmacy) 1 ea [facility] PRN [facility] Stop: 02/11/17 12:44 Miscellaneous (Probiotic Screen) 1 [facility]a PRN PRN PRN Reason: PROTOCOL Stop: 02/11/17 15:56 Morphine Sulfate (Morphine) 1 mg IVP Q6H PRN PRN Reason: Abdominal Pain Stop: 02/10/17 14:55 Last Admin: 12/14/16 13:30 Dose: 1 mg Mupirocin (Bactroban Oint) 1 appl TP BID [facility] Stop: 12/21/16 08:59 Potassium Chloride (Klor-Con) 40 meq PO DAILY [facility] Stop: 02/11/17 18:14 Last Admin: 12/14/16 11:04 Dose: 40 meq Prednisone (Deltasone) 10 mg PO BID [facility] Stop: 02/11/17 18:14 Last Admin: 12/14/16 11:04 Dose: 10 mg Sodium Phosphate (Fleet Enema) 135 ml RC DAILY [facility]N PRN Reason: Constipation Stop: 02/10/17 08:14 Tacrolimus (Prograf) 1 mg PO BID [facility] Stop: 02/11/17 18:14 Last Admin: 12/14/16 12:14 Dose: Not Given General: Alert, Mild distress HEENT: Atraumatic, PERRLA, EOMI Neck: Supple, +2 carotid pulse wo bruit Cardiovascular: Regular rate, Normal S1, Normal S2 Lungs: Other (decrease BS) Abdomen: Bowel sounds, Soft Extremities: no Edema Neurological: Sensation intact Skin: no Rash Psych/Mental Status: Mood NL Assessment/Plan - Problem List Patient Problems: All Active Problems Cholelithiasis (Acute) Diverticulitis (Acute)
[2016-12-14] MEDS ORDERED: Potassium Phosphate 20 MMOLE in Sodium Chloride 0.9% 250 ML IV ONE (15:30)
[2016-12-14] MEDS ORDERED: Vancomycin HCl 1.5 GM in Sodium Chloride 0.9% 500 ML IV ONE (18:00)
[2016-12-15] MEDS: Diltiazem 30 mg Tab PO SCH ×4 (00:19→17:19)
[2016-12-15] MEDS: Morphine Sulfate 2 mg/mL 1mL Syr IVP PRN ×2 (04:16→21:15)
[2016-12-15] MEDS: metroNIDAZOLE 500mg/NS 100mL 500 MG/100 ML BAG IV SCH ×3 (06:13→21:01)
[2016-12-15 06:20] LABS: EOSINOPHILE ABSOLUTE 0.1 Th/cmm (0.1-0.4); HEMATOCRIT 30.6 % (41.0-60); HEMOGLOBIN 10.1 gm/dL (12-16); LYMPHOCYTE ABSOLUTE 0.3 Th/cmm (1.5-3.0); MANUAL DIFF REQUIRED? YES; MEAN CELL VOLUME 90.2 fl (80-99); MEAN CORPUSCULAR HEMOGLOBIN 29.8 pg (27.0-31.0); MONOCYTE ABSOLUTE 0.7 Th/cmm (0.3-1.0); NEUTROPHILE ABSOLUTE 11.6 Th/cmm (1.8-8.0); PLATELET COUNT 189 Th/cmm (150-400); RED BLOOD COUNT 3.39 Mil/cmm (3.80-5.80); RED CELL DISTRIBUTION WIDTH 15.6 % (11.5-20.0); WHITE BLOOD COUNT 12.7 Th/cmm (4.8-10.8)
[2016-12-15] MEDS: INSULIN ASPART SLIDING SCALE 100 UNITS/ML UNIT SUBQ SCH ×4 (06:30→21:09)
[2016-12-15 06:43] LABS: ANION GAP 12.2 (7.0-16.0); BUN - UREA NITROGEN 12 mg/dL (7-25); CALCIUM SERUM 8.5 mg/dL (8.6-10.3); CARBON DIOXIDE 22.9 mEq/L (21.0-31.0); CHLORIDE 108 mEq/L (98-107); CREATININE - SERUM 0.8 mg/dL (0.7-1.3); GLUCOSE 111 mg/dL (70-105); POTASSIUM SERUM 4.1 mEq/L (3.5-5.1); SODIUM SERUM 139 mEq/L (136-145)
[2016-12-15] MEDS: Albuterol Nebulizer 2.5mg/3mL HHN SCH ×4 (06:59→19:28)
[2016-12-15] MEDS: Ipratropium Neb 0.5 mg/2.5 mL UD HHN SCH ×4 (06:59→19:29)
--- NOTE | 2016-12-15 09:47 | Consultation ---
DATE OF CONSULTATION: 12/13/2016 REFERRING PHYSICIAN: Dr. Dahl. REASON FOR CONSULTATION: Abdominal pain. Thank you for referring this patient to me. HISTORY OF PRESENT ILLNESS: This 76-year-old male was admitted because of fever and leukocytosis of 23,000. He has complained of abdominal pain. In the Emergency Room, the patient underwent CT scan of the abdomen, which showed gallstones and diverticulitis. PAST MEDICAL HISTORY: He is on dialysis following failed right kidney transplant. Has history of peptic ulcer disease and GERD. In April 2016 he underwent partial colectomy at [facility] for what was not malignancy, but likely diverticular disease. PHYSICAL EXAMINATION: On examination there is a midline scar which is recent and minimal tenderness in the right upper quadrant. HIDA scan was equivocal. LABORATORY STUDIES: Now are normal with no elevation in liver function tests. Does not appear the patient needs cholecystectomy at this time, but will likely have recurrence of the abdominal pain related to this. Decision will be made by the attending physician and other consultants. JOB# [id number] MTDD
--- NOTE | 2016-12-15 10:02 | Infectious Disease Prog Note ---
Infectious Disease Subjective - Review of Systems Service Date: 12/15/16 Subjective: No new change. Infectious Disease Objective - Results Result Diagrams: 12/16/16 10:30 12/16/16 10:30 Recent Labs: Laboratory Last Values WBC 12.7 Th/cmm (4.8-10.8) H 12/15/16 05:55 RBC 3.39 Mil/cmm (3.80-5.80) L 12/15/16 05:55 Hgb 10.1 gm/dL (12-16) L 12/15/16 05:55 Hct 30.6 % (41.0-60) L 12/15/16 05:55 MCV 90.2 fl (80-99) 12/15/16 05:55 MCH 29.8 pg (27.0-31.0) 12/15/16 05:55 MCHC Differential 33.0 pg (28.0-36.0) 12/15/16 05:55 RDW 15.6 % (11.5-20.0) 12/15/16 05:55 Plt Count 189 Th/cmm (150-400) 12/15/16 05:55 MPV 9.0 fl 12/15/16 05:55 Neutrophils % [employer]Y MECH[employer]IC 12/14/16 05:35 Band Neutrophils % 13 % (0-10) H 12/14/16 05:35 Lymphocytes % [employer]Y MECHANIC 12/14/16 05:35 Basophils % [employer] MECHANIC 12/14/16 05:35 Neutrophils (Manual) 76 % (40-80) 12/14/16 05:35 Lymphocytes 8 % (20-50) L 12/14/16 05:35 Monocytes 3 % (2-10) 12/14/16 05:35 Platelet Estimate ADEQUATE (NORMAL) 12/11/16 21:23 PT 11.0 SECONDS (9.5-11.5) 12/11/16 21:23 INR 1.06 (0.5-1.4) 12/11/16 21:23 PTT (Actin FS) 26.3 SECONDS (26.0-38.0) 12/11/16 21:23 Sodium 139 mEq/L (136-145) 12/15/16 05:55 Potassium 4.1 mEq/L (3.5-5.1) 12/15/16 05:55 Chloride 108 mEq/L (98-107) H 12/15/16 05:55 Carbon Dioxide 22.9 mEq/L (21.0-31.0) 12/15/16 05:55 Anion Gap 12.2 (7.0-16.0) 12/15/16 05:55 BUN 12 mg/dL (7-25) 12/15/16 05:55 Creatinine 0.8 mg/dL (0.7-1.3) 12/15/16 05:55 Est GFR ( Amer) TNP 12/15/16 05:55 Est GFR (Non-Af Amer) TNP 12/15/16 05:55 BUN/Creatinine Ratio 15.0 12/15/16 05:55 Glucose 111 mg/dL (70-105) H 12/15/16 05:55 POC Glucose 126 MG/DL (70 - 105) H 12/15/16 06:19 Whole Bld Lactic Acid 1.15 mmol/L (0.60-1.99) 12/11/16 21:23 Calcium 8.5 mg/dL (8.6-10.3) L 12/15/16 05:55 Phosphorus 1.8 mg/dL (2.5-5.0) L 12/14/16 05:35 Magnesium 1.2 mg/dL (1.9-2.7) L 12/14/16 05:35 Total Bilirubin 0.6 mg/dL (0.3-1.0) 12/14/16 05:35 Direct Bilirubin 0.25 mg/dL (0.0-0.2) H 12/13/16 05:40 AST 7 U/L (13-39) L 12/14/16 05:35 ALT 4 U/L (7-52) L 12/14/16 05:35 Alkaline Phosphatase 42 U/L (34-104) 12/14/16 05:35 B-Natriuretic Peptide 601.0 pg/mL (5.0-100.0) H 12/15/16 05:55 Total Protein 3.6 gm/dL (6.0-8.3) L 12/14/16 05:35 Albumin 2.0 gm/dL (4.2-5.5) L 12/14/16 05:35 Globulin 1.6 gm/dL 12/14/16 05:35 Albumin/Globulin Ratio 1.3 (1.0-1.8) 12/14/16 05:35 Triglycerides 96 mg/dL (<150) 12/12/16 06:00 Cholesterol 122 mg/dL (<200) 12/12/16 06:00 LDL Cholesterol Direct 68 mg/dL (75-193) L 12/12/16 06:00 HDL Cholesterol 32 mg/dL (23-92) 12/12/16 06:00 Amylase 10 U/L (29-103) L 12/11/16 21:23 Lipase < 3 U/L (11-82) L 12/13/16 05:40 TSH 3.16 uIU/ml (0.34-5.60) 12/12/16 06:00 Urine Source CLEAN C 12/11/16 22:30 Urine Color ORANGE 12/11/16 22:30 Urine Clarity HAZY (CLEAR) 12/11/16 22:30 Urine pH 6.0 (4.6 - 8.0) 12/11/16 22:30 Ur Specific [place] 1.020 (1.005-1.030) 12/11/16 22:30 Urine Protein TRACE mg/dL (NEGATIVE) 12/11/16 22:30 Urine Glucose (UA) NEGATIVE mg/dL (NEGATIVE) 12/11/16 22:30 Urine Ketones TRACE mg/dL (NEGATIVE) 12/11/16 22:30 Urine Blood TRACE (NEGATIVE) 12/11/16 22:30 Urine Nitrate NEGATIVE (NEGATIVE) 12/11/16 22:30 Urine Bilirubin NEGATIVE (NEGATIVE) 12/11/16 22:30 Urine Urobilinogen 0.2 E.U./dL (0.2 - 1.0) 12/11/16 22:30 Ur Leukocyte Esterase TRACE (NEGATIVE) H 12/11/16 22:30 Urine RBC 2-5 /hpf (0-5) H 12/11/16 22:30 Urine WBC 2-5 /hpf (0-5) H 12/11/16 22:30 Ur Epithelial Cells NONE SEEN /lpf (FEW) 12/11/16 22:30 Calcium Oxalate Crystal FEW /hpf 12/11/16 22:30 Urine Bacteria OCCASIONAL /hpf (NONE SEEN) 12/11/16 22:30 Stool Occult Blood POSITIVE (NEGATIVE) 12/11/16 22:15 Vancomycin Trough 18.9 ug/mL (10-20) 12/14/16 15:55 - Physical Exam Vitals and I&O: Vital Signs Temp 97.7 F 12/15/16 07:43 Pulse 91 12/15/16 07:43 Resp 17 12/15/16 07:43 BP 116/78 12/15/16 07:43 Pulse Ox 99 12/15/16 07:43 Intake & Output 12/14/16 12/15/16 12/15/16 18:59 06:59 18:59 Intake Total 100 600 Balance 100 600 Weight (lbs) 88.451 kg 87.09 kg 87.09 kg Intake: Intake, IV Amount 100 100 metroNIDAZOLE 500mg/NS 100 100 100mL 500 mg In 100 ml @ 100 mls/hr IV Q8HR [facility] Rx #:[id number] Oral 500 Other: # Voids 4 # Bowel Movements 4 Stool Characteristics Liquid Active Medications: Current Medications Acetaminophen (Tylenol) 650 mg PO Q4H PRN PRN Reason: Pain or Fever >101 Stop: 02/10/17 08:14 Last Admin: 12/12/16 14:18 Dose: 650 mg Albuterol Sulfate (Albuterol 2.5mg/3ml Neb Ud) 2.5 mg HHN QIDRT [facility] Stop: 02/10/17 14:59 Last Admin: 12/15/16 06:59 Dose: 2.5 mg Albuterol/Ipratropium (Duoneb Neb) 3 ml HHN Q4HRT PRN PRN Reason: Shortness of Breath Stop: 02/10/17 08:14 Ascorbic Acid (Vitamin C) 500 mg PO DAILY [facility] Stop: 02/10/17 08:59 Last Admin: 12/14/16 11:04 Dose: 500 mg Bismuth Subsalicylate (Pepto-Bismol) 30 ml PO Q6H PRN PRN Reason: GI DISTRESS Stop: 02/10/17 08:14 Clonidine HCl (Utnrjtjd-Jul-9) 1 patch TD Mo [facility] Stop: 02/10/17 09:59 Last Admin: 12/12/16 09:58 Dose: 1 patch Diltiazem HCl (Cardizem) 30 mg PO Q6HR [facility] Stop: 02/10/17 11:59 Last Admin: 12/15/16 06:14 Dose: 30 mg Docusate Sodium (Colace) 100 mg PO BID [facility] Stop: 02/10/17 08:59 Last Admin: 12/14/16 17:01 Dose: 100 mg Ferrous Sulfate (Iron) 325 mg PO DAILY [facility] Stop: 02/10/17 08:59 Last Admin: 12/14/16 11:03 Dose: 325 mg Heparin Sodium (Porcine) (Heparin) 5,000 units SUBQ Q12HR [facility] Stop: 02/10/17 20:59 Last Admin: 12/14/16 21:21 Dose: 5,000 units Metronidazole (Flagyl) 500 mg in 100 mls @ 100 mls/hr IV Q8HR [facility] Stop: 02/10/17 07:59 Last Admin: 12/15/16 06:13 Dose: 100 mls/hr Sodium Chloride (Nacl 0.9%) 1,000 mls @ 60 mls/hr IV .[id number] [facility] Stop: 02/10/17 01:15 Vancomycin HCl 1.5 gm/ Sodium (Chloride) 500 mls @ 250 mls/hr IV Q12H [facility] Stop: 02/13/17 08:59 Insulin Aspart (Novolog Insulin Sliding Scale) 0 units SUBQ ACHS [facility] PRN Reason: Protocol Stop: 02/10/17 16:29 Last Admin: 12/15/16 06:30 Dose: Not Given Ipratropium [place] (Atrovent Neb 0.5mg/2.5ml) 0.5 mg HHN QIDRT [facility] Stop: 02/10/17 14:59 Last Admin: 12/15/16 06:59 Dose: 0.5 mg Lactobacillus Rhamnosus (Culturelle) 1 each PO DAILY [facility] Stop: 02/11/17 16:59 Last Admin: 12/14/16 11:03 Dose: 1 each Levofloxacin (Levaquin) 250 mg PO DAILY [facility] Stop: 02/10/17 08:59 Last Admin: 12/14/16 11:03 Dose: 250 mg Miscellaneous (Vte Chemical Prophylaxis Screen/ Admission) 1 ea PRN PRN PRN Reason: PROTOCOL Stop: 02/10/17 16:11 Miscellaneous (Vancomycin Iv Per Pharmacy) 1 ea PRN [facility] Stop: 02/11/17 12:44 Miscellaneous (Probiotic Screen) 1 ea PRN PRN PRN Reason: PROTOCOL Stop: 02/11/17 15:56 Miscellaneous (Misc Oral Cap) 3 cap PO BID [facility] Stop: 02/12/17 16:59 Morphine Sulfate (Morphine) 1 mg IVP Q6H PRN PRN Reason: Abdominal Pain Stop: 02/10/17 14:55 Last Admin: 12/15/16 04:16 Dose: 1 mg Mupirocin (Bactroban Oint) 1 appl TP BID [facility] Stop: 12/21/16 08:59 Last Admin: 12/14/16 17:01 Dose: 1 appl Potassium Chloride (Klor-Con) 40 meq PO DAILY [facility] Stop: 02/11/17 18:14 Last Admin: 12/14/16 11:04 Dose: 40 meq Prednisone (Deltasone) 10 mg PO BID [facility] Stop: 02/11/17 18:14 Last Admin: 12/14/16 17:01 Dose: 10 mg Sodium Phosphate (Fleet Enema) 135 ml RC DAILY PRN PRN Reason: Constipation Stop: 02/10/17 08:14 Tacrolimus (Prograf) 1 mg PO BID [facility] Stop: 02/11/17 18:14 Last Admin: 12/14/16 15:59 Dose: 1 mg Vancomycin HCl (Vancomycin Oral) 250 mg PO QID [facility] Stop: 02/13/17 09:59 General: no acute distress, well developed, well nourished HEENT: atraumatic, normocephalic, PERRLA, EOMI, moist mucous membrane Neck: supple, no thyromegaly Cardiovascular: S1S2, regular Lungs: clear to auscultation bilaterally, clear to percussion Abdomen: soft, no tender, no distended, no hepatomegaly Extremities: no cyanosis, no clubbing, no edema Neurological: awake, alert, oriented Skin: intact Infectious Disease Assmt/Plan - Problem List Patient Problems: All Active Problems Cholelithiasis (Acute) Diverticulitis (Acute) - Assessment Assessment: 1. Leukocytosis. 2. CDAC. 3. Diverticulitis. 4. Cystitis with h/o renal transplant. 5. Cholelithiasis. 6. Bilateral pneumonia with parapneumonic effusion. 7. H/o renal transplant from unrelated donor. - Plan Plan: Conitnue vanco po, IV, levaquin and flagyl. Nutritional Asmnt/Malnutr-PDOC - Dietary Evaluation Malnutrition Findings (Please click <Entered> for more info): Nutritional Asmnt/Malnutrition Start: 12/14/16 18: 11 Text: Status: Complete Freq: Document 12/14/16 18:11 GSLUISA (Rec: 12/14/16 18:52 GSLUISA [email or web address]) Nutritional Asmnt/Malnutrition Patient General Information Nutritional Screening Consult Diagnosis Basilar PNA, acute cholelithiasis, HTN, DM, GERD, hx c diff, chornic renal Pertinent Medical Hx/Surgical Hx ESRD s/p right kidney transplant, peptic ulcer disease, anemia of chronic kidney disease, sacral pressure ulcer stage 2, GERD, essential HTN, hx c diff Subjective Information [address] consult for diarrhea. Pt was NPO for HIDA and CT, ordered [id number] this lunch, observed lunch tray at bedside. Pt had 75% breakfast yesterday 12/13. Pt having diarrhea during visit, pt stated no hx of chronic diarrhea, new onset diarrhea for 1 wk. Observed red sign at door, spoke to PARVIN Bui, RN confirmed positive for c-diff. Project Estimator informed FNS to use all disposables. Pt confirmed hx kidney transplant "last August." Pt reported usually fair appetite. No muscle/fat wasting noted. Pt does not wish to talk about diets at this time. Pt stated UBW ~ 200lb, denied recent changes, CBW 198lb via bedscale during visit. Current Diet Order/ Nutrition Support [id number] Pertinent Medications Vitamin C, Pepto-Bismol, Colace, Iron, Novolog, Culturelle, Flagyl, Vancomycin , Morphine, Klor-Con, Potassium Phosphate, Fleet Enema Pertinent Labs 12/14: potassium 3.2L, calcium 8.5L, phosphorus 1.8L Nutritional Hx/Data Height 1.88 m Height (Calculated Centimeters) 188.0 Current Weight (lbs) 88.451 kg Weight (Calculated Kilograms) 88.5 Weight (Calculated Grams) 92764.5 [place] Body Weight 190 Weight Status Approriate GI Symptoms GI Symptoms Diarrhea Food Allergies No Skin Integrity/Comment: [place] 16. Edema 2+. Redness. Estimated Nutritional Goals BEE in Kcals: Using Current wt Calories/Kcals/Kg CBW 195lb/88.6kg Kcals Calculated 2658kcal (30kcal/kg) Protein: Using Current wt Protein Calculated 106-124g (1.2-1.4g/kg) Fluid: ml 2658ml (1ml/kcal) Nutritional Problem 1. Problem Problem Inadequate carbohdyrate intake related to Etiology estimated nutritinoal eneds, hypermetabolic state aeb Signs/Symptoms: PNA, current diet providing < 40% CHO of total kcal Intervention/Recommendation Comments 1. Recommend [id number] with double portion vegetable and protin to promote glycemic control while meeting nutritinoal eneds. Current diet order provides to meet < 40% CHO of total kcal, inadequate. 2. Pt is on contact precaution , observed red sign at door. Spoke to PARVIN Bui RN confirmed c-diff positive. Project Estimator informed FNS to use all disposables. 3. Provide DM nutrition edu during follow up as able. Expected Outcomes/Goals Expected Outcomes/Goals 1. PO intake to meet at least 75% of estimated nutritinoal eneds.
--- NOTE | 2016-12-15 10:02 | Infectious Disease Prog Note ---
Infectious Disease Subjective - Review of Systems Service Date: 12/15/16 Subjective: No new change. Infectious Disease Objective - Results Result Diagrams: 12/16/16 10:30 12/16/16 10:30 Recent Labs: Laboratory Last Values WBC 12.7 Th/cmm (4.8-10.8) H 12/15/16 05:55 RBC 3.39 Mil/cmm (3.80-5.80) L 12/15/16 05:55 Hgb 10.1 gm/dL (12-16) L 12/15/16 05:55 Hct 30.6 % (41.0-60) L 12/15/16 05:55 MCV 90.2 fl (80-99) 12/15/16 05:55 MCH 29.8 pg (27.0-31.0) 12/15/16 05:55 MCHC Differential 33.0 pg (28.0-36.0) 12/15/16 05:55 RDW 15.6 % (11.5-20.0) 12/15/16 05:55 Plt Count 189 Th/cmm (150-400) 12/15/16 05:55 MPV 9.0 fl 12/15/16 05:55 Neutrophils % [employer] 12/14/16 05:35 Band Neutrophils % 13 % (0-10) H 12/14/16 05:35 Lymphocytes % [employer]DR[employer]IST[employer] DIRECTOR 12/14/16 05:35 Basophils % [employer]DR[employer]IST[employer] DIRECTOR 12/14/16 05:35 Neutrophils (Manual) 76 % (40-80) 12/14/16 05:35 Lymphocytes 8 % (20-50) L 12/14/16 05:35 Monocytes 3 % (2-10) 12/14/16 05:35 Platelet Estimate ADEQUATE (NORMAL) 12/11/16 21:23 PT 11.0 SECONDS (9.5-11.5) 12/11/16 21:23 INR 1.06 (0.5-1.4) 12/11/16 21:23 PTT (Actin FS) 26.3 SECONDS (26.0-38.0) 12/11/16 21:23 Sodium 139 mEq/L (136-145) 12/15/16 05:55 Potassium 4.1 mEq/L (3.5-5.1) 12/15/16 05:55 Chloride 108 mEq/L (98-107) H 12/15/16 05:55 Carbon Dioxide 22.9 mEq/L (21.0-31.0) 12/15/16 05:55 Anion Gap 12.2 (7.0-16.0) 12/15/16 05:55 BUN 12 mg/dL (7-25) 12/15/16 05:55 Creatinine 0.8 mg/dL (0.7-1.3) 12/15/16 05:55 Est GFR ( Amer) TNP 12/15/16 05:55 Est GFR (Non-Af Amer) TNP 12/15/16 05:55 BUN/Creatinine Ratio 15.0 12/15/16 05:55 Glucose 111 mg/dL (70-105) H 12/15/16 05:55 POC Glucose 126 MG/DL (70 - 105) H 12/15/16 06:19 Whole Bld Lactic Acid 1.15 mmol/L (0.60-1.99) 12/11/16 21:23 Calcium 8.5 mg/dL (8.6-10.3) L 12/15/16 05:55 Phosphorus 1.8 mg/dL (2.5-5.0) L 12/14/16 05:35 Magnesium 1.2 mg/dL (1.9-2.7) L 12/14/16 05:35 Total Bilirubin 0.6 mg/dL (0.3-1.0) 12/14/16 05:35 Direct Bilirubin 0.25 mg/dL (0.0-0.2) H 12/13/16 05:40 AST 7 U/L (13-39) L 12/14/16 05:35 ALT 4 U/L (7-52) L 12/14/16 05:35 Alkaline Phosphatase 42 U/L (34-104) 12/14/16 05:35 B-Natriuretic Peptide 601.0 pg/mL (5.0-100.0) H 12/15/16 05:55 Total Protein 3.6 gm/dL (6.0-8.3) L 12/14/16 05:35 Albumin 2.0 gm/dL (4.2-5.5) L 12/14/16 05:35 Globulin 1.6 gm/dL 12/14/16 05:35 Albumin/Globulin Ratio 1.3 (1.0-1.8) 12/14/16 05:35 Triglycerides 96 mg/dL (<150) 12/12/16 06:00 Cholesterol 122 mg/dL (<200) 12/12/16 06:00 LDL Cholesterol Direct 68 mg/dL (75-193) L 12/12/16 06:00 HDL Cholesterol 32 mg/dL (23-92) 12/12/16 06:00 Amylase 10 U/L (29-103) L 12/11/16 21:23 Lipase < 3 U/L (11-82) L 12/13/16 05:40 TSH 3.16 uIU/ml (0.34-5.60) 12/12/16 06:00 Urine Source CLEAN C 12/11/16 22:30 Urine Color ORANGE 12/11/16 22:30 Urine Clarity HAZY (CLEAR) 12/11/16 22:30 Urine pH 6.0 (4.6 - 8.0) 12/11/16 22:30 Ur Specific [place] 1.020 (1.005-1.030) 12/11/16 22:30 Urine Protein TRACE mg/dL (NEGATIVE) 12/11/16 22:30 Urine Glucose (UA) NEGATIVE mg/dL (NEGATIVE) 12/11/16 22:30 Urine Ketones TRACE mg/dL (NEGATIVE) 12/11/16 22:30 Urine Blood TRACE (NEGATIVE) 12/11/16 22:30 Urine Nitrate NEGATIVE (NEGATIVE) 12/11/16 22:30 Urine Bilirubin NEGATIVE (NEGATIVE) 12/11/16 22:30 Urine Urobilinogen 0.2 E.U./dL (0.2 - 1.0) 12/11/16 22:30 Ur Leukocyte Esterase TRACE (NEGATIVE) H 12/11/16 22:30 Urine RBC 2-5 /hpf (0-5) H 12/11/16 22:30 Urine WBC 2-5 /hpf (0-5) H 12/11/16 22:30 Ur Epithelial Cells NONE SEEN /lpf (FEW) 12/11/16 22:30 Calcium Oxalate Crystal FEW /hpf 12/11/16 22:30 Urine Bacteria OCCASIONAL /hpf (NONE SEEN) 12/11/16 22:30 Stool Occult Blood POSITIVE (NEGATIVE) 12/11/16 22:15 Vancomycin Trough 18.9 ug/mL (10-20) 12/14/16 15:55 - Physical Exam Vitals and I&O: Vital Signs Temp 97.7 F 12/15/16 07:43 Pulse 91 12/15/16 07:43 Resp 17 12/15/16 07:43 BP 116/78 12/15/16 07:43 Pulse Ox 99 12/15/16 07:43 Intake & Output 12/14/16 12/15/16 12/15/16 18:59 06:59 18:59 Intake Total 100 600 Balance 100 600 Weight (lbs) 88.451 kg 87.09 kg 87.09 kg Intake: Intake, IV Amount 100 100 metroNIDAZOLE 500mg/NS 100 100 100mL 500 mg In 100 ml @ 100 mls/hr IV Q8HR [facility] Rx #:[id number] Oral 500 Other: # Voids 4 # Bowel Movements 4 Stool Characteristics Liquid Active Medications: Current Medications Acetaminophen (Tylenol) 650 mg PO Q4H PRN PRN Reason: Pain or Fever >101 Stop: 02/10/17 08:14 Last Admin: 12/12/16 14:18 Dose: 650 mg Albuterol Sulfate (Albuterol 2.5mg/3ml Neb Ud) 2.5 mg HHN QIDRT [facility] Stop: 02/10/17 14:59 Last Admin: 12/15/16 06:59 Dose: 2.5 mg Albuterol/Ipratropium (Duoneb Neb) 3 ml HHN Q4HRT PRN PRN Reason: Shortness of Breath Stop: 02/10/17 08:14 Ascorbic Acid (Vitamin C) 500 mg PO DAILY [facility] Stop: 02/10/17 08:59 Last Admin: 12/14/16 11:04 Dose: 500 mg Bismuth Subsalicylate (Pepto-Bismol) 30 ml PO Q6H PRN PRN Reason: GI DISTRESS Stop: 02/10/17 08:14 Clonidine HCl (Ghpqseae-Iwf-0) 1 patch TD Mo [facility] Stop: 02/10/17 09:59 Last Admin: 12/12/16 09:58 Dose: 1 patch Diltiazem HCl (Cardizem) 30 mg PO Q6HR [facility] Stop: 02/10/17 11:59 Last Admin: 12/15/16 06:14 Dose: 30 mg Docusate Sodium (Colace) 100 mg PO BID [facility] Stop: 02/10/17 08:59 Last Admin: 12/14/16 17:01 Dose: 100 mg Ferrous Sulfate (Iron) 325 mg PO DAILY [facility] Stop: 02/10/17 08:59 Last Admin: 12/14/16 11:03 Dose: 325 mg Heparin Sodium (Porcine) (Heparin) 5,000 units SUBQ Q12HR [facility] Stop: 02/10/17 20:59 Last Admin: 12/14/16 21:21 Dose: 5,000 units Metronidazole (Flagyl) 500 mg in 100 mls @ 100 mls/hr IV Q8HR [facility] Stop: 02/10/17 07:59 Last Admin: 12/15/16 06:13 Dose: 100 mls/hr Sodium Chloride (Nacl 0.9%) 1,000 mls @ 60 mls/hr IV .[id number] [facility] Stop: 02/10/17 01:15 Vancomycin HCl 1.5 gm/ Sodium (Chloride) 500 mls @ 250 mls/hr IV Q12H [facility] Stop: 02/13/17 08:59 Insulin Aspart (Novolog Insulin Sliding Scale) 0 units SUBQ ACHS [facility] PRN Reason: Protocol Stop: 02/10/17 16:29 Last Admin: 12/15/16 06:30 Dose: Not Given Ipratropium [place] (Atrovent Neb 0.5mg/2.5ml) 0.5 mg HHN QIDRT [facility] Stop: 02/10/17 14:59 Last Admin: 12/15/16 06:59 Dose: 0.5 mg Lactobacillus Rhamnosus (Culturelle) 1 each PO DAILY [facility] Stop: 02/11/17 16:59 Last Admin: 12/14/16 11:03 Dose: 1 each Levofloxacin (Levaquin) 250 mg PO DAILY [facility] Stop: 02/10/17 08:59 Last Admin: 12/14/16 11:03 Dose: 250 mg Miscellaneous (Vte Chemical Prophylaxis Screen/ Admission) 1 ea PRN PRN PRN Reason: PROTOCOL Stop: 02/10/17 16:11 Miscellaneous (Vancomycin Iv Per Pharmacy) 1 ea PRN [facility] Stop: 02/11/17 12:44 Miscellaneous (Probiotic Screen) 1 ea PRN PRN PRN Reason: PROTOCOL Stop: 02/11/17 15:56 Miscellaneous (Misc Oral Cap) 3 cap PO BID [facility] Stop: 02/12/17 16:59 Morphine Sulfate (Morphine) 1 mg IVP Q6H PRN PRN Reason: Abdominal Pain Stop: 02/10/17 14:55 Last Admin: 12/15/16 04:16 Dose: 1 mg Mupirocin (Bactroban Oint) 1 appl TP BID [facility] Stop: 12/21/16 08:59 Last Admin: 12/14/16 17:01 Dose: 1 appl Potassium Chloride (Klor-Con) 40 meq PO DAILY [facility] Stop: 02/11/17 18:14 Last Admin: 12/14/16 11:04 Dose: 40 meq Prednisone (Deltasone) 10 mg PO BID [facility] Stop: 02/11/17 18:14 Last Admin: 12/14/16 17:01 Dose: 10 mg Sodium Phosphate (Fleet Enema) 135 ml RC DAILY PRN PRN Reason: Constipation Stop: 02/10/17 08:14 Tacrolimus (Prograf) 1 mg PO BID [facility] Stop: 02/11/17 18:14 Last Admin: 12/14/16 15:59 Dose: 1 mg Vancomycin HCl (Vancomycin Oral) 250 mg PO QID [facility] Stop: 02/13/17 09:59 General: no acute distress, well developed, well nourished HEENT: atraumatic, normocephalic, PERRLA, EOMI, moist mucous membrane Neck: supple, no thyromegaly Cardiovascular: S1S2, regular Lungs: clear to auscultation bilaterally, clear to percussion Abdomen: soft, no tender, no distended, no hepatomegaly Extremities: no cyanosis, no clubbing, no edema Neurological: awake, alert, oriented Skin: intact Infectious Disease Assmt/Plan - Problem List Patient Problems: All Active Problems Cholelithiasis (Acute) Diverticulitis (Acute) - Assessment Assessment: 1. Leukocytosis. 2. CDAC. 3. Diverticulitis. 4. Cystitis with h/o renal transplant. 5. Cholelithiasis. 6. Bilateral pneumonia with parapneumonic effusion. 7. H/o renal transplant from unrelated donor. - Plan Plan: Conitnue vanco po, IV, levaquin and flagyl. Nutritional Asmnt/Malnutr-PDOC - Dietary Evaluation Malnutrition Findings (Please click <Entered> for more info): Nutritional Asmnt/Malnutrition Start: 12/14/16 18: 11 Text: Status: Complete Freq: Document 12/14/16 18:11 GSLUISA (Rec: 12/14/16 18:52 GSLUISA [id number]) Nutritional Asmnt/Malnutrition Patient General Information Nutritional Screening Consult Diagnosis Basilar PNA, acute cholelithiasis, HTN, DM, GERD, hx c diff, chornic renal Pertinent Medical Hx/Surgical Hx ESRD s/p right kidney transplant, peptic ulcer disease, anemia of chronic kidney disease, sacral pressure ulcer stage 2, GERD, essential HTN, hx c diff Subjective Information 76 [address] consult for diarrhea. Pt was NPO for HIDA and CT, ordered [id number] this lunch, observed lunch tray at bedside. Pt had 75% breakfast yesterday 12/13. Pt having diarrhea during visit, pt stated no hx of chronic diarrhea, new onset diarrhea for 1 wk. Observed red sign at door, spoke to PARVIN Bui, RN confirmed positive for c-diff. Host informed FNS to use all disposables. Pt confirmed hx kidney transplant "last August." Pt reported usually fair appetite. No muscle/fat wasting noted. Pt does not wish to talk about diets at this time. Pt stated UBW ~ 200lb, denied recent changes, CBW 198lb via bedscale during visit. Current Diet Order/ Nutrition Support [id number] Pertinent Medications Vitamin C, Pepto-Bismol, Colace, Iron, Novolog, Culturelle, Flagyl, Vancomycin , Morphine, Klor-Con, Potassium Phosphate, Fleet Enema Pertinent Labs 12/14: potassium 3.2L, calcium 8.5L, phosphorus 1.8L Nutritional Hx/Data Height 1.88 m Height (Calculated Centimeters) 188.0 Current Weight (lbs) 88.451 kg Weight (Calculated Kilograms) 88.5 Weight (Calculated Grams) 09441.5 [place] Body Weight 190 Weight Status Approriate GI Symptoms GI Symptoms Diarrhea Food Allergies No Skin Integrity/Comment: Earle 16. Edema 2+. Redness. Estimated Nutritional Goals BEE in Kcals: Using Current wt Calories/Kcals/Kg CBW 195lb/88.6kg Kcals Calculated 2658kcal (30kcal/kg) Protein: Using Current wt Protein Calculated 106-124g (1.2-1.4g/kg) Fluid: ml 2658ml (1ml/kcal) Nutritional Problem 1. Problem Problem Inadequate carbohdyrate intake related to Etiology estimated nutritinoal eneds, hypermetabolic state aeb Signs/Symptoms: PNA, current diet providing < 40% CHO of total kcal Intervention/Recommendation Comments 1. Recommend [id number] with double portion vegetable and protin to promote glycemic control while meeting nutritinoal eneds. Current diet order provides to meet < 40% CHO of total kcal, inadequate. 2. Pt is on contact precaution , observed red sign at door. Spoke to PARVIN Bui RN confirmed c-diff positive. Host informed FNS to use all disposables. 3. Provide DM nutrition edu during follow up as able. Expected Outcomes/Goals Expected Outcomes/Goals 1. PO intake to meet at least 75% of estimated nutritinoal eneds.
--- NOTE | 2016-12-15 10:02 | Infectious Disease Prog Note ---
Infectious Disease Subjective - Review of Systems Service Date: 12/15/16 Subjective: No new change. Infectious Disease Objective - Results Result Diagrams: 12/16/16 10:30 12/16/16 10:30 Recent Labs: Laboratory Last Values WBC 12.7 Th/cmm (4.8-10.8) H 12/15/16 05:55 RBC 3.39 Mil/cmm (3.80-5.80) L 12/15/16 05:55 Hgb 10.1 gm/dL (12-16) L 12/15/16 05:55 Hct 30.6 % (41.0-60) L 12/15/16 05:55 MCV 90.2 fl (80-99) 12/15/16 05:55 MCH 29.8 pg (27.0-31.0) 12/15/16 05:55 MCHC Differential 33.0 pg (28.0-36.0) 12/15/16 05:55 RDW 15.6 % (11.5-20.0) 12/15/16 05:55 Plt Count 189 Th/cmm (150-400) 12/15/16 05:55 MPV 9.0 fl 12/15/16 05:55 Neutrophils % PAINTER MIRROR 12/14/16 05:35 Band Neutrophils % 13 % (0-10) H 12/14/16 05:35 Lymphocytes % PAINTER MIRROR 12/14/16 05:35 Basophils % PAINTER MIRROR 12/14/16 05:35 Neutrophils (Manual) 76 % (40-80) 12/14/16 05:35 Lymphocytes 8 % (20-50) L 12/14/16 05:35 Monocytes 3 % (2-10) 12/14/16 05:35 Platelet Estimate ADEQUATE (NORMAL) 12/11/16 21:23 PT 11.0 SECONDS (9.5-11.5) 12/11/16 21:23 INR 1.06 (0.5-1.4) 12/11/16 21:23 PTT (Actin FS) 26.3 SECONDS (26.0-38.0) 12/11/16 21:23 Sodium 139 mEq/L (136-145) 12/15/16 05:55 Potassium 4.1 mEq/L (3.5-5.1) 12/15/16 05:55 Chloride 108 mEq/L (98-107) H 12/15/16 05:55 Carbon Dioxide 22.9 mEq/L (21.0-31.0) 12/15/16 05:55 Anion Gap 12.2 (7.0-16.0) 12/15/16 05:55 BUN 12 mg/dL (7-25) 12/15/16 05:55 Creatinine 0.8 mg/dL (0.7-1.3) 12/15/16 05:55 Est GFR ( Amer) TNP 12/15/16 05:55 Est GFR (Non-Af Amer) TNP 12/15/16 05:55 BUN/Creatinine Ratio 15.0 12/15/16 05:55 Glucose 111 mg/dL (70-105) H 12/15/16 05:55 POC Glucose 126 MG/DL (70 - 105) H 12/15/16 06:19 Whole Bld Lactic Acid 1.15 mmol/L (0.60-1.99) 12/11/16 21:23 Calcium 8.5 mg/dL (8.6-10.3) L 12/15/16 05:55 Phosphorus 1.8 mg/dL (2.5-5.0) L 12/14/16 05:35 Magnesium 1.2 mg/dL (1.9-2.7) L 12/14/16 05:35 Total Bilirubin 0.6 mg/dL (0.3-1.0) 12/14/16 05:35 Direct Bilirubin 0.25 mg/dL (0.0-0.2) H 12/13/16 05:40 AST 7 U/L (13-39) L 12/14/16 05:35 ALT 4 U/L (7-52) L 12/14/16 05:35 Alkaline Phosphatase 42 U/L (34-104) 12/14/16 05:35 B-Natriuretic Peptide 601.0 pg/mL (5.0-100.0) H 12/15/16 05:55 Total Protein 3.6 gm/dL (6.0-8.3) L 12/14/16 05:35 Albumin 2.0 gm/dL (4.2-5.5) L 12/14/16 05:35 Globulin 1.6 gm/dL 12/14/16 05:35 Albumin/Globulin Ratio 1.3 (1.0-1.8) 12/14/16 05:35 Triglycerides 96 mg/dL (<150) 12/12/16 06:00 Cholesterol 122 mg/dL (<200) 12/12/16 06:00 LDL Cholesterol Direct 68 mg/dL (75-193) L 12/12/16 06:00 HDL Cholesterol 32 mg/dL (23-92) 12/12/16 06:00 Amylase 10 U/L (29-103) L 12/11/16 21:23 Lipase < 3 U/L (11-82) L 12/13/16 05:40 TSH 3.16 uIU/ml (0.34-5.60) 12/12/16 06:00 Urine Source CLEAN C 12/11/16 22:30 Urine Color ORANGE 12/11/16 22:30 Urine Clarity HAZY (CLEAR) 12/11/16 22:30 Urine pH 6.0 (4.6 - 8.0) 12/11/16 22:30 Ur Specific [place] 1.020 (1.005-1.030) 12/11/16 22:30 Urine Protein TRACE mg/dL (NEGATIVE) 12/11/16 22:30 Urine Glucose (UA) NEGATIVE mg/dL (NEGATIVE) 12/11/16 22:30 Urine Ketones TRACE mg/dL (NEGATIVE) 12/11/16 22:30 Urine Blood TRACE (NEGATIVE) 12/11/16 22:30 Urine Nitrate NEGATIVE (NEGATIVE) 12/11/16 22:30 Urine Bilirubin NEGATIVE (NEGATIVE) 12/11/16 22:30 Urine Urobilinogen 0.2 E.U./dL (0.2 - 1.0) 12/11/16 22:30 Ur Leukocyte Esterase TRACE (NEGATIVE) H 12/11/16 22:30 Urine RBC 2-5 /hpf (0-5) H 12/11/16 22:30 Urine WBC 2-5 /hpf (0-5) H 12/11/16 22:30 Ur Epithelial Cells NONE SEEN /lpf (FEW) 12/11/16 22:30 Calcium Oxalate Crystal FEW /hpf 12/11/16 22:30 Urine Bacteria OCCASIONAL /hpf (NONE SEEN) 12/11/16 22:30 Stool Occult Blood POSITIVE (NEGATIVE) 12/11/16 22:15 Vancomycin Trough 18.9 ug/mL (10-20) 12/14/16 15:55 - Physical Exam Vitals and I&O: Vital Signs Temp 97.7 F 12/15/16 07:43 Pulse 91 12/15/16 07:43 Resp 17 12/15/16 07:43 BP 116/78 12/15/16 07:43 Pulse Ox 99 12/15/16 07:43 Intake & Output 12/14/16 12/15/16 12/15/16 18:59 06:59 18:59 Intake Total 100 600 Balance 100 600 Weight (lbs) 88.451 kg 87.09 kg 87.09 kg Intake: Intake, IV Amount 100 100 metroNIDAZOLE 500mg/NS 100 100 100mL 500 mg In 100 ml @ 100 mls/hr IV Q8HR [facility] Rx #:[id number] Oral 500 Other: # Voids 4 # Bowel Movements 4 Stool Characteristics Liquid Active Medications: Current Medications Acetaminophen (Tylenol) 650 mg PO Q4H PRN PRN Reason: Pain or Fever >101 Stop: 02/10/17 08:14 Last Admin: 12/12/16 14:18 Dose: 650 mg Albuterol Sulfate (Albuterol 2.5mg/3ml Neb Ud) 2.5 mg HHN QIDRT [facility] Stop: 02/10/17 14:59 Last Admin: 12/15/16 06:59 Dose: 2.5 mg Albuterol/Ipratropium (Duoneb Neb) 3 ml HHN Q4HRT PRN PRN Reason: Shortness of Breath Stop: 02/10/17 08:14 Ascorbic Acid (Vitamin C) 500 mg PO DAILY [facility] Stop: 02/10/17 08:59 Last Admin: 12/14/16 11:04 Dose: 500 mg Bismuth Subsalicylate (Pepto-Bismol) 30 ml PO Q6H PRN PRN Reason: GI DISTRESS Stop: 02/10/17 08:14 Clonidine HCl ([id number]-Gzr-5) 1 patch TD Mo [facility] Stop: 02/10/17 09:59 Last Admin: 12/12/16 09:58 Dose: 1 patch Diltiazem HCl (Cardizem) 30 mg PO Q6HR [facility] Stop: 02/10/17 11:59 Last Admin: 12/15/16 06:14 Dose: 30 mg Docusate Sodium (Colace) 100 mg PO BID [facility] Stop: 02/10/17 08:59 Last Admin: 12/14/16 17:01 Dose: 100 mg Ferrous Sulfate (Iron) 325 mg PO DAILY [facility] Stop: 02/10/17 08:59 Last Admin: 12/14/16 11:03 Dose: 325 mg Heparin Sodium (Porcine) (Heparin) 5,000 units SUBQ Q12HR [facility] Stop: 02/10/17 20:59 Last Admin: 12/14/16 21:21 Dose: 5,000 units Metronidazole (Flagyl) 500 mg in 100 mls @ 100 mls/hr IV Q8HR [facility] Stop: 02/10/17 07:59 Last Admin: 12/15/16 06:13 Dose: 100 mls/hr Sodium Chloride (Nacl 0.9%) 1,000 mls @ 60 mls/hr IV .[id number] [facility] Stop: 02/10/17 01:15 Vancomycin HCl 1.5 gm/ Sodium (Chloride) 500 mls @ 250 mls/hr IV Q12H [facility] Stop: 02/13/17 08:59 Insulin Aspart (Novolog Insulin Sliding Scale) 0 units SUBQ ACHS [facility] PRN Reason: Protocol Stop: 02/10/17 16:29 Last Admin: 12/15/16 06:30 Dose: Not Given Ipratropium [place] (Atrovent Neb 0.5mg/2.5ml) 0.5 mg HHN QIDRT [facility] Stop: 02/10/17 14:59 Last Admin: 12/15/16 06:59 Dose: 0.5 mg Lactobacillus Rhamnosus (Culturelle) 1 each PO DAILY [facility] Stop: 02/11/17 16:59 Last Admin: 12/14/16 11:03 Dose: 1 each Levofloxacin (Levaquin) 250 mg PO DAILY [facility] Stop: 02/10/17 08:59 Last Admin: 12/14/16 11:03 Dose: 250 mg Miscellaneous (Vte Chemical Prophylaxis Screen/ Admission) 1 ea PRN PRN PRN Reason: PROTOCOL Stop: 02/10/17 16:11 Miscellaneous (Vancomycin Iv Per Pharmacy) 1 ea PRN [facility] Stop: 02/11/17 12:44 Miscellaneous (Probiotic Screen) 1 ea PRN PRN PRN Reason: PROTOCOL Stop: 02/11/17 15:56 Miscellaneous (Misc Oral Cap) 3 cap PO BID [facility] Stop: 02/12/17 16:59 Morphine Sulfate (Morphine) 1 mg IVP Q6H PRN PRN Reason: Abdominal Pain Stop: 02/10/17 14:55 Last Admin: 12/15/16 04:16 Dose: 1 mg Mupirocin (Bactroban Oint) 1 appl TP BID [facility] Stop: 12/21/16 08:59 Last Admin: 12/14/16 17:01 Dose: 1 appl Potassium Chloride (Klor-Con) 40 meq PO DAILY [facility] Stop: 02/11/17 18:14 Last Admin: 12/14/16 11:04 Dose: 40 meq Prednisone (Deltasone) 10 mg PO BID [facility] Stop: 02/11/17 18:14 Last Admin: 12/14/16 17:01 Dose: 10 mg Sodium Phosphate (Fleet Enema) 135 ml RC DAILY PRN PRN Reason: Constipation Stop: 02/10/17 08:14 Tacrolimus (Prograf) 1 mg PO BID [facility] Stop: 02/11/17 18:14 Last Admin: 12/14/16 15:59 Dose: 1 mg Vancomycin HCl (Vancomycin Oral) 250 mg PO QID [facility] Stop: 02/13/17 09:59 General: no acute distress, well developed, well nourished HEENT: atraumatic, normocephalic, PERRLA, EOMI, moist mucous membrane Neck: supple, no thyromegaly Cardiovascular: S1S2, regular Lungs: clear to auscultation bilaterally, clear to percussion Abdomen: soft, no tender, no distended, no hepatomegaly Extremities: no cyanosis, no clubbing, no edema Neurological: awake, alert, oriented Skin: intact Infectious Disease Assmt/Plan - Problem List Patient Problems: All Active Problems Cholelithiasis (Acute) Diverticulitis (Acute) - Assessment Assessment: 1. Leukocytosis. 2. CDAC. 3. Diverticulitis. 4. Cystitis with h/o renal transplant. 5. Cholelithiasis. 6. Bilateral pneumonia with parapneumonic effusion. 7. H/o renal transplant from unrelated donor. - Plan Plan: Conitnue vanco po, IV, levaquin and flagyl. Nutritional Asmnt/Malnutr-PDOC - Dietary Evaluation Malnutrition Findings (Please click <Entered> for more info): Nutritional Asmnt/Malnutrition Start: 12/14/16 18: 11 Text: Status: Complete Freq: Document 12/14/16 18:11 GSLUISA (Rec: 12/14/16 18:52 GSLUSIA [id number]) Nutritional Asmnt/Malnutrition Patient General Information Nutritional Screening Consult Diagnosis Basilar PNA, acute cholelithiasis, HTN, DM, GERD, hx c diff, chornic renal Pertinent Medical Hx/Surgical Hx ESRD s/p right kidney transplant, peptic ulcer disease, anemia of chronic kidney disease, sacral pressure ulcer stage 2, GERD, essential HTN, hx c diff Subjective Information 76 [address] consult for diarrhea. Pt was NPO for HIDA and CT, ordered [id number] this lunch, observed lunch tray at bedside. Pt had 75% breakfast yesterday 12/13. Pt having diarrhea during visit, pt stated no hx of chronic diarrhea, new onset diarrhea for 1 wk. Observed red sign at door, spoke to PARVIN Bui, RN confirmed positive for c-diff. Professor Of [employer] informed FNS to use all disposables. Pt confirmed hx kidney transplant "last August." Pt reported usually fair appetite. No muscle/fat wasting noted. Pt does not wish to talk about diets at this time. Pt stated UBW ~ 200lb, denied recent changes, CBW 198lb via bedscale during visit. Current Diet Order/ Nutrition Support [id number] Pertinent Medications Vitamin C, Pepto-Bismol, Colace, Iron, Novolog, Culturelle, Flagyl, Vancomycin , Morphine, Klor-Con, Potassium Phosphate, Fleet Enema Pertinent Labs 12/14: potassium 3.2L, calcium 8.5L, phosphorus 1.8L Nutritional Hx/Data Height 1.88 m Height (Calculated Centimeters) 188.0 Current Weight (lbs) 88.451 kg Weight (Calculated Kilograms) 88.5 Weight (Calculated Grams) 56106.5 [place] Body Weight 190 Weight Status Approriate GI Symptoms GI Symptoms Diarrhea Food Allergies No Skin Integrity/Comment: Earle 16. Edema 2+. Redness. Estimated Nutritional Goals BEE in Kcals: Using Current wt Calories/Kcals/Kg CBW 195lb/88.6kg Kcals Calculated 2658kcal (30kcal/kg) Protein: Using Current wt Protein Calculated 106-124g (1.2-1.4g/kg) Fluid: ml 2658ml (1ml/kcal) Nutritional Problem 1. Problem Problem Inadequate carbohdyrate intake related to Etiology estimated nutritinoal eneds, hypermetabolic state aeb Signs/Symptoms: PNA, current diet providing < 40% CHO of total kcal Intervention/Recommendation Comments 1. Recommend [id number] with double portion vegetable and protin to promote glycemic control while meeting nutritinoal eneds. Current diet order provides to meet < 40% CHO of total kcal, inadequate. 2. Pt is on contact precaution , observed red sign at door. Spoke to PARVIN Bui RN confirmed c-diff positive. Professor Of [employer] informed FNS to use all disposables. 3. Provide DM nutrition edu during follow up as able. Expected Outcomes/Goals Expected Outcomes/Goals 1. PO intake to meet at least 75% of estimated nutritinoal eneds.
--- NOTE | 2016-12-15 10:21 | General Progress Note ---
Subjective - Review of Systems Events since last encounter: no new change Objective - Results Result Diagrams: 12/15/16 05:55 12/15/16 05:55 Recent Labs: Laboratory Last Values WBC 12.7 Th/cmm (4.8-10.8) H 12/15/16 05:55 RBC 3.39 Mil/cmm (3.80-5.80) L 12/15/16 05:55 Hgb 10.1 gm/dL (12-16) L 12/15/16 05:55 Hct 30.6 % (41.0-60) L 12/15/16 05:55 MCV 90.2 fl (80-99) 12/15/16 05:55 MCH 29.8 pg (27.0-31.0) 12/15/16 05:55 MCHC Differential 33.0 pg (28.0-36.0) 12/15/16 05:55 RDW 15.6 % (11.5-20.0) 12/15/16 05:55 Plt Count 189 Th/cmm (150-400) 12/15/16 05:55 MPV 9.0 fl 12/15/16 05:55 Neutrophils % MAILMASTER 12/14/16 05:35 Band Neutrophils % 13 % (0-10) H 12/14/16 05:35 Lymphocytes % MAILMASTER 12/14/16 05:35 Basophils % MAILMASTER 12/14/16 05:35 Neutrophils (Manual) 76 % (40-80) 12/14/16 05:35 Lymphocytes 8 % (20-50) L 12/14/16 05:35 Monocytes 3 % (2-10) 12/14/16 05:35 Platelet Estimate ADEQUATE (NORMAL) 12/11/16 21:23 PT 11.0 SECONDS (9.5-11.5) 12/11/16 21:23 INR 1.06 (0.5-1.4) 12/11/16 21:23 PTT (Actin FS) 26.3 SECONDS (26.0-38.0) 12/11/16 21:23 Sodium 139 mEq/L (136-145) 12/15/16 05:55 Potassium 4.1 mEq/L (3.5-5.1) 12/15/16 05:55 Chloride 108 mEq/L (98-107) H 12/15/16 05:55 Carbon Dioxide 22.9 mEq/L (21.0-31.0) 12/15/16 05:55 Anion Gap 12.2 (7.0-16.0) 12/15/16 05:55 BUN 12 mg/dL (7-25) 12/15/16 05:55 Creatinine 0.8 mg/dL (0.7-1.3) 12/15/16 05:55 Est GFR ( Amer) TNP 12/15/16 05:55 Est GFR (Non-Af Amer) TNP 12/15/16 05:55 BUN/Creatinine Ratio 15.0 12/15/16 05:55 Glucose 111 mg/dL (70-105) H 12/15/16 05:55 POC Glucose 126 MG/DL (70 - 105) H 12/15/16 06:19 Whole Bld Lactic Acid 1.15 mmol/L (0.60-1.99) 12/11/16 21:23 Calcium 8.5 mg/dL (8.6-10.3) L 12/15/16 05:55 Phosphorus 1.8 mg/dL (2.5-5.0) L 12/14/16 05:35 Magnesium 1.2 mg/dL (1.9-2.7) L 12/14/16 05:35 Total Bilirubin 0.6 mg/dL (0.3-1.0) 12/14/16 05:35 Direct Bilirubin 0.25 mg/dL (0.0-0.2) H 12/13/16 05:40 AST 7 U/L (13-39) L 12/14/16 05:35 ALT 4 U/L (7-52) L 12/14/16 05:35 Alkaline Phosphatase 42 U/L (34-104) 12/14/16 05:35 B-Natriuretic Peptide 601.0 pg/mL (5.0-100.0) H 12/15/16 05:55 Total Protein 3.6 gm/dL (6.0-8.3) L 12/14/16 05:35 Albumin 2.0 gm/dL (4.2-5.5) L 12/14/16 05:35 Globulin 1.6 gm/dL 12/14/16 05:35 Albumin/Globulin Ratio 1.3 (1.0-1.8) 12/14/16 05:35 Triglycerides 96 mg/dL (<150) 12/12/16 06:00 Cholesterol 122 mg/dL (<200) 12/12/16 06:00 LDL Cholesterol Direct 68 mg/dL (75-193) L 12/12/16 06:00 HDL Cholesterol 32 mg/dL (23-92) 12/12/16 06:00 Amylase 10 U/L (29-103) L 12/11/16 21:23 Lipase < 3 U/L (11-82) L 12/13/16 05:40 TSH 3.16 uIU/ml (0.34-5.60) 12/12/16 06:00 Urine Source CLEAN C 12/11/16 22:30 Urine Color ORANGE 12/11/16 22:30 Urine Clarity HAZY (CLEAR) 12/11/16 22:30 Urine pH 6.0 (4.6 - 8.0) 12/11/16 22:30 Ur Specific [place] 1.020 (1.005-1.030) 12/11/16 22:30 Urine Protein TRACE mg/dL (NEGATIVE) 12/11/16 22:30 Urine Glucose (UA) NEGATIVE mg/dL (NEGATIVE) 12/11/16 22:30 Urine Ketones TRACE mg/dL (NEGATIVE) 12/11/16 22:30 Urine Blood TRACE (NEGATIVE) 12/11/16 22:30 Urine Nitrate NEGATIVE (NEGATIVE) 12/11/16 22:30 Urine Bilirubin NEGATIVE (NEGATIVE) 12/11/16 22:30 Urine Urobilinogen 0.2 E.U./dL (0.2 - 1.0) 12/11/16 22:30 Ur Leukocyte Esterase TRACE (NEGATIVE) H 12/11/16 22:30 Urine RBC 2-5 /hpf (0-5) H 12/11/16 22:30 Urine WBC 2-5 /hpf (0-5) H 12/11/16 22:30 Ur Epithelial Cells NONE SEEN /lpf (FEW) 12/11/16 22:30 Calcium Oxalate Crystal FEW /hpf 12/11/16 22:30 Urine Bacteria OCCASIONAL /hpf (NONE SEEN) 12/11/16 22:30 Stool Occult Blood POSITIVE (NEGATIVE) 12/11/16 22:15 Vancomycin Trough 18.9 ug/mL (10-20) 12/14/16 15:55 - Physical Exam Vitals and I&O: Vital Signs Temp 97.7 F 12/15/16 07:43 Pulse 91 12/15/16 07:43 Resp 17 12/15/16 07:43 BP 116/78 12/15/16 07:43 Pulse Ox 99 12/15/16 07:43 Intake & Output 12/14/16 12/15/16 12/15/16 18:59 06:59 18:59 Intake Total 100 600 Balance 100 600 Weight (lbs) 88.451 kg 87.09 kg 87.09 kg Intake: Intake, IV Amount 100 100 metroNIDAZOLE 500mg/NS 100 100 100mL 500 mg In 100 ml @ 100 mls/hr IV Q8HR [facility] Rx #:[id number] Oral 500 Other: # Voids 4 # Bowel Movements 4 Stool Characteristics Liquid Active Medications: Current Medications Acetaminophen (Tylenol) 650 mg PO Q4H PRN PRN Reason: Pain or Fever >101 Stop: 02/10/17 08:14 Last Admin: 12/12/16 14:18 Dose: 650 mg Albuterol Sulfate (Albuterol 2.5mg/3ml Neb Ud) 2.5 mg HHN QIDRT [facility] Stop: 02/10/17 14:59 Last Admin: 12/15/16 06:59 Dose: 2.5 mg Albuterol/Ipratropium (Duoneb Neb) 3 ml HHN Q4HRT PRN PRN Reason: Shortness of Breath Stop: 02/10/17 08:14 Ascorbic Acid (Vitamin C) 500 mg PO DAILY [facility] Stop: 02/10/17 08:59 Last Admin: 12/14/16 11:04 Dose: 500 mg Bismuth Subsalicylate (Pepto-Bismol) 30 ml PO Q6H PRN PRN Reason: GI DISTRESS Stop: 02/10/17 08:14 Clonidine HCl ([id number]-[id number]-6) 1 patch TD Mo [facility] Stop: 02/10/17 09:59 Last Admin: 12/12/16 09:58 Dose: 1 patch Diltiazem HCl (Cardizem) 30 mg PO Q6HR [facility] Stop: 02/10/17 11:59 Last Admin: 12/15/16 06:14 Dose: 30 mg Docusate Sodium (Colace) 100 mg PO BID [facility] Stop: 02/10/17 08:59 Last Admin: 12/14/16 17:01 Dose: 100 mg Ferrous Sulfate (Iron) 325 mg PO DAILY [facility] Stop: 02/10/17 08:59 Last Admin: 12/14/16 11:03 Dose: 325 mg Heparin Sodium (Porcine) (Heparin) 5,000 units SUBQ Q12HR [facility] Stop: 02/10/17 20:59 Last Admin: 12/14/16 21:21 Dose: 5,000 units Metronidazole (Flagyl) 500 mg in 100 mls @ 100 mls/hr IV Q8HR [facility] Stop: 02/10/17 07:59 Last Admin: 12/15/16 06:13 Dose: 100 mls/hr Sodium Chloride (Nacl 0.9%) 1,000 mls @ 60 mls/hr IV .[id number] [facility] Stop: 02/10/17 01:15 Vancomycin HCl 1.5 gm/ Sodium (Chloride) 500 mls @ 250 mls/hr IV Q12H [facility] Stop: 02/13/17 08:59 Insulin Aspart (Novolog Insulin Sliding Scale) 0 units SUBQ ACHS [facility] PRN Reason: Protocol Stop: 02/10/17 16:29 Last Admin: 12/15/16 06:30 Dose: Not Given Ipratropium [place] (Atrovent Neb 0.5mg/2.5ml) 0.5 mg HHN QIDRT [facility] Stop: 02/10/17 14:59 Last Admin: 12/15/16 06:59 Dose: 0.5 mg Lactobacillus Rhamnosus (Culturelle) 1 each PO DAILY [facility] Stop: 02/11/17 16:59 Last Admin: 12/14/16 11:03 Dose: 1 each Levofloxacin (Levaquin) 250 mg PO DAILY [facility] Stop: 02/10/17 08:59 Last Admin: 12/14/16 11:03 Dose: 250 mg Miscellaneous (Vte Chemical Prophylaxis Screen/ Admission) 1 ea [facility] PRN PRN PRN Reason: PROTOCOL Stop: 02/10/17 16:11 Miscellaneous (Vancomycin Iv Per Pharmacy) 1 ea [facility] PRN [facility] Stop: 02/11/17 12:44 Miscellaneous (Probiotic Screen) 1 ea MC PRN PRN PRN Reason: PROTOCOL Stop: 02/11/17 15:56 Miscellaneous (Misc Oral Cap) 3 cap PO BID [facility] Stop: 02/12/17 16:59 Morphine Sulfate (Morphine) 1 mg IVP Q6H PRN PRN Reason: Abdominal Pain Stop: 02/10/17 14:55 Last Admin: 12/15/16 04:16 Dose: 1 mg Mupirocin (Bactroban Oint) 1 appl TP BID [facility] Stop: 12/21/16 08:59 Last Admin: 12/14/16 17:01 Dose: 1 appl Potassium Chloride (Klor-Con) 40 meq PO DAILY [facility] Stop: 02/11/17 18:14 Last Admin: 12/14/16 11:04 Dose: 40 meq Prednisone (Deltasone) 10 mg PO BID [facility] Stop: 02/11/17 18:14 Last Admin: 12/14/16 17:01 Dose: 10 mg Sodium Phosphate (Fleet Enema) 135 ml RC DAILY PRN PRN Reason: Constipation Stop: 02/10/17 08:14 Tacrolimus (Prograf) 1 mg PO BID [facility] Stop: 02/11/17 18:14 Last Admin: 12/14/16 15:59 Dose: 1 mg Vancomycin HCl (Vancomycin Oral) 250 mg PO QID [facility] Stop: 02/13/17 09:59 General: No acute distress HEENT: Atraumatic, EOMI Neck: Supple, +2 carotid pulse wo bruit Cardiovascular: Regular rate, Normal S1, Normal S2 Lungs: Clear to auscultation Abdomen: Bowel sounds Extremities: no Edema Neurological: Sensation intact Skin: no Rash Psych/Mental Status: Mood NL Assessment/Plan - Problem List Patient Problems: All Active Problems Cholelithiasis (Acute) Diverticulitis (Acute) - Plan Plan: cpm Nutritional Asmnt/Malnutr-PDOC - Dietary Evaluation Malnutrition Findings (Please click <Entered> for more info): Nutritional Asmnt/Malnutrition Start: 12/14/16 18: 11 Text: Status: Complete Freq: Document 12/14/16 18:11 GSUN (Rec: 12/14/16 18:52 [email or web address] [id number]) Nutritional Asmnt/Malnutrition Patient General Information Nutritional Screening Consult Diagnosis Basilar PNA, acute cholelithiasis, HTN, DM, GERD, hx c diff, chornic renal Pertinent Medical Hx/Surgical Hx ESRD s/p right kidney transplant, peptic ulcer disease, anemia of chronic kidney disease, sacral pressure ulcer stage 2, GERD, essential HTN, hx c diff Subjective Information 76 [address] consult for diarrhea. Pt was NPO for HIDA and CT, ordered [id number] this lunch, observed lunch tray at bedside. Pt had 75% breakfast yesterday 12/13. Pt having diarrhea during visit, pt stated no hx of chronic diarrhea, new onset diarrhea for 1 wk. Observed red sign at door, spoke to PARVIN Bui RN confirmed positive for c-diff. Computer Art Instructor informed FNS to use all disposables. Pt confirmed hx kidney transplant "last August." Pt reported usually fair appetite. No muscle/fat wasting noted. Pt does not wish to talk about diets at this time. Pt stated UBW ~ 200lb, denied recent changes, CBW 198lb via bedscale during visit. Current Diet Order/ Nutrition Support [id number] Pertinent Medications Vitamin C, Pepto-Bismol, Colace, Iron, Novolog, Culturelle, Flagyl, Vancomycin , Morphine, Klor-Con, Potassium Phosphate, Fleet Enema Pertinent Labs 12/14: potassium 3.2L, calcium 8.5L, phosphorus 1.8L Nutritional Hx/Data Height 1.88 m Height (Calculated Centimeters) 188.0 Current Weight (lbs) 88.451 kg Weight (Calculated Kilograms) 88.5 Weight (Calculated Grams) 77210.5 [place] Body Weight 190 Weight Status Approriate GI Symptoms GI Symptoms Diarrhea Food Allergies No Skin Integrity/Comment: Earle 16. Edema 2+. Redness. Estimated Nutritional Goals BEE in Kcals: Using Current wt Calories/Kcals/Kg CBW 195lb/88.6kg Kcals Calculated 2658kcal (30kcal/kg) Protein: Using Current wt Protein Calculated 106-124g (1.2-1.4g/kg) Fluid: ml 2658ml (1ml/kcal) Nutritional Problem 1. Problem Problem Inadequate carbohdyrate intake related to Etiology estimated nutritinoal eneds, hypermetabolic state aeb Signs/Symptoms: PNA, current diet providing < 40% CHO of total kcal Intervention/Recommendation Comments 1. Recommend [id number] with double portion vegetable and protin to promote glycemic control while meeting nutritinoal eneds. Current diet order provides to meet < 40% CHO of total kcal, inadequate. 2. Pt is on contact precaution , observed red sign at door. Spoke to RN PARVIN Bui confirmed c-diff positive. Computer Art Instructor informed [facility] to use all disposables. 3. Provide DM nutrition edu during follow up as able. Expected Outcomes/Goals Expected Outcomes/Goals 1. PO intake to meet at least 75% of estimated nutritinoal eneds.
--- NOTE | 2016-12-15 10:21 | General Progress Note ---
Subjective - Review of Systems Events since last encounter: no new change Objective - Results Result Diagrams: 12/15/16 05:55 12/15/16 05:55 Recent Labs: Laboratory Last Values WBC 12.7 Th/cmm (4.8-10.8) H 12/15/16 05:55 RBC 3.39 Mil/cmm (3.80-5.80) L 12/15/16 05:55 Hgb 10.1 gm/dL (12-16) L 12/15/16 05:55 Hct 30.6 % (41.0-60) L 12/15/16 05:55 MCV 90.2 fl (80-99) 12/15/16 05:55 MCH 29.8 pg (27.0-31.0) 12/15/16 05:55 MCHC Differential 33.0 pg (28.0-36.0) 12/15/16 05:55 RDW 15.6 % (11.5-20.0) 12/15/16 05:55 Plt Count 189 Th/cmm (150-400) 12/15/16 05:55 MPV 9.0 fl 12/15/16 05:55 Neutrophils % DEEP SEA DIVER 12/14/16 05:35 Band Neutrophils % 13 % (0-10) H 12/14/16 05:35 Lymphocytes % DEEP SEA DIVER 12/14/16 05:35 Basophils % DEEP SEA DIVER 12/14/16 05:35 Neutrophils (Manual) 76 % (40-80) 12/14/16 05:35 Lymphocytes 8 % (20-50) L 12/14/16 05:35 Monocytes 3 % (2-10) 12/14/16 05:35 Platelet Estimate ADEQUATE (NORMAL) 12/11/16 21:23 PT 11.0 SECONDS (9.5-11.5) 12/11/16 21:23 INR 1.06 (0.5-1.4) 12/11/16 21:23 PTT (Actin FS) 26.3 SECONDS (26.0-38.0) 12/11/16 21:23 Sodium 139 mEq/L (136-145) 12/15/16 05:55 Potassium 4.1 mEq/L (3.5-5.1) 12/15/16 05:55 Chloride 108 mEq/L (98-107) H 12/15/16 05:55 Carbon Dioxide 22.9 mEq/L (21.0-31.0) 12/15/16 05:55 Anion Gap 12.2 (7.0-16.0) 12/15/16 05:55 BUN 12 mg/dL (7-25) 12/15/16 05:55 Creatinine 0.8 mg/dL (0.7-1.3) 12/15/16 05:55 Est GFR ( Amer) TNP 12/15/16 05:55 Est GFR (Non-Af Amer) TNP 12/15/16 05:55 BUN/Creatinine Ratio 15.0 12/15/16 05:55 Glucose 111 mg/dL (70-105) H 12/15/16 05:55 POC Glucose 126 MG/DL (70 - 105) H 12/15/16 06:19 Whole Bld Lactic Acid 1.15 mmol/L (0.60-1.99) 12/11/16 21:23 Calcium 8.5 mg/dL (8.6-10.3) L 12/15/16 05:55 Phosphorus 1.8 mg/dL (2.5-5.0) L 12/14/16 05:35 Magnesium 1.2 mg/dL (1.9-2.7) L 12/14/16 05:35 Total Bilirubin 0.6 mg/dL (0.3-1.0) 12/14/16 05:35 Direct Bilirubin 0.25 mg/dL (0.0-0.2) H 12/13/16 05:40 AST 7 U/L (13-39) L 12/14/16 05:35 ALT 4 U/L (7-52) L 12/14/16 05:35 Alkaline Phosphatase 42 U/L (34-104) 12/14/16 05:35 B-Natriuretic Peptide 601.0 pg/mL (5.0-100.0) H 12/15/16 05:55 Total Protein 3.6 gm/dL (6.0-8.3) L 12/14/16 05:35 Albumin 2.0 gm/dL (4.2-5.5) L 12/14/16 05:35 Globulin 1.6 gm/dL 12/14/16 05:35 Albumin/Globulin Ratio 1.3 (1.0-1.8) 12/14/16 05:35 Triglycerides 96 mg/dL (<150) 12/12/16 06:00 Cholesterol 122 mg/dL (<200) 12/12/16 06:00 LDL Cholesterol Direct 68 mg/dL (75-193) L 12/12/16 06:00 HDL Cholesterol 32 mg/dL (23-92) 12/12/16 06:00 Amylase 10 U/L (29-103) L 12/11/16 21:23 Lipase < 3 U/L (11-82) L 12/13/16 05:40 TSH 3.16 uIU/ml (0.34-5.60) 12/12/16 06:00 Urine Source CLEAN C 12/11/16 22:30 Urine Color ORANGE 12/11/16 22:30 Urine Clarity HAZY (CLEAR) 12/11/16 22:30 Urine pH 6.0 (4.6 - 8.0) 12/11/16 22:30 Ur Specific [place] 1.020 (1.005-1.030) 12/11/16 22:30 Urine Protein TRACE mg/dL (NEGATIVE) 12/11/16 22:30 Urine Glucose (UA) NEGATIVE mg/dL (NEGATIVE) 12/11/16 22:30 Urine Ketones TRACE mg/dL (NEGATIVE) 12/11/16 22:30 Urine Blood TRACE (NEGATIVE) 12/11/16 22:30 Urine Nitrate NEGATIVE (NEGATIVE) 12/11/16 22:30 Urine Bilirubin NEGATIVE (NEGATIVE) 12/11/16 22:30 Urine Urobilinogen 0.2 E.U./dL (0.2 - 1.0) 12/11/16 22:30 Ur Leukocyte Esterase TRACE (NEGATIVE) H 12/11/16 22:30 Urine RBC 2-5 /hpf (0-5) H 12/11/16 22:30 Urine WBC 2-5 /hpf (0-5) H 12/11/16 22:30 Ur Epithelial Cells NONE SEEN /lpf (FEW) 12/11/16 22:30 Calcium Oxalate Crystal FEW /hpf 12/11/16 22:30 Urine Bacteria OCCASIONAL /hpf (NONE SEEN) 12/11/16 22:30 Stool Occult Blood POSITIVE (NEGATIVE) 12/11/16 22:15 Vancomycin Trough 18.9 ug/mL (10-20) 12/14/16 15:55 - Physical Exam Vitals and I&O: Vital Signs Temp 97.7 F 12/15/16 07:43 Pulse 91 12/15/16 07:43 Resp 17 12/15/16 07:43 BP 116/78 12/15/16 07:43 Pulse Ox 99 12/15/16 07:43 Intake & Output 12/14/16 12/15/16 12/15/16 18:59 06:59 18:59 Intake Total 100 600 Balance 100 600 Weight (lbs) 88.451 kg 87.09 kg 87.09 kg Intake: Intake, IV Amount 100 100 metroNIDAZOLE 500mg/NS 100 100 100mL 500 mg In 100 ml @ 100 mls/hr IV Q8HR [facility] Rx #:[id number] Oral 500 Other: # Voids 4 # Bowel Movements 4 Stool Characteristics Liquid Active Medications: Current Medications Acetaminophen (Tylenol) 650 mg PO Q4H PRN PRN Reason: Pain or Fever >101 Stop: 02/10/17 08:14 Last Admin: 12/12/16 14:18 Dose: 650 mg Albuterol Sulfate (Albuterol 2.5mg/3ml Neb Ud) 2.5 mg HHN QIDRT [facility] Stop: 02/10/17 14:59 Last Admin: 12/15/16 06:59 Dose: 2.5 mg Albuterol/Ipratropium (Duoneb Neb) 3 ml HHN Q4HRT PRN PRN Reason: Shortness of Breath Stop: 02/10/17 08:14 Ascorbic Acid (Vitamin C) 500 mg PO DAILY [facility] Stop: 02/10/17 08:59 Last Admin: 12/14/16 11:04 Dose: 500 mg Bismuth Subsalicylate (Pepto-Bismol) 30 ml PO Q6H PRN PRN Reason: GI DISTRESS Stop: 02/10/17 08:14 Clonidine HCl ([id number]-[id number]-8) 1 patch TD Mo [facility] [place] Stop: 02/10/17 09:59 Last Admin: 12/12/16 09:58 Dose: 1 patch Diltiazem HCl (Cardizem) 30 mg PO Q6HR [facility] Stop: 02/10/17 11:59 Last Admin: 12/15/16 06:14 Dose: 30 mg Docusate Sodium (Colace) 100 mg PO BID [facility] Stop: 02/10/17 08:59 Last Admin: 12/14/16 17:01 Dose: 100 mg Ferrous Sulfate (Iron) 325 mg PO DAILY [facility] Stop: 02/10/17 08:59 Last Admin: 12/14/16 11:03 Dose: 325 mg Heparin Sodium (Porcine) (Heparin) 5,000 units SUBQ Q12HR [facility] Stop: 02/10/17 20:59 Last Admin: 12/14/16 21:21 Dose: 5,000 units Metronidazole (Flagyl) 500 mg in 100 mls @ 100 mls/hr IV Q8HR [facility] Stop: 02/10/17 07:59 Last Admin: 12/15/16 06:13 Dose: 100 mls/hr Sodium Chloride (Nacl 0.9%) 1,000 mls @ 60 mls/hr IV .[id number] [facility] [place] Stop: 02/10/17 01:15 Vancomycin HCl 1.5 gm/ Sodium (Chloride) 500 mls @ 250 mls/hr IV Q12H [facility] Stop: 02/13/17 08:59 Insulin Aspart (Novolog Insulin Sliding Scale) 0 units SUBQ ACHS [facility] PRN Reason: Protocol Stop: 02/10/17 16:29 Last Admin: 12/15/16 06:30 Dose: Not Given Ipratropium [place] (Atrovent Neb 0.5mg/2.5ml) 0.5 mg HHN QIDRT [facility] Stop: 02/10/17 14:59 Last Admin: 12/15/16 06:59 Dose: 0.5 mg Lactobacillus Rhamnosus (Culturelle) 1 each PO DAILY [facility] Stop: 02/11/17 16:59 Last Admin: 12/14/16 11:03 Dose: 1 each Levofloxacin (Levaquin) 250 mg PO DAILY [facility] Stop: 02/10/17 08:59 Last Admin: 12/14/16 11:03 Dose: 250 mg Miscellaneous (Vte Chemical Prophylaxis Screen/ Admission) 1 ea MC PRN PRN PRN Reason: PROTOCOL Stop: 02/10/17 16:11 Miscellaneous (Vancomycin Iv Per Pharmacy) 1 ea MC PRN [facility] Stop: 02/11/17 12:44 Miscellaneous (Probiotic Screen) 1 ea MC PRN PRN PRN Reason: PROTOCOL Stop: 02/11/17 15:56 Miscellaneous (Misc Oral Cap) 3 cap PO BID [facility] Stop: 02/12/17 16:59 Morphine Sulfate (Morphine) 1 mg IVP Q6H PRN PRN Reason: Abdominal Pain Stop: 02/10/17 14:55 Last Admin: 12/15/16 04:16 Dose: 1 mg Mupirocin (Bactroban Oint) 1 appl TP BID [facility] Stop: 12/21/16 08:59 Last Admin: 12/14/16 17:01 Dose: 1 appl Potassium Chloride (Klor-Con) 40 meq PO DAILY [facility] Stop: 02/11/17 18:14 Last Admin: 12/14/16 11:04 Dose: 40 meq Prednisone (Deltasone) 10 mg PO BID [facility] Stop: 02/11/17 18:14 Last Admin: 12/14/16 17:01 Dose: 10 mg Sodium Phosphate (Fleet Enema) 135 ml RC DAILY PRN PRN Reason: Constipation Stop: 02/10/17 08:14 Tacrolimus (Prograf) 1 mg PO BID [facility] [place] Stop: 02/11/17 18:14 Last Admin: 12/14/16 15:59 Dose: 1 mg Vancomycin HCl (Vancomycin Oral) 250 mg PO QID [facility] [place] Stop: 02/13/17 09:59 General: No acute distress HEENT: Atraumatic, EOMI Neck: Supple, +2 carotid pulse wo bruit Cardiovascular: Regular rate, Normal S1, Normal S2 Lungs: Clear to auscultation Abdomen: Bowel sounds Extremities: no Edema Neurological: Sensation intact Skin: no Rash Psych/Mental Status: Mood NL Assessment/Plan - Problem List Patient Problems: All Active Problems Cholelithiasis (Acute) Diverticulitis (Acute) - Plan Plan: cpm Nutritional Asmnt/Malnutr-PDOC - Dietary Evaluation Malnutrition Findings (Please click <Entered> for more info): Nutritional Asmnt/Malnutrition Start: 12/14/16 18: 11 Text: Status: Complete Freq: Document 12/14/16 18:11 GSUN (Rec: 12/14/16 18:52 GSLUISA [id number]) Nutritional Asmnt/Malnutrition Patient General Information Nutritional Screening Consult Diagnosis Basilar PNA, acute cholelithiasis, HTN, DM, GERD, hx c diff, chornic renal Pertinent Medical Hx/Surgical Hx ESRD s/p right kidney transplant, peptic ulcer disease, anemia of chronic kidney disease, sacral pressure ulcer stage 2, GERD, essential HTN, hx c diff Subjective Information 76 [address] consult for diarrhea. Pt was NPO for HIDA and CT, ordered [id number] this lunch, observed lunch tray at bedside. Pt had 75% breakfast yesterday 12/13. Pt having diarrhea during visit, pt stated no hx of chronic diarrhea, new onset diarrhea for 1 wk. Observed red sign at door, spoke to PARVIN Bui RN confirmed positive for c-diff. Diffuser Operator informed FNS to use all disposables. Pt confirmed hx kidney transplant "last August." Pt reported usually fair appetite. No muscle/fat wasting noted. Pt does not wish to talk about diets at this time. Pt stated UBW ~ 200lb, denied recent changes, CBW 198lb via bedscale during visit. Current Diet Order/ Nutrition Support [id number] Pertinent Medications Vitamin C, Pepto-Bismol, Colace, Iron, Novolog, Culturelle, Flagyl, Vancomycin , Morphine, Klor-Con, Potassium Phosphate, Fleet Enema Pertinent Labs 12/14: potassium 3.2L, calcium 8.5L, phosphorus 1.8L Nutritional Hx/Data Height 1.88 m Height (Calculated Centimeters) 188.0 Current Weight (lbs) 88.451 kg Weight (Calculated Kilograms) 88.5 Weight (Calculated Grams) 29133.5 [place] Body Weight 190 Weight Status Approriate GI Symptoms GI Symptoms Diarrhea Food Allergies No Skin Integrity/Comment: Earle 16. Edema 2+. Redness. Estimated Nutritional Goals BEE in Kcals: Using Current wt Calories/Kcals/Kg CBW 195lb/88.6kg Kcals Calculated 2658kcal (30kcal/kg) Protein: Using Current wt Protein Calculated 106-124g (1.2-1.4g/kg) Fluid: ml 2658ml (1ml/kcal) Nutritional Problem 1. Problem Problem Inadequate carbohdyrate intake related to Etiology estimated nutritinoal eneds, hypermetabolic state aeb Signs/Symptoms: PNA, current diet providing < 40% CHO of total kcal Intervention/Recommendation Comments 1. Recommend [id number] with double portion vegetable and protin to promote glycemic control while meeting nutritinoal eneds. Current diet order provides to meet < 40% CHO of total kcal, inadequate. 2. Pt is on contact precaution , observed red sign at door. Spoke to RN PARVIN Bui confirmed c-diff positive. Diffuser Operator informed FNS to use all disposables. 3. Provide DM nutrition edu during follow up as able. Expected Outcomes/Goals Expected Outcomes/Goals 1. PO intake to meet at least 75% of estimated nutritinoal eneds.
--- NOTE | 2016-12-15 10:21 | General Progress Note ---
Subjective - Review of Systems Events since last encounter: no new change Objective - Results Result Diagrams: 12/15/16 05:55 12/15/16 05:55 Recent Labs: Laboratory Last Values WBC 12.7 Th/cmm (4.8-10.8) H 12/15/16 05:55 RBC 3.39 Mil/cmm (3.80-5.80) L 12/15/16 05:55 Hgb 10.1 gm/dL (12-16) L 12/15/16 05:55 Hct 30.6 % (41.0-60) L 12/15/16 05:55 MCV 90.2 fl (80-99) 12/15/16 05:55 MCH 29.8 pg (27.0-31.0) 12/15/16 05:55 MCHC Differential 33.0 pg (28.0-36.0) 12/15/16 05:55 RDW 15.6 % (11.5-20.0) 12/15/16 05:55 Plt Count 189 Th/cmm (150-400) 12/15/16 05:55 MPV 9.0 fl 12/15/16 05:55 Neutrophils % RUG FRAME MOUNTER 12/14/16 05:35 Band Neutrophils % 13 % (0-10) H 12/14/16 05:35 Lymphocytes % RUG FRAME MOUNTER 12/14/16 05:35 Basophils % RUG FRAME MOUNTER 12/14/16 05:35 Neutrophils (Manual) 76 % (40-80) 12/14/16 05:35 Lymphocytes 8 % (20-50) L 12/14/16 05:35 Monocytes 3 % (2-10) 12/14/16 05:35 Platelet Estimate ADEQUATE (NORMAL) 12/11/16 21:23 PT 11.0 SECONDS (9.5-11.5) 12/11/16 21:23 INR 1.06 (0.5-1.4) 12/11/16 21:23 PTT (Actin FS) 26.3 SECONDS (26.0-38.0) 12/11/16 21:23 Sodium 139 mEq/L (136-145) 12/15/16 05:55 Potassium 4.1 mEq/L (3.5-5.1) 12/15/16 05:55 Chloride 108 mEq/L (98-107) H 12/15/16 05:55 Carbon Dioxide 22.9 mEq/L (21.0-31.0) 12/15/16 05:55 Anion Gap 12.2 (7.0-16.0) 12/15/16 05:55 BUN 12 mg/dL (7-25) 12/15/16 05:55 Creatinine 0.8 mg/dL (0.7-1.3) 12/15/16 05:55 Est GFR ( Amer) TNP 12/15/16 05:55 Est GFR (Non-Af Amer) TNP 12/15/16 05:55 BUN/Creatinine Ratio 15.0 12/15/16 05:55 Glucose 111 mg/dL (70-105) H 12/15/16 05:55 POC Glucose 126 MG/DL (70 - 105) H 12/15/16 06:19 Whole Bld Lactic Acid 1.15 mmol/L (0.60-1.99) 12/11/16 21:23 Calcium 8.5 mg/dL (8.6-10.3) L 12/15/16 05:55 Phosphorus 1.8 mg/dL (2.5-5.0) L 12/14/16 05:35 Magnesium 1.2 mg/dL (1.9-2.7) L 12/14/16 05:35 Total Bilirubin 0.6 mg/dL (0.3-1.0) 12/14/16 05:35 Direct Bilirubin 0.25 mg/dL (0.0-0.2) H 12/13/16 05:40 AST 7 U/L (13-39) L 12/14/16 05:35 ALT 4 U/L (7-52) L 12/14/16 05:35 Alkaline Phosphatase 42 U/L (34-104) 12/14/16 05:35 B-Natriuretic Peptide 601.0 pg/mL (5.0-100.0) H 12/15/16 05:55 Total Protein 3.6 gm/dL (6.0-8.3) L 12/14/16 05:35 Albumin 2.0 gm/dL (4.2-5.5) L 12/14/16 05:35 Globulin 1.6 gm/dL 12/14/16 05:35 Albumin/Globulin Ratio 1.3 (1.0-1.8) 12/14/16 05:35 Triglycerides 96 mg/dL (<150) 12/12/16 06:00 Cholesterol 122 mg/dL (<200) 12/12/16 06:00 LDL Cholesterol Direct 68 mg/dL (75-193) L 12/12/16 06:00 HDL Cholesterol 32 mg/dL (23-92) 12/12/16 06:00 Amylase 10 U/L (29-103) L 12/11/16 21:23 Lipase < 3 U/L (11-82) L 12/13/16 05:40 TSH 3.16 uIU/ml (0.34-5.60) 12/12/16 06:00 Urine Source CLEAN C 12/11/16 22:30 Urine Color ORANGE 12/11/16 22:30 Urine Clarity HAZY (CLEAR) 12/11/16 22:30 Urine pH 6.0 (4.6 - 8.0) 12/11/16 22:30 Ur Specific [employer] 1.020 (1.005-1.030) 12/11/16 22:30 Urine Protein TRACE mg/dL (NEGATIVE) 12/11/16 22:30 Urine Glucose (UA) NEGATIVE mg/dL (NEGATIVE) 12/11/16 22:30 Urine Ketones TRACE mg/dL (NEGATIVE) 12/11/16 22:30 Urine Blood TRACE (NEGATIVE) 12/11/16 22:30 Urine Nitrate NEGATIVE (NEGATIVE) 12/11/16 22:30 Urine Bilirubin NEGATIVE (NEGATIVE) 12/11/16 22:30 Urine Urobilinogen 0.2 E.U./dL (0.2 - 1.0) 12/11/16 22:30 Ur Leukocyte Esterase TRACE (NEGATIVE) H 12/11/16 22:30 Urine RBC 2-5 /hpf (0-5) H 12/11/16 22:30 Urine WBC 2-5 /hpf (0-5) H 12/11/16 22:30 Ur Epithelial Cells NONE SEEN /lpf (FEW) 12/11/16 22:30 Calcium Oxalate Crystal FEW /hpf 12/11/16 22:30 Urine Bacteria OCCASIONAL /hpf (NONE SEEN) 12/11/16 22:30 Stool Occult Blood POSITIVE (NEGATIVE) 12/11/16 22:15 Vancomycin Trough 18.9 ug/mL (10-20) 12/14/16 15:55 - Physical Exam Vitals and I&O: Vital Signs Temp 97.7 F 12/15/16 07:43 Pulse 91 12/15/16 07:43 Resp 17 12/15/16 07:43 BP 116/78 12/15/16 07:43 Pulse Ox 99 12/15/16 07:43 Intake & Output 12/14/16 12/15/16 12/15/16 18:59 06:59 18:59 Intake Total 100 600 Balance 100 600 Weight (lbs) 88.451 kg 87.09 kg 87.09 kg Intake: Intake, IV Amount 100 100 metroNIDAZOLE 500mg/NS 100 100 100mL 500 mg In 100 ml @ 100 mls/hr IV Q8HR [facility] Rx #:[id number] Oral 500 Other: # Voids 4 # Bowel Movements 4 Stool Characteristics Liquid Active Medications: Current Medications Acetaminophen (Tylenol) 650 mg PO Q4H PRN PRN Reason: Pain or Fever >101 Stop: 02/10/17 08:14 Last Admin: 12/12/16 14:18 Dose: 650 mg Albuterol Sulfate (Albuterol 2.5mg/3ml Neb Ud) 2.5 mg HHN QIDRT [facility] Stop: 02/10/17 14:59 Last Admin: 12/15/16 06:59 Dose: 2.5 mg Albuterol/Ipratropium (Duoneb Neb) 3 ml HHN Q4HRT PRN PRN Reason: Shortness of Breath Stop: 02/10/17 08:14 Ascorbic Acid (Vitamin C) 500 mg PO DAILY [facility] Stop: 02/10/17 08:59 Last Admin: 12/14/16 11:04 Dose: 500 mg Bismuth Subsalicylate (Pepto-Bismol) 30 ml PO Q6H PRN PRN Reason: GI DISTRESS Stop: 02/10/17 08:14 Clonidine HCl (Gtqgyaar-Irq-5) 1 patch TD Mo [facility] Stop: 02/10/17 09:59 Last Admin: 12/12/16 09:58 Dose: 1 patch Diltiazem HCl (Cardizem) 30 mg PO Q6HR [facility] Stop: 02/10/17 11:59 Last Admin: 12/15/16 06:14 Dose: 30 mg Docusate Sodium (Colace) 100 mg PO BID [facility] Stop: 02/10/17 08:59 Last Admin: 12/14/16 17:01 Dose: 100 mg Ferrous Sulfate (Iron) 325 mg PO DAILY [facility] Stop: 02/10/17 08:59 Last Admin: 12/14/16 11:03 Dose: 325 mg Heparin Sodium (Porcine) (Heparin) 5,000 units SUBQ Q12HR [facility] Stop: 02/10/17 20:59 Last Admin: 12/14/16 21:21 Dose: 5,000 units Metronidazole (Flagyl) 500 mg in 100 mls @ 100 mls/hr IV Q8HR [facility] Stop: 02/10/17 07:59 Last Admin: 12/15/16 06:13 Dose: 100 mls/hr Sodium Chloride (Nacl 0.9%) 1,000 mls @ 60 mls/hr IV .[id number] [facility] Stop: 02/10/17 01:15 Vancomycin HCl 1.5 gm/ Sodium (Chloride) 500 mls @ 250 mls/hr IV Q12H [facility] Stop: 02/13/17 08:59 Insulin Aspart (Novolog Insulin Sliding Scale) 0 units SUBQ ACHS [facility] PRN Reason: Protocol Stop: 02/10/17 16:29 Last Admin: 12/15/16 06:30 Dose: Not Given Ipratropium [place] (Atrovent Neb 0.5mg/2.5ml) 0.5 mg HHN QIDRT [facility] Stop: 02/10/17 14:59 Last Admin: 12/15/16 06:59 Dose: 0.5 mg Lactobacillus Rhamnosus (Culturelle) 1 each PO DAILY [facility] Stop: 02/11/17 16:59 Last Admin: 12/14/16 11:03 Dose: 1 each Levofloxacin (Levaquin) 250 mg PO DAILY [facility] Stop: 02/10/17 08:59 Last Admin: 12/14/16 11:03 Dose: 250 mg Miscellaneous (Vte Chemical Prophylaxis Screen/ Admission) 1 ea MC PRN PRN PRN Reason: PROTOCOL Stop: 02/10/17 16:11 Miscellaneous (Vancomycin Iv Per Pharmacy) 1 ea MC PRN [facility] Stop: 02/11/17 12:44 Miscellaneous (Probiotic Screen) 1 ea MC PRN PRN PRN Reason: PROTOCOL Stop: 02/11/17 15:56 Miscellaneous (Misc Oral Cap) 3 cap PO BID [facility] Stop: 02/12/17 16:59 Morphine Sulfate (Morphine) 1 mg IVP Q6H PRN PRN Reason: Abdominal Pain Stop: 02/10/17 14:55 Last Admin: 12/15/16 04:16 Dose: 1 mg Mupirocin (Bactroban Oint) 1 appl TP BID [facility] Stop: 12/21/16 08:59 Last Admin: 12/14/16 17:01 Dose: 1 appl Potassium Chloride (Klor-Con) 40 meq PO DAILY [facility] Stop: 02/11/17 18:14 Last Admin: 12/14/16 11:04 Dose: 40 meq Prednisone (Deltasone) 10 mg PO BID [facility] Stop: 02/11/17 18:14 Last Admin: 12/14/16 17:01 Dose: 10 mg Sodium Phosphate (Fleet Enema) 135 ml RC DAILY PRN PRN Reason: Constipation Stop: 02/10/17 08:14 Tacrolimus (Prograf) 1 mg PO BID [facility] Stop: 02/11/17 18:14 Last Admin: 12/14/16 15:59 Dose: 1 mg Vancomycin HCl (Vancomycin Oral) 250 mg PO QID [facility] Stop: 02/13/17 09:59 General: No acute distress HEENT: Atraumatic, EOMI Neck: Supple, +2 carotid pulse wo bruit Cardiovascular: Regular rate, Normal S1, Normal S2 Lungs: Clear to auscultation Abdomen: Bowel sounds Extremities: no Edema Neurological: Sensation intact Skin: no Rash Psych/Mental Status: Mood NL Assessment/Plan - Problem List Patient Problems: All Active Problems Cholelithiasis (Acute) Diverticulitis (Acute) - Plan Plan: cpm Nutritional Asmnt/Malnutr-PDOC - Dietary Evaluation Malnutrition Findings (Please click <Entered> for more info): Nutritional Asmnt/Malnutrition Start: 12/14/16 18: 11 Text: Status: Complete Freq: Document 12/14/16 18:11 GSUN (Rec: 12/14/16 18:52 GSLUISA [id number]) Nutritional Asmnt/Malnutrition Patient General Information Nutritional Screening Consult Diagnosis Basilar PNA, acute cholelithiasis, HTN, DM, GERD, hx c diff, chornic renal Pertinent Medical Hx/Surgical Hx ESRD s/p right kidney transplant, peptic ulcer disease, anemia of chronic kidney disease, sacral pressure ulcer stage 2, GERD, essential HTN, hx c diff Subjective Information 76 [address] consult for diarrhea. Pt was NPO for HIDA and CT, ordered [id number] this lunch, observed lunch tray at bedside. Pt had 75% breakfast yesterday 12/13. Pt having diarrhea during visit, pt stated no hx of chronic diarrhea, new onset diarrhea for 1 wk. Observed red sign at door, spoke to PARVIN Bui RN confirmed positive for c-diff. Supply Aide informed FNS to use all disposables. Pt confirmed hx kidney transplant "last August." Pt reported usually fair appetite. No muscle/fat wasting noted. Pt does not wish to talk about diets at this time. Pt stated UBW ~ 200lb, denied recent changes, CBW 198lb via bedscale during visit. Current Diet Order/ Nutrition Support [id number] Pertinent Medications Vitamin C, Pepto-Bismol, Colace, Iron, Novolog, Culturelle, Flagyl, Vancomycin , Morphine, Klor-Con, Potassium Phosphate, Fleet Enema Pertinent Labs 12/14: potassium 3.2L, calcium 8.5L, phosphorus 1.8L Nutritional Hx/Data Height 1.88 m Height (Calculated Centimeters) 188.0 Current Weight (lbs) 88.451 kg Weight (Calculated Kilograms) 88.5 Weight (Calculated Grams) 94389.5 [place] Body Weight 190 Weight Status Approriate GI Symptoms GI Symptoms Diarrhea Food Allergies No Skin Integrity/Comment: Earle 16. Edema 2+. Redness. Estimated Nutritional Goals BEE in Kcals: Using Current wt Calories/Kcals/Kg CBW 195lb/88.6kg Kcals Calculated 2658kcal (30kcal/kg) Protein: Using Current wt Protein Calculated 106-124g (1.2-1.4g/kg) Fluid: ml 2658ml (1ml/kcal) Nutritional Problem 1. Problem Problem Inadequate carbohdyrate intake related to Etiology estimated nutritinoal eneds, hypermetabolic state aeb Signs/Symptoms: PNA, current diet providing < 40% CHO of total kcal Intervention/Recommendation Comments 1. Recommend [id number] with double portion vegetable and protin to promote glycemic control while meeting nutritinoal eneds. Current diet order provides to meet < 40% CHO of total kcal, inadequate. 2. Pt is on contact precaution , observed red sign at door. Spoke to RN PARVIN Bui confirmed c-diff positive. Supply Aide informed FNS to use all disposables. 3. Provide DM nutrition edu during follow up as able. Expected Outcomes/Goals Expected Outcomes/Goals 1. PO intake to meet at least 75% of estimated nutritinoal eneds.
--- NOTE | 2016-12-15 10:31 | Diagnostic Imaging Report ---
CHEST X-RAY: AP view INDICATION: Pleural effusions COMPARISON: 10/28/2016 FINDINGS: Bilateral effusions are seen including small the moderate left effusion and small right effusion. Cardiomegaly is noted. IMPRESSION: Small to moderate left and small right effusion. Pneumonia of the left lung base cannot be excluded. Cardiomegaly.
[2016-12-15] MEDS: Potassium Chloride 20 mEq ER Tab PO SCH (10:48)
[2016-12-15] MEDS: Lactobacillus Rhamnosus 10 Billion CFU Capsule PO SCH (10:48)
[2016-12-15] MEDS: Ferrous Sulfate 325 MG TAB PO SCH (10:48)
[2016-12-15] MEDS: Vancomycin HCl 1.5 GM in Sodium Chloride 0.9% 500 ML IV SCH ×2 (10:54→22:06)
[2016-12-15] MEDS: Vancomycin HCL 250 mg /10mL UDC PO SCH ×3 (13:57→20:59)
--- NOTE | 2016-12-15 14:50 | General Progress Note ---
Subjective - Review of Systems Service Date: 12/15/16 Subjective: less abdominal pain, arousable Objective - Results Result Diagrams: 12/15/16 05:55 12/15/16 05:55 Recent Labs: Laboratory Last Values WBC 12.7 Th/cmm (4.8-10.8) H 12/15/16 05:55 RBC 3.39 Mil/cmm (3.80-5.80) L 12/15/16 05:55 Hgb 10.1 gm/dL (12-16) L 12/15/16 05:55 Hct 30.6 % (41.0-60) L 12/15/16 05:55 MCV 90.2 fl (80-99) 12/15/16 05:55 MCH 29.8 pg (27.0-31.0) 12/15/16 05:55 MCHC Differential 33.0 pg (28.0-36.0) 12/15/16 05:55 RDW 15.6 % (11.5-20.0) 12/15/16 05:55 Plt Count 189 Th/cmm (150-400) 12/15/16 05:55 MPV 9.0 fl 12/15/16 05:55 Neutrophils % SAW BOSS 12/14/16 05:35 Band Neutrophils % 13 % (0-10) H 12/14/16 05:35 Lymphocytes % SAW BOSS 12/14/16 05:35 Basophils % SAW BOSS 12/14/16 05:35 Neutrophils (Manual) 76 % (40-80) 12/14/16 05:35 Lymphocytes 8 % (20-50) L 12/14/16 05:35 Monocytes 3 % (2-10) 12/14/16 05:35 Platelet Estimate ADEQUATE (NORMAL) 12/11/16 21:23 PT 11.0 SECONDS (9.5-11.5) 12/11/16 21:23 INR 1.06 (0.5-1.4) 12/11/16 21:23 PTT (Actin FS) 26.3 SECONDS (26.0-38.0) 12/11/16 21:23 Sodium 139 mEq/L (136-145) 12/15/16 05:55 Potassium 4.1 mEq/L (3.5-5.1) 12/15/16 05:55 Chloride 108 mEq/L (98-107) H 12/15/16 05:55 Carbon Dioxide 22.9 mEq/L (21.0-31.0) 12/15/16 05:55 Anion Gap 12.2 (7.0-16.0) 12/15/16 05:55 BUN 12 mg/dL (7-25) 12/15/16 05:55 Creatinine 0.8 mg/dL (0.7-1.3) 12/15/16 05:55 Est GFR ( Amer) TNP 12/15/16 05:55 Est GFR (Non-Af Amer) TNP 12/15/16 05:55 BUN/Creatinine Ratio 15.0 12/15/16 05:55 Glucose 111 mg/dL (70-105) H 12/15/16 05:55 POC Glucose 138 MG/DL (70 - 105) H 12/15/16 11:37 Whole Bld Lactic Acid 1.15 mmol/L (0.60-1.99) 12/11/16 21:23 Calcium 8.5 mg/dL (8.6-10.3) L 12/15/16 05:55 Phosphorus 1.8 mg/dL (2.5-5.0) L 12/14/16 05:35 Magnesium 1.2 mg/dL (1.9-2.7) L 12/14/16 05:35 Total Bilirubin 0.6 mg/dL (0.3-1.0) 12/14/16 05:35 Direct Bilirubin 0.25 mg/dL (0.0-0.2) H 12/13/16 05:40 AST 7 U/L (13-39) L 12/14/16 05:35 ALT 4 U/L (7-52) L 12/14/16 05:35 Alkaline Phosphatase 42 U/L (34-104) 12/14/16 05:35 B-Natriuretic Peptide 601.0 pg/mL (5.0-100.0) H 12/15/16 05:55 Total Protein 3.6 gm/dL (6.0-8.3) L 12/14/16 05:35 Albumin 2.0 gm/dL (4.2-5.5) L 12/14/16 05:35 Globulin 1.6 gm/dL 12/14/16 05:35 Albumin/Globulin Ratio 1.3 (1.0-1.8) 12/14/16 05:35 Triglycerides 96 mg/dL (<150) 12/12/16 06:00 Cholesterol 122 mg/dL (<200) 12/12/16 06:00 LDL Cholesterol Direct 68 mg/dL (75-193) L 12/12/16 06:00 HDL Cholesterol 32 mg/dL (23-92) 12/12/16 06:00 Amylase 10 U/L (29-103) L 12/11/16 21:23 Lipase < 3 U/L (11-82) L 12/13/16 05:40 TSH 3.16 uIU/ml (0.34-5.60) 12/12/16 06:00 Urine Source CLEAN C 12/11/16 22:30 Urine Color ORANGE 12/11/16 22:30 Urine Clarity HAZY (CLEAR) 12/11/16 22:30 Urine pH 6.0 (4.6 - 8.0) 12/11/16 22:30 Ur Specific Cutler 1.020 (1.005-1.030) 12/11/16 22:30 Urine Protein TRACE mg/dL (NEGATIVE) 12/11/16 22:30 Urine Glucose (UA) NEGATIVE mg/dL (NEGATIVE) 12/11/16 22:30 Urine Ketones TRACE mg/dL (NEGATIVE) 12/11/16 22:30 Urine Blood TRACE (NEGATIVE) 12/11/16 22:30 Urine Nitrate NEGATIVE (NEGATIVE) 12/11/16 22:30 Urine Bilirubin NEGATIVE (NEGATIVE) 12/11/16 22:30 Urine Urobilinogen 0.2 E.U./dL (0.2 - 1.0) 12/11/16 22:30 Ur Leukocyte Esterase TRACE (NEGATIVE) H 12/11/16 22:30 Urine RBC 2-5 /hpf (0-5) H 12/11/16 22:30 Urine WBC 2-5 /hpf (0-5) H 12/11/16 22:30 Ur Epithelial Cells NONE SEEN /lpf (FEW) 12/11/16 22:30 Calcium Oxalate Crystal FEW /hpf 12/11/16 22:30 Urine Bacteria OCCASIONAL /hpf (NONE SEEN) 12/11/16 22:30 Stool Occult Blood POSITIVE (NEGATIVE) 12/11/16 22:15 Vancomycin Trough 18.9 ug/mL (10-20) 12/14/16 15:55 - Physical Exam Vitals and I&O: Vital Signs Temp 98.2 F 12/15/16 11:48 Pulse 85 12/15/16 13:15 Resp 20 12/15/16 13:15 BP 111/51 12/15/16 11:48 Pulse Ox 97 12/15/16 13:15 Intake & Output 12/14/16 12/15/16 12/15/16 18:59 06:59 18:59 Intake Total 100 600 100 Balance 100 600 100 Weight (lbs) 88.451 kg 87.09 kg 87.09 kg Intake: Intake, IV Amount 100 100 100 metroNIDAZOLE 500mg/NS 100 100 100 100mL 500 mg In 100 ml @ 100 mls/hr IV Q8HR [facility] Rx #:[id number] Oral 500 Other: # Voids 4 # Bowel Movements 4 Stool Characteristics Liquid Active Medications: Current Medications Acetaminophen (Tylenol) 650 mg PO Q4H PRN PRN Reason: Pain or Fever >101 Stop: 02/10/17 08:14 Last Admin: 12/12/16 14:18 Dose: 650 mg Albuterol Sulfate (Albuterol 2.5mg/3ml Neb Ud) 2.5 mg HHN QIDRT [facility] Stop: 02/10/17 14:59 Last Admin: 12/15/16 13:15 Dose: 2.5 mg Albuterol/Ipratropium (Duoneb Neb) 3 ml HHN Q4HRT PRN PRN Reason: Shortness of Breath Stop: 02/10/17 08:14 Ascorbic Acid (Vitamin C) 500 mg PO DAILY [facility] Stop: 02/10/17 08:59 Last Admin: 12/15/16 10:48 Dose: 500 mg Bismuth Subsalicylate (Pepto-Bismol) 30 ml PO Q6H PRN PRN Reason: GI DISTRESS Stop: 02/10/17 08:14 Clonidine HCl ([id number]-9) 1 patch TD Mo [facility] Stop: 02/10/17 09:59 Last Admin: 12/12/16 09:58 Dose: 1 patch Diltiazem HCl (Cardizem) 30 mg PO Q6HR [facility] Stop: 02/10/17 11:59 Last Admin: 12/15/16 06:14 Dose: 30 mg Docusate Sodium (Colace) 100 mg PO BID [facility] Stop: 02/10/17 08:59 Last Admin: 12/15/16 10:49 Dose: 100 mg Ferrous Sulfate (Iron) 325 mg PO DAILY [facility] Stop: 02/10/17 08:59 Last Admin: 12/15/16 10:48 Dose: 325 mg Heparin Sodium (Porcine) (Heparin) 5,000 units SUBQ Q12HR [facility] Stop: 02/10/17 20:59 Last Admin: 12/15/16 10:56 Dose: 5,000 units Metronidazole (Flagyl) 500 mg in 100 mls @ 100 mls/hr IV Q8HR [facility] Stop: 02/10/17 07:59 Last Admin: 12/15/16 13:56 Dose: 100 mls/hr Sodium Chloride (Nacl 0.9%) 1,000 mls @ 60 mls/hr IV .[id number] [facility] Stop: 02/10/17 01:15 Vancomycin HCl 1.5 gm/ Sodium (Chloride) 500 mls @ 250 mls/hr IV Q12H [facility] Stop: 02/13/17 08:59 Last Admin: 12/15/16 10:54 Dose: 250 mls/hr Insulin Aspart (Novolog Insulin Sliding Scale) 0 units SUBQ ACHS [facility] PRN Reason: Protocol Stop: 02/10/17 16:29 Last Admin: 12/15/16 11:30 Dose: Not Given Ipratropium Shannon (Atrovent Neb 0.5mg/2.5ml) 0.5 mg HHN QIDRT [facility] Stop: 02/10/17 14:59 Last Admin: 12/15/16 13:14 Dose: 0.5 mg Lactobacillus Rhamnosus (Culturelle) 1 each PO DAILY [facility] Stop: 02/11/17 16:59 Last Admin: 12/15/16 10:48 Dose: 1 each Levofloxacin (Levaquin) 250 mg PO DAILY [facility] Stop: 02/10/17 08:59 Last Admin: 12/15/16 10:49 Dose: 250 mg Miscellaneous (Vte Chemical Prophylaxis Screen/ Admission) 1 ea PRN PRN PRN Reason: PROTOCOL Stop: 02/10/17 16:11 Miscellaneous (Vancomycin Iv Per Pharmacy) 1 ea PRN [facility] Stop: 02/11/17 12:44 Miscellaneous (Probiotic Screen) 1 ea MC PRN PRN PRN Reason: PROTOCOL Stop: 02/11/17 15:56 Miscellaneous (Misc Oral Cap) 3 cap PO BID [facility] Stop: 02/12/17 16:59 Last Admin: 12/15/16 13:58 Dose: 3 cap Morphine Sulfate (Morphine) 1 mg IVP Q6H PRN PRN Reason: Abdominal Pain Stop: 02/10/17 14:55 Last Admin: 12/15/16 04:16 Dose: 1 mg Mupirocin (Bactroban Oint) 1 appl TP BID [facility] Stop: 12/21/16 08:59 Last Admin: 12/15/16 13:58 Dose: 1 appl Potassium Chloride (Klor-Con) 40 meq PO DAILY [facility] Stop: 02/11/17 18:14 Last Admin: 12/15/16 10:48 Dose: 40 meq Prednisone (Deltasone) 10 mg PO BID [facility] Stop: 02/11/17 18:14 Last Admin: 12/15/16 10:49 Dose: 10 mg Sodium Phosphate (Fleet Enema) 135 ml RC DAILY PRN PRN Reason: Constipation Stop: 02/10/17 08:14 Tacrolimus (Prograf) 1 mg PO BID [facility] Stop: 02/11/17 18:14 Last Admin: 12/15/16 10:49 Dose: 1 mg Vancomycin HCl (Vancomycin Oral) 250 mg PO QID [facility] Stop: 02/13/17 09:59 Last Admin: 12/15/16 13:57 Dose: 250 mg General: Alert, No acute distress HEENT: Atraumatic, EOMI Neck: Supple, +2 carotid pulse wo bruit Cardiovascular: Regular rate, Normal S1, Normal S2 Lungs: Clear to auscultation Abdomen: Bowel sounds, Soft Extremities: no Edema Neurological: Sensation intact Skin: no Rash Psych/Mental Status: Mood NL Assessment/Plan - Problem List Patient Problems: All Active Problems Cholelithiasis (Acute) Diverticulitis (Acute) - Assessment Assessment: S/P Kidney Transplant Diverticulosis w/ Diverticulitis GB stone C. Diff Colitis B/L Pleural effusions - Plan Plan: Lab - Result Diagrams 12/14/16 05:35 12/14/16 05:35 Current Medications Acetaminophen (Tylenol) 650 mg PO Q4H PRN PRN Reason: Pain or Fever >101 Stop: 02/10/17 08:14 Last Admin: 12/12/16 14:18 Dose: 650 mg Albuterol Sulfate (Albuterol 2.5mg/3ml Neb Ud) 2.5 mg HHN QIDRT [facility] Stop: 02/10/17 14:59 Last Admin: 12/14/16 11:40 Dose: 2.5 mg Albuterol/Ipratropium (Duoneb Neb) 3 ml HHN Q4HRT PRN PRN Reason: Shortness of Breath Stop: 02/10/17 08:14 Ascorbic Acid (Vitamin C) 500 mg PO DAILY [facility] Stop: 02/10/17 08:59 Last Admin: 12/14/16 11:04 Dose: 500 mg Bismuth Subsalicylate (Pepto-Bismol) 30 ml PO Q6H PRN PRN Reason: GI DISTRESS Stop: 02/10/17 08:14 Clonidine HCl ([id number]-8) 1 patch TD Mo [facility] Stop: 02/10/17 09:59 Last Admin: 12/12/16 09:58 Dose: 1 patch Diltiazem HCl (Cardizem) 30 mg PO Q6HR [facility] Stop: 02/10/17 11:59 Last Admin: 12/14/16 07:53 Dose: Not Given Docusate Sodium (Colace) 100 mg PO BID [facility] Stop: 02/10/17 08:59 Last Admin: 12/14/16 11:04 Dose: 100 mg Ferrous Sulfate (Iron) 325 mg PO DAILY [facility] Stop: 02/10/17 08:59 Last Admin: 12/14/16 11:03 Dose: 325 mg Heparin Sodium (Porcine) (Heparin) 5,000 units SUBQ Q12HR [facility] Stop: 02/10/17 20:59 Last Admin: 12/14/16 11:04 Dose: 5,000 units Metronidazole (Flagyl) 500 mg in 100 mls @ 100 mls/hr IV Q8HR [facility] Stop: 02/10/17 07:59 Last Admin: 12/14/16 09:05 Dose: 100 mls/hr Sodium Chloride (Nacl 0.9%) 1,000 mls @ 100 mls/hr IV .Q10H [facility] Stop: 02/10/17 01:15 Last Admin: 12/13/16 09:50 Dose: 100 mls/hr Vancomycin HCl 1.5 gm/ Sodium (Chloride) 500 mls @ 250 mls/hr IV Q12H [facility] Stop: 02/11/17 15:59 Last Admin: 12/14/16 04:42 Dose: 250 mls/hr Insulin Aspart (Novolog Insulin Sliding Scale) 0 units SUBQ ACHS [facility] PRN Reason: Protocol Stop: 02/10/17 16:29 Last Admin: 12/14/16 12:13 Dose: Not Given Ipratropium Shannon (Atrovent Neb 0.5mg/2.5ml) 0.5 mg HHN QIDRT [facility] Stop: 02/10/17 14:59 Last Admin: 12/14/16 11:40 Dose: 0.5 mg Lactobacillus Rhamnosus (Culturelle) 1 each PO DAILY [facility] Stop: 02/11/17 16:59 Last Admin: 12/14/16 11:03 Dose: 1 each Levofloxacin (Levaquin) 250 mg PO DAILY [facility] Stop: 02/10/17 08:59 Last Admin: 12/14/16 11:03 Dose: 250 mg Miscellaneous (Vte Chemical Prophylaxis Screen/ Admission) 1 ea PRN PRN PRN Reason: PROTOCOL Stop: 02/10/17 16:11 Miscellaneous (Vancomycin Iv Per Pharmacy) 1 ea MC PRN [facility] Stop: 02/11/17 12:44 Miscellaneous (Probiotic Screen) 1 ea PRN PRN PRN Reason: PROTOCOL Stop: 02/11/17 15:56 Morphine Sulfate (Morphine) 1 mg IVP Q6H PRN PRN Reason: Abdominal Pain Stop: 02/10/17 14:55 Last Admin: 12/14/16 13:30 Dose: 1 mg Mupirocin (Bactroban Oint) 1 appl TP BID [facility] Stop: 12/21/16 08:59 Potassium Chloride (Klor-Con) 40 meq PO DAILY [facility] Stop: 02/11/17 18:14 Last Admin: 12/14/16 11:04 Dose: 40 meq Prednisone (Deltasone) 10 mg PO BID [facility] Stop: 02/11/17 18:14 Last Admin: 12/14/16 11:04 Dose: 10 mg Sodium Phosphate (Fleet Enema) 135 ml RC DAILY PRN PRN Reason: Constipation Stop: 02/10/17 08:14 Tacrolimus (Prograf) 1 mg PO BID [facility] Stop: 02/11/17 18:14 Last Admin: 12/14/16 12:14 Dose: Not Given will try to get Cellcept since nonformulary decrease ivf K has corrected WBC down to 12.7, afebrile, clinically better f/u cbc Lab - Result Diagrams 12/15/16 05:55 12/15/16 05:55 Nutritional Asmnt/Malnutr-PDOC - Dietary Evaluation Malnutrition Findings (Please click <Entered> for more info): Nutritional Asmnt/Malnutrition Start: 12/14/16 18: 11 Text: Status: Complete Freq: Document 12/14/16 18:11 GSUN (Rec: 12/14/16 18:52 GSUN [id number]) Nutritional Asmnt/Malnutrition Patient General Information Nutritional Screening Consult Diagnosis Basilar PNA, acute cholelithiasis, HTN, DM, GERD, hx c diff, chornic renal Pertinent Medical Hx/Surgical Hx ESRD s/p right kidney transplant, peptic ulcer disease, anemia of chronic kidney disease, sacral pressure ulcer stage 2, GERD, essential HTN, hx c diff Subjective Information [address] consult for diarrhea. Pt was NPO for HIDA and CT, ordered [id number] this lunch, observed lunch tray at bedside. Pt had 75% breakfast yesterday 12/13. Pt having diarrhea during visit, pt stated no hx of chronic diarrhea, new onset diarrhea for 1 wk. Observed red sign at door, spoke to RN Ramya, RN confirmed positive for c-diff. Signal Operator informed FNS to use all disposables. Pt confirmed hx kidney transplant "last August." Pt reported usually fair appetite. No muscle/fat wasting noted. Pt does not wish to talk about diets at this time. Pt stated UBW ~ 200lb, denied recent changes, CBW 198lb via bedscale during visit. Current Diet Order/ Nutrition Support [id number] Pertinent Medications Vitamin C, Pepto-Bismol, Colace, Iron, Novolog, Culturelle, Flagyl, Vancomycin , Morphine, Klor-Con, Potassium Phosphate, Fleet Enema Pertinent Labs 12/14: potassium 3.2L, calcium 8.5L, phosphorus 1.8L Nutritional Hx/Data Height 1.88 m Height (Calculated Centimeters) 188.0 Current Weight (lbs) 88.451 kg Weight (Calculated Kilograms) 88.5 Weight (Calculated Grams) 42630.5 [place] Body Weight 190 Weight Status Approriate GI Symptoms GI Symptoms Diarrhea Food Allergies No Skin Integrity/Comment: Earle 16. Edema 2+. Redness. Estimated Nutritional Goals BEE in Kcals: Using Current wt Calories/Kcals/Kg CBW 195lb/88.6kg Kcals Calculated 2658kcal (30kcal/kg) Protein: Using Current wt Protein Calculated 106-124g (1.2-1.4g/kg) Fluid: ml 2658ml (1ml/kcal) Nutritional Problem 1. Problem Problem Inadequate carbohdyrate intake related to Etiology estimated nutritinoal eneds, hypermetabolic state aeb Signs/Symptoms: PNA, current diet providing < 40% CHO of total kcal Intervention/Recommendation Comments 1. Recommend [id number] with double portion vegetable and protin to promote glycemic control while meeting nutritinoal eneds. Current diet order provides to meet < 40% CHO of total kcal, inadequate. 2. Pt is on contact precaution , observed red sign at door. Spoke to PARVIN Bui RN confirmed c-diff positive. Signal Operator informed FNS to use all disposables. 3. Provide DM nutrition edu during follow up as able. Expected Outcomes/Goals Expected Outcomes/Goals 1. PO intake to meet at least 75% of estimated nutritinoal eneds.
--- NOTE | 2016-12-15 14:50 | General Progress Note ---
Subjective - Review of Systems Service Date: 12/15/16 Subjective: less abdominal pain, arousable Objective - Results Result Diagrams: 12/15/16 05:55 12/15/16 05:55 Recent Labs: Laboratory Last Values WBC 12.7 Th/cmm (4.8-10.8) H 12/15/16 05:55 RBC 3.39 Mil/cmm (3.80-5.80) L 12/15/16 05:55 Hgb 10.1 gm/dL (12-16) L 12/15/16 05:55 Hct 30.6 % (41.0-60) L 12/15/16 05:55 MCV 90.2 fl (80-99) 12/15/16 05:55 MCH 29.8 pg (27.0-31.0) 12/15/16 05:55 MCHC Differential 33.0 pg (28.0-36.0) 12/15/16 05:55 RDW 15.6 % (11.5-20.0) 12/15/16 05:55 Plt Count 189 Th/cmm (150-400) 12/15/16 05:55 MPV 9.0 fl 12/15/16 05:55 Neutrophils % [facility] 12/14/16 05:35 Band Neutrophils % 13 % (0-10) H 12/14/16 05:35 Lymphocytes % [facility] 12/14/16 05:35 Basophils % [facility] 12/14/16 05:35 Neutrophils (Manual) 76 % (40-80) 12/14/16 05:35 Lymphocytes 8 % (20-50) L 12/14/16 05:35 Monocytes 3 % (2-10) 12/14/16 05:35 Platelet Estimate ADEQUATE (NORMAL) 12/11/16 21:23 PT 11.0 SECONDS (9.5-11.5) 12/11/16 21:23 INR 1.06 (0.5-1.4) 12/11/16 21:23 PTT (Actin FS) 26.3 SECONDS (26.0-38.0) 12/11/16 21:23 Sodium 139 mEq/L (136-145) 12/15/16 05:55 Potassium 4.1 mEq/L (3.5-5.1) 12/15/16 05:55 Chloride 108 mEq/L (98-107) H 12/15/16 05:55 Carbon Dioxide 22.9 mEq/L (21.0-31.0) 12/15/16 05:55 Anion Gap 12.2 (7.0-16.0) 12/15/16 05:55 BUN 12 mg/dL (7-25) 12/15/16 05:55 Creatinine 0.8 mg/dL (0.7-1.3) 12/15/16 05:55 Est GFR ( Amer) TNP 12/15/16 05:55 Est GFR (Non-Af Amer) TNP 12/15/16 05:55 BUN/Creatinine Ratio 15.0 12/15/16 05:55 Glucose 111 mg/dL (70-105) H 12/15/16 05:55 POC Glucose 138 MG/DL (70 - 105) H 12/15/16 11:37 Whole Bld Lactic Acid 1.15 mmol/L (0.60-1.99) 12/11/16 21:23 Calcium 8.5 mg/dL (8.6-10.3) L 12/15/16 05:55 Phosphorus 1.8 mg/dL (2.5-5.0) L 12/14/16 05:35 Magnesium 1.2 mg/dL (1.9-2.7) L 12/14/16 05:35 Total Bilirubin 0.6 mg/dL (0.3-1.0) 12/14/16 05:35 Direct Bilirubin 0.25 mg/dL (0.0-0.2) H 12/13/16 05:40 AST 7 U/L (13-39) L 12/14/16 05:35 ALT 4 U/L (7-52) L 12/14/16 05:35 Alkaline Phosphatase 42 U/L (34-104) 12/14/16 05:35 B-Natriuretic Peptide 601.0 pg/mL (5.0-100.0) H 12/15/16 05:55 Total Protein 3.6 gm/dL (6.0-8.3) L 12/14/16 05:35 Albumin 2.0 gm/dL (4.2-5.5) L 12/14/16 05:35 Globulin 1.6 gm/dL 12/14/16 05:35 Albumin/Globulin Ratio 1.3 (1.0-1.8) 12/14/16 05:35 Triglycerides 96 mg/dL (<150) 12/12/16 06:00 Cholesterol 122 mg/dL (<200) 12/12/16 06:00 LDL Cholesterol Direct 68 mg/dL (75-193) L 12/12/16 06:00 HDL Cholesterol 32 mg/dL (23-92) 12/12/16 06:00 Amylase 10 U/L (29-103) L 12/11/16 21:23 Lipase < 3 U/L (11-82) L 12/13/16 05:40 TSH 3.16 uIU/ml (0.34-5.60) 12/12/16 06:00 Urine Source CLEAN C 12/11/16 22:30 Urine Color ORANGE 12/11/16 22:30 Urine Clarity HAZY (CLEAR) 12/11/16 22:30 Urine pH 6.0 (4.6 - 8.0) 12/11/16 22:30 Ur Specific Luana 1.020 (1.005-1.030) 12/11/16 22:30 Urine Protein TRACE mg/dL (NEGATIVE) 12/11/16 22:30 Urine Glucose (UA) NEGATIVE mg/dL (NEGATIVE) 12/11/16 22:30 Urine Ketones TRACE mg/dL (NEGATIVE) 12/11/16 22:30 Urine Blood TRACE (NEGATIVE) 12/11/16 22:30 Urine Nitrate NEGATIVE (NEGATIVE) 12/11/16 22:30 Urine Bilirubin NEGATIVE (NEGATIVE) 12/11/16 22:30 Urine Urobilinogen 0.2 E.U./dL (0.2 - 1.0) 12/11/16 22:30 Ur Leukocyte Esterase TRACE (NEGATIVE) H 12/11/16 22:30 Urine RBC 2-5 /hpf (0-5) H 12/11/16 22:30 Urine WBC 2-5 /hpf (0-5) H 12/11/16 22:30 Ur Epithelial Cells NONE SEEN /lpf (FEW) 12/11/16 22:30 Calcium Oxalate Crystal FEW /hpf 12/11/16 22:30 Urine Bacteria OCCASIONAL /hpf (NONE SEEN) 12/11/16 22:30 Stool Occult Blood POSITIVE (NEGATIVE) 12/11/16 22:15 Vancomycin Trough 18.9 ug/mL (10-20) 12/14/16 15:55 - Physical Exam Vitals and I&O: Vital Signs Temp 98.2 F 12/15/16 11:48 Pulse 85 12/15/16 13:15 Resp 20 12/15/16 13:15 BP 111/51 12/15/16 11:48 Pulse Ox 97 12/15/16 13:15 Intake & Output 12/14/16 12/15/16 12/15/16 18:59 06:59 18:59 Intake Total 100 600 100 Balance 100 600 100 Weight (lbs) 88.451 kg 87.09 kg 87.09 kg Intake: Intake, IV Amount 100 100 100 metroNIDAZOLE 500mg/NS 100 100 100 100mL 500 mg In 100 ml @ 100 mls/hr IV Q8HR [facility] Rx #:[id number] Oral 500 Other: # Voids 4 # Bowel Movements 4 Stool Characteristics Liquid Active Medications: Current Medications Acetaminophen (Tylenol) 650 mg PO Q4H PRN PRN Reason: Pain or Fever >101 Stop: 02/10/17 08:14 Last Admin: 12/12/16 14:18 Dose: 650 mg Albuterol Sulfate (Albuterol 2.5mg/3ml Neb Ud) 2.5 mg HHN QIDRT [facility] Stop: 02/10/17 14:59 Last Admin: 12/15/16 13:15 Dose: 2.5 mg Albuterol/Ipratropium (Duoneb Neb) 3 ml HHN Q4HRT PRN PRN Reason: Shortness of Breath Stop: 02/10/17 08:14 Ascorbic Acid (Vitamin C) 500 mg PO DAILY [facility] Stop: 02/10/17 08:59 Last Admin: 12/15/16 10:48 Dose: 500 mg Bismuth Subsalicylate (Pepto-Bismol) 30 ml PO Q6H PRN PRN Reason: GI DISTRESS Stop: 02/10/17 08:14 Clonidine HCl (Pkzbzdfd-Vbx-2) 1 patch TD Mo [facility] Stop: 02/10/17 09:59 Last Admin: 12/12/16 09:58 Dose: 1 patch Diltiazem HCl (Cardizem) 30 mg PO Q6HR [facility] Stop: 02/10/17 11:59 Last Admin: 12/15/16 06:14 Dose: 30 mg Docusate Sodium (Colace) 100 mg PO BID [facility] Stop: 02/10/17 08:59 Last Admin: 12/15/16 10:49 Dose: 100 mg Ferrous Sulfate (Iron) 325 mg PO DAILY [facility] Stop: 02/10/17 08:59 Last Admin: 12/15/16 10:48 Dose: 325 mg Heparin Sodium (Porcine) (Heparin) 5,000 units SUBQ Q12HR [facility] Stop: 02/10/17 20:59 Last Admin: 12/15/16 10:56 Dose: 5,000 units Metronidazole (Flagyl) 500 mg in 100 mls @ 100 mls/hr IV Q8HR [facility] Stop: 02/10/17 07:59 Last Admin: 12/15/16 13:56 Dose: 100 mls/hr Sodium Chloride (Nacl 0.9%) 1,000 mls @ 60 mls/hr IV .[id number] [facility] Stop: 02/10/17 01:15 Vancomycin HCl 1.5 gm/ Sodium (Chloride) 500 mls @ 250 mls/hr IV Q12H [facility] Stop: 02/13/17 08:59 Last Admin: 12/15/16 10:54 Dose: 250 mls/hr Insulin Aspart (Novolog Insulin Sliding Scale) 0 units SUBQ ACHS [facility] PRN Reason: Protocol Stop: 02/10/17 16:29 Last Admin: 12/15/16 11:30 Dose: Not Given Ipratropium Munday (Atrovent Neb 0.5mg/2.5ml) 0.5 mg HHN QIDRT [facility] Stop: 02/10/17 14:59 Last Admin: 12/15/16 13:14 Dose: 0.5 mg Lactobacillus Rhamnosus (Culturelle) 1 each PO DAILY [facility] Stop: 02/11/17 16:59 Last Admin: 12/15/16 10:48 Dose: 1 each Levofloxacin (Levaquin) 250 mg PO DAILY [facility] Stop: 02/10/17 08:59 Last Admin: 12/15/16 10:49 Dose: 250 mg Miscellaneous (Vte Chemical Prophylaxis Screen/ Admission) 1 ea PRN PRN PRN Reason: PROTOCOL Stop: 02/10/17 16:11 Miscellaneous (Vancomycin Iv Per Pharmacy) 1 ea PRN [facility] Stop: 02/11/17 12:44 Miscellaneous (Probiotic Screen) 1 ea MC PRN PRN PRN Reason: PROTOCOL Stop: 02/11/17 15:56 Miscellaneous (Misc Oral Cap) 3 cap PO BID [facility] Stop: 02/12/17 16:59 Last Admin: 12/15/16 13:58 Dose: 3 cap Morphine Sulfate (Morphine) 1 mg IVP Q6H PRN PRN Reason: Abdominal Pain Stop: 02/10/17 14:55 Last Admin: 12/15/16 04:16 Dose: 1 mg Mupirocin (Bactroban Oint) 1 appl TP BID [facility] Stop: 12/21/16 08:59 Last Admin: 12/15/16 13:58 Dose: 1 appl Potassium Chloride (Klor-Con) 40 meq PO DAILY [facility] Stop: 02/11/17 18:14 Last Admin: 12/15/16 10:48 Dose: 40 meq Prednisone (Deltasone) 10 mg PO BID [facility] Stop: 02/11/17 18:14 Last Admin: 12/15/16 10:49 Dose: 10 mg Sodium Phosphate (Fleet Enema) 135 ml RC DAILY PRN PRN Reason: Constipation Stop: 02/10/17 08:14 Tacrolimus (Prograf) 1 mg PO BID [facility] Stop: 02/11/17 18:14 Last Admin: 12/15/16 10:49 Dose: 1 mg Vancomycin HCl (Vancomycin Oral) 250 mg PO QID [facility] Stop: 02/13/17 09:59 Last Admin: 12/15/16 13:57 Dose: 250 mg General: Alert, No acute distress HEENT: Atraumatic, EOMI Neck: Supple, +2 carotid pulse wo bruit Cardiovascular: Regular rate, Normal S1, Normal S2 Lungs: Clear to auscultation Abdomen: Bowel sounds, Soft Extremities: no Edema Neurological: Sensation intact Skin: no Rash Psych/Mental Status: Mood NL Assessment/Plan - Problem List Patient Problems: All Active Problems Cholelithiasis (Acute) Diverticulitis (Acute) - Assessment Assessment: S/P Kidney Transplant Diverticulosis w/ Diverticulitis GB stone C. Diff Colitis B/L Pleural effusions - Plan Plan: Lab - Result Diagrams 12/14/16 05:35 12/14/16 05:35 Current Medications Acetaminophen (Tylenol) 650 mg PO Q4H PRN PRN Reason: Pain or Fever >101 Stop: 02/10/17 08:14 Last Admin: 12/12/16 14:18 Dose: 650 mg Albuterol Sulfate (Albuterol 2.5mg/3ml Neb Ud) 2.5 mg HHN QIDRT [facility] Stop: 02/10/17 14:59 Last Admin: 12/14/16 11:40 Dose: 2.5 mg Albuterol/Ipratropium (Duoneb Neb) 3 ml HHN Q4HRT PRN PRN Reason: Shortness of Breath Stop: 02/10/17 08:14 Ascorbic Acid (Vitamin C) 500 mg PO DAILY [facility] Stop: 02/10/17 08:59 Last Admin: 12/14/16 11:04 Dose: 500 mg Bismuth Subsalicylate (Pepto-Bismol) 30 ml PO Q6H PRN PRN Reason: GI DISTRESS Stop: 02/10/17 08:14 Clonidine HCl (Cdifdfuv-Ipk-9) 1 patch TD Mo [facility] Stop: 02/10/17 09:59 Last Admin: 12/12/16 09:58 Dose: 1 patch Diltiazem HCl (Cardizem) 30 mg PO Q6HR [facility] Stop: 02/10/17 11:59 Last Admin: 12/14/16 07:53 Dose: Not Given Docusate Sodium (Colace) 100 mg PO BID [facility] Stop: 02/10/17 08:59 Last Admin: 12/14/16 11:04 Dose: 100 mg Ferrous Sulfate (Iron) 325 mg PO DAILY [facility] Stop: 02/10/17 08:59 Last Admin: 12/14/16 11:03 Dose: 325 mg Heparin Sodium (Porcine) (Heparin) 5,000 units SUBQ Q12HR [facility] Stop: 02/10/17 20:59 Last Admin: 12/14/16 11:04 Dose: 5,000 units Metronidazole (Flagyl) 500 mg in 100 mls @ 100 mls/hr IV Q8HR [facility] Stop: 02/10/17 07:59 Last Admin: 12/14/16 09:05 Dose: 100 mls/hr Sodium Chloride (Nacl 0.9%) 1,000 mls @ 100 mls/hr IV .Q10H [facility] Stop: 02/10/17 01:15 Last Admin: 12/13/16 09:50 Dose: 100 mls/hr Vancomycin HCl 1.5 gm/ Sodium (Chloride) 500 mls @ 250 mls/hr IV Q12H [facility] Stop: 02/11/17 15:59 Last Admin: 12/14/16 04:42 Dose: 250 mls/hr Insulin Aspart (Novolog Insulin Sliding Scale) 0 units SUBQ ACHS [facility] PRN Reason: Protocol Stop: 02/10/17 16:29 Last Admin: 12/14/16 12:13 Dose: Not Given Ipratropium Munday (Atrovent Neb 0.5mg/2.5ml) 0.5 mg HHN QIDRT [facility] Stop: 02/10/17 14:59 Last Admin: 12/14/16 11:40 Dose: 0.5 mg Lactobacillus Rhamnosus (Culturelle) 1 each PO DAILY [facility] Stop: 02/11/17 16:59 Last Admin: 12/14/16 11:03 Dose: 1 each Levofloxacin (Levaquin) 250 mg PO DAILY [facility] Stop: 02/10/17 08:59 Last Admin: 12/14/16 11:03 Dose: 250 mg Miscellaneous (Vte Chemical Prophylaxis Screen/ Admission) 1 ea PRN PRN PRN Reason: PROTOCOL Stop: 02/10/17 16:11 Miscellaneous (Vancomycin Iv Per Pharmacy) 1 ea MC PRN [facility] Stop: 02/11/17 12:44 Miscellaneous (Probiotic Screen) 1 ea PRN PRN PRN Reason: PROTOCOL Stop: 02/11/17 15:56 Morphine Sulfate (Morphine) 1 mg IVP Q6H PRN PRN Reason: Abdominal Pain Stop: 02/10/17 14:55 Last Admin: 12/14/16 13:30 Dose: 1 mg Mupirocin (Bactroban Oint) 1 appl TP BID [facility] Stop: 12/21/16 08:59 Potassium Chloride (Klor-Con) 40 meq PO DAILY [facility] Stop: 02/11/17 18:14 Last Admin: 12/14/16 11:04 Dose: 40 meq Prednisone (Deltasone) 10 mg PO BID [facility] Stop: 02/11/17 18:14 Last Admin: 12/14/16 11:04 Dose: 10 mg Sodium Phosphate (Fleet Enema) 135 ml RC DAILY PRN PRN Reason: Constipation Stop: 02/10/17 08:14 Tacrolimus (Prograf) 1 mg PO BID [facility] Stop: 02/11/17 18:14 Last Admin: 12/14/16 12:14 Dose: Not Given will try to get Cellcept since nonformulary decrease ivf K has corrected WBC down to 12.7, afebrile, clinically better f/u cbc Lab - Result Diagrams 12/15/16 05:55 12/15/16 05:55 Nutritional Asmnt/Malnutr-PDOC - Dietary Evaluation Malnutrition Findings (Please click <Entered> for more info): Nutritional Asmnt/Malnutrition Start: 12/14/16 18: 11 Text: Status: Complete Freq: Document 12/14/16 18:11 GSUN (Rec: 12/14/16 18:52 GSUN [id number]) Nutritional Asmnt/Malnutrition Patient General Information Nutritional Screening Consult Diagnosis Basilar PNA, acute cholelithiasis, HTN, DM, GERD, hx c diff, chornic renal Pertinent Medical Hx/Surgical Hx ESRD s/p right kidney transplant, peptic ulcer disease, anemia of chronic kidney disease, sacral pressure ulcer stage 2, GERD, essential HTN, hx c diff Subjective Information [address] consult for diarrhea. Pt was NPO for HIDA and CT, ordered [id number] this lunch, observed lunch tray at bedside. Pt had 75% breakfast yesterday 12/13. Pt having diarrhea during visit, pt stated no hx of chronic diarrhea, new onset diarrhea for 1 wk. Observed red sign at door, spoke to RN Ramya, RN confirmed positive for c-diff. Securities Research Analyst informed FNS to use all disposables. Pt confirmed hx kidney transplant "last August." Pt reported usually fair appetite. No muscle/fat wasting noted. Pt does not wish to talk about diets at this time. Pt stated UBW ~ 200lb, denied recent changes, CBW 198lb via bedscale during visit. Current Diet Order/ Nutrition Support [id number] Pertinent Medications Vitamin C, Pepto-Bismol, Colace, Iron, Novolog, Culturelle, Flagyl, Vancomycin , Morphine, Klor-Con, Potassium Phosphate, Fleet Enema Pertinent Labs 12/14: potassium 3.2L, calcium 8.5L, phosphorus 1.8L Nutritional Hx/Data Height 1.88 m Height (Calculated Centimeters) 188.0 Current Weight (lbs) 88.451 kg Weight (Calculated Kilograms) 88.5 Weight (Calculated Grams) 23108.5 [place] Body Weight 190 Weight Status Approriate GI Symptoms GI Symptoms Diarrhea Food Allergies No Skin Integrity/Comment: Earle 16. Edema 2+. Redness. Estimated Nutritional Goals BEE in Kcals: Using Current wt Calories/Kcals/Kg CBW 195lb/88.6kg Kcals Calculated 2658kcal (30kcal/kg) Protein: Using Current wt Protein Calculated 106-124g (1.2-1.4g/kg) Fluid: ml 2658ml (1ml/kcal) Nutritional Problem 1. Problem Problem Inadequate carbohdyrate intake related to Etiology estimated nutritinoal eneds, hypermetabolic state aeb Signs/Symptoms: PNA, current diet providing < 40% CHO of total kcal Intervention/Recommendation Comments 1. Recommend [id number] with double portion vegetable and protin to promote glycemic control while meeting nutritinoal eneds. Current diet order provides to meet < 40% CHO of total kcal, inadequate. 2. Pt is on contact precaution , observed red sign at door. Spoke to PARVIN Bui RN confirmed c-diff positive. Securities Research Analyst informed FNS to use all disposables. 3. Provide DM nutrition edu during follow up as able. Expected Outcomes/Goals Expected Outcomes/Goals 1. PO intake to meet at least 75% of estimated nutritinoal eneds.
--- NOTE | 2016-12-15 14:50 | General Progress Note ---
Subjective - Review of Systems Service Date: 12/15/16 Subjective: less abdominal pain, arousable Objective - Results Result Diagrams: 12/15/16 05:55 12/15/16 05:55 Recent Labs: Laboratory Last Values WBC 12.7 Th/cmm (4.8-10.8) H 12/15/16 05:55 RBC 3.39 Mil/cmm (3.80-5.80) L 12/15/16 05:55 Hgb 10.1 gm/dL (12-16) L 12/15/16 05:55 Hct 30.6 % (41.0-60) L 12/15/16 05:55 MCV 90.2 fl (80-99) 12/15/16 05:55 MCH 29.8 pg (27.0-31.0) 12/15/16 05:55 MCHC Differential 33.0 pg (28.0-36.0) 12/15/16 05:55 RDW 15.6 % (11.5-20.0) 12/15/16 05:55 Plt Count 189 Th/cmm (150-400) 12/15/16 05:55 MPV 9.0 fl 12/15/16 05:55 Neutrophils % [employer]ED SOFTWARE PROGRAMMER 12/14/16 05:35 Band Neutrophils % 13 % (0-10) H 12/14/16 05:35 Lymphocytes % [employer] SOFTWARE PRO[employer]MER 12/14/16 05:35 Basophils % [employer] SOFTWARE PROGRAMMER 12/14/16 05:35 Neutrophils (Manual) 76 % (40-80) 12/14/16 05:35 Lymphocytes 8 % (20-50) L 12/14/16 05:35 Monocytes 3 % (2-10) 12/14/16 05:35 Platelet Estimate ADEQUATE (NORMAL) 12/11/16 21:23 PT 11.0 SECONDS (9.5-11.5) 12/11/16 21:23 INR 1.06 (0.5-1.4) 12/11/16 21:23 PTT (Actin FS) 26.3 SECONDS (26.0-38.0) 12/11/16 21:23 Sodium 139 mEq/L (136-145) 12/15/16 05:55 Potassium 4.1 mEq/L (3.5-5.1) 12/15/16 05:55 Chloride 108 mEq/L (98-107) H 12/15/16 05:55 Carbon Dioxide 22.9 mEq/L (21.0-31.0) 12/15/16 05:55 Anion Gap 12.2 (7.0-16.0) 12/15/16 05:55 BUN 12 mg/dL (7-25) 12/15/16 05:55 Creatinine 0.8 mg/dL (0.7-1.3) 12/15/16 05:55 Est GFR ( Amer) TNP 12/15/16 05:55 Est GFR (Non-Af Amer) TNP 12/15/16 05:55 BUN/Creatinine Ratio 15.0 12/15/16 05:55 Glucose 111 mg/dL (70-105) H 12/15/16 05:55 POC Glucose 138 MG/DL (70 - 105) H 12/15/16 11:37 Whole Bld Lactic Acid 1.15 mmol/L (0.60-1.99) 12/11/16 21:23 Calcium 8.5 mg/dL (8.6-10.3) L 12/15/16 05:55 Phosphorus 1.8 mg/dL (2.5-5.0) L 12/14/16 05:35 Magnesium 1.2 mg/dL (1.9-2.7) L 12/14/16 05:35 Total Bilirubin 0.6 mg/dL (0.3-1.0) 12/14/16 05:35 Direct Bilirubin 0.25 mg/dL (0.0-0.2) H 12/13/16 05:40 AST 7 U/L (13-39) L 12/14/16 05:35 ALT 4 U/L (7-52) L 12/14/16 05:35 Alkaline Phosphatase 42 U/L (34-104) 12/14/16 05:35 B-Natriuretic Peptide 601.0 pg/mL (5.0-100.0) H 12/15/16 05:55 Total Protein 3.6 gm/dL (6.0-8.3) L 12/14/16 05:35 Albumin 2.0 gm/dL (4.2-5.5) L 12/14/16 05:35 Globulin 1.6 gm/dL 12/14/16 05:35 Albumin/Globulin Ratio 1.3 (1.0-1.8) 12/14/16 05:35 Triglycerides 96 mg/dL (<150) 12/12/16 06:00 Cholesterol 122 mg/dL (<200) 12/12/16 06:00 LDL Cholesterol Direct 68 mg/dL (75-193) L 12/12/16 06:00 HDL Cholesterol 32 mg/dL (23-92) 12/12/16 06:00 Amylase 10 U/L (29-103) L 12/11/16 21:23 Lipase < 3 U/L (11-82) L 12/13/16 05:40 TSH 3.16 uIU/ml (0.34-5.60) 12/12/16 06:00 Urine Source CLEAN C 12/11/16 22:30 Urine Color ORANGE 12/11/16 22:30 Urine Clarity HAZY (CLEAR) 12/11/16 22:30 Urine pH 6.0 (4.6 - 8.0) 12/11/16 22:30 Ur Specific [place] 1.020 (1.005-1.030) 12/11/16 22:30 Urine Protein TRACE mg/dL (NEGATIVE) 12/11/16 22:30 Urine Glucose (UA) NEGATIVE mg/dL (NEGATIVE) 12/11/16 22:30 Urine Ketones TRACE mg/dL (NEGATIVE) 12/11/16 22:30 Urine Blood TRACE (NEGATIVE) 12/11/16 22:30 Urine Nitrate NEGATIVE (NEGATIVE) 12/11/16 22:30 Urine Bilirubin NEGATIVE (NEGATIVE) 12/11/16 22:30 Urine Urobilinogen 0.2 E.U./dL (0.2 - 1.0) 12/11/16 22:30 Ur Leukocyte Esterase TRACE (NEGATIVE) H 12/11/16 22:30 Urine RBC 2-5 /hpf (0-5) H 12/11/16 22:30 Urine WBC 2-5 /hpf (0-5) H 12/11/16 22:30 Ur Epithelial Cells NONE SEEN /lpf (FEW) 12/11/16 22:30 Calcium Oxalate Crystal FEW /hpf 12/11/16 22:30 Urine Bacteria OCCASIONAL /hpf (NONE SEEN) 12/11/16 22:30 Stool Occult Blood POSITIVE (NEGATIVE) 12/11/16 22:15 Vancomycin Trough 18.9 ug/mL (10-20) 12/14/16 15:55 - Physical Exam Vitals and I&O: Vital Signs Temp 98.2 F 12/15/16 11:48 Pulse 85 12/15/16 13:15 Resp 20 12/15/16 13:15 BP 111/51 12/15/16 11:48 Pulse Ox 97 12/15/16 13:15 Intake & Output 12/14/16 12/15/16 12/15/16 18:59 06:59 18:59 Intake Total 100 600 100 Balance 100 600 100 Weight (lbs) 88.451 kg 87.09 kg 87.09 kg Intake: Intake, IV Amount 100 100 100 metroNIDAZOLE 500mg/NS 100 100 100 100mL 500 mg In 100 ml @ 100 mls/hr IV Q8HR [facility] Rx #:[id number] Oral 500 Other: # Voids 4 # Bowel Movements 4 Stool Characteristics Liquid Active Medications: Current Medications Acetaminophen (Tylenol) 650 mg PO Q4H PRN PRN Reason: Pain or Fever >101 Stop: 02/10/17 08:14 Last Admin: 12/12/16 14:18 Dose: 650 mg Albuterol Sulfate (Albuterol 2.5mg/3ml Neb Ud) 2.5 mg HHN QIDRT [facility] Stop: 02/10/17 14:59 Last Admin: 12/15/16 13:15 Dose: 2.5 mg Albuterol/Ipratropium (Duoneb Neb) 3 ml HHN Q4HRT PRN PRN Reason: Shortness of Breath Stop: 02/10/17 08:14 Ascorbic Acid (Vitamin C) 500 mg PO DAILY [facility] Stop: 02/10/17 08:59 Last Admin: 12/15/16 10:48 Dose: 500 mg Bismuth Subsalicylate (Pepto-Bismol) 30 ml PO Q6H PRN PRN Reason: GI DISTRESS Stop: 02/10/17 08:14 Clonidine HCl ([id number]-9) 1 patch TD Mo [facility] Stop: 02/10/17 09:59 Last Admin: 12/12/16 09:58 Dose: 1 patch Diltiazem HCl (Cardizem) 30 mg PO Q6HR [facility] Stop: 02/10/17 11:59 Last Admin: 12/15/16 06:14 Dose: 30 mg Docusate Sodium (Colace) 100 mg PO BID [facility] Stop: 02/10/17 08:59 Last Admin: 12/15/16 10:49 Dose: 100 mg Ferrous Sulfate (Iron) 325 mg PO DAILY [facility] Stop: 02/10/17 08:59 Last Admin: 12/15/16 10:48 Dose: 325 mg Heparin Sodium (Porcine) (Heparin) 5,000 units SUBQ Q12HR [facility] Stop: 02/10/17 20:59 Last Admin: 12/15/16 10:56 Dose: 5,000 units Metronidazole (Flagyl) 500 mg in 100 mls @ 100 mls/hr IV Q8HR [facility] Stop: 02/10/17 07:59 Last Admin: 12/15/16 13:56 Dose: 100 mls/hr Sodium Chloride (Nacl 0.9%) 1,000 mls @ 60 mls/hr IV .[id number] [facility] Stop: 02/10/17 01:15 Vancomycin HCl 1.5 gm/ Sodium (Chloride) 500 mls @ 250 mls/hr IV Q12H [facility] Stop: 02/13/17 08:59 Last Admin: 12/15/16 10:54 Dose: 250 mls/hr Insulin Aspart (Novolog Insulin Sliding Scale) 0 units SUBQ ACHS [facility] PRN Reason: Protocol Stop: 02/10/17 16:29 Last Admin: 12/15/16 11:30 Dose: Not Given Ipratropium [place] (Atrovent Neb 0.5mg/2.5ml) 0.5 mg HHN QIDRT [facility] Stop: 02/10/17 14:59 Last Admin: 12/15/16 13:14 Dose: 0.5 mg Lactobacillus Rhamnosus (Culturelle) 1 each PO DAILY [facility] Stop: 02/11/17 16:59 Last Admin: 12/15/16 10:48 Dose: 1 each Levofloxacin (Levaquin) 250 mg PO DAILY [facility] Stop: 02/10/17 08:59 Last Admin: 12/15/16 10:49 Dose: 250 mg Miscellaneous (Vte Chemical Prophylaxis Screen/ Admission) 1 ea PRN PRN PRN Reason: PROTOCOL Stop: 02/10/17 16:11 Miscellaneous (Vancomycin Iv Per Pharmacy) 1 ea PRN [facility] Stop: 02/11/17 12:44 Miscellaneous (Probiotic Screen) 1 ea MC PRN PRN PRN Reason: PROTOCOL Stop: 02/11/17 15:56 Miscellaneous (Misc Oral Cap) 3 cap PO BID [facility] Stop: 02/12/17 16:59 Last Admin: 12/15/16 13:58 Dose: 3 cap Morphine Sulfate (Morphine) 1 mg IVP Q6H PRN PRN Reason: Abdominal Pain Stop: 02/10/17 14:55 Last Admin: 12/15/16 04:16 Dose: 1 mg Mupirocin (Bactroban Oint) 1 appl TP BID [facility] Stop: 12/21/16 08:59 Last Admin: 12/15/16 13:58 Dose: 1 appl Potassium Chloride (Klor-Con) 40 meq PO DAILY [facility] Stop: 02/11/17 18:14 Last Admin: 12/15/16 10:48 Dose: 40 meq Prednisone (Deltasone) 10 mg PO BID [facility] Stop: 02/11/17 18:14 Last Admin: 12/15/16 10:49 Dose: 10 mg Sodium Phosphate (Fleet Enema) 135 ml RC DAILY PRN PRN Reason: Constipation Stop: 02/10/17 08:14 Tacrolimus (Prograf) 1 mg PO BID [facility] Stop: 02/11/17 18:14 Last Admin: 12/15/16 10:49 Dose: 1 mg Vancomycin HCl (Vancomycin Oral) 250 mg PO QID [facility] Stop: 02/13/17 09:59 Last Admin: 12/15/16 13:57 Dose: 250 mg General: Alert, No acute distress HEENT: Atraumatic, EOMI Neck: Supple, +2 carotid pulse wo bruit Cardiovascular: Regular rate, Normal S1, Normal S2 Lungs: Clear to auscultation Abdomen: Bowel sounds, Soft Extremities: no Edema Neurological: Sensation intact Skin: no Rash Psych/Mental Status: Mood NL Assessment/Plan - Problem List Patient Problems: All Active Problems Cholelithiasis (Acute) Diverticulitis (Acute) - Assessment Assessment: S/P Kidney Transplant Diverticulosis w/ Diverticulitis GB stone C. Diff Colitis B/L Pleural effusions - Plan Plan: Lab - Result Diagrams 12/14/16 05:35 12/14/16 05:35 Current Medications Acetaminophen (Tylenol) 650 mg PO Q4H PRN PRN Reason: Pain or Fever >101 Stop: 02/10/17 08:14 Last Admin: 12/12/16 14:18 Dose: 650 mg Albuterol Sulfate (Albuterol 2.5mg/3ml Neb Ud) 2.5 mg HHN QIDRT [facility] Stop: 02/10/17 14:59 Last Admin: 12/14/16 11:40 Dose: 2.5 mg Albuterol/Ipratropium (Duoneb Neb) 3 ml HHN Q4HRT PRN PRN Reason: Shortness of Breath Stop: 02/10/17 08:14 Ascorbic Acid (Vitamin C) 500 mg PO DAILY [facility] Stop: 02/10/17 08:59 Last Admin: 12/14/16 11:04 Dose: 500 mg Bismuth Subsalicylate (Pepto-Bismol) 30 ml PO Q6H PRN PRN Reason: GI DISTRESS Stop: 02/10/17 08:14 Clonidine HCl (Nuqihypk-Tcy-8) 1 patch TD Mo [facility] Stop: 02/10/17 09:59 Last Admin: 12/12/16 09:58 Dose: 1 patch Diltiazem HCl (Cardizem) 30 mg PO Q6HR [facility] Stop: 02/10/17 11:59 Last Admin: 12/14/16 07:53 Dose: Not Given Docusate Sodium (Colace) 100 mg PO BID [facility] Stop: 02/10/17 08:59 Last Admin: 12/14/16 11:04 Dose: 100 mg Ferrous Sulfate (Iron) 325 mg PO DAILY [facility] Stop: 02/10/17 08:59 Last Admin: 12/14/16 11:03 Dose: 325 mg Heparin Sodium (Porcine) (Heparin) 5,000 units SUBQ Q12HR [facility] Stop: 02/10/17 20:59 Last Admin: 12/14/16 11:04 Dose: 5,000 units Metronidazole (Flagyl) 500 mg in 100 mls @ 100 mls/hr IV Q8HR [facility] Stop: 02/10/17 07:59 Last Admin: 12/14/16 09:05 Dose: 100 mls/hr Sodium Chloride (Nacl 0.9%) 1,000 mls @ 100 mls/hr IV .Q10H [facility] Stop: 02/10/17 01:15 Last Admin: 12/13/16 09:50 Dose: 100 mls/hr Vancomycin HCl 1.5 gm/ Sodium (Chloride) 500 mls @ 250 mls/hr IV Q12H [facility] Stop: 02/11/17 15:59 Last Admin: 12/14/16 04:42 Dose: 250 mls/hr Insulin Aspart (Novolog Insulin Sliding Scale) 0 units SUBQ ACHS [facility] PRN Reason: Protocol Stop: 02/10/17 16:29 Last Admin: 12/14/16 12:13 Dose: Not Given Ipratropium [place] (Atrovent Neb 0.5mg/2.5ml) 0.5 mg HHN QIDRT [facility] Stop: 02/10/17 14:59 Last Admin: 12/14/16 11:40 Dose: 0.5 mg Lactobacillus Rhamnosus (Culturelle) 1 each PO DAILY [facility] Stop: 02/11/17 16:59 Last Admin: 12/14/16 11:03 Dose: 1 each Levofloxacin (Levaquin) 250 mg PO DAILY [facility] Stop: 02/10/17 08:59 Last Admin: 12/14/16 11:03 Dose: 250 mg Miscellaneous (Vte Chemical Prophylaxis Screen/ Admission) 1 ea PRN PRN PRN Reason: PROTOCOL Stop: 02/10/17 16:11 Miscellaneous (Vancomycin Iv Per Pharmacy) 1 ea MC PRN [facility] Stop: 02/11/17 12:44 Miscellaneous (Probiotic Screen) 1 ea PRN PRN PRN Reason: PROTOCOL Stop: 02/11/17 15:56 Morphine Sulfate (Morphine) 1 mg IVP Q6H PRN PRN Reason: Abdominal Pain Stop: 02/10/17 14:55 Last Admin: 12/14/16 13:30 Dose: 1 mg Mupirocin (Bactroban Oint) 1 appl TP BID [facility] Stop: 12/21/16 08:59 Potassium Chloride (Klor-Con) 40 meq PO DAILY [facility] Stop: 02/11/17 18:14 Last Admin: 12/14/16 11:04 Dose: 40 meq Prednisone (Deltasone) 10 mg PO BID [facility] Stop: 02/11/17 18:14 Last Admin: 12/14/16 11:04 Dose: 10 mg Sodium Phosphate (Fleet Enema) 135 ml RC DAILY PRN PRN Reason: Constipation Stop: 02/10/17 08:14 Tacrolimus (Prograf) 1 mg PO BID [facility] Stop: 02/11/17 18:14 Last Admin: 12/14/16 12:14 Dose: Not Given will try to get Cellcept since nonformulary decrease ivf K has corrected WBC down to 12.7, afebrile, clinically better f/u cbc Lab - Result Diagrams 12/15/16 05:55 12/15/16 05:55 Nutritional Asmnt/Malnutr-PDOC - Dietary Evaluation Malnutrition Findings (Please click <Entered> for more info): Nutritional Asmnt/Malnutrition Start: 12/14/16 18: 11 Text: Status: Complete Freq: Document 12/14/16 18:11 GSUN (Rec: 12/14/16 18:52 GSUN [id number]) Nutritional Asmnt/Malnutrition Patient General Information Nutritional Screening Consult Diagnosis Basilar PNA, acute cholelithiasis, HTN, DM, GERD, hx c diff, chornic renal Pertinent Medical Hx/Surgical Hx ESRD s/p right kidney transplant, peptic ulcer disease, anemia of chronic kidney disease, sacral pressure ulcer stage 2, GERD, essential HTN, hx c diff Subjective Information 76 [address] consult for diarrhea. Pt was NPO for HIDA and CT, ordered [id number] this lunch, observed lunch tray at bedside. Pt had 75% breakfast yesterday 12/13. Pt having diarrhea during visit, pt stated no hx of chronic diarrhea, new onset diarrhea for 1 wk. Observed red sign at door, spoke to RN Ramya, RN confirmed positive for c-diff. [employer] informed FNS to use all disposables. Pt confirmed hx kidney transplant "last August." Pt reported usually fair appetite. No muscle/fat wasting noted. Pt does not wish to talk about diets at this time. Pt stated UBW ~ 200lb, denied recent changes, CBW 198lb via bedscale during visit. Current Diet Order/ Nutrition Support [id number] Pertinent Medications Vitamin C, Pepto-Bismol, Colace, Iron, Novolog, Culturelle, Flagyl, Vancomycin , Morphine, Klor-Con, Potassium Phosphate, Fleet Enema Pertinent Labs 12/14: potassium 3.2L, calcium 8.5L, phosphorus 1.8L Nutritional Hx/Data Height 1.88 m Height (Calculated Centimeters) 188.0 Current Weight (lbs) 88.451 kg Weight (Calculated Kilograms) 88.5 Weight (Calculated Grams) 14396.5 [place] Body Weight 190 Weight Status Approriate GI Symptoms GI Symptoms Diarrhea Food Allergies No Skin Integrity/Comment: Ear[place] 16. Edema 2+. Redness. Estimated Nutritional Goals BEE in Kcals: Using Current wt Calories/Kcals/Kg CBW 195lb/88.6kg Kcals Calculated 2658kcal (30kcal/kg) Protein: Using Current wt Protein Calculated 106-124g (1.2-1.4g/kg) Fluid: ml 2658ml (1ml/kcal) Nutritional Problem 1. Problem Problem Inadequate carbohdyrate intake related to Etiology estimated nutritinoal eneds, hypermetabolic state aeb Signs/Symptoms: PNA, current diet providing < 40% CHO of total kcal Intervention/Recommendation Comments 1. Recommend [id number] with double portion vegetable and protin to promote glycemic control while meeting nutritinoal eneds. Current diet order provides to meet < 40% CHO of total kcal, inadequate. 2. Pt is on contact precaution , observed red sign at door. Spoke to PARVIN Bui RN confirmed c-diff positive. [employer] informed FNS to use all disposables. 3. Provide DM nutrition edu during follow up as able. Expected Outcomes/Goals Expected Outcomes/Goals 1. PO intake to meet at least 75% of estimated nutritinoal eneds.
[2016-12-16] MEDS: Diltiazem 30 mg Tab PO SCH ×3 (00:55→14:04)
[2016-12-16] MEDS: metroNIDAZOLE 500mg/NS 100mL 500 MG/100 ML BAG IV SCH (04:44)
[2016-12-16] MEDS: INSULIN ASPART SLIDING SCALE 100 UNITS/ML UNIT SUBQ SCH ×3 (06:50→17:49)
[2016-12-16] MEDS: Ipratropium Neb 0.5 mg/2.5 mL UD HHN SCH ×4 (07:41→18:49)
[2016-12-16] MEDS: Albuterol Nebulizer 2.5mg/3mL HHN SCH ×4 (07:41→18:49)
[2016-12-16] MEDS: Potassium Chloride 20 mEq ER Tab PO SCH (09:43)
[2016-12-16] MEDS: Lactobacillus Rhamnosus 10 Billion CFU Capsule PO SCH (09:43)
[2016-12-16] MEDS: Ferrous Sulfate 325 MG TAB PO SCH (09:45)
[2016-12-16] MEDS: Vancomycin HCL 250 mg /10mL UDC PO SCH ×3 (09:46→18:13)
[2016-12-16 10:37] LABS: HEMATOCRIT 32.5 % (41.0-60); HEMOGLOBIN 10.5 gm/dL (12-16); MEAN CELL VOLUME 90.2 fl (80-99); MEAN CORPUSCULAR HEMOGLOBIN 29.1 pg (27.0-31.0); MEAN CORPUSCULAR HGB CONC 32.3 pg (28.0-36.0); MEAN PLATELET VOLUME 8.7 fl; PLATELET COUNT 224 Th/cmm (150-400); RED BLOOD COUNT 3.61 Mil/cmm (3.80-5.80); RED CELL DISTRIBUTION WIDTH 15.9 % (11.5-20.0)
[2016-12-16 10:41] LABS: MANUAL DIFF REQUIRED? YES; WHITE BLOOD COUNT 13.8 Th/cmm (4.8-10.8)
[2016-12-16 11:00] LABS: ALB/GLOB RATIO 1.5 (1.0-1.8); ALBUMIN 2.4 gm/dL (4.2-5.5); ALKALINE PHOSPHATASE 54 U/L (34-104); ANION GAP 7.4 (7.0-16.0); BILIRUBIN,TOTAL 0.4 mg/dL (0.3-1.0); BUN - UREA NITROGEN 11 mg/dL (7-25); CALCIUM SERUM 8.8 mg/dL (8.6-10.3); CARBON DIOXIDE 23.7 mEq/L (21.0-31.0); CHLORIDE 109 mEq/L (98-107); CREATININE - SERUM 0.9 mg/dL (0.7-1.3); GLUCOSE 116 mg/dL (70-105); POTASSIUM SERUM 4.1 mEq/L (3.5-5.1); SGOT 7 U/L (13-39); SGPT/ALT 5 U/L (7-52); SODIUM SERUM 136 mEq/L (136-145)
[2016-12-16 11:38] LABS: BAND NEUTROPHILE 3 % (0-10); LYMPHOCYTE 5 % (20-50); MONOCYTE 1 % (2-10); NEUTROPHILS 91 % (40-80); PLATELET ESTIMATE ADEQUATE (NORMAL); TOTAL CELLS COUNTED 100
--- NOTE | 2016-12-16 12:30 | Infectious Disease Prog Note ---
Infectious Disease Subjective - Review of Systems Service Date: 12/16/16 Subjective: No new change. Infectious Disease Objective - Results Result Diagrams: 12/16/16 10:30 12/16/16 10:30 Recent Labs: Laboratory Last Values WBC 13.8 Th/cmm (4.8-10.8) H 12/16/16 10:30 RBC 3.61 Mil/cmm (3.80-5.80) L 12/16/16 10:30 Hgb 10.5 gm/dL (12-16) L 12/16/16 10:30 Hct 32.5 % (41.0-60) L 12/16/16 10:30 MCV 90.2 fl (80-99) 12/16/16 10:30 MCH 29.1 pg (27.0-31.0) 12/16/16 10:30 MCHC Differential 32.3 pg (28.0-36.0) 12/16/16 10:30 RDW 15.9 % (11.5-20.0) 12/16/16 10:30 Plt Count 224 Th/cmm (150-400) 12/16/16 10:30 MPV 8.7 fl 12/16/16 10:30 Neutrophils % COMMUNICATIONS PROFESSIONAL 12/14/16 05:35 Band Neutrophils % 3 % (0-10) 12/16/16 10:30 Lymphocytes % COMMUNICATIONS PROFESSIONAL 12/14/16 05:35 Basophils % COMMUNICATIONS PROFESSIONAL 12/14/16 05:35 Neutrophils (Manual) 91 % (40-80) H 12/16/16 10:30 Lymphocytes 5 % (20-50) L 12/16/16 10:30 Monocytes 1 % (2-10) L 12/16/16 10:30 Platelet Estimate ADEQUATE (NORMAL) 12/16/16 10:30 PT 11.0 SECONDS (9.5-11.5) 12/11/16 21: INR 1.06 (0.5-1.4) 12/11/16 21: PTT (Actin FS) 26.3 SECONDS (26.0-38.0) 12/11/16 21:23 Sodium 136 mEq/L (136-145) 12/16/16 10:30 Potassium 4.1 mEq/L (3.5-5.1) 12/16/16 10:30 Chloride 109 mEq/L (98-107) H 12/16/16 10:30 Carbon Dioxide 23.7 mEq/L (21.0-31.0) 12/16/16 10:30 Anion Gap 7.4 (7.0-16.0) 12/16/16 10:30 BUN 11 mg/dL (7-25) 12/16/16 10:30 Creatinine 0.9 mg/dL (0.7-1.3) 12/16/16 10:30 Est GFR ( Amer) TNP 12/16/16 10:30 Est GFR (Non-Af Amer) TNP 12/16/16 10:30 BUN/Creatinine Ratio 12.2 12/16/16 10:30 Glucose 116 mg/dL (70-105) H 12/16/16 10:30 POC Glucose 133 MG/DL (70 - 105) H 12/16/16 06:49 Whole Bld Lactic Acid 1.15 mmol/L (0.60-1.99) 12/11/16 21:23 Calcium 8.8 mg/dL (8.6-10.3) 12/16/16 10:30 Phosphorus 1.8 mg/dL (2.5-5.0) L 12/14/16 05:35 Magnesium 1.2 mg/dL (1.9-2.7) L 12/14/16 05:35 Total Bilirubin 0.4 mg/dL (0.3-1.0) 12/16/16 10:30 Direct Bilirubin 0.25 mg/dL (0.0-0.2) H 12/13/16 05:40 AST 7 U/L (13-39) L 12/16/16 10:30 ALT 5 U/L (7-52) L 12/16/16 10:30 Alkaline Phosphatase 54 U/L (34-104) 12/16/16 10:30 B-Natriuretic Peptide 601.0 pg/mL (5.0-100.0) H 12/15/16 05:55 Total Protein 4.0 gm/dL (6.0-8.3) L 12/16/16 10:30 Albumin 2.4 gm/dL (4.2-5.5) L 12/16/16 10:30 Globulin 1.6 gm/dL 12/16/16 10:30 Albumin/Globulin Ratio 1.5 (1.0-1.8) 12/16/16 10:30 Triglycerides 96 mg/dL (<150) 12/12/16 06:00 Cholesterol 122 mg/dL (<200) 12/12/16 06:00 LDL Cholesterol Direct 68 mg/dL (75-193) L 12/12/16 06:00 HDL Cholesterol 32 mg/dL (23-92) 12/12/16 06:00 Amylase 10 U/L (29-103) L 12/11/16 21:23 Lipase < 3 U/L (11-82) L 12/13/16 05:40 TSH 3.16 uIU/ml (0.34-5.60) 12/12/16 06:00 Urine Source CLEAN C 12/11/16 22:30 Urine Color ORANGE 12/11/16 22:30 Urine Clarity HAZY (CLEAR) 12/11/16 22:30 Urine pH 6.0 (4.6 - 8.0) 12/11/16 22:30 Ur Specific [place] 1.020 (1.005-1.030) 12/11/16 22:30 Urine Protein TRACE mg/dL (NEGATIVE) 12/11/16 22:30 Urine Glucose (UA) NEGATIVE mg/dL (NEGATIVE) 12/11/16 22:30 Urine Ketones TRACE mg/dL (NEGATIVE) 12/11/16 22:30 Urine Blood TRACE (NEGATIVE) 12/11/16 22:30 Urine Nitrate NEGATIVE (NEGATIVE) 12/11/16 22:30 Urine Bilirubin NEGATIVE (NEGATIVE) 12/11/16 22:30 Urine Urobilinogen 0.2 E.U./dL (0.2 - 1.0) 12/11/16 22:30 Ur Leukocyte Esterase TRACE (NEGATIVE) H 12/11/16 22:30 Urine RBC 2-5 /hpf (0-5) H 12/11/16 22:30 Urine WBC 2-5 /hpf (0-5) H 12/11/16 22:30 Ur Epithelial Cells NONE SEEN /lpf (FEW) 12/11/16 22:30 Calcium Oxalate Crystal FEW /hpf 12/11/16 22:30 Urine Bacteria OCCASIONAL /hpf (NONE SEEN) 12/11/16 22:30 Stool Occult Blood POSITIVE (NEGATIVE) 12/11/16 22:15 Vancomycin Trough 18.9 ug/mL (10-20) 12/14/16 15:55 - Physical Exam Vitals and I&O: Vital Signs Temp 98.6 F 12/15/16 20:00 Pulse 84 12/16/16 10:58 Resp 18 12/16/16 10:58 BP 104/48 12/16/16 00:00 Pulse Ox 98 12/16/16 10:58 Intake & Output 12/15/16 12/16/16 12/16/16 18:59 06:59 18:59 Intake Total 700 100 Balance 700 100 Weight (lbs) 87.09 kg Intake: Intake, IV Amount 700 100 Vancomycin HCl 1.5 gm In 500 Sodium Chloride 0.9% 500 ml @ 250 mls/hr IV Q12H [facility] Rx#:[id number] metroNIDAZOLE 500mg/NS 200 100 100mL 500 mg In 100 ml @ 100 mls/hr IV Q8HR [facility] Rx #:[id number] Other: Stool Characteristics Liquid Active Medications: Current Medications Acetaminophen (Tylenol) 650 mg PO Q4H PRN PRN Reason: Pain or Fever >101 Stop: 02/10/17 08:14 Last Admin: 12/12/16 14:18 Dose: 650 mg Albuterol Sulfate (Albuterol 2.5mg/3ml Neb Ud) 2.5 mg HHN QIDRT [facility] Stop: 02/10/17 14:59 Last Admin: 12/16/16 11:29 Dose: Not Given Albuterol/Ipratropium (Duoneb Neb) 3 ml HHN Q4HRT PRN PRN Reason: Shortness of Breath Stop: 02/10/17 08:14 Ascorbic Acid (Vitamin C) 500 mg PO DAILY [facility] Stop: 02/10/17 08:59 Last Admin: 12/16/16 09:44 Dose: 500 mg Bismuth Subsalicylate (Pepto-Bismol) 30 ml PO Q6H PRN PRN Reason: GI DISTRESS Stop: 02/10/17 08:14 Clonidine HCl (Prxivenz-Hlp-0) 1 patch TD Mo [facility] Stop: 02/10/17 09:59 Last Admin: 12/12/16 09:58 Dose: 1 patch Diltiazem HCl (Cardizem) 30 mg PO Q6HR [facility] Stop: 02/10/17 11:59 Last Admin: 12/16/16 06:55 Dose: 30 mg Docusate Sodium (Colace) 100 mg PO BID [facility] Stop: 02/10/17 08:59 Last Admin: 12/15/16 17:13 Dose: 100 mg Ferrous Sulfate (Iron) 325 mg PO DAILY [facility] Stop: 02/10/17 08:59 Last Admin: 12/16/16 09:45 Dose: 325 mg Heparin Sodium (Porcine) (Heparin) 5,000 units SUBQ Q12HR [facility] Stop: 02/10/17 20:59 Last Admin: 12/15/16 21:00 Dose: 5,000 units Metronidazole (Flagyl) 500 mg in 100 mls @ 100 mls/hr IV Q8HR [facility] Stop: 02/10/17 07:59 Last Admin: 12/16/16 04:44 Dose: 100 mls/hr Sodium Chloride (Nacl 0.9%) 1,000 mls @ 60 mls/hr IV .[id number] [facility] Stop: 02/10/17 01:15 Last Admin: 12/15/16 17:16 Dose: 60 mls/hr Vancomycin HCl 1.5 gm/ Sodium (Chloride) 500 mls @ 250 mls/hr IV Q12H [facility] Stop: 02/13/17 08:59 Last Admin: 12/15/16 22:06 Dose: 250 mls/hr Insulin Aspart (Novolog Insulin Sliding Scale) 0 units SUBQ ACHS [facility] PRN Reason: Protocol Stop: 02/10/17 16:29 Last Admin: 12/16/16 06:50 Dose: Not Given Ipratropium [place] (Atrovent Neb 0.5mg/2.5ml) 0.5 mg HHN QIDRT [facility] Stop: 02/10/17 14:59 Last Admin: 12/16/16 11:31 Dose: Not Given Lactobacillus Rhamnosus (Culturelle) 1 each PO DAILY [facility] Stop: 02/11/17 16:59 Last Admin: 12/16/16 09:43 Dose: 1 each Levofloxacin (Levaquin) 250 mg PO DAILY [facility] Stop: 02/10/17 08:59 Last Admin: 12/16/16 09:45 Dose: 250 mg Miscellaneous (Vte Chemical Prophylaxis Screen/ Admission) 1 [facility] PRN PRN PRN Reason: PROTOCOL Stop: 02/10/17 16:11 Miscellaneous (Vancomycin Iv Per Pharmacy) 1 [facility] PRN [facility] Stop: 02/11/17 12:44 Miscellaneous (Probiotic Screen) 1 [facility] PRN PRN PRN Reason: PROTOCOL Stop: 02/11/17 15:56 Miscellaneous (Misc Oral Cap) 3 cap PO BID [facility] Stop: 02/12/17 16:59 Last Admin: 12/15/16 17:18 Dose: 3 cap Morphine Sulfate (Morphine) 1 mg IVP Q6H PRN PRN Reason: Abdominal Pain Stop: 02/10/17 14:55 Last Admin: 12/15/16 21:15 Dose: 1 mg Mupirocin (Bactroban Oint) 1 appl TP BID [facility] Stop: 12/21/16 08:59 Last Admin: 12/15/16 17:15 Dose: 1 appl Potassium Chloride (Klor-Con) 40 meq PO DAILY [facility] Stop: 02/11/17 18:14 Last Admin: 12/16/16 09:43 Dose: 40 meq Prednisone (Deltasone) 10 mg PO BID [facility] Stop: 02/11/17 18:14 Last Admin: 12/16/16 09:45 Dose: 10 mg Sodium Phosphate (Fleet Enema) 135 ml RC DAILY PRN PRN Reason: Constipation Stop: 02/10/17 08:14 Tacrolimus (Prograf) 1 mg PO BID [facility] Stop: 02/11/17 18:14 Last Admin: 12/16/16 09:44 Dose: 1 mg Vancomycin HCl (Vancomycin Oral) 250 mg PO QID [facility] Stop: 02/13/17 09:59 Last Admin: 12/16/16 09:46 Dose: 250 mg General: no acute distress, well developed, well nourished, cachectic HEENT: atraumatic, normocephalic, PERRLA, EOMI Neck: supple Cardiovascular: S1S2, regular Lungs: clear to auscultation bilaterally, clear to percussion Abdomen: soft, no tender, no distended Extremities: no cyanosis, no clubbing, no edema Neurological: awake, alert, oriented Skin: intact Infectious Disease Assmt/Plan - Problem List Patient Problems: All Active Problems Cholelithiasis (Acute) Diverticulitis (Acute) - Assessment Assessment: 1. Leukocytosis. 2. CDAC. 3. Diverticulitis. 4. Cystitis with h/o renal transplant. 5. Cholelithiasis. 6. Bilateral pneumonia with parapneumonic effusion. 7. H/o renal transplant from unrelated donor. - Plan Plan: Conitnue vanco po x 20 days, vanco IV x 10 days, levaquin PO x 10 days and flagyl po x7 days. Nutritional Asmnt/Malnutr-PDOC - Dietary Evaluation Malnutrition Findings (Please click <Entered> for more info): Nutritional Asmnt/Malnutrition Start: 12/14/16 18: 11 Text: Status: Complete Freq: Document 12/14/16 18:11 GSUN (Rec: 12/14/16 18:52 GSUN [email or web address]) Nutritional Asmnt/Malnutrition Patient General Information Nutritional Screening Consult Diagnosis Basilar PNA, acute cholelithiasis, HTN, DM, GERD, hx c diff, chornic renal Pertinent Medical Hx/Surgical Hx ESRD s/p right kidney transplant, peptic ulcer disease, anemia of chronic kidney disease, sacral pressure ulcer stage 2, GERD, essential HTN, hx c diff Subjective Information [address] consult for diarrhea. Pt was NPO for HIDA and CT, ordered [id number] this lunch, observed lunch tray at bedside. Pt had 75% breakfast yesterday 12/13. Pt having diarrhea during visit, pt stated no hx of chronic diarrhea, new onset diarrhea for 1 wk. Observed red sign at door, spoke to PARVIN Bui RN confirmed positive for c-diff. Geochemical Laboratory Technician informed FNS to use all disposables. Pt confirmed hx kidney transplant "last August." Pt reported usually fair appetite. No muscle/fat wasting noted. Pt does not wish to talk about diets at this time. Pt stated UBW ~ 200lb, denied recent changes, CBW 198lb via bedscale during visit. Current Diet Order/ Nutrition Support [id number] Pertinent Medications Vitamin C, Pepto-Bismol, Colace, Iron, Novolog, Culturelle, Flagyl, Vancomycin , Morphine, Klor-Con, Potassium Phosphate, Fleet Enema Pertinent Labs 12/14: potassium 3.2L, calcium 8.5L, phosphorus 1.8L Nutritional Hx/Data Height 1.88 m Height (Calculated Centimeters) 188.0 Current Weight (lbs) 88.451 kg Weight (Calculated Kilograms) 88.5 Weight (Calculated Grams) 80436.5 [place] Body Weight 190 Weight Status Approriate GI Symptoms GI Symptoms Diarrhea Food Allergies No Skin Integrity/Comment: [place] 16. Edema 2+. Redness. Estimated Nutritional Goals BEE in Kcals: Using Current wt Calories/Kcals/Kg CBW 195lb/88.6kg Kcals Calculated 2658kcal (30kcal/kg) Protein: Using Current wt Protein Calculated 106-124g (1.2-1.4g/kg) Fluid: ml 2658ml (1ml/kcal) Nutritional Problem 1. Problem Problem Inadequate carbohdyrate intake related to Etiology estimated nutritinoal eneds, hypermetabolic state aeb Signs/Symptoms: PNA, current diet providing < 40% CHO of total kcal Intervention/Recommendation Comments 1. Recommend [id number] with double portion vegetable and protin to promote glycemic control while meeting nutritinoal eneds. Current diet order provides to meet < 40% CHO of total kcal, inadequate. 2. Pt is on contact precaution , observed red sign at door. Spoke to PARVIN Bui RN confirmed c-diff positive. Geochemical Laboratory Technician informed FNS to use all disposables. 3. Provide DM nutrition edu during follow up as able. Expected Outcomes/Goals Expected Outcomes/Goals 1. PO intake to meet at least 75% of estimated nutritinoal eneds.
--- NOTE | 2016-12-16 12:30 | Infectious Disease Prog Note ---
Infectious Disease Subjective - Review of Systems Service Date: 12/16/16 Subjective: No new change. Infectious Disease Objective - Results Result Diagrams: 12/16/16 10:30 12/16/16 10:30 Recent Labs: Laboratory Last Values WBC 13.8 Th/cmm (4.8-10.8) H 12/16/16 10:30 RBC 3.61 Mil/cmm (3.80-5.80) L 12/16/16 10:30 Hgb 10.5 gm/dL (12-16) L 12/16/16 10:30 Hct 32.5 % (41.0-60) L 12/16/16 10:30 MCV 90.2 fl (80-99) 12/16/16 10:30 MCH 29.1 pg (27.0-31.0) 12/16/16 10:30 MCHC Differential 32.3 pg (28.0-36.0) 12/16/16 10:30 RDW 15.9 % (11.5-20.0) 12/16/16 10:30 Plt Count 224 Th/cmm (150-400) 12/16/16 10:30 MPV 8.7 fl 12/16/16 10:30 Neutrophils % RUBBER MILL TENDER 12/14/16 05:35 Band Neutrophils % 3 % (0-10) 12/16/16 10:30 Lymphocytes % RUBBER MILL TENDER 12/14/16 05:35 Basophils % RUBBER MILL TENDER 12/14/16 05:35 Neutrophils (Manual) 91 % (40-80) H 12/16/16 10:30 Lymphocytes 5 % (20-50) L 12/16/16 10:30 Monocytes 1 % (2-10) L 12/16/16 10:30 Platelet Estimate ADEQUATE (NORMAL) 12/16/16 10:30 PT 11.0 SECONDS (9.5-11.5) 12/11/16 21: INR 1.06 (0.5-1.4) 12/11/16 21: PTT (Actin FS) 26.3 SECONDS (26.0-38.0) 12/11/16 21:23 Sodium 136 mEq/L (136-145) 12/16/16 10:30 Potassium 4.1 mEq/L (3.5-5.1) 12/16/16 10:30 Chloride 109 mEq/L (98-107) H 12/16/16 10:30 Carbon Dioxide 23.7 mEq/L (21.0-31.0) 12/16/16 10:30 Anion Gap 7.4 (7.0-16.0) 12/16/16 10:30 BUN 11 mg/dL (7-25) 12/16/16 10:30 Creatinine 0.9 mg/dL (0.7-1.3) 12/16/16 10:30 Est GFR ( Amer) TNP 12/16/16 10:30 Est GFR (Non-Af Amer) TNP 12/16/16 10:30 BUN/Creatinine Ratio 12.2 12/16/16 10:30 Glucose 116 mg/dL (70-105) H 12/16/16 10:30 POC Glucose 133 MG/DL (70 - 105) H 12/16/16 06:49 Whole Bld Lactic Acid 1.15 mmol/L (0.60-1.99) 12/11/16 21:23 Calcium 8.8 mg/dL (8.6-10.3) 12/16/16 10:30 Phosphorus 1.8 mg/dL (2.5-5.0) L 12/14/16 05:35 Magnesium 1.2 mg/dL (1.9-2.7) L 12/14/16 05:35 Total Bilirubin 0.4 mg/dL (0.3-1.0) 12/16/16 10:30 Direct Bilirubin 0.25 mg/dL (0.0-0.2) H 12/13/16 05:40 AST 7 U/L (13-39) L 12/16/16 10:30 ALT 5 U/L (7-52) L 12/16/16 10:30 Alkaline Phosphatase 54 U/L (34-104) 12/16/16 10:30 B-Natriuretic Peptide 601.0 pg/mL (5.0-100.0) H 12/15/16 05:55 Total Protein 4.0 gm/dL (6.0-8.3) L 12/16/16 10:30 Albumin 2.4 gm/dL (4.2-5.5) L 12/16/16 10:30 Globulin 1.6 gm/dL 12/16/16 10:30 Albumin/Globulin Ratio 1.5 (1.0-1.8) 12/16/16 10:30 Triglycerides 96 mg/dL (<150) 12/12/16 06:00 Cholesterol 122 mg/dL (<200) 12/12/16 06:00 LDL Cholesterol Direct 68 mg/dL (75-193) L 12/12/16 06:00 HDL Cholesterol 32 mg/dL (23-92) 12/12/16 06:00 Amylase 10 U/L (29-103) L 12/11/16 21:23 Lipase < 3 U/L (11-82) L 12/13/16 05:40 TSH 3.16 uIU/ml (0.34-5.60) 12/12/16 06:00 Urine Source CLEAN C 12/11/16 22:30 Urine Color ORANGE 12/11/16 22:30 Urine Clarity HAZY (CLEAR) 12/11/16 22:30 Urine pH 6.0 (4.6 - 8.0) 12/11/16 22:30 Ur Specific [place] 1.020 (1.005-1.030) 12/11/16 22:30 Urine Protein TRACE mg/dL (NEGATIVE) 12/11/16 22:30 Urine Glucose (UA) NEGATIVE mg/dL (NEGATIVE) 12/11/16 22:30 Urine Ketones TRACE mg/dL (NEGATIVE) 12/11/16 22:30 Urine Blood TRACE (NEGATIVE) 12/11/16 22:30 Urine Nitrate NEGATIVE (NEGATIVE) 12/11/16 22:30 Urine Bilirubin NEGATIVE (NEGATIVE) 12/11/16 22:30 Urine Urobilinogen 0.2 E.U./dL (0.2 - 1.0) 12/11/16 22:30 Ur Leukocyte Esterase TRACE (NEGATIVE) H 12/11/16 22:30 Urine RBC 2-5 /hpf (0-5) H 12/11/16 22:30 Urine WBC 2-5 /hpf (0-5) H 12/11/16 22:30 Ur Epithelial Cells NONE SEEN /lpf (FEW) 12/11/16 22:30 Calcium Oxalate Crystal FEW /hpf 12/11/16 22:30 Urine Bacteria OCCASIONAL /hpf (NONE SEEN) 12/11/16 22:30 Stool Occult Blood POSITIVE (NEGATIVE) 12/11/16 22:15 Vancomycin Trough 18.9 ug/mL (10-20) 12/14/16 15:55 - Physical Exam Vitals and I&O: Vital Signs Temp 98.6 F 12/15/16 20:00 Pulse 84 12/16/16 10:58 Resp 18 12/16/16 10:58 BP 104/48 12/16/16 00:00 Pulse Ox 98 12/16/16 10:58 Intake & Output 12/15/16 12/16/16 12/16/16 18:59 06:59 18:59 Intake Total 700 100 Balance 700 100 Weight (lbs) 87.09 kg Intake: Intake, IV Amount 700 100 Vancomycin HCl 1.5 gm In 500 Sodium Chloride 0.9% 500 ml @ 250 mls/hr IV Q12H [facility] Rx#:[id number] metroNIDAZOLE 500mg/NS 200 100 100mL 500 mg In 100 ml @ 100 mls/hr IV Q8HR [facility] Rx #:[id number] Other: Stool Characteristics Liquid Active Medications: Current Medications Acetaminophen (Tylenol) 650 mg PO Q4H PRN PRN Reason: Pain or Fever >101 Stop: 02/10/17 08:14 Last Admin: 12/12/16 14:18 Dose: 650 mg Albuterol Sulfate (Albuterol 2.5mg/3ml Neb Ud) 2.5 mg HHN QIDRT [facility] Stop: 02/10/17 14:59 Last Admin: 12/16/16 11:29 Dose: Not Given Albuterol/Ipratropium (Duoneb Neb) 3 ml HHN Q4HRT PRN PRN Reason: Shortness of Breath Stop: 02/10/17 08:14 Ascorbic Acid (Vitamin C) 500 mg PO DAILY [facility] Stop: 02/10/17 08:59 Last Admin: 12/16/16 09:44 Dose: 500 mg Bismuth Subsalicylate (Pepto-Bismol) 30 ml PO Q6H PRN PRN Reason: GI DISTRESS Stop: 02/10/17 08:14 Clonidine HCl (Kcflpzdd-Rbp-1) 1 patch TD Mo [facility] Stop: 02/10/17 09:59 Last Admin: 12/12/16 09:58 Dose: 1 patch Diltiazem HCl (Cardizem) 30 mg PO Q6HR [facility] Stop: 02/10/17 11:59 Last Admin: 12/16/16 06:55 Dose: 30 mg Docusate Sodium (Colace) 100 mg PO BID [facility] Stop: 02/10/17 08:59 Last Admin: 12/15/16 17:13 Dose: 100 mg Ferrous Sulfate (Iron) 325 mg PO DAILY [facility] Stop: 02/10/17 08:59 Last Admin: 12/16/16 09:45 Dose: 325 mg Heparin Sodium (Porcine) (Heparin) 5,000 units SUBQ Q12HR [facility] Stop: 02/10/17 20:59 Last Admin: 12/15/16 21:00 Dose: 5,000 units Metronidazole (Flagyl) 500 mg in 100 mls @ 100 mls/hr IV Q8HR [facility] Stop: 02/10/17 07:59 Last Admin: 12/16/16 04:44 Dose: 100 mls/hr Sodium Chloride (Nacl 0.9%) 1,000 mls @ 60 mls/hr IV .[id number] [facility] Stop: 02/10/17 01:15 Last Admin: 12/15/16 17:16 Dose: 60 mls/hr Vancomycin HCl 1.5 gm/ Sodium (Chloride) 500 mls @ 250 mls/hr IV Q12H [facility] Stop: 02/13/17 08:59 Last Admin: 12/15/16 22:06 Dose: 250 mls/hr Insulin Aspart (Novolog Insulin Sliding Scale) 0 units SUBQ ACHS [facility] PRN Reason: Protocol Stop: 02/10/17 16:29 Last Admin: 12/16/16 06:50 Dose: Not Given Ipratropium [place] (Atrovent Neb 0.5mg/2.5ml) 0.5 mg HHN QIDRT [facility] Stop: 02/10/17 14:59 Last Admin: 12/16/16 11:31 Dose: Not Given Lactobacillus Rhamnosus (Culturelle) 1 each PO DAILY [facility] Stop: 02/11/17 16:59 Last Admin: 12/16/16 09:43 Dose: 1 each Levofloxacin (Levaquin) 250 mg PO DAILY [facility] Stop: 02/10/17 08:59 Last Admin: 12/16/16 09:45 Dose: 250 mg Miscellaneous (Vte Chemical Prophylaxis Screen/ Admission) 1 [facility] PRN PRN PRN Reason: PROTOCOL Stop: 02/10/17 16:11 Miscellaneous (Vancomycin Iv Per Pharmacy) 1 [facility] PRN [facility] Stop: 02/11/17 12:44 Miscellaneous (Probiotic Screen) 1 [facility] PRN PRN PRN Reason: PROTOCOL Stop: 02/11/17 15:56 Miscellaneous (Misc Oral Cap) 3 cap PO BID [facility] Stop: 02/12/17 16:59 Last Admin: 12/15/16 17:18 Dose: 3 cap Morphine Sulfate (Morphine) 1 mg IVP Q6H PRN PRN Reason: Abdominal Pain Stop: 02/10/17 14:55 Last Admin: 12/15/16 21:15 Dose: 1 mg Mupirocin (Bactroban Oint) 1 appl TP BID [facility] Stop: 12/21/16 08:59 Last Admin: 12/15/16 17:15 Dose: 1 appl Potassium Chloride (Klor-Con) 40 meq PO DAILY [facility] Stop: 02/11/17 18:14 Last Admin: 12/16/16 09:43 Dose: 40 meq Prednisone (Deltasone) 10 mg PO BID [facility] Stop: 02/11/17 18:14 Last Admin: 12/16/16 09:45 Dose: 10 mg Sodium Phosphate (Fleet Enema) 135 ml RC DAILY PRN PRN Reason: Constipation Stop: 02/10/17 08:14 Tacrolimus (Prograf) 1 mg PO BID [facility] Stop: 02/11/17 18:14 Last Admin: 12/16/16 09:44 Dose: 1 mg Vancomycin HCl (Vancomycin Oral) 250 mg PO QID [facility] Stop: 02/13/17 09:59 Last Admin: 12/16/16 09:46 Dose: 250 mg General: no acute distress, well developed, well nourished, cachectic HEENT: atraumatic, normocephalic, PERRLA, EOMI Neck: supple Cardiovascular: S1S2, regular Lungs: clear to auscultation bilaterally, clear to percussion Abdomen: soft, no tender, no distended Extremities: no cyanosis, no clubbing, no edema Neurological: awake, alert, oriented Skin: intact Infectious Disease Assmt/Plan - Problem List Patient Problems: All Active Problems Cholelithiasis (Acute) Diverticulitis (Acute) - Assessment Assessment: 1. Leukocytosis. 2. CDAC. 3. Diverticulitis. 4. Cystitis with h/o renal transplant. 5. Cholelithiasis. 6. Bilateral pneumonia with parapneumonic effusion. 7. H/o renal transplant from unrelated donor. - Plan Plan: Conitnue vanco po x 20 days, vanco IV x 10 days, levaquin PO x 10 days and flagyl po x7 days. Nutritional Asmnt/Malnutr-PDOC - Dietary Evaluation Malnutrition Findings (Please click <Entered> for more info): Nutritional Asmnt/Malnutrition Start: 12/14/16 18: 11 Text: Status: Complete Freq: Document 12/14/16 18:11 GSUN (Rec: 12/14/16 18:52 GSUN [email or web address]) Nutritional Asmnt/Malnutrition Patient General Information Nutritional Screening Consult Diagnosis Basilar PNA, acute cholelithiasis, HTN, DM, GERD, hx c diff, chornic renal Pertinent Medical Hx/Surgical Hx ESRD s/p right kidney transplant, peptic ulcer disease, anemia of chronic kidney disease, sacral pressure ulcer stage 2, GERD, essential HTN, hx c diff Subjective Information 76 [address] consult for diarrhea. Pt was NPO for HIDA and CT, ordered [id number] this lunch, observed lunch tray at bedside. Pt had 75% breakfast yesterday 12/13. Pt having diarrhea during visit, pt stated no hx of chronic diarrhea, new onset diarrhea for 1 wk. Observed red sign at door, spoke to PARVIN Bui RN confirmed positive for c-diff. Race Steward informed FNS to use all disposables. Pt confirmed hx kidney transplant "last August." Pt reported usually fair appetite. No muscle/fat wasting noted. Pt does not wish to talk about diets at this time. Pt stated UBW ~ 200lb, denied recent changes, CBW 198lb via bedscale during visit. Current Diet Order/ Nutrition Support [id number] Pertinent Medications Vitamin C, Pepto-Bismol, Colace, Iron, Novolog, Culturelle, Flagyl, Vancomycin , Morphine, Klor-Con, Potassium Phosphate, Fleet Enema Pertinent Labs 12/14: potassium 3.2L, calcium 8.5L, phosphorus 1.8L Nutritional Hx/Data Height 1.88 m Height (Calculated Centimeters) 188.0 Current Weight (lbs) 88.451 kg Weight (Calculated Kilograms) 88.5 Weight (Calculated Grams) 92119.5 [place] Body Weight 190 Weight Status Approriate GI Symptoms GI Symptoms Diarrhea Food Allergies No Skin Integrity/Comment: Earle 16. Edema 2+. Redness. Estimated Nutritional Goals BEE in Kcals: Using Current wt Calories/Kcals/Kg CBW 195lb/88.6kg Kcals Calculated 2658kcal (30kcal/kg) Protein: Using Current wt Protein Calculated 106-124g (1.2-1.4g/kg) Fluid: ml 2658ml (1ml/kcal) Nutritional Problem 1. Problem Problem Inadequate carbohdyrate intake related to Etiology estimated nutritinoal eneds, hypermetabolic state aeb Signs/Symptoms: PNA, current diet providing < 40% CHO of total kcal Intervention/Recommendation Comments 1. Recommend [id number] with double portion vegetable and protin to promote glycemic control while meeting nutritinoal eneds. Current diet order provides to meet < 40% CHO of total kcal, inadequate. 2. Pt is on contact precaution , observed red sign at door. Spoke to PARVIN Bui RN confirmed c-diff positive. Race Steward informed FNS to use all disposables. 3. Provide DM nutrition edu during follow up as able. Expected Outcomes/Goals Expected Outcomes/Goals 1. PO intake to meet at least 75% of estimated nutritinoal eneds.
--- NOTE | 2016-12-16 12:30 | Infectious Disease Prog Note ---
Infectious Disease Subjective - Review of Systems Service Date: 12/16/16 Subjective: No new change. Infectious Disease Objective - Results Result Diagrams: 12/16/16 10:30 12/16/16 10:30 Recent Labs: Laboratory Last Values WBC 13.8 Th/cmm (4.8-10.8) H 12/16/16 10:30 RBC 3.61 Mil/cmm (3.80-5.80) L 12/16/16 10:30 Hgb 10.5 gm/dL (12-16) L 12/16/16 10:30 Hct 32.5 % (41.0-60) L 12/16/16 10:30 MCV 90.2 fl (80-99) 12/16/16 10:30 MCH 29.1 pg (27.0-31.0) 12/16/16 10:30 MCHC Differential 32.3 pg (28.0-36.0) 12/16/16 10:30 RDW 15.9 % (11.5-20.0) 12/16/16 10:30 Plt Count 224 Th/cmm (150-400) 12/16/16 10:30 MPV 8.7 fl 12/16/16 10:30 Neutrophils % CONSULTING IT ARCHITECT 12/14/16 05:35 Band Neutrophils % 3 % (0-10) 12/16/16 10:30 Lymphocytes % CONSULTING IT ARCHITECT 12/14/16 05:35 Basophils % CONSULTING IT ARCHITECT 12/14/16 05:35 Neutrophils (Manual) 91 % (40-80) H 12/16/16 10:30 Lymphocytes 5 % (20-50) L 12/16/16 10:30 Monocytes 1 % (2-10) L 12/16/16 10:30 Platelet Estimate ADEQUATE (NORMAL) 12/16/16 10:30 PT 11.0 SECONDS (9.5-11.5) 12/11/16 21: INR 1.06 (0.5-1.4) 12/11/16 21: PTT (Actin FS) 26.3 SECONDS (26.0-38.0) 12/11/16 21:23 Sodium 136 mEq/L (136-145) 12/16/16 10:30 Potassium 4.1 mEq/L (3.5-5.1) 12/16/16 10:30 Chloride 109 mEq/L (98-107) H 12/16/16 10:30 Carbon Dioxide 23.7 mEq/L (21.0-31.0) 12/16/16 10:30 Anion Gap 7.4 (7.0-16.0) 12/16/16 10:30 BUN 11 mg/dL (7-25) 12/16/16 10:30 Creatinine 0.9 mg/dL (0.7-1.3) 12/16/16 10:30 Est GFR ( Amer) TNP 12/16/16 10:30 Est GFR (Non-Af Amer) TNP 12/16/16 10:30 BUN/Creatinine Ratio 12.2 12/16/16 10:30 Glucose 116 mg/dL (70-105) H 12/16/16 10:30 POC Glucose 133 MG/DL (70 - 105) H 12/16/16 06:49 Whole Bld Lactic Acid 1.15 mmol/L (0.60-1.99) 12/11/16 21:23 Calcium 8.8 mg/dL (8.6-10.3) 12/16/16 10:30 Phosphorus 1.8 mg/dL (2.5-5.0) L 12/14/16 05:35 Magnesium 1.2 mg/dL (1.9-2.7) L 12/14/16 05:35 Total Bilirubin 0.4 mg/dL (0.3-1.0) 12/16/16 10:30 Direct Bilirubin 0.25 mg/dL (0.0-0.2) H 12/13/16 05:40 AST 7 U/L (13-39) L 12/16/16 10:30 ALT 5 U/L (7-52) L 12/16/16 10:30 Alkaline Phosphatase 54 U/L (34-104) 12/16/16 10:30 B-Natriuretic Peptide 601.0 pg/mL (5.0-100.0) H 12/15/16 05:55 Total Protein 4.0 gm/dL (6.0-8.3) L 12/16/16 10:30 Albumin 2.4 gm/dL (4.2-5.5) L 12/16/16 10:30 Globulin 1.6 gm/dL 12/16/16 10:30 Albumin/Globulin Ratio 1.5 (1.0-1.8) 12/16/16 10:30 Triglycerides 96 mg/dL (<150) 12/12/16 06:00 Cholesterol 122 mg/dL (<200) 12/12/16 06:00 LDL Cholesterol Direct 68 mg/dL (75-193) L 12/12/16 06:00 HDL Cholesterol 32 mg/dL (23-92) 12/12/16 06:00 Amylase 10 U/L (29-103) L 12/11/16 21:23 Lipase < 3 U/L (11-82) L 12/13/16 05:40 TSH 3.16 uIU/ml (0.34-5.60) 12/12/16 06:00 Urine Source CLEAN C 12/11/16 22:30 Urine Color ORANGE 12/11/16 22:30 Urine Clarity HAZY (CLEAR) 12/11/16 22:30 Urine pH 6.0 (4.6 - 8.0) 12/11/16 22:30 Ur Specific [place] 1.020 (1.005-1.030) 12/11/16 22:30 Urine Protein TRACE mg/dL (NEGATIVE) 12/11/16 22:30 Urine Glucose (UA) NEGATIVE mg/dL (NEGATIVE) 12/11/16 22:30 Urine Ketones TRACE mg/dL (NEGATIVE) 12/11/16 22:30 Urine Blood TRACE (NEGATIVE) 12/11/16 22:30 Urine Nitrate NEGATIVE (NEGATIVE) 12/11/16 22:30 Urine Bilirubin NEGATIVE (NEGATIVE) 12/11/16 22:30 Urine Urobilinogen 0.2 E.U./dL (0.2 - 1.0) 12/11/16 22:30 Ur Leukocyte Esterase TRACE (NEGATIVE) H 12/11/16 22:30 Urine RBC 2-5 /hpf (0-5) H 12/11/16 22:30 Urine WBC 2-5 /hpf (0-5) H 12/11/16 22:30 Ur Epithelial Cells NONE SEEN /lpf (FEW) 12/11/16 22:30 Calcium Oxalate Crystal FEW /hpf 12/11/16 22:30 Urine Bacteria OCCASIONAL /hpf (NONE SEEN) 12/11/16 22:30 Stool Occult Blood POSITIVE (NEGATIVE) 12/11/16 22:15 Vancomycin Trough 18.9 ug/mL (10-20) 12/14/16 15:55 - Physical Exam Vitals and I&O: Vital Signs Temp 98.6 F 12/15/16 20:00 Pulse 84 12/16/16 10:58 Resp 18 12/16/16 10:58 BP 104/48 12/16/16 00:00 Pulse Ox 98 12/16/16 10:58 Intake & Output 12/15/16 12/16/16 12/16/16 18:59 06:59 18:59 Intake Total 700 100 Balance 700 100 Weight (lbs) 87.09 kg Intake: Intake, IV Amount 700 100 Vancomycin HCl 1.5 gm In 500 Sodium Chloride 0.9% 500 ml @ 250 mls/hr IV Q12H [facility] Rx#:[id number] metroNIDAZOLE 500mg/NS 200 100 100mL 500 mg In 100 ml @ 100 mls/hr IV Q8HR [facility] Rx #:[id number] Other: Stool Characteristics Liquid Active Medications: Current Medications Acetaminophen (Tylenol) 650 mg PO Q4H PRN PRN Reason: Pain or Fever >101 Stop: 02/10/17 08:14 Last Admin: 12/12/16 14:18 Dose: 650 mg Albuterol Sulfate (Albuterol 2.5mg/3ml Neb Ud) 2.[address] [facility] Stop: 02/10/17 14:59 Last Admin: 12/16/16 11:29 Dose: Not Given Albuterol/Ipratropium (Duoneb Neb) 3 ml HHN Q4HRT PRN PRN Reason: Shortness of Breath Stop: 02/10/17 08:14 Ascorbic Acid (Vitamin C) [address] [facility] Stop: 02/10/17 08:59 Last Admin: 12/16/16 09:44 Dose: 500 mg Bismuth Subsalicylate (Pepto-Bismol) 30 ml PO Q6H PRN PRN Reason: GI DISTRESS Stop: 02/10/17 08:14 Clonidine HCl (Ccjbrgvh-Kzz-0) [address] [facility] Stop: 02/10/17 09:59 Last Admin: 12/12/16 09:58 Dose: 1 patch Diltiazem HCl (Cardizem) [address] [facility] Stop: 02/10/17 11:59 Last Admin: 12/16/16 06:55 Dose: 30 mg Docusate Sodium (Colace) 100 mg PO BID [facility] Stop: 02/10/17 08:59 Last Admin: 12/15/16 17:13 Dose: 100 mg Ferrous Sulfate (Iron) 325 mg PO DAILY [facility] Stop: 02/10/17 08:59 Last Admin: 12/16/16 09:45 Dose: 325 mg Heparin Sodium (Porcine) (Heparin) 5,000 units SUBQ Q12HR [facility] Stop: 02/10/17 20:59 Last Admin: 12/15/16 21:00 Dose: 5,000 units Metronidazole (Flagyl) 500 mg in 100 mls @ 100 mls/hr IV Q8HR [facility] Stop: 02/10/17 07:59 Last Admin: 12/16/16 04:44 Dose: 100 mls/hr Sodium Chloride (Nacl 0.9%) 1,000 mls @ 60 mls/hr IV .[id number] [facility] Stop: 02/10/17 01:15 Last Admin: 12/15/16 17:16 Dose: 60 mls/hr Vancomycin HCl 1.5 gm/ Sodium (Chloride) 500 mls @ 250 mls/hr IV Q12H [facility] Stop: 02/13/17 08:59 Last Admin: 12/15/16 22:06 Dose: 250 mls/hr Insulin Aspart (Novolog Insulin Sliding Scale) 0 units SUBQ ACHS [facility] PRN Reason: Protocol Stop: 02/10/17 16:29 Last Admin: 12/16/16 06:50 Dose: Not Given Ipratropium [place] (Atrovent Neb 0.5mg/2.5ml) 0.5 mg HHN QIDRT [facility] Stop: 02/10/17 14:59 Last Admin: 12/16/16 11:31 Dose: Not Given Lactobacillus Rhamnosus (Culturelle) 1 each PO DAILY [facility] Stop: 02/11/17 16:59 Last Admin: 12/16/16 09:43 Dose: 1 each Levofloxacin (Levaquin) 250 mg PO DAILY [facility] Stop: 02/10/17 08:59 Last Admin: 12/16/16 09:45 Dose: 250 mg Miscellaneous (Vte Chemical Prophylaxis Screen/ Admission) 1 [facility] PRN PRN PRN Reason: PROTOCOL Stop: 02/10/17 16:11 Miscellaneous (Vancomycin Iv Per Pharmacy) 1 [facility] PRN [facility] Stop: 02/11/17 12:44 Miscellaneous (Probiotic Screen) 1 [facility] PRN PRN PRN Reason: PROTOCOL Stop: 02/11/17 15:56 Miscellaneous (Misc Oral Cap) 3 cap PO BID [facility] Stop: 02/12/17 16:59 Last Admin: 12/15/16 17:18 Dose: 3 cap Morphine Sulfate (Morphine) 1 mg IVP Q6H PRN PRN Reason: Abdominal Pain Stop: 02/10/17 14:55 Last Admin: 12/15/16 21:15 Dose: 1 mg Mupirocin (Bactroban Oint) 1 appl TP BID [facility] Stop: 12/21/16 08:59 Last Admin: 12/15/16 17:15 Dose: 1 appl Potassium Chloride (Klor-Con) [address] [facility] Stop: 02/11/17 18:14 Last Admin: 12/16/16 09:43 Dose: 40 meq Prednisone (Deltasone) 10 mg PO BID [facility] Stop: 02/11/17 18:14 Last Admin: 12/16/16 09:45 Dose: 10 mg Sodium Phosphate (Fleet Enema) 135 ml RC DAILY PRN PRN Reason: Constipation Stop: 02/10/17 08:14 Tacrolimus (Prograf) 1 mg PO BID [facility] Stop: 02/11/17 18:14 Last Admin: 12/16/16 09:44 Dose: 1 mg Vancomycin HCl (Vancomycin Oral) 250 mg PO QID [facility] Stop: 02/13/17 09:59 Last Admin: 12/16/16 09:46 Dose: 250 mg General: no acute distress, well developed, well nourished, cachectic HEENT: atraumatic, normocephalic, PERRLA, EOMI Neck: supple Cardiovascular: S1S2, regular Lungs: clear to auscultation bilaterally, clear to percussion Abdomen: soft, no tender, no distended Extremities: no cyanosis, no clubbing, no edema Neurological: awake, alert, oriented Skin: intact Infectious Disease Assmt/Plan - Problem List Patient Problems: All Active Problems Cholelithiasis (Acute) Diverticulitis (Acute) - Assessment Assessment: 1. Leukocytosis. 2. CDAC. 3. Diverticulitis. 4. Cystitis with h/o renal transplant. 5. Cholelithiasis. 6. Bilateral pneumonia with parapneumonic effusion. 7. H/o renal transplant from unrelated donor. - Plan Plan: Conitnue vanco po x 20 days, vanco IV x 10 days, levaquin PO x 10 days and flagyl po x7 days. Nutritional Asmnt/Malnutr-PDOC - Dietary Evaluation Malnutrition Findings (Please click <Entered> for more info): Nutritional Asmnt/Malnutrition Start: 12/14/16 18: 11 Text: Status: Complete Freq: Document 12/14/16 18:11 GSUN (Rec: 12/14/16 18:52 GSUN [email or web address]) Nutritional Asmnt/Malnutrition Patient General Information Nutritional Screening Consult Diagnosis Basilar PNA, acute cholelithiasis, HTN, DM, GERD, hx c diff, chornic renal Pertinent Medical Hx/Surgical Hx ESRD s/p right kidney transplant, peptic ulcer disease, anemia of chronic kidney disease, sacral pressure ulcer stage 2, GERD, essential HTN, hx c diff Subjective Information [address] consult for diarrhea. Pt was NPO for HIDA and CT, ordered [id number] this lunch, observed lunch tray at bedside. Pt had 75% breakfast yesterday 12/13. Pt having diarrhea during visit, pt stated no hx of chronic diarrhea, new onset diarrhea for 1 wk. Observed red sign at door, spoke to PARVIN Bui RN confirmed positive for c-diff. Route Process Administrator informed FNS to use all disposables. Pt confirmed hx kidney transplant "last August." Pt reported usually fair appetite. No muscle/fat wasting noted. Pt does not wish to talk about diets at this time. Pt stated UBW ~ 200lb, denied recent changes, CBW 198lb via bedscale during visit. Current Diet Order/ Nutrition Support [id number] Pertinent Medications Vitamin C, Pepto-Bismol, Colace, Iron, Novolog, Culturelle, Flagyl, Vancomycin , Morphine, Klor-Con, Potassium Phosphate, Fleet Enema Pertinent Labs 12/14: potassium 3.2L, calcium 8.5L, phosphorus 1.8L Nutritional Hx/Data Height 1.88 m Height (Calculated Centimeters) 188.0 Current Weight (lbs) 88.451 kg Weight (Calculated Kilograms) 88.5 Weight (Calculated Grams) 29626.5 [place] Body Weight 190 Weight Status Approriate GI Symptoms GI Symptoms Diarrhea Food Allergies No Skin Integrity/Comment: Earle 16. Edema 2+. Redness. Estimated Nutritional Goals BEE in Kcals: Using Current wt Calories/Kcals/Kg CBW 195lb/88.6kg Kcals Calculated 2658kcal (30kcal/kg) Protein: Using Current wt Protein Calculated 106-124g (1.2-1.4g/kg) Fluid: ml 2658ml (1ml/kcal) Nutritional Problem 1. Problem Problem Inadequate carbohdyrate intake related to Etiology estimated nutritinoal eneds, hypermetabolic state aeb Signs/Symptoms: PNA, current diet providing < 40% CHO of total kcal Intervention/Recommendation Comments 1. Recommend [id number] with double portion vegetable and protin to promote glycemic control while meeting nutritinoal eneds. Current diet order provides to meet < 40% CHO of total kcal, inadequate. 2. Pt is on contact precaution , observed red sign at door. Spoke to PARVIN Bui RN confirmed c-diff positive. Route Process Administrator informed FNS to use all disposables. 3. Provide DM nutrition edu during follow up as able. Expected Outcomes/Goals Expected Outcomes/Goals 1. PO intake to meet at least 75% of estimated nutritinoal eneds.
[2016-12-16] MEDS: Vancomycin HCl 1.5 GM in Sodium Chloride 0.9% 500 ML IV SCH (12:42)
[2016-12-16] MEDS: Morphine Sulfate 2 mg/mL 1mL Syr IVP PRN (14:01)
--- NOTE | 2016-12-16 19:48 | General Progress Note ---
Objective - Results Result Diagrams: 12/16/16 10:30 12/16/16 10:30 Recent Labs: Laboratory Last Values WBC 13.8 Th/cmm (4.8-10.8) H 12/16/16 10:30 RBC 3.61 Mil/cmm (3.80-5.80) L 12/16/16 10:30 Hgb 10.5 gm/dL (12-16) L 12/16/16 10:30 Hct 32.5 % (41.0-60) L 12/16/16 10:30 MCV 90.2 fl (80-99) 12/16/16 10:30 MCH 29.1 pg (27.0-31.0) 12/16/16 10:30 MCHC Differential 32.3 pg (28.0-36.0) 12/16/16 10:30 RDW 15.9 % (11.5-20.0) 12/16/16 10:30 Plt Count 224 Th/cmm (150-400) 12/16/16 10:30 MPV 8.7 fl 12/16/16 10:30 Neutrophils % LOOM SETTER 12/14/16 05:35 Band Neutrophils % 3 % (0-10) 12/16/16 10:30 Lymphocytes % LOOM SETTER 12/14/16 05:35 Basophils % LOOM SETTER 12/14/16 05:35 Neutrophils (Manual) 91 % (40-80) H 12/16/16 10:30 Lymphocytes 5 % (20-50) L 12/16/16 10:30 Monocytes 1 % (2-10) L 12/16/16 10:30 Platelet Estimate ADEQUATE (NORMAL) 12/16/16 10:30 PT 11.0 SECONDS (9.5-11.5) 12/11/16 21:23 INR 1.06 (0.5-1.4) 12/11/16 21:23 PTT (Actin FS) 26.3 SECONDS (26.0-38.0) 12/11/16 21:23 Sodium 136 mEq/L (136-145) 12/16/16 10:30 Potassium 4.1 mEq/L (3.5-5.1) 12/16/16 10:30 Chloride 109 mEq/L (98-107) H 12/16/16 10:30 Carbon Dioxide 23.7 mEq/L (21.0-31.0) 12/16/16 10:30 Anion Gap 7.4 (7.0-16.0) 12/16/16 10:30 BUN 11 mg/dL (7-25) 12/16/16 10:30 Creatinine 0.9 mg/dL (0.7-1.3) 12/16/16 10:30 Est GFR ( Amer) TNP 12/16/16 10:30 Est GFR (Non-Af Amer) TNP 12/16/16 10:30 BUN/Creatinine Ratio 12.2 12/16/16 10:30 Glucose 116 mg/dL (70-105) H 12/16/16 10:30 POC Glucose 141 MG/DL (70 - 105) H 12/16/16 12:37 Whole Bld Lactic Acid 1.15 mmol/L (0.60-1.99) 12/11/16 21:23 Calcium 8.8 mg/dL (8.6-10.3) 12/16/16 10:30 Phosphorus 1.8 mg/dL (2.5-5.0) L 12/14/16 05:35 Magnesium 1.2 mg/dL (1.9-2.7) L 12/14/16 05:35 Total Bilirubin 0.4 mg/dL (0.3-1.0) 12/16/16 10:30 Direct Bilirubin 0.25 mg/dL (0.0-0.2) H 12/13/16 05:40 AST 7 U/L (13-39) L 12/16/16 10:30 ALT 5 U/L (7-52) L 12/16/16 10:30 Alkaline Phosphatase 54 U/L (34-104) 12/16/16 10:30 B-Natriuretic Peptide 601.0 pg/mL (5.0-100.0) H 12/15/16 05:55 Total Protein 4.0 gm/dL (6.0-8.3) L 12/16/16 10:30 Albumin 2.4 gm/dL (4.2-5.5) L 12/16/16 10:30 Globulin 1.6 gm/dL 12/16/16 10:30 Albumin/Globulin Ratio 1.5 (1.0-1.8) 12/16/16 10:30 Triglycerides 96 mg/dL (<150) 12/12/16 06:00 Cholesterol 122 mg/dL (<200) 12/12/16 06:00 LDL Cholesterol Direct 68 mg/dL (75-193) L 12/12/16 06:00 HDL Cholesterol 32 mg/dL (23-92) 12/12/16 06:00 Amylase 10 U/L (29-103) L 12/11/16 21:23 Lipase < 3 U/L (11-82) L 12/13/16 05:40 TSH 3.16 uIU/ml (0.34-5.60) 12/12/16 06:00 Urine Source CLEAN C 12/11/16 22:30 Urine Color ORANGE 12/11/16 22:30 Urine Clarity HAZY (CLEAR) 12/11/16 22:30 Urine pH 6.0 (4.6 - 8.0) 12/11/16 22:30 Ur Specific [place] 1.020 (1.005-1.030) 12/11/16 22:30 Urine Protein TRACE mg/dL (NEGATIVE) 12/11/16 22:30 Urine Glucose (UA) NEGATIVE mg/dL (NEGATIVE) 12/11/16 22:30 Urine Ketones TRACE mg/dL (NEGATIVE) 12/11/16 22:30 Urine Blood TRACE (NEGATIVE) 12/11/16 22:30 Urine Nitrate NEGATIVE (NEGATIVE) 12/11/16 22:30 Urine Bilirubin NEGATIVE (NEGATIVE) 12/11/16 22:30 Urine Urobilinogen 0.2 E.U./dL (0.2 - 1.0) 12/11/16 22:30 Ur Leukocyte Esterase TRACE (NEGATIVE) H 12/11/16 22:30 Urine RBC 2-5 /hpf (0-5) H 12/11/16 22:30 Urine WBC 2-5 /hpf (0-5) H 12/11/16 22:30 Ur Epithelial Cells NONE SEEN /lpf (FEW) 12/11/16 22:30 Calcium Oxalate Crystal FEW /hpf 12/11/16 22:30 Urine Bacteria OCCASIONAL /hpf (NONE SEEN) 12/11/16 22:30 Stool Occult Blood POSITIVE (NEGATIVE) 12/11/16 22:15 Vancomycin Trough 18.9 ug/mL (10-20) 12/14/16 15:55 - Physical Exam Vitals and I&O: Vital Signs Temp 97.2 F 12/16/16 18:00 Pulse 85 12/16/16 18:52 Resp 18 12/16/16 18:52 BP 118/66 12/16/16 18:00 Pulse Ox 92 12/16/16 18:52 Intake & Output 12/16/16 12/16/16 12/17/16 06:59 18:59 06:59 Intake Total 600 Balance 600 Intake: Intake, IV Amount 600 Vancomycin HCl 1.5 gm In 500 Sodium Chloride 0.9% 500 ml @ 250 mls/hr IV Q12H [facility] Rx#:[id number] metroNIDAZOLE 500mg/NS 100 100mL 500 mg In 100 ml @ 100 mls/hr IV Q8HR [facility] Rx #:[id number] Other: Stool Characteristics Liquid Soft General: Alert, No acute distress HEENT: Atraumatic, EOMI Neck: Supple, +2 carotid pulse wo bruit Cardiovascular: Regular rate, Normal S1, Normal S2 Lungs: Clear to auscultation Abdomen: Bowel sounds, Soft Extremities: no Edema Neurological: Sensation intact Skin: no Rash Psych/Mental Status: Mood NL Assessment/Plan - Problem List Patient Problems: All Active Problems Cholelithiasis (Acute) Diverticulitis (Acute) - Plan Plan: antibiotic for 10 days Nutritional Asmnt/Malnutr-PDOC - Dietary Evaluation Malnutrition Findings (Please click <Entered> for more info): Nutritional Asmnt/Malnutrition Start: 12/14/16 18: 11 Text: Status: Complete Freq: Document 12/14/16 18:11 GSUN (Rec: 12/14/16 18:52 GSUN [id number]) Nutritional Asmnt/Malnutrition Patient General Information Nutritional Screening Consult Diagnosis Basilar PNA, acute cholelithiasis, HTN, DM, GERD, hx c diff, chornic renal Pertinent Medical Hx/Surgical Hx ESRD s/p right kidney transplant, peptic ulcer disease, anemia of chronic kidney disease, sacral pressure ulcer stage 2, GERD, essential HTN, hx c diff Subjective Information 76 [address] consult for diarrhea. Pt was NPO for HIDA and CT, ordered [id number] this lunch, observed lunch tray at bedside. Pt had 75% breakfast yesterday 12/13. Pt having diarrhea during visit, pt stated no hx of chronic diarrhea, new onset diarrhea for 1 wk. Observed red sign at door, spoke to RN Ramya, RN confirmed positive for c-diff. Shelving Supervisor informed FNS to use all disposables. Pt confirmed hx kidney transplant "last August." Pt reported usually fair appetite. No muscle/fat wasting noted. Pt does not wish to talk about diets at this time. Pt stated UBW ~ 200lb, denied recent changes, CBW 198lb via bedscale during visit. Current Diet Order/ Nutrition Support [id number] Pertinent Medications Vitamin C, Pepto-Bismol, Colace, Iron, Novolog, Culturelle, Flagyl, Vancomycin , Morphine, Klor-Con, Potassium Phosphate, Fleet Enema Pertinent Labs 12/14: potassium 3.2L, calcium 8.5L, phosphorus 1.8L Nutritional Hx/Data Height 1.88 m Height (Calculated Centimeters) 188.0 Current Weight (lbs) 88.451 kg Weight (Calculated Kilograms) 88.5 Weight (Calculated Grams) 40121.5 [place] Body Weight 190 Weight Status Approriate GI Symptoms GI Symptoms Diarrhea Food Allergies No Skin Integrity/Comment: Earle 16. Edema 2+. Redness. Estimated Nutritional Goals BEE in Kcals: Using Current wt Calories/Kcals/Kg CBW 195lb/88.6kg Kcals Calculated 2658kcal (30kcal/kg) Protein: Using Current wt Protein Calculated 106-124g (1.2-1.4g/kg) Fluid: ml 2658ml (1ml/kcal) Nutritional Problem 1. Problem Problem Inadequate carbohdyrate intake related to Etiology estimated nutritinoal eneds, hypermetabolic state aeb Signs/Symptoms: PNA, current diet providing < 40% CHO of total kcal Intervention/Recommendation Comments 1. Recommend [id number] with double portion vegetable and protin to promote glycemic control while meeting nutritinoal eneds. Current diet order provides to meet < 40% CHO of total kcal, inadequate. 2. Pt is on contact precaution , observed red sign at door. Spoke to PARVIN Bui RN confirmed c-diff positive. Shelving Supervisor informed FNS to use all disposables. 3. Provide DM nutrition edu during follow up as able. Expected Outcomes/Goals Expected Outcomes/Goals 1. PO intake to meet at least 75% of estimated nutritinoal eneds.
--- NOTE | 2016-12-16 19:48 | General Progress Note ---
Objective - Results Result Diagrams: 12/16/16 10:30 12/16/16 10:30 Recent Labs: Laboratory Last Values WBC 13.8 Th/cmm (4.8-10.8) H 12/16/16 10:30 RBC 3.61 Mil/cmm (3.80-5.80) L 12/16/16 10:30 Hgb 10.5 gm/dL (12-16) L 12/16/16 10:30 Hct 32.5 % (41.0-60) L 12/16/16 10:30 MCV 90.2 fl (80-99) 12/16/16 10:30 MCH 29.1 pg (27.0-31.0) 12/16/16 10:30 MCHC Differential 32.3 pg (28.0-36.0) 12/16/16 10:30 RDW 15.9 % (11.5-20.0) 12/16/16 10:30 Plt Count 224 Th/cmm (150-400) 12/16/16 10:30 MPV 8.7 fl 12/16/16 10:30 Neutrophils % EDUCATION RESEARCH ANALYST 12/14/16 05:35 Band Neutrophils % 3 % (0-10) 12/16/16 10:30 Lymphocytes % EDUCATION RESEARCH ANALYST 12/14/16 05:35 Basophils % EDUCATION RESEARCH ANALYST 12/14/16 05:35 Neutrophils (Manual) 91 % (40-80) H 12/16/16 10:30 Lymphocytes 5 % (20-50) L 12/16/16 10:30 Monocytes 1 % (2-10) L 12/16/16 10:30 Platelet Estimate ADEQUATE (NORMAL) 12/16/16 10:30 PT 11.0 SECONDS (9.5-11.5) 12/11/16 21:23 INR 1.06 (0.5-1.4) 12/11/16 21:23 PTT (Actin FS) 26.3 SECONDS (26.0-38.0) 12/11/16 21:23 Sodium 136 mEq/L (136-145) 12/16/16 10:30 Potassium 4.1 mEq/L (3.5-5.1) 12/16/16 10:30 Chloride 109 mEq/L (98-107) H 12/16/16 10:30 Carbon Dioxide 23.7 mEq/L (21.0-31.0) 12/16/16 10:30 Anion Gap 7.4 (7.0-16.0) 12/16/16 10:30 BUN 11 mg/dL (7-25) 12/16/16 10:30 Creatinine 0.9 mg/dL (0.7-1.3) 12/16/16 10:30 Est GFR ( Amer) TNP 12/16/16 10:30 Est GFR (Non-Af Amer) TNP 12/16/16 10:30 BUN/Creatinine Ratio 12.2 12/16/16 10:30 Glucose 116 mg/dL (70-105) H 12/16/16 10:30 POC Glucose 141 MG/DL (70 - 105) H 12/16/16 12:37 Whole Bld Lactic Acid 1.15 mmol/L (0.60-1.99) 12/11/16 21:23 Calcium 8.8 mg/dL (8.6-10.3) 12/16/16 10:30 Phosphorus 1.8 mg/dL (2.5-5.0) L 12/14/16 05:35 Magnesium 1.2 mg/dL (1.9-2.7) L 12/14/16 05:35 Total Bilirubin 0.4 mg/dL (0.3-1.0) 12/16/16 10:30 Direct Bilirubin 0.25 mg/dL (0.0-0.2) H 12/13/16 05:40 AST 7 U/L (13-39) L 12/16/16 10:30 ALT 5 U/L (7-52) L 12/16/16 10:30 Alkaline Phosphatase 54 U/L (34-104) 12/16/16 10:30 B-Natriuretic Peptide 601.0 pg/mL (5.0-100.0) H 12/15/16 05:55 Total Protein 4.0 gm/dL (6.0-8.3) L 12/16/16 10:30 Albumin 2.4 gm/dL (4.2-5.5) L 12/16/16 10:30 Globulin 1.6 gm/dL 12/16/16 10:30 Albumin/Globulin Ratio 1.5 (1.0-1.8) 12/16/16 10:30 Triglycerides 96 mg/dL (<150) 12/12/16 06:00 Cholesterol 122 mg/dL (<200) 12/12/16 06:00 LDL Cholesterol Direct 68 mg/dL (75-193) L 12/12/16 06:00 HDL Cholesterol 32 mg/dL (23-92) 12/12/16 06:00 Amylase 10 U/L (29-103) L 12/11/16 21:23 Lipase < 3 U/L (11-82) L 12/13/16 05:40 TSH 3.16 uIU/ml (0.34-5.60) 12/12/16 06:00 Urine Source CLEAN C 12/11/16 22:30 Urine Color ORANGE 12/11/16 22:30 Urine Clarity HAZY (CLEAR) 12/11/16 22:30 Urine pH 6.0 (4.6 - 8.0) 12/11/16 22:30 Ur Specific [place] 1.020 (1.005-1.030) 12/11/16 22:30 Urine Protein TRACE mg/dL (NEGATIVE) 12/11/16 22:30 Urine Glucose (UA) NEGATIVE mg/dL (NEGATIVE) 12/11/16 22:30 Urine Ketones TRACE mg/dL (NEGATIVE) 12/11/16 22:30 Urine Blood TRACE (NEGATIVE) 12/11/16 22:30 Urine Nitrate NEGATIVE (NEGATIVE) 12/11/16 22:30 Urine Bilirubin NEGATIVE (NEGATIVE) 12/11/16 22:30 Urine Urobilinogen 0.2 E.U./dL (0.2 - 1.0) 12/11/16 22:30 Ur Leukocyte Esterase TRACE (NEGATIVE) H 12/11/16 22:30 Urine RBC 2-5 /hpf (0-5) H 12/11/16 22:30 Urine WBC 2-5 /hpf (0-5) H 12/11/16 22:30 Ur Epithelial Cells NONE SEEN /lpf (FEW) 12/11/16 22:30 Calcium Oxalate Crystal FEW /hpf 12/11/16 22:30 Urine Bacteria OCCASIONAL /hpf (NONE SEEN) 12/11/16 22:30 Stool Occult Blood POSITIVE (NEGATIVE) 12/11/16 22:15 Vancomycin Trough 18.9 ug/mL (10-20) 12/14/16 15:55 - Physical Exam Vitals and I&O: Vital Signs Temp 97.2 F 12/16/16 18:00 Pulse 85 12/16/16 18:52 Resp 18 12/16/16 18:52 BP 118/66 12/16/16 18:00 Pulse Ox 92 12/16/16 18:52 Intake & Output 12/16/16 12/16/16 12/17/16 06:59 18:59 06:59 Intake Total 600 Balance 600 Intake: Intake, IV Amount 600 Vancomycin HCl 1.5 gm In 500 Sodium Chloride 0.9% 500 ml @ 250 mls/hr IV Q12H [facility] Rx#:[id number] metroNIDAZOLE 500mg/NS 100 100mL 500 mg In 100 ml @ 100 mls/hr IV Q8HR [facility] Rx #:[id number] Other: Stool Characteristics Liquid Soft General: Alert, No acute distress HEENT: Atraumatic, EOMI Neck: Supple, +2 carotid pulse wo bruit Cardiovascular: Regular rate, Normal S1, Normal S2 Lungs: Clear to auscultation Abdomen: Bowel sounds, Soft Extremities: no Edema Neurological: Sensation intact Skin: no Rash Psych/Mental Status: Mood NL Assessment/Plan - Problem List Patient Problems: All Active Problems Cholelithiasis (Acute) Diverticulitis (Acute) - Plan Plan: antibiotic for 10 days Nutritional Asmnt/Malnutr-PDOC - Dietary Evaluation Malnutrition Findings (Please click <Entered> for more info): Nutritional Asmnt/Malnutrition Start: 12/14/16 18: 11 Text: Status: Complete Freq: Document 12/14/16 18:11 GSUN (Rec: 12/14/16 18:52 GSUN [email or web address]) Nutritional Asmnt/Malnutrition Patient General Information Nutritional Screening Consult Diagnosis Basilar PNA, acute cholelithiasis, HTN, DM, GERD, hx c diff, chornic renal Pertinent Medical Hx/Surgical Hx ESRD s/p right kidney transplant, peptic ulcer disease, anemia of chronic kidney disease, sacral pressure ulcer stage 2, GERD, essential HTN, hx c diff Subjective Information [address] consult for diarrhea. Pt was NPO for HIDA and CT, ordered [id number] this lunch, observed lunch tray at bedside. Pt had 75% breakfast yesterday 12/13. Pt having diarrhea during visit, pt stated no hx of chronic diarrhea, new onset diarrhea for 1 wk. Observed red sign at door, spoke to RN Ramya, RN confirmed positive for c-diff. Market President informed FNS to use all disposables. Pt confirmed hx kidney transplant "last August." Pt reported usually fair appetite. No muscle/fat wasting noted. Pt does not wish to talk about diets at this time. Pt stated UBW ~ 200lb, denied recent changes, CBW 198lb via bedscale during visit. Current Diet Order/ Nutrition Support [id number] Pertinent Medications Vitamin C, Pepto-Bismol, Colace, Iron, Novolog, Culturelle, Flagyl, Vancomycin , Morphine, Klor-Con, Potassium Phosphate, Fleet Enema Pertinent Labs 12/14: potassium 3.2L, calcium 8.5L, phosphorus 1.8L Nutritional Hx/Data Height 1.88 m Height (Calculated Centimeters) 188.0 Current Weight (lbs) 88.451 kg Weight (Calculated Kilograms) 88.5 Weight (Calculated Grams) 63157.5 [place] Body Weight 190 Weight Status Approriate GI Symptoms GI Symptoms Diarrhea Food Allergies No Skin Integrity/Comment: Earle 16. Edema 2+. Redness. Estimated Nutritional Goals BEE in Kcals: Using Current wt Calories/Kcals/Kg CBW 195lb/88.6kg Kcals Calculated 2658kcal (30kcal/kg) Protein: Using Current wt Protein Calculated 106-124g (1.2-1.4g/kg) Fluid: ml 2658ml (1ml/kcal) Nutritional Problem 1. Problem Problem Inadequate carbohdyrate intake related to Etiology estimated nutritinoal eneds, hypermetabolic state aeb Signs/Symptoms: PNA, current diet providing < 40% CHO of total kcal Intervention/Recommendation Comments 1. Recommend [id number] with double portion vegetable and protin to promote glycemic control while meeting nutritinoal eneds. Current diet order provides to meet < 40% CHO of total kcal, inadequate. 2. Pt is on contact precaution , observed red sign at door. Spoke to PARVIN Bui RN confirmed c-diff positive. Market President informed FNS to use all disposables. 3. Provide DM nutrition edu during follow up as able. Expected Outcomes/Goals Expected Outcomes/Goals 1. PO intake to meet at least 75% of estimated nutritinoal eneds.
--- NOTE | 2016-12-16 19:48 | General Progress Note ---
Objective - Results Result Diagrams: 12/16/16 10:30 12/16/16 10:30 Recent Labs: Laboratory Last Values WBC 13.8 Th/cmm (4.8-10.8) H 12/16/16 10:30 RBC 3.61 Mil/cmm (3.80-5.80) L 12/16/16 10:30 Hgb 10.5 gm/dL (12-16) L 12/16/16 10:30 Hct 32.5 % (41.0-60) L 12/16/16 10:30 MCV 90.2 fl (80-99) 12/16/16 10:30 MCH 29.1 pg (27.0-31.0) 12/16/16 10:30 MCHC Differential 32.3 pg (28.0-36.0) 12/16/16 10:30 RDW 15.9 % (11.5-20.0) 12/16/16 10:30 Plt Count 224 Th/cmm (150-400) 12/16/16 10:30 MPV 8.7 fl 12/16/16 10:30 Neutrophils % NUB CARD TENDER 12/14/16 05:35 Band Neutrophils % 3 % (0-10) 12/16/16 10:30 Lymphocytes % NUB CARD TENDER 12/14/16 05:35 Basophils % NUB CARD TENDER 12/14/16 05:35 Neutrophils (Manual) 91 % (40-80) H 12/16/16 10:30 Lymphocytes 5 % (20-50) L 12/16/16 10:30 Monocytes 1 % (2-10) L 12/16/16 10:30 Platelet Estimate ADEQUATE (NORMAL) 12/16/16 10:30 PT 11.0 SECONDS (9.5-11.5) 12/11/16 21:23 INR 1.06 (0.5-1.4) 12/11/16 21:23 PTT (Actin FS) 26.3 SECONDS (26.0-38.0) 12/11/16 21:23 Sodium 136 mEq/L (136-145) 12/16/16 10:30 Potassium 4.1 mEq/L (3.5-5.1) 12/16/16 10:30 Chloride 109 mEq/L (98-107) H 12/16/16 10:30 Carbon Dioxide 23.7 mEq/L (21.0-31.0) 12/16/16 10:30 Anion Gap 7.4 (7.0-16.0) 12/16/16 10:30 BUN 11 mg/dL (7-25) 12/16/16 10:30 Creatinine 0.9 mg/dL (0.7-1.3) 12/16/16 10:30 Est GFR ( Amer) TNP 12/16/16 10:30 Est GFR (Non-Af Amer) TNP 12/16/16 10:30 BUN/Creatinine Ratio 12.2 12/16/16 10:30 Glucose 116 mg/dL (70-105) H 12/16/16 10:30 POC Glucose 141 MG/DL (70 - 105) H 12/16/16 12:37 Whole Bld Lactic Acid 1.15 mmol/L (0.60-1.99) 12/11/16 21:23 Calcium 8.8 mg/dL (8.6-10.3) 12/16/16 10:30 Phosphorus 1.8 mg/dL (2.5-5.0) L 12/14/16 05:35 Magnesium 1.2 mg/dL (1.9-2.7) L 12/14/16 05:35 Total Bilirubin 0.4 mg/dL (0.3-1.0) 12/16/16 10:30 Direct Bilirubin 0.25 mg/dL (0.0-0.2) H 12/13/16 05:40 AST 7 U/L (13-39) L 12/16/16 10:30 ALT 5 U/L (7-52) L 12/16/16 10:30 Alkaline Phosphatase 54 U/L (34-104) 12/16/16 10:30 B-Natriuretic Peptide 601.0 pg/mL (5.0-100.0) H 12/15/16 05:55 Total Protein 4.0 gm/dL (6.0-8.3) L 12/16/16 10:30 Albumin 2.4 gm/dL (4.2-5.5) L 12/16/16 10:30 Globulin 1.6 gm/dL 12/16/16 10:30 Albumin/Globulin Ratio 1.5 (1.0-1.8) 12/16/16 10:30 Triglycerides 96 mg/dL (<150) 12/12/16 06:00 Cholesterol 122 mg/dL (<200) 12/12/16 06:00 LDL Cholesterol Direct 68 mg/dL (75-193) L 12/12/16 06:00 HDL Cholesterol 32 mg/dL (23-92) 12/12/16 06:00 Amylase 10 U/L (29-103) L 12/11/16 21:23 Lipase < 3 U/L (11-82) L 12/13/16 05:40 TSH 3.16 uIU/ml (0.34-5.60) 12/12/16 06:00 Urine Source CLEAN C 12/11/16 22:30 Urine Color ORANGE 12/11/16 22:30 Urine Clarity HAZY (CLEAR) 12/11/16 22:30 Urine pH 6.0 (4.6 - 8.0) 12/11/16 22:30 Ur Specific [place] 1.020 (1.005-1.030) 12/11/16 22:30 Urine Protein TRACE mg/dL (NEGATIVE) 12/11/16 22:30 Urine Glucose (UA) NEGATIVE mg/dL (NEGATIVE) 12/11/16 22:30 Urine Ketones TRACE mg/dL (NEGATIVE) 12/11/16 22:30 Urine Blood TRACE (NEGATIVE) 12/11/16 22:30 Urine Nitrate NEGATIVE (NEGATIVE) 12/11/16 22:30 Urine Bilirubin NEGATIVE (NEGATIVE) 12/11/16 22:30 Urine Urobilinogen 0.2 E.U./dL (0.2 - 1.0) 12/11/16 22:30 Ur Leukocyte Esterase TRACE (NEGATIVE) H 12/11/16 22:30 Urine RBC 2-5 /hpf (0-5) H 12/11/16 22:30 Urine WBC 2-5 /hpf (0-5) H 12/11/16 22:30 Ur Epithelial Cells NONE SEEN /lpf (FEW) 12/11/16 22:30 Calcium Oxalate Crystal FEW /hpf 12/11/16 22:30 Urine Bacteria OCCASIONAL /hpf (NONE SEEN) 12/11/16 22:30 Stool Occult Blood POSITIVE (NEGATIVE) 12/11/16 22:15 Vancomycin Trough 18.9 ug/mL (10-20) 12/14/16 15:55 - Physical Exam Vitals and I&O: Vital Signs Temp 97.2 F 12/16/16 18:00 Pulse 85 12/16/16 18:52 Resp 18 12/16/16 18:52 BP 118/66 12/16/16 18:00 Pulse Ox 92 12/16/16 18:52 Intake & Output 12/16/16 12/16/16 12/17/16 06:59 18:59 06:59 Intake Total 600 Balance 600 Intake: Intake, IV Amount 600 Vancomycin HCl 1.5 gm In 500 Sodium Chloride 0.9% 500 ml @ 250 mls/hr IV Q12H [facility] Rx#:[id number] metroNIDAZOLE 500mg/NS 100 100mL 500 mg In 100 ml @ 100 mls/hr IV Q8HR [facility] Rx #:[id number] Other: Stool Characteristics Liquid Soft General: Alert, No acute distress HEENT: Atraumatic, EOMI Neck: Supple, +2 carotid pulse wo bruit Cardiovascular: Regular rate, Normal S1, Normal S2 Lungs: Clear to auscultation Abdomen: Bowel sounds, Soft Extremities: no Edema Neurological: Sensation intact Skin: no Rash Psych/Mental Status: Mood NL Assessment/Plan - Problem List Patient Problems: All Active Problems Cholelithiasis (Acute) Diverticulitis (Acute) - Plan Plan: antibiotic for 10 days Nutritional Asmnt/Malnutr-PDOC - Dietary Evaluation Malnutrition Findings (Please click <Entered> for more info): Nutritional Asmnt/Malnutrition Start: 12/14/16 18: 11 Text: Status: Complete Freq: Document 12/14/16 18:11 GSUN (Rec: 12/14/16 18:52 GSUN [email or web address]) Nutritional Asmnt/Malnutrition Patient General Information Nutritional Screening Consult Diagnosis Basilar PNA, acute cholelithiasis, HTN, DM, GERD, hx c diff, chornic renal Pertinent Medical Hx/Surgical Hx ESRD s/p right kidney transplant, peptic ulcer disease, anemia of chronic kidney disease, sacral pressure ulcer stage 2, GERD, essential HTN, hx c diff Subjective Information 76 [address] consult for diarrhea. Pt was NPO for HIDA and CT, ordered [id number] this lunch, observed lunch tray at bedside. Pt had 75% breakfast yesterday 12/13. Pt having diarrhea during visit, pt stated no hx of chronic diarrhea, new onset diarrhea for 1 wk. Observed red sign at door, spoke to RN Ramya, RN confirmed positive for c-diff. Tying Machine Operator informed FNS to use all disposables. Pt confirmed hx kidney transplant "last August." Pt reported usually fair appetite. No muscle/fat wasting noted. Pt does not wish to talk about diets at this time. Pt stated UBW ~ 200lb, denied recent changes, CBW 198lb via bedscale during visit. Current Diet Order/ Nutrition Support [id number] Pertinent Medications Vitamin C, Pepto-Bismol, Colace, Iron, Novolog, Culturelle, Flagyl, Vancomycin , Morphine, Klor-Con, Potassium Phosphate, Fleet Enema Pertinent Labs 12/14: potassium 3.2L, calcium 8.5L, phosphorus 1.8L Nutritional Hx/Data Height 1.88 m Height (Calculated Centimeters) 188.0 Current Weight (lbs) 88.451 kg Weight (Calculated Kilograms) 88.5 Weight (Calculated Grams) 55019.5 [place] Body Weight 190 Weight Status Approriate GI Symptoms GI Symptoms Diarrhea Food Allergies No Skin Integrity/Comment: Earle 16. Edema 2+. Redness. Estimated Nutritional Goals BEE in Kcals: Using Current wt Calories/Kcals/Kg CBW 195lb/88.6kg Kcals Calculated 2658kcal (30kcal/kg) Protein: Using Current wt Protein Calculated 106-124g (1.2-1.4g/kg) Fluid: ml 2658ml (1ml/kcal) Nutritional Problem 1. Problem Problem Inadequate carbohdyrate intake related to Etiology estimated nutritinoal eneds, hypermetabolic state aeb Signs/Symptoms: PNA, current diet providing < 40% CHO of total kcal Intervention/Recommendation Comments 1. Recommend [id number] with double portion vegetable and protin to promote glycemic control while meeting nutritinoal eneds. Current diet order provides to meet < 40% CHO of total kcal, inadequate. 2. Pt is on contact precaution , observed red sign at door. Spoke to PARVIN Bui RN confirmed c-diff positive. Tying Machine Operator informed FNS to use all disposables. 3. Provide DM nutrition edu during follow up as able. Expected Outcomes/Goals Expected Outcomes/Goals 1. PO intake to meet at least 75% of estimated nutritinoal eneds.
[2016-12-17] MEDS ORDERED: Vancomycin HCl 1.5 GM in Sodium Chloride 0.9% 500 ML IV SCH (01:00)
--- NOTE | 2016-12-24 19:47 | Discharge Summary ---
DATE OF DISCHARGE: 12/16/2016 HOSPITAL COURSE: This is a 76-year-old male, who was admitted from the long term through the Emergency Room due to right upper quadrant abdominal pain. From the Emergency Room, CT scan showed that the patient has some gallstones and diverticulosis. The patient was subsequently admitted to med/surg unit where series of test were done and some antibiotics were given. Surgical consultation was done and accordingly, the patient does not need any surgery at this time, hence IV antibiotic management was provided to the patient. The patient was discharged to [facility] for IV antibiotic management to be followed by Dr. Dahl. Medication reconciliation was done according. JOB# [id number]
--- NOTE | 2016-12-24 19:47 | Discharge Summary ---
DATE OF DISCHARGE: 12/16/2016 HOSPITAL COURSE: This is a 76-year-old male, who was admitted from the alf through the Emergency Room due to right upper quadrant abdominal pain. From the Emergency Room, CT scan showed that the patient has some gallstones and diverticulosis. The patient was subsequently admitted to med/surg unit where series of test were done and some antibiotics were given. Surgical consultation was done and accordingly, the patient does not need any surgery at this time, hence IV antibiotic management was provided to the patient. The patient was discharged to [facility] for IV antibiotic management to be followed by Dr. Dahl. Medication reconciliation was done according. JOB# [id number]
--- NOTE | 2016-12-24 19:47 | Discharge Summary ---
DATE OF DISCHARGE: 12/16/2016 HOSPITAL COURSE: This is a 76-year-old male, who was admitted from the long-term through the Emergency Room due to right upper quadrant abdominal pain. From the Emergency Room, CT scan showed that the patient has some gallstones and diverticulosis. The patient was subsequently admitted to med/surg unit where series of test were done and some antibiotics were given. Surgical consultation was done and accordingly, the patient does not need any surgery at this time, hence IV antibiotic management was provided to the patient. The patient was discharged to [facility] for IV antibiotic management to be followed by Dr. Dahl. Medication reconciliation was done according. JOB# [id number]
== END 2016-12-16 20:53 | DRG 871 ==
LOC: ER 20:55 → MSI 12-12 01:15 → UNDODISIN 12-16 19:38
PROVIDERS: ADMIT Internal Medicine; ATTEND Internal Medicine
DX: A41.9 Sepsis, unspecified organism (principal); J18.9 Pneumonia, unspecified organism; E43 Unspecified severe protein-calorie malnutrition; J90 Pleural effusion, not elsewhere classified; N18.6 End stage renal disease; L89.152 Pressure ulcer of sacral region, stage 2; A04.8 Other specified bacterial intestinal infections; I12.0 Hypertensive chronic kidney disease with stage 5 chronic kidney disease or end stage renal disease; Z94.0 Kidney transplant status; K57.92 Diverticulitis of intestine, part unspecified, without perforation or abscess without bleeding; K52.9 Noninfective gastroenteritis and colitis, unspecified; Y95 Nosocomial condition; I25.10 Atherosclerotic heart disease of native coronary artery without angina pectoris; E11.22 Type 2 diabetes mellitus with diabetic chronic kidney disease; K21.9 Gastro-esophageal reflux disease without esophagitis; E87.6 Hypokalemia; K80.20 Calculus of gallbladder without cholecystitis without obstruction; D63.1 Anemia in chronic kidney disease; D35.02 Benign neoplasm of left adrenal gland; N30.90 Cystitis, unspecified without hematuria; Z79.51 Long term (current) use of inhaled steroids; Z79.4 Long term (current) use of insulin; Z90.49 Acquired absence of other specified parts of digestive tract; Z68.24 Body mass index [BMI] 24.0-24.9, adult; Z88.0 Allergy status to penicillin
CPT/HCPCS: 36415-UA; 71010-TC; 71250-TC; 78226-TC; 80048-TC; 80053-TC; 80061-TC; 80076-TC; 80202-TC; 81001-TC; 82150-TC; 82270-TC; 82948-90; 83605; 83690-TC; 83735-TC; 83880-TC; 84100-TC; 84443-TC; 85007-TC; 85027-TC; 85610-TC; 86738-90; 87070; 87086-90; 87449-90; 90779; 90799; 94640; 94760; A9537; J1170; J1644; J1815; J2270; J3370; J3475; J5707; J7030; J7040; J7613; Z7610